=== PATIENT | male | born 1945 | race Caucasian/White ===

== ENCOUNTER → 2016-09-07 | Outpatient (CLI) | payer OTHER ==
[~2016-09-07] MED LIST: ASPCH81X PO; ATOR10TA82 PO; CLIN1GEL29 TOP; COLE625T PO; DOXY100C76 PO; FINA5TAB4 PO; GLIM1TAB2 PO; IBUP-103 PO; LSN40 PO; LZL25 PO; METF500T5 PO; METO25TA3 PO; MULT-506 PO; NRV/5 PO; POTA20TA16 PO; SITA100T3 PO; TAMS0.4C38 PO
--- NOTE | 2016-09-14 10:11 | CODING QUERY MEDICAL NECESSITY ---
CQSUPPORTING DIAGNOSIS NEEDED A supporting diagnosis is required for the test/procedure performed on this patient in order for us to be reimbursed by the patient's insurance. Please provide a supporting diagnosis for the following test/procedure listed below next to the test name along with your signature. *If there is no additional diagnosis for this patient that would support the following test/procedure please document that below next to the test/procedure. Test(s)/Procedure(s) that require a supporting diagnosis: DOS 09/07/16 VITAMIN B6 VITAMIN B12 Provider Signature: Date: Thank you Bailee Cano Health Information Management Once completed, please kindly fax back to [phone] For questions please call [phone]
== END | disposition home or self-care (01) ==
LOC: C.LAB 14:55
PROVIDERS: ATTEND Psychiatry & Neurology Neurology
DX: E53.8 Deficiency of other specified B group vitamins (principal); T45.2X5A Adverse effect of vitamins, initial encounter; X58.XXXA Exposure to other specified factors, initial encounter

== ENCOUNTER → 2017-01-22 | Outpatient (CLI) | payer OTHER ==
[~2017-01-22] MED LIST changes: -ATOR10TA82 PO; +ATOR10TA88 PO
== END | disposition home or self-care (01) ==
LOC: C.LAB 17:32
PROVIDERS: ATTEND Urology
DX: N40.0 Benign prostatic hyperplasia without lower urinary tract symptoms (principal)

== ENCOUNTER 2024-01-08 00:01 | Observation (INO) ==
[2024-01-08 00:46] LABS: Appearance Urine Clear (Clear); Bilirubin Urine Negative (Negative); Blood Urine Negative (Negative); Color Urine Yellow; Glucose Urine UA Negative (Negative); Ketones Urine Trace (Negative); Leukocyte Esterase Urine Negative (Negative); Nitrite Urine Negative (Negative); Protein Urine Negative (Negative); Specific Gravity Urine 1.014 (1.000-1.030); Urobilinogen Urine Negative (Negative)
[2024-01-08 01:20] LABS: Basophils # (auto) 0.02 K/uL (0.00-0.20); Basophils % (auto) 0.2 %; Eosinophils # (auto) 0.22 K/uL (0.00-0.50); Eosinophils % (auto) 2.2 %; Hematocrit (blood only) 36.3 % (42.0-52.0); Hemoglobin 12.3 g/dl (14.0-18.0); Immature Granulocytes # (auto) 0.03 K/uL (0.01-0.20); Immature Granulocytes % (auto) 0.3 %; Lymphocytes # (auto) 2.14 K/uL (1.20-3.40); Lymphocytes % (auto) 21.6 %; Mean Corpuscular Hemoglobin 29.1 pg (25.0-34.0); Mean Corpuscular Hgb Conc 33.9 g/dL (32.0-36.0); Mean Corpuscular Volume 85.8 fL (80.0-100.0); Mean Platelet Volume 12.1 fL (9.4-12.4); Monocytes # (auto) 1.01 K/uL (0.11-0.59); Monocytes % (auto) 10.2 %; Neutrophils % (auto) 65.5 %; Platelet Count 259 K/uL (130-400); RDW Coefficient of Variation 12.8 % (11.5-14.5); RDW Standard Deviation 39.6 fL (36.4-46.3); Red Blood Count 4.23 M/uL (4.70-6.10); White Blood Count 9.92 K/ul (4.8-10.8)
[2024-01-08 01:36] LABS: Alanine Aminotransferase 14 U/L (7-52); Albumin Globulin Ratio 1.3 (0.9-2); Alkaline Phosphatase 94 U/L (34-104); Anion Gap 12 (3-11); BUN Creatinine Ratio 18.2 (10-20); Bilirubin,Total 0.5 mg/dl (0.2-1.0); Blood Urea Nitrogen 24 mg/dl (6-23); Calcium 9.7 mg/dl (8.6-10.3); Carbon Dioxide 26 mmol/L (21-32); Chloride 101 mmol/L (98-107); Creatinine Clr Calc Pharmacy 50.6 ml/min; Est GFR (African American) 59.5 ml/min; Est GFR (Non-African American) 51.3 ml/min; Glucose 138 mg/dl (70-99(Fasting)); Sodium 139 mmol/L (136-145)
[2024-01-08 01:38] LABS: Thyroid Stimulating Hormone 6.171 uIu/ml (0.300-4.500)
[2024-01-08 02:26] LABS: T4 Free Thyroxine 1.22 ng/dl (0.61-1.60)
--- NOTE | 2024-01-08 02:39 | CT Scan Report ---
Exam(s): CT HEAD Without Contrast EXAM: CT Head Without Intravenous Contrast CLINICAL HISTORY: Reason for exam: altered . TECHNIQUE: Axial computed tomography images of the head/brain without intravenous contrast. Automated exposure control was utilized for the study. A dose lowering technique was utilized adhering to the principles of ALARA. COMPARISON: No relevant prior studies available. FINDINGS: No acute intracranial hemorrhage. No midline shift or mass effect. The territorial alvarenga-white matter differentiation is maintained throughout. Age-related cerebral volume loss. Periventricular and subcortical white matter hypoattenuation, consistent with chronic microangiopathy. The visualized orbits appear grossly unremarkable. The calvarium is intact. The visualized paranasal sinuses and mastoid air cells are grossly clear. IMPRESSION: No acute intracranial hemorrhage, midline shift, or mass effect. Electronically signed by: Jose Valdivia MD 01/08/24 02:38 AM
[2024-01-08 03:08] LABS: Potassium 3.3 mmol/L (3.5-5.1)
--- NOTE | 2024-01-08 03:55 | Emergency Department Note ---
Impression & Plan Elevated troponin, Weakness, Acute alteration in mental status admit to the [facility] ED Provider Note NAME: SPENCER GRIFFITH AGE: 78 SEX: Male INFORMANT: Patient ED PROVIDER(S): Danna Collins DO CHIEF COMPLAINT: Abdominal pain and altered mental status PLAN: Disposition: admit to the [facility] MEDICAL DECISION MAKING: this is a 78-year-old male patient who presents to the emergency department at the direction of his who states that he was not acting normal. Patient described having abdominal pressure throughout the day today. Patient himself complained of being dizzy and weak. patient then began to develop some hallucinations tonight which was concerning for the and she called EMS. Laboratory studies reveal no leukocytosis. Hemoglobin is down to 12.3. BUN is 24 and creatinine was 1.3. Glucose was 138. TSH was elevated but free T4 was normal. Patient's troponin was significantly elevated at 329. Patient went for a CT scan of the brain which was unremarkable. Patient had an EKG which showed some evidence of ST segment depression in the lateral leads and was noted to have an elevated troponin. He did deny any chest discomfort or shortness of breath. Care/management discussed with: manager building spoke with the patient's Triage Nursing notes: reviewed and agree with them. Vital Signs: reviewed and unremarkable Additional History obtained from: the patient's on the phone Chronic Medical/Social Conditions affecting care: Patient is wheelchair-bound at baseline Differential Diagnosis: intracranial process, UTI, dehydration, metabolic encephalopathy Diagnostics, independently interpreted by me: ECG: sinus tachycardia at a rate of 103 with PVCs. Patient has mild ST segment depression in the lateral leads compared to an EKG from 2013 Cardiac Monitoring: normal sinus rhythm at 92 Imaging studies: CT scan of the brain as per stat rad portable chest x-ray: As per my independent interpretation-sternotomy wires noted but no significant pulmonary infiltrates or consolidation appreciated. HPI: 78 year old Male arrives and complains of abdominal pressure and dizziness. The patient's explains he had increasing weakness throughout the day today along with some confusion. By nighttime, the patient was having hallucinations. PAST MEDICAL HISTORY: See Below, PAST SURGICAL HISTORY: See Below, SOCIAL HISTORY: See Below, HOME MEDICATIONS: see list ALLERGIES: none VITALS: See Below PHYSICAL EXAMINATION: HEENT: Head - normocephalic and atraumatic. Pupils are equal, round, and reactive to light. Extraocular eye muscles are intact and sclera are anicteric. Nose - moist nasal mucosa without discharge. Mouth - moist buccal mucosa. Oropharynx is nonerythematous and there is no tonsillar exudate or edema noted. Neck: Supple; no JVD, nuchal rigidity, cervical lymphadenopathy, or auscultated bruits. Heart: Regular rate and rhythm. There is a normal S1 and S2 with no murmurs, clicks, or gallops appreciated. Lungs: Clear to auscultation bilaterally with no wheezes, rales, or rhonchi. Abdomen: Soft, completely nontender, nondistended, with good bowel sounds. There are no palpable pulsatile masses or hepatosplenomegaly. There is no guarding, rigidity, or rebound noted. Extremities: No evidence of cyanosis, clubbing, or edema. There are easily palpable peripheral pulses. Neuro:The patient is awake and alert, oriented to day, time, and place. Neurological exam was essentially nonfocal. The patient has a history of significant generalized weakness and is wheelchair-bound. Emergency Department course: The patient was evaluated in room B-6. A complete history and physical was performed. IV lock was initiated and labs were drawn as above. An order was placed for continuous cardiac monitoring. Patient was in a normal sinus rhythm at a rate of 92. Of note, the patient seemed extremely weak and stiff on my exam. The patient went for CT scan of the brain Which was unremarkable. Theatric casey saw operator spoke with the patient's who voiced concerns about her ability to care for the patient at home and his significant increased weakness. 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 Lower back pain Encounter for pre-operative examination Hematuria (Chronic) Diabetes (Chronic) Acute urinary retention (Acute) Acute urinary retention (Acute) Bilateral lower extremity edema (Acute) Medical History Benign prostatic hyperplasia with urinary obstruction Acute urinary retention Osteoarthritis BPH (benign prostatic hyperplasia) Diabetes mellitus, type 2 Peripheral neuropathy Hyperlipidemia Hypertension Sleep apnea Surgical History H/O removal of cyst S/P foot surgery, right History of tonsillectomy History of appendectomy Previous back surgery S/P TURP History of heart valve replacement Family History Family/Other Family history of diabetes mellitus Social History Smoking Status: Never smoker Second Hand Exposure: No; Do You Dip or Chew Tobacco: No; Hx Alcohol Use: No Hx Substance Use: No Preferred Language: Sinhala Communication Ability: Effective Multi Operation Machine Operator Required: No Beliefs That Will Affect Care: None Current Living Situation: Spouse Feels Safe at Home: Yes Assistive Devices: Contacts, CPAP and Walker Allergies Allergies Allergy/AdvReac Type Severity Reaction Status Date / Time No Known Allergies Allergy Verified 11/29/22 12:53 Home Meds Home Medications Medication Instructions Recorded Confirmed amlodipine 5 mg tablet 5 mg PO QAM 02/13/18 01/08/24 atorvastatin 10 mg tablet 10 mg PO QAM 02/13/18 01/08/24 clindamycin phosphate 1 % topical 1 applic topical BID 02/13/18 01/08/24 solution doxycycline monohydrate 50 mg 50 mg PO QPM 02/13/18 01/08/24 tablet ibuprofen 200 mg tablet 400 mg PO BID 02/13/18 01/08/24 indapamide 2.5 mg tablet 2.5 mg PO QAM 02/13/18 01/08/24 lisinopril 40 mg tablet 40 mg PO QAM 02/13/18 01/08/24 metformin 1,000 mg tablet,extended 2,000 mg PO QAM 02/13/18 01/08/24 release 24hr (osmotic) metoprolol succinate 25 mg 25 mg PO QAM 02/13/18 01/08/24 tablet,extended release 24 hr potassium chloride 20 mEq 20 meq PO BID 02/13/18 01/08/24 tablet,extended release sitagliptin phosphate 100 mg 100 mg PO QAM 02/13/18 01/08/24 tablet (Januvia) threonine (bulk) (L-Threonine 1 tab miscellaneous HS 02/13/18 11/29/22 crystals) Cyanacobalamin 1,000 mcg PO DAILY 01/08/24 01/08/24 Flonase 01/08/24 bethanechol chloride 50 mg tablet 50 mg PO 1XD 01/08/24 01/08/24 srveanimrfip-[id number] tablet 1 tab PO DAILY 01/08/24 01/08/24 Previous Rx's Medication Instructions Recorded tamsulosin 0.4 mg capsule See Rx Instructions .Route 11/25/23 .COMPLEX #90 caps finasteride 5 mg tablet 5 mg PO DAILY #90 tabs 12/05/23 Results & Data (ED) Vital Signs Vital Signs - 24 hr 01/08/24 00:04 01/08/24 00:04 01/08/24 00:04 Temperature 37.4 C 37.4 C Temperature Source Oral Oral Pulse Rate 103 H Pulse Rate [Finger] 103 H Pulse Rate from SpO2 Sensor Pulse Rhythm Regular Pulse Rhythm [Finger] Regular Pulse Strength Normal Pulse Strength [Finger] Normal Respiratory Rate 18 18 Respiratory Effort / Characteristics Non-Labored Non-Labored Respiratory Depth Normal Normal Respiratory Pattern Regular Regular Blood Pressure Blood Pressure [Left Arm] 148/85 H Blood Pressure Mean Blood Pressure Mean [Left Arm] 106 Pulse Oximetry 98 98 98 Oxygen Delivery Method Room Air Room Air Room Air Sepsis Recent Fever Within 48 Hours No Sepsis New/Unexplained Change in Mental Status No Sepsis Action Taken by Nursing No Action Required 01/08/24 00:12 01/08/24 00:29 01/08/24 01:00 Temperature Temperature Source Pulse Rate 99 H 95 H Pulse Rate [Finger] Pulse Rate from SpO2 Sensor 99 H Pulse Rhythm Pulse Rhythm [Finger] Pulse Strength Pulse Strength [Finger] Respiratory Rate 16 Respiratory Effort / Characteristics Respiratory Depth Respiratory Pattern Blood Pressure Blood Pressure [Left Arm] Blood Pressure Mean Blood Pressure Mean [Left Arm] Pulse Oximetry 98 96 Oxygen Delivery Method Room Air Room Air Sepsis Recent Fever Within 48 Hours Sepsis New/Unexplained Change in Mental Status Sepsis Action Taken by Nursing 01/08/24 01:46 01/08/24 02:00 01/08/24 02:42 Temperature Temperature Source Pulse Rate 96 H 92 H Pulse Rate [Finger] Pulse Rate from SpO2 Sensor 92 H 98 H Pulse Rhythm Pulse Rhythm [Finger] Pulse Strength Pulse Strength [Finger] Respiratory Rate 16 17 Respiratory Effort / Characteristics Respiratory Depth Respiratory Pattern Blood Pressure 149/92 H 154/84 H Blood Pressure [Left Arm] Blood Pressure Mean 114 123 Blood Pressure Mean [Left Arm] Pulse Oximetry 97 97 Oxygen Delivery Method Room Air Room Air Sepsis Recent Fever Within 48 Hours Sepsis New/Unexplained Change in Mental Status Sepsis Action Taken by Nursing 01/08/24 03:30 01/08/24 04:24 01/08/24 04:30 Temperature Temperature Source Pulse Rate 100 H 92 H 94 H Pulse Rate [Finger] Pulse Rate from SpO2 Sensor 89 97 H Pulse Rhythm Pulse Rhythm [Finger] Pulse Strength Pulse Strength [Finger] Respiratory Rate 19 18 Respiratory Effort / Characteristics Respiratory Depth Respiratory Pattern Blood Pressure 153/86 H 155/82 H Blood Pressure [Left Arm] Blood Pressure Mean 108 106 Blood Pressure Mean [Left Arm] Pulse Oximetry 96 97 Oxygen Delivery Method Room Air Room Air Sepsis Recent Fever Within 48 Hours Sepsis New/Unexplained Change in Mental Status Sepsis Action Taken by Nursing 01/08/24 05:00 01/08/24 05:27 01/08/24 06:33 Temperature Temperature Source Pulse Rate 93 H 109 H 99 H Pulse Rate [Finger] Pulse Rate from SpO2 Sensor 100 H Pulse Rhythm Pulse Rhythm [Finger] Pulse Strength Pulse Strength [Finger] Respiratory Rate 20 20 17 Respiratory Effort / Characteristics Respiratory Depth Respiratory Pattern Blood Pressure 156/96 H 144/95 H 147/95 H Blood Pressure [Left Arm] Blood Pressure Mean 116 111 112 Blood Pressure Mean [Left Arm] Pulse Oximetry 98 95 96 Oxygen Delivery Method Room Air Room Air Room Air Sepsis Recent Fever Within 48 Hours Sepsis New/Unexplained Change in Mental Status Sepsis Action Taken by Nursing Laboratory Data 01/08/24 00:13 01/08/24 02:10 Lab Results 01/08/24 01/08/24 01/08/24 Range/Units 00:13 00:15 02:10 WBC 9.92 (4.8-10.8) K/ul RBC 4.23 L (4.70-6.10) M/uL Hgb 12.3 L (14.0-18.0) g/dl Hct 36.3 L (42.0-52.0) % MCV 85.8 (80.0-100.0) fL MCH 29.1 (25.0-34.0) pg MCHC 33.9 (32.0-36.0) g/dL RDW Std Deviation 39.6 (36.4-46.3) fL RDW Coeff of Lianna 12.8 (11.5-14.5) % Plt Count 259 (130-400) K/uL MPV 12.1 (9.4-12.4) fL Immature Gran % (Auto) 0.3 % Neut % (Auto) 65.5 % Lymph % (Auto) 21.6 % [place] % (Auto) 10.2 % Eos % (Auto) 2.2 % Baso % (Auto) 0.2 % Neut # (Auto) 6.50 (1.40-6.50) K/uL Lymph # (Auto) 2.14 (1.20-3.40) K/uL [place] # (Auto) 1.01 H (0.11-0.59) K/uL Eos # (Auto) 0.22 (0.00-0.50) K/uL Baso # (Auto) 0.02 (0.00-0.20) K/uL Immature Gran # (Auto) 0.03 (0.01-0.20) K/uL Sodium 139 (136-145) mmol/L Potassium TNP 3.3 L Chloride 101 (98-107) mmol/L Carbon Dioxide 26 (21-32) mmol/L Anion Gap 12 H (3-11) BUN 24 H (6-23) mg/dl Creatinine 1.32 (0.6-1.4) mg/dl Est Cr Clr Drug Dosing 50.6 ml/min Est GFR ( Amer) 59.5 ml/min Est GFR (Non-Af Amer) 51.3 ml/min BUN/Creatinine Ratio 18.2 (10-20) Glucose 138 H (70-99(Fasting)) mg/dl Calcium 9.7 (8.6-10.3) mg/dl Magnesium (1.7-2.4) mg/dl Total Bilirubin 0.5 (0.2-1.0) mg/dl AST TNP 18 ALT 14 (7-52) U/L Alkaline Phosphatase 94 (34-104) U/L Total Creatine Kinase (30-223) U/L Troponin I High Sens 387.8 H* 329.6 H* (0-20) pg/ml Total Protein 7.0 (6.0-8.3) gm/dl Albumin 4.0 (3.4-5.0) gm/dl Globulin 3.0 (2.5-4.0) gm/dl Albumin/Globulin Ratio 1.3 (0.9-2) TSH 6.171 H (0.300-4.500) uIu/ml Free T4 1.22 (0.61-1.60) ng/dl Urine Color Yellow Urine Appearance Clear (Clear) Urine pH 5.0 (4.5-7.5) Ur Specific [place] 1.014 (1.000-1.030) Urine Protein Negative (Negative) Urine Glucose (UA) Negative (Negative) Urine Ketones Trace H (Negative) Urine Blood Negative (Negative) Urine Nitrite Negative (Negative) Urine Bilirubin Negative (Negative) Urine Urobilinogen Negative (Negative) Ur Leukocyte Esterase Negative (Negative) Adenovirus (PCR) (NotDetected) B. pertussis DNA (PCR) (NotDetected) B.parapertussis DNA PCR (NotDetected) C. pneumoniae DNA (PCR) (NotDetected) Coronavirus OC43 (PCR) (NotDetected) Coronavirus HKU1 (PCR) (NotDetected) Coronavirus 229E (PCR) (NotDetected) SARS-CoV-2 (PCR) (NotDetected) Coronavirus NL63 (PCR) (NotDetected) Human Metapneumovir PCR (NotDetected) Influenza Type A (PCR) (NotDetected) Influenza Type B (PCR) (NotDetected) M. pneumoniae (PCR) (NotDetected) Parainfluenza 1 (PCR) (NotDetected) Parainfluenza 2 (PCR) (NotDetected) Parainfluenza 3 (PCR) (NotDetected) Parainfluenza 4 (PCR) (NotDetected) RSV (PCR) (NotDetected) Entero/Rhino (PCR) (NotDetected) 01/08/24 01/08/24 Range/Units 05:41 06:06 WBC (4.8-10.8) K/ul RBC (4.70-6.10) M/uL Hgb (14.0-18.0) g/dl Hct (42.0-52.0) % MCV (80.0-100.0) fL MCH (25.0-34.0) pg MCHC (32.0-36.0) g/dL RDW Std Deviation (36.4-46.3) fL RDW Coeff of Lianna (11.5-14.5) % Plt Count (130-400) K/uL MPV (9.4-12.4) fL Immature Gran % (Auto) % Neut % (Auto) % Lymph % (Auto) % [place] % (Auto) % Eos % (Auto) % Baso % (Auto) % Neut # (Auto) (1.40-6.50) K/uL Lymph # (Auto) (1.20-3.40) K/uL [place] # (Auto) (0.11-0.59) K/uL Eos # (Auto) (0.00-0.50) K/uL Baso # (Auto) (0.00-0.20) K/uL Immature Gran # (Auto) (0.01-0.20) K/uL Sodium (136-145) mmol/L Potassium Chloride (98-107) mmol/L Carbon Dioxide (21-32) mmol/L Anion Gap (3-11) BUN (6-23) mg/dl Creatinine (0.6-1.4) mg/dl Est Cr Clr Drug Dosing ml/min Est GFR ( Amer) ml/min Est GFR (Non-Af Amer) ml/min BUN/Creatinine Ratio (10-20) Glucose (70-99(Fasting)) mg/dl Calcium (8.6-10.3) mg/dl Magnesium 1.5 L (1.7-2.4) mg/dl Total Bilirubin (0.2-1.0) mg/dl AST ALT (7-52) U/L Alkaline Phosphatase (34-104) U/L Total Creatine Kinase 81 (30-223) U/L Troponin I High Sens (0-20) pg/ml Total Protein (6.0-8.3) gm/dl Albumin (3.4-5.0) gm/dl Globulin (2.5-4.0) gm/dl Albumin/Globulin Ratio (0.9-2) TSH (0.300-4.500) uIu/ml Free T4 (0.61-1.60) ng/dl Urine Color Urine Appearance (Clear) Urine pH (4.5-7.5) Ur Specific [place] (1.000-1.030) Urine Protein (Negative) Urine Glucose (UA) (Negative) Urine Ketones (Negative) Urine Blood (Negative) Urine Nitrite (Negative) Urine Bilirubin (Negative) Urine Urobilinogen (Negative) Ur Leukocyte Esterase (Negative) Adenovirus (PCR) Not Detected (NotDetected) B. pertussis DNA (PCR) Not Detected (NotDetected) B.parapertussis DNA PCR Not Detected (NotDetected) C. pneumoniae DNA (PCR) Not Detected (NotDetected) Coronavirus OC43 (PCR) Not Detected (NotDetected) Coronavirus HKU1 (PCR) Not Detected (NotDetected) Coronavirus 229E (PCR) Not Detected (NotDetected) SARS-CoV-2 (PCR) Not Detected (NotDetected) Coronavirus NL63 (PCR) Not Detected (NotDetected) Human Metapneumovir PCR Not Detected (NotDetected) Influenza Type A (PCR) Not Detected (NotDetected) Influenza Type B (PCR) Not Detected (NotDetected) M. pneumoniae (PCR) Not Detected (NotDetected) Parainfluenza 1 (PCR) Not Detected (NotDetected) Parainfluenza 2 (PCR) Not Detected (NotDetected) Parainfluenza 3 (PCR) Not Detected (NotDetected) Parainfluenza 4 (PCR) Not Detected (NotDetected) RSV (PCR) Not Detected (NotDetected) Entero/Rhino (PCR) Not Detected (NotDetected) Administered Medications Potassium Chloride/Sodium Chloride (Normal Saline W/20 Meq Kcl) 20 meq in 1,000 mls @ 75 mls/hr IV .[id number]; Protocol Stop: 01/08/24 17:58 Last Admin: 01/08/24 06:03 Dose: 75 mls/hr Documented By: S Imaging Data Radiologist's Impression: Head CT 01/08/24 01:15 Exam(s): CT HEAD Without Contrast EXAM: CT Head Without Intravenous Contrast CLINICAL HISTORY: Reason for exam: altered . TECHNIQUE: Axial computed tomography images of the head/brain without intravenous contrast. Automated exposure control was utilized for the study. A dose lowering technique was utilized adhering to the principles of ALARA. COMPARISON: No relevant prior studies available. FINDINGS: No acute intracranial hemorrhage. No midline shift or mass effect. The territorial alvarenga-white matter differentiation is maintained throughout. Age-related cerebral volume loss. Periventricular and subcortical white matter hypoattenuation, consistent with chronic microangiopathy. The visualized orbits appear grossly unremarkable. The calvarium is intact. The visualized paranasal sinuses and mastoid air cells are grossly clear. IMPRESSION: No acute intracranial hemorrhage, midline shift, or mass effect. Electronically signed by: Jose Valdivia MD 01/08/24 02:38 AM Discharge Plan Visit Data Chief Complaint: Altered Mental Status Stated Complaint: AMS ED Provider: Danna Collins Discharge Problem: Elevated troponin, Weakness, Acute alteration in mental status Forms Stand Alone Forms: My [facility] Prescriptions Prescriptions: No Action tamsulosin 0.4 mg capsule See Rx Instructions .ROUTE .COMPLEX Qty: 90 3RF Dose Instruction: TAKE 1 CAPSULE DAILY Rx Instructions: TAKE 1 CAPSULE DAILY finasteride 5 mg tablet 5 mg PO DAILY Qty: 90 3RF atorvastatin 10 mg Tablet 10 mg PO QAM doxycycline monohydrate 50 mg Tablet 50 mg PO QPM indapamide 2.5 mg Tablet 2.5 mg PO QAM lisinopril 40 mg Tablet 40 mg PO QAM metformin 1,000 mg Tablet Extended Release 24hr 2,000 mg PO QAM amlodipine 5 mg Tablet 5 mg PO QAM metoprolol succinate 25 mg Tablet Extended Release 24 Hr 25 mg PO QAM clindamycin phosphate 1 % Solution 1 applic TOPICAL BID ibuprofen 200 mg Tablet 400 mg PO BID Januvia 100 mg Tablet 100 mg PO QAM potassium chloride 20 mEq Tablet Extended Release 20 meq PO BID threonine (bulk) [L-Threonine] Crystals 1 tab miscellaneous HS Cyanacobalamin 1,000 mcg PO DAILY Flonase Centrum Silver Tablet 1 tab PO DAILY bethanechol chloride 50 mg Tablet 50 mg PO 1XD Rx Instructions: 4 tablets by mouth in the morning Referrals Referrals: Blaine Solis MD [Primary Care Provider] -
--- NOTE | 2024-01-08 05:23 | History & Physical Report ---
Date of Service January 08, 2024 Assessment & Plan (1) Ambulatory dysfunction: Plan: Ambulatory dysfunction with deconditioning Progressive over the last few weeks troponin elevation possibly from elevated blood pressure documented at patient's home aortic stenosis status post bioprosthetic AVR Mild mitral stenosis hyperlipidemia, on statin Rx DM2 on oral medications, well-controlled as of recent hemoglobin A1c of 6 last October 2023 chronic anemia, hemoglobin at baseline Medical telemetry given troponin elevation Follow troponin TTE for progression ISS BG goal 1 10-1 40, carb count coverage PT OT eval Social service re: possible placement (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 Lovenox subcu Full code Patient requesting updates providers. Katlyn Montalvo, contact #[phone]. Text document was generated using [employer] voice recognition software. It may contain grammatical or spelling errors. Kindly contact undersigned for clarification of any documentation item in question. History of Present Illness Chief Complaint: weakness Primary Care Provider: Blaine Solis MD History obtained from patient and records. Medical history significant for aortic stenosis status post bioprosthetic AVR, hypertension, hyperlipidemia, VIKRAM as per records DM2 on oral medications, chronic anemia (baseline hemoglobin of 12), BPH. Over the last few weeks, patient noted to have increasing bilateral leg weakness and balance difficulties leading to falls. Patient having trouble even sitting up on bed on his own. Episode of confusion. Patient denies headache, chest pain, SOB, syncope, abdominal pain. Patient seen at PCPs office yesterday. Hospitalization recommended but patient and declined. Worsening symptoms noted at home. SBP 180s upon EMS arrival at patient's home Patient brought to ER for evaluation. 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 Allergies Allergy/AdvReac Type Severity Reaction Status Date / Time No Known Allergies Allergy Verified 11/29/22 12:53 Home Medications Medication Instructions Recorded Confirmed Type amlodipine 5 mg tablet 5 mg PO QAM 02/13/18 01/08/24 History atorvastatin 10 mg tablet 10 mg PO QAM 02/13/18 01/08/24 History clindamycin phosphate 1 % topical 1 applic topical BID 02/13/18 01/08/24 History solution doxycycline monohydrate 50 mg 50 mg PO QPM 02/13/18 01/08/24 History tablet ibuprofen 200 mg tablet 400 mg PO BID 02/13/18 01/08/24 History indapamide 2.5 mg tablet 2.5 mg PO QAM 02/13/18 01/08/24 History lisinopril 40 mg tablet 40 mg PO QAM 02/13/18 01/08/24 History metformin 1,000 mg tablet,extended 2,000 mg PO QAM 02/13/18 01/08/24 History release 24hr (osmotic) metoprolol succinate 25 mg 25 mg PO QAM 02/13/18 01/08/24 History tablet,extended release 24 hr potassium chloride 20 mEq 20 meq PO BID 02/13/18 01/08/24 History tablet,extended release sitagliptin phosphate 100 mg 100 mg PO QAM 02/13/18 01/08/24 History tablet (Januvia) threonine (bulk) (L-Threonine 1 tab miscellaneous HS 02/13/18 01/08/24 History crystals) tamsulosin 0.4 mg capsule See Rx Instructions .Route 11/25/23 01/08/24 Rx .COMPLEX #90 caps finasteride 5 mg tablet 5 mg PO DAILY #90 tabs 12/05/23 01/08/24 Rx Cyanacobalamin 1,000 mcg PO DAILY 01/08/24 01/08/24 History Flonase 1 spray intranasal DIRECTED PRN 01/08/24 01/08/24 History Allergy Symptoms bethanechol chloride 50 mg tablet 50 mg PO 1XD 01/08/24 01/08/24 History reykxvzfscio-ggrtlrbn-ifkcqr tablet 1 tab PO DAILY 01/08/24 01/08/24 History Past Med/Surg History Problem List (Updated 01/08/24 @ 08:12 by Tre Cummins MD) Ambulatory dysfunction Acute alteration in mental status (Acute) Weakness (Acute) Elevated troponin (Acute) 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 Lower back pain Encounter for pre-operative examination Hematuria (Chronic) Diabetes (Chronic) Acute urinary retention (Acute) Acute urinary retention (Acute) Bilateral lower extremity edema (Acute) Medical History Benign prostatic hyperplasia with urinary obstruction Acute urinary retention Osteoarthritis BPH (benign prostatic hyperplasia) Diabetes mellitus, type 2 Peripheral neuropathy Hyperlipidemia Hypertension Sleep apnea Surgical History H/O removal of cyst S/P foot surgery, right History of tonsillectomy History of appendectomy Previous back surgery S/P TURP History of heart valve replacement Family History Family/Other Family history of diabetes mellitus Social History Smoking Status: Never smoker Second Hand Exposure: No; Do You Dip or Chew Tobacco: No; Hx Alcohol Use: No Hx Substance Use: No Preferred Language: Estonian Communication Ability: Effective Retort Unloader Required: No Beliefs That Will Affect Care: None Current Living Situation: Spouse Feels Safe at Home: Yes Assistive Devices: Contacts, CPAP and Walker Review of Systems Review of Systems: As per HPI, all other systems reviewed and negative Physical Exam Physical Exam: GENERAL: Comfortable, pleasant, no respiratory distress SKIN: Pallor, warm HEENT: Alopecia, pale palpebral conjunctivae, no ptosis, dry buccal mucosa NECK : Supple, no tenderness CHEST : CTA, no tenderness HEART : RRR, systolic murmur ABDOMEN: Some distention, nontender EXTREMITIES : No LE swelling/tenderness, no other conspicuous deformities noted NEUROLOGIC : Coherent, no facial asymmetry; MMTS BUE 4/5, BLE 3/5, gait and stance not assessed Results & Data Results & Data Vital Signs (Past 12 Hours) Vital Signs Temp Pulse Pulse Resp BP BP Pulse Ox 01/08/24 04:24 92 H 01/08/24 02:42 92 H 17 97 01/08/24 02:00 96 H 16 154/84 H 97 01/08/24 01:46 149/92 H 01/08/24 01:00 95 H 16 96 01/08/24 00:29 99 H 01/08/24 00:12 98 01/08/24 00:04 37.4 C 103 H 18 98 01/08/24 00:04 37.4 C 103 H 18 148/85 H 98 01/08/24 00:04 98 O2 Del Method 01/08/24 04:24 01/08/24 02:42 Room Air 01/08/24 02:00 Room Air 01/08/24 01:46 01/08/24 01:00 Room Air 01/08/24 00:29 01/08/24 00:12 Room Air 01/08/24 00:04 Room Air 01/08/24 00:04 Room Air 01/08/24 00:04 Room Air Laboratory Results Laboratory Results WBC 9.92 K/ul (4.8-10.8) 01/08/24 00:13 RBC 4.23 M/uL (4.70-6.10) L 01/08/24 00:13 Hgb 12.3 g/dl (14.0-18.0) L 01/08/24 00:13 Hct 36.3 % (42.0-52.0) L 01/08/24 00:13 MCV 85.8 fL (80.0-100.0) 01/08/24 00:13 MCH 29.1 pg (25.0-34.0) 01/08/24 00:13 MCHC 33.9 g/dL (32.0-36.0) 01/08/24 00:13 RDW Std Deviation 39.6 fL (36.4-46.3) 01/08/24 00:13 RDW Coeff of Lianna 12.8 % (11.5-14.5) 01/08/24 00:13 Plt Count 259 K/uL (130-400) 01/08/24 00:13 MPV 12.1 fL (9.4-12.4) 01/08/24 00:13 Immature Gran % (Auto) 0.3 % 01/08/24 00:13 Neut % (Auto) 65.5 % 01/08/24 00:13 Lymph % (Auto) 21.6 % 01/08/24 00:13 [place] % (Auto) 10.2 % 01/08/24 00:13 Eos % (Auto) 2.2 % 01/08/24 00:13 Baso % (Auto) 0.2 % 01/08/24 00:13 Neut # (Auto) 6.50 K/uL (1.40-6.50) 01/08/24 00:13 Lymph # (Auto) 2.14 K/uL (1.20-3.40) 01/08/24 00:13 [place] # (Auto) 1.01 K/uL (0.11-0.59) H 01/08/24 00:13 Eos # (Auto) 0.22 K/uL (0.00-0.50) 01/08/24 00:13 Baso # (Auto) 0.02 K/uL (0.00-0.20) 01/08/24 00:13 Immature Gran # (Auto) 0.03 K/uL (0.01-0.20) 01/08/24 00:13 Sodium 139 mmol/L (136-145) 01/08/24 00:13 Potassium 3.3 mmol/L (3.5-5.1) L 01/08/24 02:10 Chloride 101 mmol/L (98-107) 01/08/24 00:13 Carbon Dioxide 26 mmol/L (21-32) 01/08/24 00:13 Anion Gap 12 (3-11) H 01/08/24 00:13 BUN 24 mg/dl (6-23) H 01/08/24 00:13 Creatinine 1.32 mg/dl (0.6-1.4) 01/08/24 00:13 Est Cr Clr Drug Dosing 50.6 ml/min 01/08/24 00:13 Est GFR ( Amer) 59.5 ml/min 01/08/24 00:13 Est GFR (Non-Af Amer) 51.3 ml/min 01/08/24 00:13 BUN/Creatinine Ratio 18.2 (10-20) 01/08/24 00:13 Glucose 138 mg/dl (70-99(Fasting)) H 01/08/24 00:13 Calcium 9.7 mg/dl (8.6-10.3) 01/08/24 00:13 Total Bilirubin 0.5 mg/dl (0.2-1.0) 01/08/24 00:13 AST 18 U/L (13-39) 01/08/24 02:10 ALT 14 U/L (7-52) 01/08/24 00:13 Alkaline Phosphatase 94 U/L (34-104) 01/08/24 00:13 Total Protein 7.0 gm/dl (6.0-8.3) 01/08/24 00:13 Albumin 4.0 gm/dl (3.4-5.0) 01/08/24 00:13 Globulin 3.0 gm/dl (2.5-4.0) 01/08/24 00:13 Albumin/Globulin Ratio 1.3 (0.9-2) 01/08/24 00:13 TSH 6.171 uIu/ml (0.300-4.500) H 01/08/24 00:13 Free T4 1.22 ng/dl (0.61-1.60) 01/08/24 00:13 Urine Color Yellow 01/08/24 00:15 Urine Appearance Clear (Clear) 01/08/24 00:15 Urine pH 5.0 (4.5-7.5) 01/08/24 00:15 Ur Specific [place] 1.014 (1.000-1.030) 01/08/24 00:15 Urine Protein Negative (Negative) 01/08/24 00:15 Urine Glucose (UA) Negative (Negative) 01/08/24 00:15 Urine Ketones Trace (Negative) H 01/08/24 00:15 Urine Blood Negative (Negative) 01/08/24 00:15 Urine Nitrite Negative (Negative) 01/08/24 00:15 Urine Bilirubin Negative (Negative) 01/08/24 00:15 Urine Urobilinogen Negative (Negative) 01/08/24 00:15 Ur Leukocyte Esterase Negative (Negative) 01/08/24 00:[address] 01/08/24 01:15 Exam(s): CT HEAD Without Contrast EXAM: CT Head Without Intravenous Contrast CLINICAL HISTORY: Reason for exam: altered . TECHNIQUE: Axial computed tomography images of the head/brain without intravenous contrast. Automated exposure control was utilized for the study. A dose lowering technique was utilized adhering to the principles of ALARA. COMPARISON: No relevant prior studies available. FINDINGS: No acute intracranial hemorrhage. No midline shift or mass effect. The territorial alvarenga-white matter differentiation is maintained throughout. Age-related cerebral volume loss. Periventricular and subcortical white matter hypoattenuation, consistent with chronic microangiopathy. The visualized orbits appear grossly unremarkable. The calvarium is intact. The visualized paranasal sinuses and mastoid air cells are grossly clear. IMPRESSION: No acute intracranial hemorrhage, midline shift, or mass effect. Electronically signed by: Jose Valdivia MD 01/08/24 02:38 AM Diagnostic Findings Chest x-ray as per my interpretation cardiomegaly EKG as per my interpretation : Rate 105, sinus tachycardia, normal axis, T wave abnormalities inferior leads, PVCs
[2024-01-08 05:34] LABS: Troponin I High Sensitivity 387.8 pg/ml (0-20)
[2024-01-08] MEDS ORDERED: PROMETHAZINE 6.25 MG/50.25 ML BAG IV PRN (05:37)
[2024-01-08] MEDS: NSS + 20MEQ KCL 20 MEQ/1,000 ML BAG IV ONE (06:03)
[2024-01-08 06:43] LABS: Troponin I High Sensitivity 329.6 pg/ml (0-20)
[2024-01-08 06:54] LABS: Adenovirus PCR Not Detected (NotDetected); Bordetella parapertussis PCR Not Detected (NotDetected); Bordetella pertussis PCR Not Detected (NotDetected); Chlamydia pneumoniae PCR Not Detected (NotDetected); Coronavirus 229E PCR Not Detected (NotDetected); Coronavirus CoV-2 (COVID19)PCR Not Detected (NotDetected); Coronavirus HKU1 PCR Not Detected (NotDetected); Coronavirus NL63 PCR Not Detected (NotDetected); Coronavirus OC43PCR Not Detected (NotDetected); Human Metapneumovirus PCR Not Detected (NotDetected); Influenza A PCR Not Detected (NotDetected); Influenza B PCR Not Detected (NotDetected); Mycoplasma pneumoniae PCR Not Detected (NotDetected); Parainfluenza Virus 1 PCR Not Detected (NotDetected); Parainfluenza Virus 2 PCR Not Detected (NotDetected); Parainfluenza Virus 3 PCR Not Detected (NotDetected); Parainfluenza Virus 4 PCR Not Detected (NotDetected); Respiratory Syncytial VirusPCR Not Detected (NotDetected); Rhinovirus/Enterovirus PCR Not Detected (NotDetected)
[2024-01-08 06:57] LABS: Magnesium 1.5 mg/dl (1.7-2.4)
--- NOTE | 2024-01-08 08:08 | XRay Report ---
SINGLE VIEW CHEST CLINICAL HISTORY: Generalized weakness. FINDINGS: An AP, portable, upright chest radiograph is compared to study dated 02/27/2013. The patien t is status post midline sternotomy. The heart is mildly enlarged noting atherosclerotic calcificatio n of the thoracic aorta. The pulmonary vasculature is noncongested. Chronic interstitial thickening s imilar to previous. The lungs and pleural spaces are clear. No pneumothorax is seen. The bony thorax is grossly intact. Arthritic change is seen in the shoulders. IMPRESSION: Mild cardiomegaly with no active disease in the chest. ACT 112: Negative or not required by law. Electronically signed by: Everardo Campuzano M.D. 01/08/2024 8:07 AM
[2024-01-08] MEDS: BETHANECHOL CHL 25 MG TAB PO SCH (08:52)
[2024-01-08] MEDS ORDERED: GLUCOSE 10 TAB/TUBE PO PRN (08:53)
[2024-01-08] MEDS ORDERED: GLUCAGON FOR INJ 1 MG VIAL SQ PRN (08:53)
[2024-01-08] MEDS ORDERED: CARBOHYDRATES FOR HYPOGLYCEMIA PO PRN (08:53)
[2024-01-08] MEDS ORDERED: DEXTROSE 50% 50 ML SYRINGE IV PRN (08:53)
[2024-01-08] MEDS ORDERED: GLUCOSE 40% GEL 15 GM TUBE PO PRN (08:53)
[2024-01-08] MEDS: amLODIPine BESYLATE 5 MG TAB PO SCH (08:53)
[2024-01-08] MEDS: METOPROLOL SUCC 25MG EXT REL TAB PO SCH (08:53)
[2024-01-08] MEDS: lisinopril 40 MG TAB PO SCH (08:53)
[2024-01-08] MEDS: ATORVASTATIN 10 MG TAB PO SCH (08:53)
[2024-01-08] MEDS: CEROVITE ADV FORMULA TAB PO SCH (08:53)
[2024-01-08] MEDS: FINASTERIDE 5 MG TAB PO SCH (08:53)
[2024-01-08] MEDS: CYANOCOBALAMIN (B-12) 500 MCG TABLET PO SCH (08:54)
[2024-01-08] MEDS: TAMSULOSIN HCL 0.4 MG CAP PO SCH (08:55)
[2024-01-08] MEDS: ENOXAPARIN INJ 40 MG/0.4 ML SYR SQ SCH (10:13)
[2024-01-08] MEDS: MAGNESIUM SULFATE / D5W 1 GM/100 ML BAG IV SCH (10:22)
--- OUTSIDE RECORDS SUMMARY | 2024-01-08 11:48 | External Medical Summary | Summary of Care ---
Author Name Unknown Organization [facility] Address [address] [place] [address] Phone [phone] Care Team Providers Care Door To Door Selling Distributor Name Role Phone Will GREWAL MD, Yanira Molina Primary Care Provider [phone] Reason for Visit * Reason Comments eRx-Medication Refill Encounter Details Date Type Department Care Team ([facility] st Contact Info) Description 12/09/2023 Refill Family Practice [facility] [address] [place] [address] Yanira Silver III, MD [address] [place] [address] Allergies Active Allergy Reactions Criticality Noted Date Comments Dog Dander 03/28/2017 documented as of this encounter (statuses as of 12/09/2023) Medications Medication Sig Dispensed Refills Start Date End Date Status FINASTERIDE 5 MG PO TABSIndications:D M type 2, goal A1c below 7 1 TABLET DAILY 01/16/2013 Active VITAMIN D 1000 UNITS PO CAPSIndications:D M type 2, goal A1c below 7 1 capsule daily 30 Cap 11 01/16/2013 Active TAMSULOSIN HCL 0.4 MG PO CAPS 2 tabs daily Active Ibuprofen 200 MG Oral TabletIndications :Shoulder tendinitis, right Take 2 Tablets by mouth 2 times a day as needed for Pain. 30 Tab 09/05/2016 Active Bethanechol Chloride 50 MG TABS Take 4 Tablets by mouth in the morning. Active Multiple Vitamins-Minerals (CENTRUM SILVER) Tablet take 1 tablet by oral route every day Active Doxycycline Hyclate 50 MG Oral Capsule (Vibramycin)Indic ations:Rosacea Take by mouth 1 Capsule in the morning. 90 Capsule 3 08/28/2021 Active Amoxicillin 500 MG Oral Capsule (Amoxil)Indicatio ns:S/P aortic valve replacement,SBE (subacute bacterial endocarditis) prophylaxis candidate Take four capsules one hour prior to dental appts 30 Capsule 3 09/17/2022 Active Clindamycin Phos-Benzoyl [place] 1-5 % External GelIndications:Ro sacea Apply topically to affected area daily. To face. 100 g 3 12/04/2022 Active Lisinopril 40 MG Oral TabletIndications :Type 2 diabetes mellitus with hemoglobin A1c goal of less than 7.0% (HCC),HTN, goal below 140/80 TAKE 1 TABLET DAILY 90 Tablet 3 12/27/2022 Active Indapamide 2.5 MG Oral Tablet (Lozol)Indication s:Type 2 diabetes mellitus with hemoglobin A1c goal of less than 7.0% (HCC) TAKE 1 TABLET DAILY 90 Tablet 3 12/27/2022 Active metFORMIN HCl ER 500 MG Oral Tablet Extended Release 24 Hour (Glucophage XR)Indications:Ty pe 2 diabetes mellitus with hemoglobin A1c goal of less than 8.0% (HCC) TAKE 4 TABLETS ONCE DAILY 360 Tablet 3 12/27/2022 Active Klor-Con M20 20 MEQ Oral Tablet Extended Release (Potassium Chloride ER) TAKE 1 TABLET TWICE A DAY 180 Tablet 3 02/08/2023 Active amLODIPine Besylate 5 MG Oral Tablet (Norvasc)Indicati ons:Type 2 diabetes mellitus with hemoglobin A1c goal of less than 7.0% (HCC),HTN, goal below 140/80 Take 1 Tablet by mouth in the morning. 90 Tablet 3 03/14/2023 Active Fluticasone Propionate 50 MCG/ACT Nasal Suspension (Flonase) USE 1 SPRAY IN EACH NOSTRIL DAILY NEEDED 48 g 2 07/08/2023 Active Metoprolol Succinate ER 25 MG Oral Tablet Extended Release 24 Hour (toPROL XL)Indications:Ty pe 2 diabetes mellitus with hemoglobin A1c goal of less than 8.0% (HCC),Aortic valve replaced TAKE 1 TABLET DAILY 90 Tablet 3 11/04/2023 Active Vitamin B-12 1000 MCG Oral Tablet (Cyanocobalamin) TAKE 1 TABLET DAILY 300 Tablet 11/05/2023 Active Atorvastatin Calcium 10 MG Oral Tablet (Lipitor)Indicati ons:Type 2 diabetes mellitus with hemoglobin A1c goal of less than 8.0% (HCC) TAKE 1 TABLET DAILY 90 Tablet 11/26/2023 Active Januvia 100 MG Oral Tablet (SITagliptin) TAKE 1 TABLET DAILY 90 Tablet 3 12/09/2023 Active Januvia 100 MG Oral Tablet (SITagliptin) TAKE 1 TABLET DAILY 90 Tablet 3 12/17/2022 4 Discontinued documented as of this encounter (statuses as of 12/09/2023) Active Problems Problem Noted Date Diagnosed Date HTN, goal below 140/90 07/08/2019 Vitamin B 12 deficiency 12/16/2018 Chronic constipation 02/06/2018 Diabetic peripheral angiopathy 10/18/2017 Dyslipidemia 10/18/2017 Overweight (BMI 25.0-29.9) 09/23/2017 DM type 2 with diabetic peripheral neuropathy Rosacea 03/28/2015 Type 2 diabetes mellitus wit h hemoglobin A1c goal of less than 8.0% 07/19/2014 Overview: ICD-10 update of inactive term Sleep apnea 01/16/2013 Overview: Uses [facility] in [place] [phone] [place] 01/16/2013 Senile cataract 01/16/2013 Aortic valve replaced 01/16/2013 documented as of this encounter (statuses as of 12/09/2023) Resolved Problems Problem Noted Date Diagnosed Date Resolved Date Festinating gait 11/07/2016 03/12/2017 Angioedema 06/24/2013 06/24/2013 ACEI/ARB contraindicated 06/24/201304/2014 Type 2 diabetes mellitus wit h hemoglobin A1c goal of less than 7.0% 01/16/2013 07/19/2014 Overview: ICD-10 update of inactive term HTN, goal below 140/80 01/16/201307/19 documented as of this encounter (statuses as of 12/09/2023) Immunizations Name Administration Dates Next Due Hepatitis B, 20+ yrs 03/12/2017,10/05/2016,03/24 /2017 Pneumococcal Conjugate Vacc, 13 Valent (Prevnar) 04/26/2015 Pneumococcal Polysaccharide PPV23 (Pneumovax) 08/03/2016,05/03/2008,05/25/1997 Season Influenza, Quad, PF, Adjuvanted, 65+ Yrs, IM (FLUAD) 03/22/2020 Seasonal Influenza, PF, 6 M & above, IM , (FluLaval or Fluzone) 01/30/2018,03/12/2017 Seasonal Influenza, Quadriva lent Hd (Fluzone Hd) 04/08/2023 Seasonal Influenza, Quadriva lent, No Preserve, IM 02/09/2016 Seasonal Influenza, Split, I IV3, With Preserve, Inj 01/31/2015,01/18/2014,02/16/2013,02/14,02/27/2010,04/04/2009,02/11/2008 Seasonal Influenza, Trivalen t, Adjuvanted, 65+ yrs 03/23/2019 TD - Tetanus/Diptheria (ADULT) 12/23/2001 TD, Preservative Free 10/18/2017 TDAP, Age 7 and older, IM (Adacel) 09/22/2007 Varicella Zoster Vaccine (Adult) 10/03/2006 documented as of this encounter Social History Tobacco Use Types Packs/Day Years Used Date Smoking Tobacco: Never Smokeless Tobacco: Never Alcohol Use Standard Drinks/Week Comments Yes 0 (1 standard drink = 0.6 oz pur e alcohol) One drink a year PHQ-2 Answer Date Recorded PHQ-2 Score -1 02/01/2020 Utilities Answer Date Recorded Do you have trouble paying y our heating, water, or electric bill? (Adult - for ages 18 years and over) Not on file 10/29/2023 Is your family able to pay t he heat, water, or electric bill? (Household - for ages 0-17 years) Not on file 10/29/2023 Does your family have access to good internet? (Household - for ages 0-17 years) Not on file 10/29/2023 Social Connections Answer Date Recorded How often do you feel lonely or isolated from those around you? (Adult - for ages 18 years and over) Not on file 10/29/2023 Sex and Gender Information Value Date Recorded Sex Assigned at Male 03/23/2019 4:02 PM EST Gender Identity Male 03/23/2019 4:02 PM EST Sexual Orientation Not on file Job Start Date Occupation Industry Not on file Not on file Not on file documented as of this encounter Miscellaneous Notes * Telephone Encounter - Samia Perez [facility] - 12/09/2023 3:52 PM EDTSigned Prescriptions: Disp Refills Januvia 100 MG Oral Tablet (SITagliptin) 90 Tab*3 Sig: TAKE 1 TABLET DAILYAuthorizing Provider: YANIRA SILVER III User: SAMIA PEREZ documented in this encounter Plan of Treatment Scheduled Procedures Name Priority Associated Diagnoses Date/Ti me COLONOSCOPY FLEXIBLE PROXIMAL DIAGNOSTIC Recall History of colon polyps Health Maintenance Due Date Last Done Comments Zoster Vaccines (2 of 3) 11/28/2006 10/03/2006 Albumin/Creatinine Ratio 03/12/2018 017, 02/09/2016, 01/31/2015, Additional history exists Diabetic Eye Exam 05/12/2020 05/12/2019, , 04/03/2019, Additional history exists Depression Screening 07/08/2020 07/08/2019 COVID-19 Vaccine ( season) 2023 Diabetic Foot Exam 11/13/2023 11/12/2022, 0 11/08/2021, 09/21/2020, Additional history exists Influenza Vaccine (FLU shot) (#1) 2024 04/08/2023, 03/22/2020, 03/23/2019, Additional history exists HbA1c 06/04/2024 12/03/2023, 07/0 07/2022, 11/08/2021, Additional history exists GFR 12/02/2024 12/03/2023, 07/0 07/2022, 11/12/2022, Additional history exists DTaP,Tdap,and Td Vaccines (3 - Td or Tdap) 10/19/2027 10/18/2017, 09/22/2007, 12/23/2001 Pneumococcal Vaccine: 65+ Years Completed 08/03/2016, 04/26/2015, 05/03/2008, Additional history exists Hepatitis B Vaccine Completed 03/12/2017, 10/05/2016, 08/03/2016 *BASELINE EKG FOR HTN Completed 03/25/2020, 019 HPV (Gardasil) Vaccine Aged Out No lo nger eligible based on patient's age to complete this topic MENINGOCOCCAL (MENACTRA/MENVEO) Aged Out No longer eligible based on patient's age to complete this topic documented as of this encounter Medical Devices Not on filedocumented as of this encounter Advance Directives Documents on File Type Date Recorded 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
--- OUTSIDE RECORDS SUMMARY | 2024-01-08 11:48 | External Medical Summary | Summary of Care ---
Author Name Unknown Organization [facility] Address [address] [place] [address] Phone [phone] Care Team Providers Care Barrel Handler Name Role Phone Will GREWAL MD, Yanira Molina Primary Care Provider [phone] Reason for Visit * Reason Comments eRx-Medication Refill Encounter Details Date Type Department Care Team ([facility] st Contact Info) Description 12/23/2023 Refill Family Practice [facility] [address] [place] [address] Yanira Silver III, MD [address] [place] [address] Type 2 diabetes mellitus with hemoglobin A1c goal of less than 7.0% (HCC); HTN, goal below 140/80; Type 2 diabetes mellitus with hemoglobin A1c goal of less than 8.0% (HCC) Allergies Active Allergy Reactions Criticality Noted Date Comments Dog Dander 03/28/2017 documented as of this encounter (statuses as of 12/24/2023) Medications Medication Sig Dispensed Refills Start Date [...] To face. 100 g 3 12/04/2022 Active Klor-Con M20 20 MEQ Oral Tablet Extended Release (Potassium Chloride ER) TAKE 1 TABLET TWICE A DAY 180 Tablet 3 02/08/2023 Active amLODIPine Besylate 5 MG Oral Tablet (Norvasc)Indicati ons:Type 2 diabetes mellitus with hemoglobin A1c goal of less than 7.0% ([facility]),HTN, goal below 140/80 Take 1 Tablet by [...] TABLET DAILY 90 Tablet 3 12/09/2023 Active Lisinopril 40 MG Oral TabletIndications :Type 2 diabetes mellitus with hemoglobin A1c goal of less than 7.0% ([facility]),HTN, goal below 140/80 TAKE 1 TABLET DAILY 90 Tablet 3 12/24/2023 Active metFORMIN HCl ER 500 MG Oral Tablet Extended Release 24 Hour (Glucophage XR)Indications:Ty pe 2 diabetes mellitus with hemoglobin A1c goal of less than 8.0% (HCC) TAKE 4 TABLETS ONCE DAILY 360 Tablet 3 12/24/2023 Active Indapamide 2.5 MG Oral Tablet (Lozol)Indication s:Type 2 diabetes mellitus with hemoglobin A1c goal of less than 7.0% (HCC) TAKE 1 TABLET DAILY 90 Tablet 3 12/24/2023 Active Lisinopril 40 MG Oral TabletIndications :Type 2 diabetes mellitus with hemoglobin A1c goal of less than 7.0% (HCC),HTN, goal below 140/80 TAKE 1 TABLET DAILY 90 Tablet 3 12/27/2022 4 Discontinued Indapamide 2.5 MG Oral Tablet (Lozol)Indication s:Type 2 diabetes mellitus with hemoglobin A1c goal of less than 7.0% (HCC) TAKE 1 TABLET DAILY 90 Tablet 3 12/27/2022 4 Discontinued metFORMIN HCl ER 500 MG Oral Tablet Extended Release 24 Hour (Glucophage XR)Indications:Ty pe 2 diabetes mellitus with hemoglobin A1c goal of less than 8.0% (HCC) TAKE 4 TABLETS ONCE DAILY 360 Tablet 3 12/27/2022 4 Discontinued documented as of this encounter (statuses as of 12/24/2023) Active Problems Problem Noted Date Diagnosed Date HTN, goal below 140/90 07/08/2019 Vitamin B 12 deficiency 12/16/2018 Chronic constipation 02/06/2018 Dyslipidemia 10/18/2017 Overweight (BMI 25.0-29.9) 09/23/2017 DM type 2 with diabetic peripheral neuropathy Rosacea 03/28/2015 Type 2 diabetes mellitus wit h hemoglobin A1c goal of less than 8.0% 07/19/2014 Overview: ICD-10 update of inactive term Sleep apnea 01/16/2013 Overview: Uses [facility] [place] [phone] [place] 01/16/2013 Senile cataract 01/16/2013 Aortic valve replaced 01/16/2013 documented as of this encounter (statuses as of 12/24/2023) Resolved Problems Problem Noted Date Diagnosed Date Resolved Date Diabetic peripheral angiopathy 10/18/2017 12/19/2023 Festinating gait 11/07/2016 03/12/2017 Angioedema 06/24/2013 06/24/2013 ACEI/ARB contraindicated 06/24/201304/2014 Type 2 diabetes mellitus wit h hemoglobin A1c goal of less than 7.0% 01/16/2013 07/19/2014 Overview: ICD-10 update of inactive term HTN, goal below 140/80 01/16/201307/19 documented as of this encounter (statuses as of 12/24/2023) Immunizations Name Administration Dates Next Due Hepatitis B, 20+ yrs 03/12/2017,10/05/2016,08/03 Pneumococcal Conjugate Vacc, 13 Valent (Prevnar) 04/26/2015 [...] encounter Miscellaneous Notes * Telephone Encounter - Neeraj Thomas RP - 12/24/2023 2:41 PM EDT Signed Prescriptions: Disp Refills Lisinopril 40 MG Oral Tablet 90 Tab*3 Sig: TAKE 1 TABLET DAILYAuthorizing Provider: YANIRA SILVER III User: NEERAJ THOMAS metFORMIN HCl ER 500 MG Oral Tablet Extend*360 Ta*3 Sig: TAKE 4 TABLETS ONCE DAILYAuthorizing Provider: YANIRA SILVER III User: NEERAJ THOMAS Indapamide 2.5 MG Oral Tablet (Lozol) 90 Tab*3 Sig: TAKE 1 TABLET DAILYAuthorizing Provider: YANIRA SILVER III User: NEERAJ THOMAS documented in this encounter Plan of Treatment Scheduled Procedures Name Priority Associated Diagnoses Date/Ti me COLONOSCOPY FLEXIBLE PROXIMAL DIAGNOSTIC Recall History of colon polyps Health Maintenance Due Date Last Done Comments Zoster Vaccines (2 of 3) 11/28/2006 10/03/2006 Albumin/Creatinine Ratio 03/12/2018 017, 02/09/2016, 01/31/2015, Additional history exists Adult Wellness Visit 03/23/2020 03/23/2019 Diabetic Eye Exam 05/12/2020 05/12/2019, , 04/03/2019, [...] Hepatitis B Vaccine Completed 03/12/2017, 10/05/2016, 08/03/2016 HPV (Gardasil) Vaccine Aged Out No lo nger eligible based on patient's age to complete this topic MENINGOCOCCAL (MENACTRA/MENVEO) Aged Out No longer eligible based on patient's age to complete this topic documented as of this encounter Medical Devices Not on filedocumented as of this encounter Visit Diagnoses Diagnosis Type 2 diabetes mellitus with hemoglobin A1c goal of less than 7.0% (HCC) HTN, goal below 140/80 Unspecified essential hypertension Type 2 diabetes mellitus with hemoglobin A1c goal of less than 8.0% (HCC) documented in this encounter Advance Directives Documents on File Type Date Recorded Patient Telecommunicator Supervisor Expl anation Advance Directives and Living Will 01/28/1995 ADVANCE DIRECTIVE Power of Advanced Practice Provider 01/28/1995 POWER OF A TTORNEY DURABLE MEDICAL POA Care Teams Barrel Handler Relationship Specialty Start Date End Date Yanira Silver III, MD [address] [facility] [place] [address] PCP - General Family Medicine 01/16/13 documented as of this encounter
--- OUTSIDE RECORDS SUMMARY | 2024-01-08 11:48 | External Medical Summary | Summary of Care ---
Author Name Unknown Organization [facility] Address [address] [place] [address] Phone [phone] Care Team Providers Care Canal Boat Captain Name Role Phone Will GREWAL MD, Blaine Molina Primary Care Provider [phone] Reason for Visit * Reason Comments Physical-Exam Encounter Details Date Type Department Care Team (Late st Contact Info) Description 12/03/2023 2:20 PM EDT Office Visit Family Practice [facility] [address] [place] [address] Karuna Parkinson MD [address] [place] [address] Type 2 diabetes mellitus with hemoglobin A1c goal of less than 8.0% ([facility])*; HTN, goal below 140/90; Dyslipidemia; Vitamin B12 deficiency; BPH with obstruction/lower urinary tract symptoms; Abnormality of gait and mobility; Weakness of both lower extremities; Tear of left rotator cuff, unspecified tear extent, unspecified whether traumatic Allergies Active Allergy Reactions Criticality Noted Date Comments Dog Dander 03/28/2017 documented as of this encounter (statuses as of 12/19/2023) Medications Medication Sig Dispensed Refills Start Date End Date Status FINASTERIDE 5 MG PO TABSIndications: DM type 2, goal A1c below 7 1 TABLET DAILY 01/16/2013 Active VITAMIN D 1000 UNITS PO CAPSIndications: DM type 2, goal A1c below 7 1 capsule daily 30 Cap 11 01/16/2013 Active TAMSULOSIN HCL 0.4 MG PO CAPS 2 tabs daily Active Ibuprofen 200 MG Oral TabletIndication s:Shoulder tendinitis, right Take 2 Tablets by mouth 2 times a day as needed for Pain. 30 Tab 09/05/2016 Active Bethanechol Chloride 50 MG TABS Take 4 Tablets by mouth in the morning. Active Multiple Vitamins-Mineral s (CENTRUM SILVER) Tablet take 1 tablet by oral route every day Active Doxycycline Hyclate 50 MG Oral Capsule (Vibramycin)Hannah cations:Rosacea Take by mouth 1 Capsule in the morning. 90 Capsule 3 08/28/2021 Active Amoxicillin 500 MG Oral Capsule (Amoxil)Indicati ons:S/P aortic valve replacement,SBE (subacute bacterial endocarditis) prophylaxis candidate Take four capsules one hour prior to dental appts 30 Capsule 3 09/17/2022 Active Clindamycin Phos-Benzoyl Perox 1-5 % External GelIndications:R osacea Apply topically to affected area daily. To face. 100 g 3 12/04/2022 Active Lisinopril 40 MG Oral TabletIndication s:Type 2 diabetes mellitus with hemoglobin A1c goal of less than 7.0% (HCC),HTN, goal below 140/80 TAKE 1 TABLET DAILY 90 Tablet 3 12/27/2022 Active Indapamide 2.5 MG Oral Tablet (Lozol)Indicatio ns:Type 2 diabetes mellitus with hemoglobin A1c goal of less than 7.0% (HCC) TAKE 1 TABLET DAILY 90 Tablet 3 12/27/2022 Active metFORMIN HCl ER 500 MG Oral Tablet Extended Release 24 Hour (Glucophage XR)Indications:T ype 2 diabetes mellitus with hemoglobin A1c goal of less than 8.0% (HCC) TAKE 4 TABLETS ONCE DAILY 360 Tablet 3 12/27/2022 Active Klor-Con M20 20 MEQ Oral Tablet Extended Release (Potassium Chloride ER) TAKE 1 TABLET TWICE A DAY 180 Tablet 3 02/08/2023 Active amLODIPine Besylate 5 MG Oral Tablet (Norvasc)Indicat ions:Type 2 diabetes mellitus with hemoglobin A1c goal of less than 7.0% (HCC),HTN, goal below 140/80 Take 1 Tablet by mouth in the morning. 90 Tablet 3 03/14/2023 Active Fluticasone Propionate 50 MCG/ACT Nasal Suspension (Flonase) USE 1 SPRAY IN EACH NOSTRIL DAILY NEEDED 48 g 2 07/08/2023 Active Metoprolol Succinate ER 25 MG Oral Tablet Extended Release 24 Hour (toPROL XL)Indications:T ype 2 diabetes mellitus with hemoglobin A1c goal of less than 8.0% ([facility]),Aortic valve replaced TAKE 1 TABLET DAILY 90 Tablet 3 11/04/2023 Active Vitamin B-12 1000 MCG Oral Tablet (Cyanocobalamin) TAKE 1 TABLET DAILY 300 Tablet 11/05/2023 Active Atorvastatin Calcium 10 MG Oral Tablet (Lipitor)Indicat ions:Type 2 diabetes mellitus with hemoglobin A1c goal of less than 8.0% ([facility]) TAKE 1 TABLET DAILY 90 Tablet 11/26/2023 Active BENZOYL PEROXIDE 10 % EX GELIndications:D M type 2, goal A1c below 7 twice daily 60 g 11 01/16/2013 12/03/19 24 Discontinued(Med ication List Clean Up) Melatonin 10 MG Capsule Take 1 Capsule by mouth at bedtime. 12/03/19 24 Discontinued(Med ication List Clean Up) zoster vac recomb adjuvanted (SHINGRIX) 50 MCG/0.5ML injection Inject 0.5 mL into a large muscle now and repeat dose in 60 to 180 days 1 Each 1 04/28/2018 12/03/19 24 Discontinued(Med ication List Clean Up) Accu-Chek Linda Plus In Vitro Strip (Glucose Blood) Two times a day as directed 100 Strip 3 06/02/2020 12/03/19 24 Discontinued(Med ication List Clean Up) OneTouch UltraSoft Lancets two times a day as directed 100 Each 3 06/02/2020 12/03/19 24 Discontinued(Med ication List Clean Up) Doxepin HCl 3 MG Oral Tablet (Silenor) Take 1 Tablet by mouth at bedtime. 30 Tablet 11/12/2022 12/03/19 24 Discontinued(Med ication List Clean Up) Januvia 100 MG Oral Tablet (SITagliptin) TAKE 1 TABLET DAILY 90 Tablet 3 12/17/2022 12/09/19 24 Discontinued documented as of this encounter (statuses as of 12/19/2023) Active Problems Problem Noted Date Diagnosed Date HTN, goal below 140/90 07/08/2019 Vitamin B 12 deficiency 12/16/2018 Chronic constipation 02/06/2018 Dyslipidemia 10/18/2017 Overweight (BMI 25.0-29.9) 09/23/2017 DM type 2 with diabetic peripheral neuropathy Rosacea 03/28/2015 Type 2 diabetes mellitus wit h hemoglobin A1c goal of less than 8.0% 07/19/2014 Overview: ICD-10 update of inactive term Sleep apnea 01/16/2013 Overview: Uses [facility] in [place] [phone] [place] 01/16/2013 Senile cataract 01/16/2013 Aortic valve replaced 01/16/2013 documented as of this encounter (statuses as of 12/19/2023) Resolved Problems Problem Noted Date Diagnosed Date Resolved Date Diabetic peripheral angiopathy 10/18/2017 12/19/2023 Festinating gait 11/07/2016 03/12/2017 Angioedema 06/24/2013 06/24/2013 ACEI/ARB contraindicated 06/24/201304/2014 Type 2 diabetes mellitus wit h hemoglobin A1c goal of less than 7.0% 01/16/2013 07/19/2014 Overview: ICD-10 update of inactive term HTN, goal below 140/80 01/16/201307/19 documented as of this encounter (statuses as of 12/19/2023) Immunizations Name Administration Dates Next Due Hepatitis [...] on file documented as of this encounter Last Filed Vital Signs Vital Sign Reading Time Taken Comments Blood Pressure 118/72 12/03/2023 2:05 PM EDT Pulse 58 12/03/2023 2:05 PM EDT Temperature 36.6 C (97.8 F) 12/03/2023 2:05 PM ED T Respiratory Rate 18 12/03/2023 2:05 PM EDT Oxygen Saturation 97% 12/03/2023 2:05 PM EDT Inhaled Oxygen Concentration - - Weight - - Height - - Body Mass Index - - documented in this encounter Progress Notes * Karuna Parkinson MD - 12/03/2023 2:34 PM EDT Subjective Chief Complaint Patient presents with Physical-Exam HPI: Joseph Montalvo is a 78 year old male. Patient is accompanied by his . The following issues were addressed today: Here for follow-up. No new concerns today other than request for DME order for new power wheelchair. requesting it be sent to Jeff at [email or web address] ([phone]). Continues to be "wobbly" with transfers and needs 's assistance. Due for updated labs. Requesting PSA level. Doing well on Metformin for DM, lisinopril 40mg, metoprolol 25mg, indapamide 2.5mg, amlodipine 5mg for HTN. Review of Systems: See HPI Objective BP 118/72 | Pulse 58 | Temp 36.6 C (97.8 F) (Tympanic) | Resp 18 | SpO2 97% Wt Readings from Last 3 Encounters: 12/20/22 95.3 kg (210 lb) 11/08/21 96.2 kg (212 lb) 09/21/20 96.2 kg (212 lb) BP Readings from Last 3 Encounters: 12/03/23 118/72 01/25/23 130/74 12/20/22 141/78 General: Well-appearing, no acute distress Cardiovascular: Regular rate and rhythm Respiratory: Good respiratory effort, breath sounds equal and clear to auscultation bilaterally Extremities: No edema Neurological: Alert and oriented, no focal deficits noted Psychiatric: Appropriate mood and affect Assessment & Plan 1. Type 2 diabetes mellitus with hemoglobin A1c goal of less than 8.0% (HCC) Well-controlled. Continue Metformin. Update labs. - ALBUMIN / CREATININE RATIO, URINE; Future - HEMOGLOBIN A1C; Future - COMPREHENSIVE METABOLIC PANEL; Future - LIPID PANEL WITH DIRECT LDL IF TG IS HIGH; Future 2. HTN, goal below 140/90 Well-controlled. Continue current medication(s). 3. Dyslipidemia Update labs. Continue Lipitor 10mg. 4. Vitamin B12 deficiency Update B12 level. - VITAMIN B12; Future 5. BPH with obstruction/lower urinary tract symptoms - PSA; Future 6. Abnormality of gait and mobility - DURABLE MEDICAL EQUIPMENT 7. Weakness of both lower extremities - DURABLE MEDICAL EQUIPMENT 8. Tear of left rotator cuff, unspecified tear extent, unspecified whether traumatic - DURABLE MEDICAL EQUIPMENT Return in about 6 months (around 06/04/2024). This note was electronically signed by Karuna Parkinson MD documented in this encounter Nursing Notes * Loraine Haley LPN - 12/03/2023 2:05 PM EDT Joseph Montalvo presents for annual physical exam. Medications & HM reviewed. documented in this encounter Plan of Treatment Scheduled Orders Name Type Priority Associated Diagnoses Orde r Schedule ALBUMIN / CREATININE RATIO, URINE Lab Routine Type 2 diabetes mellitus with hemoglobin A1c goal of less than 8.0% (HCC) Expected: 12/03/2023, Expires: 12/02/2024 Scheduled Procedures Name Priority Associated Diagnoses Date/Ti [...] Not on filedocumented as of this encounter Results * VITAMIN B12 (12/03/2023 2:51 PM EDT) Pathologist [facility] Vitamin B12 848 232 - 1,245 pg/mL 12/04/2023 12:53 AM EDT LAB[facility]ATORY [facility] Blood Venous blood specimen / Unknown Venipuncture / Unknown 12/03/2023 2:51 PM EDT 12/03/2023 2:51 PM EDT Karuna Parkinson MD LAB BLOOD ORDERABLES LAB[facility]ATORY [facility] [address] [place] [address] * PSA (12/03/2023 2:51 PM EDT) [facility] PSA 1.08 <4.10 ng/mL 12/04/2023 12:21 AM EDT LAB[facility]ATORY [facility] Blood Venous blood specimen / Unknown Venipuncture / Unknown 12/03/2023 2:51 PM EDT 12/03/2023 2:51 PM EDT Karuna Parkinson MD LAB BLOOD ORDERABLES LAB[facility]ATORY [facility] [address] [place] [address] * LIPID PANEL WITH DIRECT LDL IF TG IS HIGH (12/03/2023 2:51 PM EDT) [facility] Triglycerides 117 <=174 mg/dL 12/04/2023 12:10 AM EDT [facility]ATORY [facility] Comment: Triglyceride Reference Ranges (mg/dL): <150 Acceptable 150-174 Borderline high 175-499 High >=500 Very high Cholesterol 163 <200 mg/dL 12/04/2023 12:10 AM EDT [facility] Comment: Total Cholesterol Reference Ranges (mg/dL): <200 Desirable 200-239 Borderline high >=240 High HDL Cholesterol 53 >39 mg/dL 12:10 AM EDT [facility]ORY [facility] Comment: HDL Cholesterol Reference Ranges (mg/dL): >=60 High (Desirable) <50 Low (Undesirable) For Females <40 Low (Undesirable) For Males Non-HDL Cholesterol 110 <=159 mg/dL 12/04/2023 12:10 AM EDT [facility] Comment: Non-HDL Cholesterol Reference Range (mg/dL): <100 Target level for high risk ASCVD patient <130 Optimal for general population 130-159 Near optimal for general population 160-189 Borderline High 190-219 High >=220 Very High LDL Cholesterol 87 <=129 mg/dL 12/04/2023 12:10 AM EDT [facility]ORY [facility] Comment: LDL Cholesterol Reference Ranges (mg/dL): <70 Target level for high risk ASCVD patient <100 Optimal for general population 100-129 Near optimal for general population 130-159 Borderline high 160-189 High >=190 Very high Blood Venous blood specimen / Unknown Venipuncture / Unknown 12/03/2023 2:51 PM EDT 12/03/2023 2:51 PM EDT Karuna Parkinson MD LAB BLOOD ORDERABLES Performing Organization Address City/State/[facility] Co de Phone Number LABORATORY [facility] [address] [place] [address] * (ABNORMAL) COMPREHENSIVE METABOLIC PANEL (12/03/2023 2:51 PM EDT) BUN 25(H) 6 - 20 mg/dL 12/04/2023 12:07 AM EDT [facility] Creatinine 1.3(H) 0.6 - 1.2 mg/dL 12/04/2023 12:07 AM EDT [facility] Estimated Glomerular Filtration Rate 55(L) >=60 mL/min 12/04/2023 12:07 AM EDT [facility] Comment:eGFR is calculated b ased on the CKD-EPI 2020 equation. Sodium 141 135 - 146 mmol/L 12/04/2023 12:07 AM EDT [facility] Potassium 4.1 3.5 - 5.1 mmol/L 12/04/2023 12:07 AM EDT [facility] Chloride 100 98 - 107 mmol/L 12/04/2023 12:07 AM EDT [facility] CO2 27 22 - 32 mmol/L 12/04/2023 12:07 AM EDT [facility] Anion Gap 14 7 - 15 mmol/L 12/04/2023 12:07 AM EDT [facility] Glucose 102 70 - 120 mg/dL 12/04/2023 12:07 AM EDT [facility] Albumin 4.4 3.8 - 5.0 g/dL 12/04/2023 12:07 AM EDT [facility] AST 18 10 - 50 U/L 12/04/2023 12:07 AM EDT [facility] Alkaline Phosphatase 97 35 - 130 U/L 12/04/2023 12:07 AM EDT [facility] Bilirubin, Total 0.4 <=1.2 mg/dL 12/04/2023 12:07 AM EDT [facility] Calcium 9.7 8.4 - 10.2 mg/dL 12/04/2023 12:07 AM EDT [facility] Protein 6.7 6.0 - 8.3 g/dL 12/04/2023 12:07 AM EDT [facility] ALT 17 10 - 50 U/L 12/04/2023 12:07 AM EDT LABORATORY [facility] Blood Venous blood specimen / Unknown Venipuncture / Unknown 12/03/2023 2:51 PM EDT 12/03/2023 2:51 PM EDT Karuna Parkinson MD LAB BLOOD ORDERABLES [facility] [address] [place] [address] * (ABNORMAL) HEMOGLOBIN A1C (12/03/2023 2:51 PM EDT) Hemoglobin A1C 6.0(H) 4.0 - 5.6 % 12/04/2023 12:19 AM EDT [facility] Comment:The use of HbA1c to monitor glycemic status is based on normal hemoglobin and HbA composition. This test should not be used in patients with abnormal hemoglobin that affects the half life of the red blood cell or the in vivo glycation rates. Estimated Average Glucose 126(H) <126 mg/dL 12/04/2023 12:19 AM EDT [facility] Blood Venous blood specimen / Unknown Venipuncture / Unknown 12/03/2023 2:51 PM EDT 12/03/2023 2:51 PM EDT Karuna Parkinson MD LAB BLOOD ORDERABLES LAB[facility]ATORY [facility] [address] [place] [address] documented in this encounter Visit Diagnoses Diagnosis Type 2 diabetes mellitus with hemoglobin A1c goal of less than 8.0% (HCC)- Primary HTN, goal below 140/90 Unspecified essential hypertension Dyslipidemia Other and unspecified hyperlipidemia Vitamin B12 deficiency Other B-complex deficiencies BPH with obstruction/lower urinary tract symptoms Hypertrophy of prostate with urinary obstruction and other lower urinary tract symptoms (LUTS) Abnormality of gait and mobility Abnormality of gait Weakness of both lower extremities Tear of left rotator cuff, unspecified tear extent, unspecified whether traumatic documented in this encounter Advance Directives Documents on File Type Date Recorded 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
[2024-01-08] MEDS: INSULIN ASPART PER UNIT CHARGE SC SCH (13:33)
--- NOTE | 2024-01-08 14:48 | Communication Note ---
Date of Service: January 08, 2024 78-year-old male with significant past medical history including aortic stenosis status post bioprosthetic AVR, hyperlipidemia, diabetes on oral medications and chronic anemia admitted early this morning with some rectal dysfunction. Remains hemodynamically stable and awaiting further evaluation by PT and OT and social service for proper disposition Complete progress note will be done tomorrow. Dr Sammy Crystal
--- OUTSIDE RECORDS SUMMARY | 2024-01-08 16:32 | External Medical Summary | Summary of Care ---
Author Name Unknown Organization [facility] Address [address] [place] [address] Phone [phone] Care Team Providers Care Music Director Name Role Phone Will GREWAL MD, Blaine Molina Primary Care Provider [phone] Reason for Visit * Reason Comments Follow Up Encounter Details Date Type Department Care Team (Late st Contact Info) Description 01/07/2024 4:20 PM EDT Telemedicine Family Practice [facility] [address] [place] [address] Karuna Parkinson MD [address] [place] [address] Failure to thrive in adult*; At risk for aspiration; Abnormality of gait and mobility; Generalized weakness Allergies Active Allergy Reactions Criticality Noted Date Comments Dog Dander 03/28/2017 documented as of this encounter (statuses as of 01/07/2024) Medications Medication Sig Dispensed Refills Start Date End Date Status FINASTERIDE 5 MG PO TABSIndications:DM type 2, goal A1c below 7 1 TABLET DAILY 01/16/2013 Active VITAMIN D 1000 UNITS PO CAPSIndications:DM type 2, goal A1c below 7 1 capsule daily 30 Cap 11 01/16/2013 Active TAMSULOSIN HCL 0.4 MG PO CAPS 2 tabs daily Active Ibuprofen 200 MG Oral TabletIndications:Sh oulder tendinitis, right Take 2 Tablets by mouth 2 times a day as needed for Pain. 30 Tab 09/05/2016 Active Bethanechol Chloride 50 MG TABS Take 4 Tablets by mouth in the morning. Active Multiple Vitamins-Minerals (CENTRUM SILVER) Tablet take 1 tablet by oral route every day Active Doxycycline Hyclate 50 MG Oral Capsule (Vibramycin)Indicati ons:Rosacea Take by mouth 1 Capsule in the morning. 90 Capsule 3 08/28/2021 Active Amoxicillin 500 MG Oral Capsule (Amoxil)Indications: S/P aortic valve replacement,SBE (subacute bacterial endocarditis) prophylaxis candidate Take four capsules one hour prior to dental appts 30 Capsule 3 09/17/2022 Active Clindamycin Phos-Benzoyl Perox 1-5 % External GelIndications:Rosac ea Apply topically to affected area daily. To face. 100 g 3 12/04/2022 Active Klor-Con M20 20 MEQ Oral Tablet Extended Release (Potassium Chloride ER) TAKE 1 TABLET TWICE A DAY 180 Tablet 3 02/08/2023 Active amLODIPine Besylate 5 MG Oral Tablet (Norvasc)Indications :Type 2 diabetes mellitus with hemoglobin A1c goal of less than 7.0% (HCC),HTN, goal below 140/80 Take 1 Tablet by mouth in the morning. 90 Tablet 3 03/14/2023 Active Fluticasone Propionate 50 MCG/ACT Nasal Suspension (Flonase) USE 1 SPRAY IN EACH NOSTRIL DAILY NEEDED 48 g 2 07/08/2023 Active Metoprolol Succinate ER 25 MG Oral Tablet Extended Release 24 Hour (toPROL XL)Indications:Type 2 diabetes mellitus with hemoglobin A1c goal of less than 8.0% (HCC),Aortic valve replaced TAKE 1 TABLET DAILY 90 Tablet 3 11/04/2023 Active Vitamin B-12 1000 MCG Oral Tablet (Cyanocobalamin) TAKE 1 TABLET DAILY 300 Tablet 11/05/2023 Active Atorvastatin Calcium 10 MG Oral Tablet (Lipitor)Indications :Type 2 diabetes mellitus with hemoglobin A1c goal of less than 8.0% (HCC) TAKE 1 TABLET DAILY 90 Tablet 11/26/2023 Active Januvia 100 MG Oral Tablet (SITagliptin) TAKE 1 TABLET DAILY 90 Tablet 3 12/09/2023 Active Lisinopril 40 MG Oral TabletIndications:Ty pe 2 diabetes mellitus with hemoglobin A1c goal of less than 7.0% (HCC),HTN, goal below 140/80 TAKE 1 TABLET DAILY 90 Tablet 3 12/24/2023 Active metFORMIN HCl ER 500 MG Oral Tablet Extended Release 24 Hour (Glucophage XR)Indications:Type 2 diabetes mellitus with hemoglobin A1c goal of less than 8.0% (HCC) TAKE 4 TABLETS ONCE DAILY 360 Tablet 3 12/24/2023 Active Indapamide 2.5 MG Oral Tablet (Lozol)Indications:T ype 2 diabetes mellitus with hemoglobin A1c goal of less than 7.0% (HCC) TAKE 1 TABLET DAILY 90 Tablet 3 12/24/2023 Active documented as of this encounter (statuses as of 01/07/2024) Active Problems Problem Noted Date Diagnosed Date HTN, goal below 140/90 07/08/2019 Vitamin B 12 deficiency 12/16/2018 Chronic constipation 02/06/2018 Dyslipidemia 10/18/2017 Overweight (BMI 25.0-29.9) 09/23/2017 DM type 2 with diabetic peripheral neuropathy Rosacea 03/28/2015 Type 2 diabetes mellitus wit h hemoglobin A1c goal of less than 8.0% 07/19/2014 Overview: ICD-10 update of inactive term Sleep apnea 01/16/2013 Overview: Uses [facility] in [place] [phone] [place] 01/16/2013 Senile cataract 01/16/2013 Aortic valve replaced 01/16/2013 documented as of this encounter (statuses as of 01/07/2024) Resolved Problems Problem Noted Date Diagnosed Date Resolved Date Diabetic peripheral angiopathy 10/18/2017 12/19/2023 Festinating gait 11/07/2016 03/12/2017 Angioedema 06/24/2013 06/24/2013 ACEI/ARB contraindicated 06/24/201304/2014 Type 2 diabetes mellitus wit h hemoglobin A1c goal of less than 7.0% 01/16/2013 07/19/2014 Overview: ICD-10 update of inactive term HTN, goal below 140/80 01/16/201307/19 documented as of this encounter (statuses as of 01/07/2024) Immunizations Name Administration Dates Next Due Hepatitis [...] Answer Date Recorded PHQ-2 Score -1 02/01/2020 Hunger Vital Sign Answer Date Recorded Within the past 12 months, y ou worried that your food would run out before you got the money to buy more. Never true 01/06/20 24 Within the past 12 months, t he food you bought just didn't last and you didn't have money to get more. Never true 01/06/2024 Childcare Answer Date Recorded Do you feel overwhelmed with taking care of a child, family member or friend? No 01/06/2024 Does your family need help f inding childcare? (Household - for ages 0-17 years) Not on file 01/06/2024 Clothing Answer Date Recorded Have you been unable to get clothing when it was really needed? No 01/06/2024 Is your family able to get c lothes or diapers when needed? (Household - for ages 0-17 years) Not on file 01/06/2024 Personal Safety Answer Date Recorded Do you feel unsafe or have concerns for your saf ety? No 01/06/2024 Do you have concerns for you r family's safety? (Household - for ages 0-17 years) Not on file 01/06/2024 Utilities Answer Date Recorded Do you have trouble paying y our heating, water, or electric bill? No 01/06/2024 Is your family able to pay t he heat, water, or electric bill? (Household - for ages 0-17 years) Not on file 01/06/2024 Does your family have access to good internet? (Household - for ages 0-17 years) Not on file 01/06/2024 Employment Status Answer Date Recorded Are you unemployed or without regular income? No 01/06/2024 Does the household have a re lar source of income? (Household - for ages 0-17 years) Not on file 01/06/2024 Social Connections Answer Date Recorded How often do you feel lonely or isolated from th ose around you? Rarely 01/06/2024 Financial Resource Strain Answer Date R ecorded Do you have any trouble payi ng for your medications, or do you think you might in the future? No 01/06/2024 Does your family have troubl e paying for medicine? (Household - for ages 0-17 years) Not on file 01/06/2024 Transportation Needs Answer Date Record ed Do you have trouble getting a ride to medical visits or work? (Adult - for ages 18 years and over) Not on file 01/06/2024 Does your family have a hard time getting a ride to doctors visits? (Household - for ages 0-17 years) Not on file 01/06/2024 Has lack of transportation k ept you from medical appointments, meetings, work, or from getting things needed for daily living? Check all that apply. No 01/06/2024 Do you (or your family) have trouble finding or paying for a ride (transportation)? (Household - for ages 0-17 years) Not on file 01/06/2024 Housing Stability Answer Date Recorded Do you currently live in a s helter or have no steady place to sleep at night? No 01/06/2024 Do you think you are at risk of becoming homeless? (Adult - for ages 18 years and over) Not on file 01/06/2024 Does your family worry about paying for your home or becoming homeless? (Household - for ages 0-17 years) Not on file 0 01/06/2024 Are you homeless or worried that you might be in the future? No 01/06/2024 Are you (or your family) cale eless or worried that you might be in the future? (Household - for ages 0-17 years) Not on file Food Insecurity Answer Date Recorded Do you need food for this week? No 01/06/2024 Are you able to get enough f ood for your family? (Household - for ages 0-17 years) Not on file 01/06/2024 Does your family need food t his week? (Household - for ages 0-17 years) Not on file 01/06/2024 Do you always have enough fo od for your family? (Household - for ages 0-17 years) Not on file 01/06/2024 Sex and Gender Information Value Date Recorded Sex Assigned at Male 03/23/2019 4:02 PM EST Gender Identity Male 03/23/2019 4:02 PM EST Sexual Orientation Straight 01/06/2024 8: 04 PM EDT Job Start Date Occupation Industry Not on file Not on file Not on file documented as of this encounter Progress Notes * Karuna Parkinson MD - 01/07/2024 4:23 PM EDT Patient location: HOME. I was in a hospital or clinic location. After connecting through televideo,patient was verified with two unique identifiers. 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 Methods to assure confidentiality were taken. Patient acknowledged consent and understanding of pr ivacy and security of the Telemedicine visit. The patient agreed to participate. Subjective Chief Complaint Patient presents with Follow Up HPI: Joseph Montalvo is a 78 year old male. The following issues were addressed today: Patient with DM on Metformin, HTN, HLD, vitamin B12 deficiency, BPH with LUTS presents today via telemedicine with his to discuss decline in functional status and request for hospital bed. Prior to the past few weeks he used a power wheelchair for ambulation given chronic deconditioning,lower extremity weakness, and balance difficulties. states he has been bedridden for the past 2 weeks. States overnight there has been an even bigger decline. Currently unable to sit up in bed on his own. Was not able to take his medications today. has been giving him ice cream and Gatorade through a straw. States that he seems confused at times. Has physical therapy coming tomorrow. Had first session last week. Son is coming to visit [facility]. Patient denies fever, chills, shortness of breath, chest pain, abdominal pain, extremity weakness, speech difficulties. Review of Systems: See HPI Objective There were no vitals taken for this visit. Wt Readings from Last 3 Encounters: 12/20/22 95.3 kg (210 lb) 11/08/21 96.2 kg (212 lb) 09/21/20 96.2 kg (212 lb) BP Readings from Last 3 Encounters: 12/03/23 118/72 01/25/23 130/74 12/20/22 141/78 Patient is in no obvious acute distress. He is able to answer questions appropriately. Some confusion about details of current events. Assessment & Plan 1. Failure to thrive in adult 2. At risk for aspiration 3. Abnormality of gait and mobility 4. Generalized weakness describing rapid decline in patient's functional status. Recommended hospitalization for work-up of sudden failure to thrive and skilled nursing placement. and patient decline to go to the hospital at this time. Would like to see how he is doing tomorrow and have him assessed by physical therapy. If patient is to remain at home he will require hospital bed. Currently at risk of aspiration and not able to safely eat, drink, or take medications. Will create DME order and fax to [facility] per patient's 's request. Declined to schedule follow-up appointment, will contact office after tomorrow to give update on status. Return if symptoms worsen or fail to improve. This note was electronically signed by Karuna Parkinson MD I spent a total of 30-39 minutes (exact time 33 mins) on the date of service in preparation, delivery, and documentation of the care provided to Joseph Montalvo excluding any time spent in the performance of separately billed services or time spent by another provider/QHP. 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
[2024-01-08] MEDS: DOXYCYCLINE HYCLATE 50 MG CAP PO SCH (21:45)
[2024-01-09 07:02] LABS: Basophils # (auto) 0.02 K/uL (0.00-0.20); Basophils % (auto) 0.2 %; Eosinophils # (auto) 0.11 K/uL (0.00-0.50); Eosinophils % (auto) 1.2 %; Hematocrit (blood only) 33.6 % (42.0-52.0); Hemoglobin 11.5 g/dl (14.0-18.0); Immature Granulocytes # (auto) 0.04 K/uL (0.01-0.20); Immature Granulocytes % (auto) 0.4 %; Lymphocytes # (auto) 1.44 K/uL (1.20-3.40); Lymphocytes % (auto) 15.3 %; Mean Corpuscular Hemoglobin 29.1 pg (25.0-34.0); Mean Corpuscular Hgb Conc 34.2 g/dL (32.0-36.0); Mean Corpuscular Volume 85.1 fL (80.0-100.0); Mean Platelet Volume 11.1 fL (9.4-12.4); Monocytes # (auto) 1.06 K/uL (0.11-0.59); Monocytes % (auto) 11.3 %; Neutrophils # (auto) 6.72 K/uL (1.40-6.50); Neutrophils % (auto) 71.6 %; Platelet Count 244 K/uL (130-400); RDW Coefficient of Variation 12.9 % (11.5-14.5); RDW Standard Deviation 39.9 fL (36.4-46.3); Red Blood Count 3.95 M/uL (4.70-6.10); White Blood Count 9.39 K/ul (4.8-10.8)
[2024-01-09 07:35] LABS: BUN Creatinine Ratio 19.7 (10-20); Calcium 8.8 mg/dl (8.6-10.3); Creatinine Clr Calc Pharmacy 57.1 ml/min; Est GFR (African American) 68.8 ml/min; Est GFR (Non-African American) 59.4 ml/min; Potassium 3.3 mmol/L (3.5-5.1)
[2024-01-09] MEDS: POTASSIUM CHLORIDE CRTAB 20 MEQ TABCR PO STA (09:55)
--- NOTE | 2024-01-09 15:09 | Hospitalist Progress Note ---
Date of Service January 09, 2024 Assessment & Plan (1) Ambulatory dysfunction: Plan: Ambulatory dysfunction with deconditioning Progressive over the last few weeks Remains generally weak and lethargic and has been participating in physical therapy Otherwise medically stable without any significant symptoms at rest Will get PT OT evaluation and will need probable placement Urinary obstruction Has not had any voiding since admission Straight cath revealed about 700 mL of fluid If there is further obstruction we will put a Carter Demand ischemia Troponin elevation possibly from elevated blood pressure documented at patient's home Aortic stenosis status post bioprosthetic AVR Mild mitral stenosis Hyperlipidemia, on statin Rx DM2 on oral medications, well-controlled as of recent hemoglobin A1c of 6 last October 2023 ISS BG goal 1 10-1 40, carb count coverage Chronic anemia, hemoglobin at baseline TTE for progression DVT prophylaxis. Lovenox subcu Full code Patient requesting updates providers. Ms. Katlyn Montalvo, contact #[phone]. Admission and Anticipated Discharge Date Admission Date: January 08, 2024 Subjective 01/09/2024 The patient was seen and examined in medical telemetry unit He has been stable and denies any significant symptoms Has not been able to come out of bed and participate in physical therapy yet due to weakness Review of Systems Review of Systems: All systems reviewed and are unremarkable except as noted below Physical Exam Physical Exam: Lying in bed without any acute distress Constitutional: well developed, well nourished and + ill appearing Eyes: PERRL, conjunctivae normal, anicteric sclerae ENMT: external ear and nose normal, oropharynx normal Neck: trachea midline, no thyromegaly Respiratory: no respiratory distress Auscultation: lungs clear to auscultation bilaterally Cardiovascular: Rate/Rhythm: regular rate and regular rhythm; not tachycardic Heart Sounds: normal S1 and normal S2; no murmur Extremities: no edema Gastrointestinal (Abdomen): Inspection/Auscultation: normal bowel sounds; abdomen not distended Percussion/Palpation: abdomen soft; abdomen nontender Musculoskeletal: No acute arthritis involving any of the joints. Neurologic: normal touch/pain/proprioception and moves all extremities; no focal motor deficits Psychiatric: A+Ox3, euthymic affect Lymphatic: no cervical or axillary lymphadenopathy Results & Data Results & Data Vital Signs (Past 12 Hours) Vital Signs Temp Pulse Pulse Resp BP Pulse Ox O2 Del Method 01/09/24 11:33 37.3 C 99 H 20 124/73 99 Room Air 01/09/24 08:00 77 01/09/24 08:00 Room Air 01/09/24 07:36 37.3 C 86 18 134/74 96 Room Air Laboratory Results Short CBC 01/09/24 Range/Units 06:22 WBC 9.39 (4.8-10.8) K/ul Hgb 11.5 L (14.0-18.0) g/dl Hct 33.6 L (42.0-52.0) % Plt Count 244 (130-400) K/uL BMP 01/09/24 06:22 Sodium 138 Potassium 3.3 L Chloride 100 Carbon Dioxide 30 BUN 23 Creatinine 1.17 Glucose 132 H Calcium 8.8 Medications Administered Current Inpatient Medications Acetaminophen (Acetaminophen 325 Mg Tab) 650 mg PO QID PRN PRN Reason: pain/fever Stop: 02/07/24 05:36 Amlodipine Besylate (Amlodipine Besylate 5 Mg Tab) 5 mg PO QAM [facility] Stop: 02/07/24 08:59 Last Admin: 01/09/24 09:56 Dose: 5 mg Atorvastatin Calcium (Atorvastatin 10 Mg Tab) 10 mg PO QAM [facility] Stop: 02/07/24 08:59 Last Admin: 01/09/24 07:38 Dose: 10 mg Bethanechol Chloride (Bethanechol Chl 25 Mg Tab) 50 mg PO DAILY [facility] Stop: 02/07/24 08:59 Last Admin: 01/09/24 07:38 Dose: 50 mg Cyanocobalamin (Cyanocobalamin (B-12) 500 Mcg Tablet) 1,000 mcg PO DAILY [facility] Stop: 02/07/24 08:59 Last Admin: 01/09/24 07:37 Dose: 1,000 mcg Dextrose (Dextrose 50% 50 Ml Syringe) 25 - 50 ml IV UD PRN; Protocol PRN Reason: Hypoglycemia Protocol Stop: 02/07/24 08:52 Doxycycline Hyclate (Doxycycline Hyclate 50 Mg Cap) 50 mg PO QPM [facility] Stop: 02/07/24 20:59 Last Admin: 01/08/24 21:45 Dose: 50 mg Enoxaparin Sodium (Enoxaparin Inj 40 Mg/0.4 Ml Syr) 40 mg SQ QAM [facility] Stop: 02/07/24 08:59 Last Admin: 01/09/24 07:38 Dose: 40 mg Finasteride (Finasteride 5 Mg Tab) 5 mg PO DAILY [facility] Stop: 02/07/24 08:59 Last Admin: 01/09/24 07:37 Dose: 5 mg Glucagon (Glucagon For Inj 1 Mg Vial) 1 mg SQ UD PRN; Protocol PRN Reason: Hypoglycemia Protocol Stop: 02/07/24 08:52 Glucose (Glucose 40% Gel 15 Gm Tube) 15 - 30 gm PO UD PRN; Protocol PRN Reason: Hypoglycemia Protocol Stop: 02/07/24 08:52 Glucose (Glucose 10 Tab/Tube) 4 - 8 tab PO UD PRN; Protocol PRN Reason: Hypoglycemia Treatment Stop: 02/07/24 08:52 Promethazine HCl (Phenergan) 6.25 mg in 50.25 mls @ 201 mls/hr IV Q6H PRN PRN Reason: Nausea And Vomiting Stop: 02/07/24 05:36 Insulin Aspart (Insulin Aspart Per Unit Charge) 0 units SC ACHS [facility] Stop: 02/07/24 08:59 Last Admin: 01/09/24 13:28 Dose: 5 units Lisinopril (Lisinopril 40 Mg Tab) 40 mg PO QAM [facility] Stop: 02/07/24 08:59 Last Admin: 01/09/24 07:38 Dose: 40 mg Metoprolol Succinate (Metoprolol Succ 25mg Ext Rel Tab) 25 mg PO QAM [facility] Stop: 02/07/24 08:59 Last Admin: 01/09/24 07:38 Dose: 25 mg Miscellaneous (Carbohydrates For Hypoglycemia ) 15 - 30 gm PO UD PRN PRN Reason: Hypoglycemia Protocol Stop: 02/07/24 08:52 Multivitamins/Minerals (Cerovite Adv Formula Tab) 1 tab PO DAILY [facility] Stop: 02/07/24 08:59 Last Admin: 01/09/24 09:56 Dose: 1 tab Tamsulosin HCl (Tamsulosin Hcl 0.4 Mg Cap) 0.4 mg PO DAILY [facility] Stop: 02/07/24 08:59 Last Admin: 01/09/24 09:55 Dose: 0.4 mg
[2024-01-09] MEDS: ACETAMINOPHEN 325 MG TAB PO PRN (18:23)
--- NOTE | 2024-01-10 09:31 | Hospitalist Progress Note ---
Date of Service January 10, 2024 Assessment & Plan (1) Ambulatory dysfunction: Plan: Ambulatory dysfunction with deconditioning Progressive over the last few weeks Remains generally weak and lethargic and has been participating in physical therapy Otherwise medically stable without any significant symptoms at rest Will get PT OT evaluation and will need probable placement Strongly advised to participate in physical therapy social work manager has been working for possible placement Urinary obstruction Has not had any voiding since admission Straight cath revealed about 700 mL of fluid If there is further obstruction we will put a Carter Required Carter insertion last night and will continue Demand ischemia Demand ischemia due to tachycardia and hypertension. Troponin elevation possibly from elevated blood pressure documented at patient's home Aortic stenosis status post bioprosthetic AVR Mild mitral stenosis Denies any cardiac symptoms Hyperlipidemia, on statin Rx DM2 on oral medications, well-controlled as of recent hemoglobin A1c of 6 last October 2023 ISS BG goal 1 10-1 40, carb count coverage Chronic anemia, hemoglobin at baseline TTE for progression DVT prophylaxis. Lovenox subcu Full code Patient requesting updates providers. Ms. Katlyn Montalvo, contact #[phone]. Admission and Anticipated Discharge Date Admission Date: January 08, 2024 Subjective 01/09/2024 The patient was seen and examined in medical telemetry unit He has been stable and denies any significant symptoms Has not been able to come out of bed and participate in physical therapy yet due to weakness 01/10/2024 The patient was seen and examined in medical telemetry unit He has been complaining of some pain in the left shoulder due to known frozen shoulder Remains generally weak and has not been participating in physical therapy Denies any significant symptoms Has been requiring Carter catheter for drainage Review of Systems Review of Systems: All systems reviewed and are unremarkable except as noted below Physical Exam Physical Exam: Lying in bed without any acute distress Constitutional: well developed, well nourished and + ill appearing Eyes: PERRL, conjunctivae normal, anicteric sclerae ENMT: external ear and nose normal, oropharynx normal Neck: trachea midline, no thyromegaly Respiratory: no respiratory distress Auscultation: lungs clear to auscultation bilaterally Cardiovascular: Rate/Rhythm: regular rate and regular rhythm; not tachycardic Heart Sounds: normal S1 and normal S2; no murmur Extremities: no edema Gastrointestinal (Abdomen): Inspection/Auscultation: normal bowel sounds; abdomen not distended Percussion/Palpation: abdomen soft; abdomen nontender Neurologic: normal touch/pain/proprioception and moves all extremities; no focal motor deficits Psychiatric: A+Ox3, euthymic affect Lymphatic: no cervical or axillary lymphadenopathy Results & Data Results & Data Vital Signs (Past 12 Hours) Vital Signs Temp Pulse Pulse Resp BP Pulse Ox O2 Del Method 01/10/24 08:08 36.5 C 73 18 124/75 95 Room Air 01/10/24 02:06 37.3 C 72 16 139/78 94 Room Air 01/09/24 22:45 37.2 C 86 16 132/66 92 Room Air 01/09/24 22:27 92 H Medications Administered Current Inpatient Medications Acetaminophen (Acetaminophen 325 Mg Tab) 650 mg PO QID PRN PRN Reason: pain/fever Stop: 02/07/24 05:36 Last Admin: 01/10/24 04:22 Dose: 650 mg Amlodipine Besylate (Amlodipine Besylate 5 Mg Tab) 5 mg PO QAM [facility] Stop: 02/07/24 08:59 Last Admin: 01/10/24 09:42 Dose: 5 mg Atorvastatin Calcium (Atorvastatin 10 Mg Tab) 10 mg PO QAM [facility] Stop: 02/07/24 08:59 Last Admin: 01/10/24 09:44 Dose: 10 mg Bethanechol Chloride (Bethanechol Chl 25 Mg Tab) 50 mg PO DAILY [facility] Stop: 02/07/24 08:59 Last Admin: 01/10/24 09:41 Dose: 50 mg Cyanocobalamin (Cyanocobalamin (B-12) 500 Mcg Tablet) 1,000 mcg PO DAILY [facility] Stop: 02/07/24 08:59 Last Admin: 01/10/24 09:42 Dose: 1,000 mcg Dextrose (Dextrose 50% 50 Ml Syringe) 25 - 50 ml IV UD PRN; Protocol PRN Reason: Hypoglycemia Protocol Stop: 02/07/24 08:52 Doxycycline Hyclate (Doxycycline Hyclate 50 Mg Cap) 50 mg PO QPM [facility] Stop: 02/07/24 20:59 Last Admin: 01/09/24 21:07 Dose: 50 mg Enoxaparin Sodium (Enoxaparin Inj 40 Mg/0.4 Ml Syr) 40 mg SQ QAM [facility] Stop: 02/07/24 08:59 Last Admin: 08/30/24 09:42 Dose: 40 mg Finasteride (Finasteride 5 Mg Tab) 5 mg PO DAILY [facility] Stop: 02/07/24 08:59 Last Admin: 01/10/24 09:41 Dose: 5 mg Glucagon (Glucagon For Inj 1 Mg Vial) 1 mg SQ UD PRN; Protocol PRN Reason: Hypoglycemia Protocol Stop: 02/07/24 08:52 Glucose (Glucose 40% Gel 15 Gm Tube) 15 - 30 gm PO UD PRN; Protocol PRN Reason: Hypoglycemia Protocol Stop: 02/07/24 08:52 Glucose (Glucose 10 Tab/Tube) 4 - 8 tab PO UD PRN; Protocol PRN Reason: Hypoglycemia Treatment Stop: 02/07/24 08:52 Promethazine HCl (Phenergan) 6.25 mg in 50.25 mls @ 201 mls/hr IV Q6H PRN PRN Reason: Nausea And Vomiting Stop: 02/07/24 05:36 Insulin Aspart (Insulin Aspart Per Unit Charge) 0 units SC ACHS [facility] Stop: 02/07/24 08:59 Last Admin: 01/10/24 09:37 Dose: 5 units Lisinopril (Lisinopril 40 Mg Tab) 40 mg PO QAM [facility] Stop: 02/07/24 08:59 Last Admin: 01/10/24 09:41 Dose: 40 mg Metoprolol Succinate (Metoprolol Succ 25mg Ext Rel Tab) 25 mg PO QAM [facility] Stop: 02/07/24 08:59 Last Admin: 01/10/24 09:41 Dose: 25 mg Miscellaneous (Carbohydrates For Hypoglycemia ) 15 - 30 gm PO UD PRN PRN Reason: Hypoglycemia Protocol Stop: 02/07/24 08:52 Multivitamins/Minerals (Cerovite Adv Formula Tab) 1 tab PO DAILY [facility] Stop: 02/07/24 08:59 Last Admin: 01/10/24 09:41 Dose: 1 tab Tamsulosin HCl (Tamsulosin Hcl 0.4 Mg Cap) 0.4 mg PO DAILY [facility] Stop: 02/07/24 08:59 Last Admin: 01/10/24 09:41 Dose: 0.4 mg
[2024-01-10] MEDS: METOPROLOL SUCC 25MG EXT REL TAB PO SCH (20:29)
--- NOTE | 2024-01-10 21:39 | Electrocardiogram Report ---
Test Reason : Blood Pressure : */* mmHG Vent. Rate : 103 BPM Atrial Rate : 103 BPM P-R Int : 174 ms QRS Dur : 92 ms QT Int : 366 ms P-R-T Axes : 80 64 111 degrees QTcB Int : 479 ms Sinus tachycardia with Premature supraventricular complexes and with occasional Premature ventricular complexes Nonspecific ST abnormality Prolonged QT Abnormal ECG When compared with ECG of 25-Feb-2013 11:36, Premature supraventricular complexes are now Present Premature ventricular complexes are now Present Confirmed by Carlos Eduardo Ramirez [id number] on 01/10/2024 9:39:24 PM Referred By: REFERRED SELF Confirmed By: Carlos Eduardo Ramirez
[2024-01-11 08:32] LABS: Basophils # (auto) 0.01 K/uL (0.00-0.20); Basophils % (auto) 0.1 %; Eosinophils % (auto) 0.9 %; Hematocrit (blood only) 35.8 % (42.0-52.0); Hemoglobin 12.4 g/dl (14.0-18.0); Immature Granulocytes # (auto) 0.05 K/uL (0.01-0.20); Immature Granulocytes % (auto) 0.5 %; Lymphocytes # (auto) 0.82 K/uL (1.20-3.40); Lymphocytes % (auto) 7.8 %; Mean Corpuscular Hemoglobin 29.6 pg (25.0-34.0); Mean Corpuscular Hgb Conc 34.6 g/dL (32.0-36.0); Mean Corpuscular Volume 85.4 fL (80.0-100.0); Mean Platelet Volume 11.1 fL (9.4-12.4); Monocytes # (auto) 0.87 K/uL (0.11-0.59); Monocytes % (auto) 8.2 %; Neutrophils # (auto) 8.73 K/uL (1.40-6.50); Neutrophils % (auto) 82.5 %; Platelet Count 249 K/uL (130-400); RDW Coefficient of Variation 12.8 % (11.5-14.5); RDW Standard Deviation 39.6 fL (36.4-46.3); Red Blood Count 4.19 M/uL (4.70-6.10); White Blood Count 10.58 K/ul (4.8-10.8)
[2024-01-11 08:51] LABS: Calcium 8.5 mg/dl (8.6-10.3); Creatinine Clr Calc Pharmacy 59.1 ml/min; Est GFR (African American) 71.8 ml/min; Est GFR (Non-African American) 61.9 ml/min; Potassium 3.3 mmol/L (3.5-5.1)
[2024-01-11] MEDS: POTASSIUM CHLORIDE CRTAB 20 MEQ TABCR PO STA (12:08)
--- NOTE | 2024-01-11 15:24 | Hospitalist Progress Note ---
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 Troponin elevation possibly from elevated blood pressure documented at patient's home Aortic stenosis status post bioprosthetic AVR Mild mitral stenosis Denies any cardiac symptoms Hyperlipidemia, on statin Rx DM2 on oral medications, well-controlled as of recent hemoglobin A1c of 6 last October 2023 ISS BG goal 1 10-1 40, carb count coverage Chronic anemia, hemoglobin at baseline TTE for progression DVT prophylaxis. Lovenox subcu Full code Patient requesting updates providers. Inderjit Katlyn Montalvo, contact #[phone]. Admission and Anticipated Discharge Date Admission Date: January 08, 2024 Subjective 01/09/2024 The patient was seen and examined in medical telemetry unit He has been stable and denies any significant symptoms Has not been able to come out of bed and participate in physical therapy yet due to weakness 01/10/2024 The patient was seen and examined in medical telemetry unit He has been complaining of some pain in the left shoulder due to known frozen shoulder Remains generally weak and has not been participating in physical therapy Denies any significant symptoms Has been requiring Carter catheter for drainage 01/11/2024 The patient was seen and examined in medical telemetry He has been much better today Denies any significant symptoms Advised to participate in physical therapy Review of Systems Review of Systems: All systems reviewed and are unremarkable except as noted below Physical Exam Physical Exam: Lying in bed without any acute distress Constitutional: well developed, well nourished and + ill appearing Eyes: PERRL, conjunctivae normal, anicteric sclerae ENMT: external ear and nose normal, oropharynx normal Neck: trachea midline, no thyromegaly Respiratory: no respiratory distress Auscultation: lungs clear to auscultation bilaterally Cardiovascular: Rate/Rhythm: regular rate and regular rhythm; not tachycardic Heart Sounds: normal S1 and normal S2; no murmur Extremities: no edema Gastrointestinal (Abdomen): Inspection/Auscultation: normal bowel sounds; abdomen not distended Percussion/Palpation: abdomen soft; abdomen nontender Neurologic: normal touch/pain/proprioception and moves all extremities; no focal motor deficits Psychiatric: A+Ox3, euthymic affect Lymphatic: no cervical or axillary lymphadenopathy Results & Data Results & Data Vital Signs (Past 12 Hours) Vital Signs Temp Pulse Pulse Resp BP Pulse Ox O2 Del Method 01/11/24 14:43 87 01/11/24 11:32 Room Air 01/11/24 11:28 36.8 C 55 L 16 110/67 97 Room Air 01/11/24 10:04 85 01/11/24 07:44 37.0 C 69 16 138/77 95 Room Air 01/11/24 04:01 37.2 C 83 16 134/75 96 Room Air Laboratory Results Short CBC 01/11/24 Range/Units 08:17 WBC 10.58 (4.8-10.8) K/ul Hgb 12.4 L (14.0-18.0) g/dl Hct 35.8 L (42.0-52.0) % Plt Count 249 (130-400) K/uL BMP 01/11/24 08:17 Sodium 136 Potassium 3.3 L Chloride 98 Carbon Dioxide 27 BUN 26 H Creatinine 1.13 Glucose 195 H Calcium 8.5 L Medications Administered Current Inpatient Medications Acetaminophen (Acetaminophen 325 Mg Tab) 650 mg PO QID PRN PRN Reason: pain/fever Stop: 02/07/24 05:36 Last Admin: 01/11/24 08:13 Dose: 650 mg Atorvastatin Calcium (Atorvastatin 10 Mg Tab) 10 mg PO QAM [facility] Stop: 02/07/24 08:59 Last Admin: 01/11/24 07:58 Dose: 10 mg Bethanechol Chloride (Bethanechol Chl 25 Mg Tab) 50 mg PO DAILY [facility] Stop: 02/07/24 08:59 Last Admin: 01/11/24 07:58 Dose: 50 mg Cyanocobalamin (Cyanocobalamin (B-12) 500 Mcg Tablet) 1,000 mcg PO DAILY [facility] Stop: 02/07/24 08:59 Last Admin: 01/11/24 07:59 Dose: 1,000 mcg Dextrose (Dextrose 50% 50 Ml Syringe) 25 - 50 ml IV UD PRN; Protocol PRN Reason: Hypoglycemia Protocol Stop: 02/07/24 08:52 Doxycycline Hyclate (Doxycycline Hyclate 50 Mg Cap) 50 mg PO QPM [facility] Stop: 02/07/24 20:59 Last Admin: 01/10/24 20:29 Dose: 50 mg Enoxaparin Sodium (Enoxaparin Inj 40 Mg/0.4 Ml Syr) 40 mg SQ QAM [facility] Stop: 02/07/24 08:59 Last Admin: 01/11/24 07:59 Dose: 40 mg Finasteride (Finasteride 5 Mg Tab) 5 mg PO DAILY [facility] Stop: 02/07/24 08:59 Last Admin: 01/11/24 07:59 Dose: 5 mg Glucagon (Glucagon For Inj 1 Mg Vial) 1 mg SQ UD PRN; Protocol PRN Reason: Hypoglycemia Protocol Stop: 02/07/24 08:52 Glucose (Glucose 40% Gel 15 Gm Tube) 15 - 30 gm PO UD PRN; Protocol PRN Reason: Hypoglycemia Protocol Stop: 02/07/24 08:52 Glucose (Glucose 10 Tab/Tube) 4 - 8 tab PO UD PRN; Protocol PRN Reason: Hypoglycemia Treatment Stop: 02/07/24 08:52 Promethazine HCl (Phenergan) 6.25 mg in 50.25 mls @ 201 mls/hr IV Q6H PRN PRN Reason: Nausea And Vomiting Stop: 02/07/24 05:36 Insulin Aspart (Insulin Aspart Per Unit Charge) 0 units SC ACHS [facility] Stop: 02/07/24 08:59 Last Admin: 01/11/24 13:17 Dose: 7 units Lisinopril (Lisinopril 40 Mg Tab) 40 mg PO QAM [facility] Stop: 02/07/24 08:59 Last Admin: 01/11/24 07:59 Dose: 40 mg Metoprolol Succinate (Metoprolol Succ 25mg Ext Rel Tab) 25 mg PO BID [facility] Stop: 02/09/24 20:59 Last Admin: 01/11/24 08:00 Dose: 25 mg Miscellaneous (Carbohydrates For Hypoglycemia ) 15 - 30 gm PO UD PRN PRN Reason: Hypoglycemia Protocol Stop: 02/07/24 08:52 Multivitamins/Minerals (Cerovite Adv Formula Tab) 1 tab PO DAILY [facility] Stop: 02/07/24 08:59 Last Admin: 01/11/24 08:00 Dose: 1 tab Tamsulosin HCl (Tamsulosin Hcl 0.4 Mg Cap) 0.4 mg PO DAILY [facility] Stop: 02/07/24 08:59 Last Admin: 01/11/24 08:00 Dose: 0.4 mg
[2024-01-12 07:32] LABS: Magnesium 1.8 mg/dl (1.7-2.4); Phosphorus 2.3 mg/dl (2.5-4.9)
--- NOTE | 2024-01-12 14:37 | Hospitalist Progress Note ---
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 Troponin elevation possibly from elevated blood pressure documented at patient's home Aortic stenosis status post bioprosthetic AVR Mild mitral stenosis Denies any cardiac symptoms Hyperlipidemia, on statin Rx DM2 on oral medications, well-controlled as of recent hemoglobin A1c of 6 last October 2023 [facility] BG goal 1 10-1 40, carb count coverage Chronic anemia, hemoglobin at baseline TTE for progression DVT prophylaxis. Lovenox subcu Full code Patient requesting updates providers. Ms. Katlyn Montalvo, contact #[phone]. Admission and Anticipated Discharge Date Admission Date: January 08, 2024 Subjective 01/09/2024 The patient was seen and examined in medical telemetry unit He has been stable and denies any significant symptoms Has not been able to come out of bed and participate in physical therapy yet due to weakness 01/10/2024 The patient was seen and examined in medical telemetry unit He has been complaining of some pain in the left shoulder due to known frozen shoulder Remains generally weak and has not been participating in physical therapy Denies any significant symptoms Has been requiring Carter catheter for drainage 01/11/2024 The patient was seen and examined in medical telemetry He has been much better today Denies any significant symptoms Advised to participate in physical therapy 01/12/2084 The patient was seen and examined in medical telemetry unit He has been feeling much better and denies any significant symptoms He has been participating in physical therapy and will need to be placed Review of Systems Review of Systems: All systems reviewed and are unremarkable except as noted below Physical Exam Physical Exam: Lying in bed without any acute distress Constitutional: well developed, well nourished and + ill appearing Eyes: PERRL, conjunctivae normal, anicteric sclerae ENMT: external ear and nose normal, oropharynx normal Neck: trachea midline, no thyromegaly Respiratory: no respiratory distress Auscultation: lungs clear to auscultation bilaterally Cardiovascular: Rate/Rhythm: regular rate and regular rhythm; not tachycardic Heart Sounds: normal S1 and normal S2; no murmur Extremities: no edema Gastrointestinal (Abdomen): Inspection/Auscultation: normal bowel sounds; abdomen not distended Percussion/Palpation: abdomen soft; abdomen nontender Neurologic: normal touch/pain/proprioception and moves all extremities; no focal motor deficits Psychiatric: A+Ox3, euthymic affect Lymphatic: no cervical or axillary lymphadenopathy Results & Data Results & Data Vital Signs (Past 12 Hours) Vital Signs Temp Pulse Pulse Resp BP Pulse Ox O2 Del Method 01/12/24 13:07 Room Air 01/12/24 11:29 36.7 C 64 18 127/78 96 Room Air 01/12/24 10:26 66 01/12/24 07:47 37.3 C 82 18 154/73 H 95 Room Air 01/12/24 02:39 36.8 C 87 18 162/77 H 97 Room Air Medications Administered Current Inpatient Medications Acetaminophen (Acetaminophen 325 Mg Tab) 650 mg PO QID PRN PRN Reason: pain/fever Stop: 02/07/24 05:36 Last Admin: 01/12/24 02:35 Dose: 650 mg Atorvastatin Calcium (Atorvastatin 10 Mg Tab) 10 mg PO QAM [facility] Stop: 02/07/24 08:59 Last Admin: 01/12/24 09:05 Dose: 10 mg Bethanechol Chloride (Bethanechol Chl 25 Mg Tab) 50 mg PO DAILY [facility] Stop: 02/07/24 08:59 Last Admin: 01/12/24 09:06 Dose: 50 mg Cyanocobalamin (Cyanocobalamin (B-12) 500 Mcg Tablet) 1,000 mcg PO DAILY [facility] Stop: 02/07/24 08:59 Last Admin: 01/12/24 09:06 Dose: 1,000 mcg Dextrose (Dextrose 50% 50 Ml Syringe) 25 - 50 ml IV UD PRN; Protocol PRN Reason: Hypoglycemia Protocol Stop: 02/07/24 08:52 Doxycycline Hyclate (Doxycycline Hyclate 50 Mg Cap) 50 mg PO QPM [facility] Stop: 02/07/24 20:59 Last Admin: 01/11/24 20:48 Dose: 50 mg Enoxaparin Sodium (Enoxaparin Inj 40 Mg/0.4 Ml Syr) 40 mg SQ QAM [facility] Stop: 02/07/24 08:59 Last Admin: 01/12/24 09:06 Dose: 40 mg Finasteride (Finasteride 5 Mg Tab) 5 mg PO DAILY [facility] Stop: 02/07/24 08:59 Last Admin: 01/12/24 09:07 Dose: 5 mg Glucagon (Glucagon For Inj 1 Mg Vial) 1 mg SQ UD PRN; Protocol PRN Reason: Hypoglycemia Protocol Stop: 02/07/24 08:52 Glucose (Glucose 40% Gel 15 Gm Tube) 15 - 30 gm PO UD PRN; Protocol PRN Reason: Hypoglycemia Protocol Stop: 02/07/24 08:52 Glucose (Glucose 10 Tab/Tube) 4 - 8 tab PO UD PRN; Protocol PRN Reason: Hypoglycemia Treatment Stop: 02/07/24 08:52 Promethazine HCl (Phenergan) 6.25 mg in 50.25 mls @ 201 mls/hr IV Q6H PRN PRN Reason: Nausea And Vomiting Stop: 02/07/24 05:36 Insulin Aspart (Insulin Aspart Per Unit Charge) 0 units SC ACHS [facility] Stop: 02/07/24 08:59 Last Admin: 01/12/24 13:00 Dose: 6 units Lisinopril (Lisinopril 40 Mg Tab) 40 mg PO QAM [facility] Stop: 02/07/24 08:59 Last Admin: 01/12/24 09:07 Dose: 40 mg Metoprolol Succinate (Metoprolol Succ 25mg Ext Rel Tab) 25 mg PO BID [facility] Stop: 02/09/24 20:59 Last Admin: 01/12/24 09:07 Dose: 25 mg Miscellaneous (Carbohydrates For Hypoglycemia ) 15 - 30 gm PO UD PRN PRN Reason: Hypoglycemia Protocol Stop: 02/07/24 08:52 Multivitamins/Minerals (Cerovite Adv Formula Tab) 1 tab PO DAILY [facility] Stop: 02/07/24 08:59 Last Admin: 01/12/24 09:08 Dose: 1 tab Tamsulosin HCl (Tamsulosin Hcl 0.4 Mg Cap) 0.4 mg PO DAILY [facility] Stop: 02/07/24 08:59 Last Admin: 01/12/24 09:08 Dose: 0.4 mg
--- NOTE | 2024-01-13 12:07 | Hospitalist Progress Note ---
Date of Service January 13, 2024 Assessment & Plan (1) Ambulatory dysfunction: Plan: Ambulatory dysfunction with deconditioning Progressive over the last few weeks Remains generally weak and lethargic and has been participating in physical therapy Otherwise medically stable without any significant symptoms at rest Will get PT OT evaluation and will need probable placement Strongly advised to participate in physical therapy manager r d has been working for possible placement Clinically much better today and denies any significant symptoms Has been getting physical therapy and advised to continue rehab in the hospital Remains medically stable to be transferred when accepted Remains medically stable and will need to have more physical therapy Awaiting placement Urinary obstruction Has not had any voiding since admission Straight cath revealed about 700 mL of fluid If there is further obstruction we will put a Carter Required Carter insertion last night and will continue Will continue Carter catheter for about 10 days in total and then try to take it out Will DC Carter catheter Demand ischemia Demand ischemia due to tachycardia and hypertension. Troponin elevation possibly from elevated blood pressure documented at patient's home Aortic stenosis status post bioprosthetic AVR Mild mitral stenosis Denies any cardiac symptoms Remains stable without any cardiac symptoms Hyperlipidemia, on statin Rx DM2 on oral medications, well-controlled as of recent hemoglobin A1c of 6 last October 2023 ISS BG goal 1 10-1 40, carb count coverage Chronic anemia, hemoglobin at baseline TTE for progression DVT prophylaxis. Lovenox subcu Full code Patient requesting updates providers. Ms. Katlyn Montalvo, contact #[phone]. Admission and Anticipated Discharge Date Admission Date: January 08, 2024 Subjective 01/09/2024 The patient was seen and examined in medical telemetry unit He has been stable and denies any significant symptoms Has not been able to come out of bed and participate in physical therapy yet due to weakness 01/10/2024 The patient was seen and examined in medical telemetry unit He has been complaining of some pain in the left shoulder due to known frozen shoulder Remains generally weak and has not been participating in physical therapy Denies any significant symptoms Has been requiring Caretr catheter for drainage 01/11/2024 The patient was seen and examined in medical telemetry He has been much better today Denies any significant symptoms Advised to participate in physical therapy 01/12/2024 The patient was seen and examined in medical telemetry unit He has been feeling much better and denies any significant symptoms He has been participating in physical therapy and will need to be placed 01/13/2024 Patient was seen and examined in medical telemetry unit He has had episodes of confusion last night but remains asymptomatic since this morning Denies any significant symptoms during my examination and has had physical therapy on 01/10/2024 Review of Systems Review of Systems: All systems reviewed and are unremarkable except as noted below Physical Exam Physical Exam: Lying in bed without any acute distress Constitutional: well developed, well nourished and + ill appearing Eyes: PERRL, conjunctivae normal, anicteric sclerae ENMT: external ear and nose normal, oropharynx normal Neck: trachea midline, no thyromegaly Respiratory: no respiratory distress Auscultation: lungs clear to auscultation bilaterally Cardiovascular: Rate/Rhythm: regular rate and regular rhythm; not tachycardic Heart Sounds: normal S1 and normal S2; no murmur Extremities: no edema Gastrointestinal (Abdomen): Inspection/Auscultation: normal bowel sounds; abdomen not distended Percussion/Palpation: abdomen soft; abdomen nontender Neurologic: normal touch/pain/proprioception and moves all extremities; no focal motor deficits Psychiatric: A+Ox3, euthymic affect Lymphatic: no cervical or axillary lymphadenopathy Results & Data Results & Data Vital Signs (Past 12 Hours) Vital Signs Temp Pulse Pulse Resp BP BP Pulse Ox 01/13/24 11:17 36.9 C 85 16 114/60 96 01/13/24 09:07 01/13/24 07:14 37.4 C 82 18 153/85 H 95 01/13/24 07:06 79 01/13/24 04:00 01/13/24 02:41 37.3 C 95 H 18 138/78 94 Pulse Ox O2 Del Method O2 Del Method 01/13/24 11:17 Room Air 01/13/24 09:07 Room Air 01/13/24 07:14 Room Air 01/13/24 07:06 01/13/24 04:00 94 Room Air 01/13/24 02:41 Room Air Medications Administered Current Inpatient Medications Acetaminophen (Acetaminophen 325 Mg Tab) 650 mg PO QID PRN PRN Reason: pain/fever Stop: 02/07/24 05:36 Last Admin: 01/12/24 02:35 Dose: 650 mg Atorvastatin Calcium ([facility] 10 Mg Tab) [facility] [place] Stop: 02/07/24 08:59 Last Admin: 01/13/24 08:52 Dose: 10 mg Bethanechol Chloride (Bethanechol Chl 25 Mg Tab) 50 mg PO DAILY [facility] Stop: 02/07/24 08:59 Last Admin: 01/13/24 08:52 Dose: 50 mg Cyanocobalamin (Cyanocobalamin (B-12) 500 Mcg Tablet) 1,000 mcg PO DAILY [facility] Stop: 02/07/24 08:59 Last Admin: 01/13/24 08:52 Dose: 1,000 mcg Dextrose (Dextrose 50% 50 Ml Syringe) 25 - 50 ml IV UD PRN; Protocol PRN Reason: Hypoglycemia Protocol Stop: 02/07/24 08:52 Doxycycline Hyclate (Doxycycline Hyclate 50 Mg Cap) 50 mg PO QPM [facility] Stop: 02/07/24 20:59 Last Admin: 01/12/24 20:27 Dose: 50 mg Enoxaparin Sodium (Enoxaparin Inj 40 Mg/0.4 Ml Syr) 40 mg SQ QAM [facility] Stop: 02/07/24 08:59 Last Admin: 01/13/24 08:53 Dose: 40 mg Finasteride (Finasteride 5 Mg Tab) 5 mg PO DAILY [facility] Stop: 02/07/24 08:59 Last Admin: 01/13/24 08:53 Dose: 5 mg Glucagon (Glucagon For Inj 1 Mg Vial) 1 mg SQ UD PRN; Protocol PRN Reason: Hypoglycemia Protocol Stop: 02/07/24 08:52 Glucose (Glucose 40% Gel 15 Gm Tube) 15 - 30 gm PO UD PRN; Protocol PRN Reason: Hypoglycemia Protocol Stop: 02/07/24 08:52 Glucose (Glucose 10 Tab/Tube) 4 - 8 tab PO UD PRN; Protocol PRN Reason: Hypoglycemia Treatment Stop: 02/07/24 08:52 Promethazine HCl (Phenergan) 6.25 mg in 50.25 mls @ 201 mls/hr IV Q6H PRN PRN Reason: Nausea And Vomiting Stop: 02/07/24 05:36 Insulin Aspart (Insulin Aspart Per Unit Charge) 0 units SC ACHS [facility] Stop: 02/07/24 08:59 Last Admin: 01/13/24 09:00 Dose: 4 units Lisinopril (Lisinopril 40 Mg Tab) 40 mg PO QAM [facility] Stop: 02/07/24 08:59 Last Admin: 01/13/24 08:53 Dose: 40 mg Metoprolol Succinate (Metoprolol Succ 25mg Ext Rel Tab) 25 mg PO BID [facility] Stop: 02/09/24 20:59 Last Admin: 01/13/24 08:54 Dose: 25 mg Miscellaneous (Carbohydrates For Hypoglycemia ) 15 - 30 gm PO UD PRN PRN Reason: Hypoglycemia Protocol Stop: 02/07/24 08:52 Multivitamins/Minerals (Cerovite Adv Formula Tab) 1 tab PO DAILY [facility] Stop: 02/07/24 08:59 Last Admin: 01/13/24 08:54 Dose: 1 tab Tamsulosin HCl (Tamsulosin Hcl 0.4 Mg Cap) 0.4 mg PO DAILY [facility]US Stop: 02/07/24 08:59 Last Admin: 01/13/24 08:55 Dose: 0.4 mg
[2024-01-14 08:24] LABS: Basophils # (auto) 0.02 K/uL (0.00-0.20); Basophils % (auto) 0.2 %; Eosinophils % (auto) 3.5 %; Hematocrit (blood only) 32.8 % (42.0-52.0); Hemoglobin 10.9 g/dl (14.0-18.0); Immature Granulocytes # (auto) 0.03 K/uL (0.01-0.20); Immature Granulocytes % (auto) 0.4 %; Lymphocytes # (auto) 1.28 K/uL (1.20-3.40); Lymphocytes % (auto) 15.1 %; Mean Corpuscular Hemoglobin 28.8 pg (25.0-34.0); Mean Corpuscular Hgb Conc 33.2 g/dL (32.0-36.0); Mean Corpuscular Volume 86.8 fL (80.0-100.0); Mean Platelet Volume 10.7 fL (9.4-12.4); Monocytes # (auto) 0.98 K/uL (0.11-0.59); Monocytes % (auto) 11.6 %; Neutrophils # (auto) 5.85 K/uL (1.40-6.50); Neutrophils % (auto) 69.2 %; Platelet Count 291 K/uL (130-400); RDW Coefficient of Variation 13.1 % (11.5-14.5); RDW Standard Deviation 41.4 fL (36.4-46.3); Red Blood Count 3.78 M/uL (4.70-6.10); White Blood Count 8.46 K/ul (4.8-10.8)
[2024-01-14 08:46] LABS: BUN Creatinine Ratio 31.5 (10-20); Calcium 8.7 mg/dl (8.6-10.3); Creatinine Clr Calc Pharmacy 53.9 ml/min; Est GFR (African American) 64.1 ml/min; Est GFR (Non-African American) 55.3 ml/min; Magnesium 1.9 mg/dl (1.7-2.4); Potassium 3.6 mmol/L (3.5-5.1)
--- NOTE | 2024-01-14 15:57 | Hospitalist Progress Note ---
Date of Service January 14, 2024 Assessment & Plan (1) Ambulatory dysfunction: Plan: Ambulatory dysfunction with deconditioning Progressive over the last few weeks Remains generally weak and lethargic and has been participating in physical therapy Otherwise medically stable without any significant symptoms at rest Will get PT OT evaluation and will need probable placement Strongly advised to participate in physical therapy insurance manager has been working for possible placement Clinically much better today and denies any significant symptoms Has been getting physical therapy and advised to continue rehab in the hospital Remains medically stable to be transferred when accepted Remains medically stable and will need to have more physical therapy PT recommended rehab placement insurance manager has been trying to find a place for him Has developed sacral decubitus ulcer stage I Has been so reluctant to move around and also change posture while in bed Appreciate wound care input and recommendation for dressing Please see the picture for an assessment of the wound Urinary obstruction Has not had any voiding since admission Straight cath revealed about 700 mL of fluid If there is further obstruction we will put a Carter Required Carter insertion last night and will continue Will continue Carter catheter for about 10 days in total and then try to take it out Will DC Carter catheter-was not been able to pass any urine Will put the Carter in and will have a trial to take out Carter in about 10 days Demand ischemia Demand ischemia due to tachycardia and hypertension. Troponin elevation possibly from elevated blood pressure documented at patient's home Aortic stenosis status post bioprosthetic AVR Mild mitral stenosis Denies any cardiac symptoms Remains stable without any cardiac symptoms Hyperlipidemia, on statin Rx DM2 on oral medications, well-controlled as of recent hemoglobin A1c of 6 last October 2023 ISS BG goal 1 10-1 40, carb count coverage Chronic anemia, hemoglobin at baseline TTE for progression DVT prophylaxis. Lovenox subcu Full code Patient requesting updates providers. Ms. Katlyn Montalvo, contact #[phone]. Will discuss with the And updated about everything Admission and Anticipated Discharge Date Admission Date: January 08, 2024 Subjective 01/09/2024 The patient was seen and examined in medical telemetry unit He has been stable and denies any significant symptoms Has not been able to come out of bed and participate in physical therapy yet due to weakness 01/10/2024 The patient was seen and examined in medical telemetry unit He has been complaining of some pain in the left shoulder due to known frozen shoulder Remains generally weak and has not been participating in physical therapy Denies any significant symptoms Has been requiring Carter catheter for drainage 01/11/2024 The patient was seen and examined in medical telemetry He has been much better today Denies any significant symptoms Advised to participate in physical therapy 01/12/2024 The patient was seen and examined in medical telemetry unit He has been feeling much better and denies any significant symptoms He has been participating in physical therapy and will need to be placed 01/13/2024 Patient was seen and examined in medical telemetry unit He has had episodes of confusion last night but remains asymptomatic since this morning Denies any significant symptoms during my examination and has had physical therapy on 01/10/2024 01/14/2024 The patient was seen and examined in medical telemetry unit He has been stable in bed and was not participating in physical therapy He has very reluctant to change in his posture as well in bed He has developed stage I sacral decubiti collections Otherwise medically stable Review of Systems Review of Systems: All systems reviewed and are unremarkable except as noted below Physical Exam Physical Exam: Lying in bed without any acute distress Constitutional: well developed, well nourished and + ill appearing Eyes: PERRL, conjunctivae normal, anicteric sclerae ENMT: external ear and nose normal, oropharynx normal Neck: trachea midline, no thyromegaly Respiratory: no respiratory distress Auscultation: lungs clear to auscultation bilaterally Cardiovascular: Rate/Rhythm: regular rate and regular rhythm; not tachycardic Heart Sounds: normal S1 and normal S2; no murmur Extremities: no edema Gastrointestinal (Abdomen): Inspection/Auscultation: normal bowel sounds; abdomen not distended Percussion/Palpation: abdomen soft; abdomen nontender Neurologic: normal touch/pain/proprioception and moves all extremities; no focal motor deficits Psychiatric: A+Ox3, euthymic affect Lymphatic: no cervical or axillary lymphadenopathy Results & Data Results & Data Vital Signs (Past 12 Hours) Vital Signs Temp Pulse Pulse Resp BP Pulse Ox O2 Del Method 01/14/24 15:43 36.9 C 65 18 153/79 H 96 Room Air 01/14/24 11:01 36.8 C 61 18 120/72 94 Room Air 01/14/24 07:59 69 01/14/24 07:37 36.8 C 58 L 18 130/73 96 Room Air Laboratory Results Short CBC 01/14/24 Range/Units 07:33 WBC 8.46 (4.8-10.8) K/ul Hgb 10.9 L (14.0-18.0) g/dl Hct 32.8 L (42.0-52.0) % Plt Count 291 (130-400) K/uL BMP 01/14/24 07:33 Sodium 139 Potassium 3.6 Chloride 102 Carbon Dioxide 28 BUN 39 H Creatinine 1.24 Glucose 128 H Calcium 8.7 Medications Administered Current Inpatient Medications Acetaminophen (Acetaminophen 325 Mg Tab) 650 mg PO QID PRN PRN Reason: pain/fever Stop: 02/07/24 05:36 Last Admin: 01/13/24 18:04 Dose: 650 mg Atorvastatin Calcium (Atorvastatin 10 Mg Tab) 10 mg PO QAM [facility] Stop: 02/07/24 08:59 Last Admin: 01/14/24 09:00 Dose: 10 mg Bethanechol Chloride (Bethanechol Chl 25 Mg Tab) 50 mg PO DAILY [facility] Stop: 02/07/24 08:59 Last Admin: 01/14/24 09:00 Dose: 50 mg Cyanocobalamin (Cyanocobalamin (B-12) 500 Mcg Tablet) 1,000 mcg PO DAILY [facility] Stop: 02/07/24 08:59 Last Admin: 01/14/24 09:01 Dose: 1,000 mcg Dextrose (Dextrose 50% 50 Ml Syringe) 25 - 50 ml IV UD PRN; Protocol PRN Reason: Hypoglycemia Protocol Stop: 02/07/24 08:52 Doxycycline Hyclate (Doxycycline Hyclate 50 Mg Cap) 50 mg PO QPM [facility] Stop: 02/07/24 20:59 Last Admin: 01/13/24 20:22 Dose: 50 mg Enoxaparin Sodium (Enoxaparin Inj 40 Mg/0.4 Ml Syr) 40 mg SQ QAM [facility] Stop: 02/07/24 08:59 Last Admin: 01/14/24 09:01 Dose: 40 mg Finasteride (Finasteride 5 Mg Tab) 5 mg PO DAILY [facility]AR[facility] Stop: 02/07/24 08:59 Last Admin: 01/14/24 09:01 Dose: 5 mg Glucagon (Glucagon For Inj 1 Mg Vial) 1 mg SQ UD PRN; Protocol PRN Reason: Hypoglycemia Protocol Stop: 02/07/24 08:52 Glucose (Glucose 40% Gel 15 Gm Tube) 15 - 30 gm PO UD PRN; Protocol PRN Reason: Hypoglycemia Protocol Stop: 02/07/24 08:52 Glucose (Glucose 10 Tab/Tube) 4 - 8 tab PO UD PRN; Protocol PRN Reason: Hypoglycemia Treatment Stop: 02/07/24 08:52 Promethazine HCl (Phenergan) 6.25 mg in 50.25 mls @ 201 mls/hr IV Q6H PRN PRN Reason: Nausea And Vomiting Stop: 02/07/24 05:36 Insulin Aspart (Insulin Aspart Per Unit Charge) 0 units SC ACHS [facility] Stop: 02/07/24 08:59 Last Admin: 01/14/24 12:56 Dose: 8 units Lisinopril (Lisinopril 40 Mg Tab) 40 mg PO QAM [facility] Stop: 02/07/24 08:59 Last Admin: 01/14/24 09:01 Dose: 40 mg Metoprolol Succinate (Metoprolol Succ 25mg Ext Rel Tab) 25 mg PO BID [facility] Stop: 02/09/24 20:59 Last Admin: 01/14/24 09:00 Dose: 25 mg Miscellaneous (Carbohydrates For Hypoglycemia ) 15 - 30 gm PO UD PRN PRN Reason: Hypoglycemia Protocol Stop: 02/07/24 08:52 Multivitamins/Minerals (Cerovite Adv Formula Tab) 1 tab PO DAILY [facility]US Stop: 02/07/24 08:59 Last Admin: 01/14/24 09:02 Dose: 1 tab Tamsulosin HCl (Tamsulosin Hcl 0.4 Mg Cap) 0.4 mg PO DAILY [facility]US Stop: 02/07/24 08:59 Last Admin: 01/14/24 09:02 Dose: 0.4 mg
--- NOTE | 2024-01-15 14:30 | Hospitalist Progress Note ---
Date of Service January 15, 2024 Assessment & Plan (1) Ambulatory dysfunction: (2) Physical deconditioning: (3) Benign prostatic hyperplasia with urinary obstruction: (4) Subclinical hypothyroidism: (5) Demand ischemia of myocardium: (6) Diabetes mellitus, type 2: (7) Rotator cuff arthropathy of left shoulder: Plan Continue with therapies Reviewed case management notes, patient accepted at [facility] pending authorization from insurance Start low-dose Synthroid for elevated TSH as normal free T4 consistent with subclinical hypothyroidism Increase Flomax for BPH, blood pressure will tolerate Continue other medications Anticipate discharge to [facility] tomorrow, anticipate will maintain Carter catheter, voiding trial when patient more active and has been on higher dose of Flomax for 1 to 2 weeks Attempted to call , no answer Admission and Anticipated Discharge Date Admission Date: January 08, 2024 Subjective No acute issues overnight Physical Exam Physical Exam: Constitutional: Alert HEENT: Mucous membranes moist. Lungs: Clear to auscultation, decreased, no wheezes rales or rhonchi CV: S1-S2, regular Abdomen: Soft, nontender, nondistended Extremities: No significant edema Neuro: No focal deficits Psych: Cooperative, normal mood Results & Data Results & Data Vital Signs (Past 12 Hours) Vital Signs Temp Pulse Pulse Resp BP BP Pulse Ox 01/15/24 11:02 36.7 C 67 18 132/68 98 01/15/24 07:18 36.8 C 64 18 149/78 H 96 01/15/24 07:07 83 01/15/24 04:00 01/15/24 03:40 134/95 148/61 H 01/15/24 03:10 132/65 01/15/24 02:48 36.9 C 82 18 192/83 H 96 Pulse Ox O2 Del Method O2 Del Method 01/15/24 11:02 Room Air 01/15/24 07:18 Room Air 01/15/24 07:07 01/15/24 04:00 96 Room Air 01/15/24 03:40 01/15/24 03:10 01/15/24 02:48 Room Air Diagnostic Findings Glucoses reviewed
[2024-01-16] MEDS: LEVOTHYROXINE SODIUM 25 MCG TABLET PO SCH (05:26)
[2024-01-16 07:09] VITALS: RESP 16
[2024-01-16] MEDS: TAMSULOSIN HCL 0.4 MG CAP PO SCH (08:39)
--- NOTE | 2024-01-16 14:10 | Discharge Summary ---
Discharge Summary Date of Service January 16, 2024 Principal Dx & Hospital Course #1 = Principal Diagnosis (1) Ambulatory dysfunction: (2) Physical deconditioning: (3) Benign prostatic hyperplasia with urinary obstruction: (4) Subclinical hypothyroidism: (5) Demand ischemia of myocardium: (6) Diabetes mellitus, type 2: (7) Rotator cuff arthropathy of left shoulder: (8) Vascular dementia: Plan Patient 78-year-old gentleman presented to the emergency room with confusion and weakness and increasing difficulty caring for at home. Patient was admitted to the hospital. Imaging of his brain revealed some microvascular disease but no acute processes. Laboratory studies were unremarkable. Patient was seen by therapies and case management was involved in his care. His chronic medical issues were managed while here in the hospital. In the hospital he did have some evidence of urinary retention due to BPH. Carter catheter was placed. Flomax dosing was increased. Through his hospitalization continue to participate with therapies. His acute delirium cleared. There was no evidence of infection. His TSH was moderately elevated with a normal T4. Some of the patient's weakness and intermittent confusion may be due to subclinical hypothyroidism. Low-dose Synthroid was started. He did have some episodes of transient confusion but returned to his baseline. He is requiring significant amount of physical assistance. He could not return to independent living with his . Case management was able to coordinate ongoing rehabilitation for him at [facility]. He will be discharged there when arrangements have been made. Patient's was updated to the plan of care and findings during the hospitalization. Notes For Next Care Provider Continue therapies Check TSH in 4 to 6 weeks Consider voiding trial in approximately 2 weeks when patient's activity is increased and medications have time to become effective Medication Changes From Visit Metoprolol dose increased to twice daily Flomax increased to 0.8 mg Synthroid is started Admission HPI Per Admitting Provider History obtained from patient and records. Medical history significant for aortic stenosis status post bioprosthetic AVR, hypertension, hyperlipidemia, VIKRAM as per records DM2 on oral medications, chronic anemia (baseline hemoglobin of 12), BPH. Over the last few weeks, patient noted to have increasing bilateral leg weakness and balance difficulties leading to falls. Patient having trouble even sitting up on bed on his own. Episode of confusion. Patient denies headache, chest pain, SOB, syncope, abdominal pain. Patient seen at PCPs office yesterday. Hospitalization recommended but patient and declined. Worsening symptoms noted at home. SBP 180s upon EMS arrival at patient's home Patient brought to ER for evaluation. 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 Lungs: Clear to auscultation, decreased, no wheezes rales or rhonchi CV: S1-S2, regular Abdomen: Soft, nontender, nondistended Extremities: No significant edema Neuro: No focal deficits Psych: Cooperative, normal mood Updated Medication List Medication Instructions Recorded Confirmed Type amlodipine 5 mg tablet 5 mg PO QAM 02/13/18 01/08/24 History atorvastatin 10 mg tablet 10 mg PO QAM 02/13/18 01/08/24 History clindamycin phosphate 1 % topical 1 applic topical BID 02/13/18 01/08/24 History solution doxycycline monohydrate 50 mg 50 mg PO QPM 02/13/18 01/08/24 History tablet ibuprofen 200 mg tablet 400 mg PO BID 02/13/18 01/08/24 History indapamide 2.5 mg tablet 2.5 mg PO QAM 02/13/18 01/08/24 History lisinopril 40 mg tablet 40 mg PO QAM 02/13/18 01/08/24 History metformin 1,000 mg tablet,extended 2,000 mg PO QAM 02/13/18 01/08/24 History release 24hr (osmotic) metoprolol succinate 25 mg 25 mg PO QAM 02/13/18 01/08/24 History tablet,extended release 24 hr potassium chloride 20 mEq 20 meq PO BID 02/13/18 01/08/24 History tablet,extended release sitagliptin phosphate 100 mg 100 mg PO QAM 02/13/18 01/08/24 History tablet (Januvia) threonine (bulk) (L-Threonine 1 tab miscellaneous HS 02/13/18 01/08/24 History crystals) tamsulosin 0.4 mg capsule See Rx Instructions .Route 11/25/23 01/08/24 Rx .COMPLEX #90 caps finasteride 5 mg tablet 5 mg PO DAILY #90 tabs 12/05/23 01/08/24 Rx Cyanacobalamin 1,000 mcg PO DAILY 01/08/24 01/08/24 History Flonase 1 spray intranasal DIRECTED PRN 01/08/24 01/08/24 History Allergy Symptoms bethanechol chloride 50 mg tablet 50 mg PO 1XD 01/08/24 01/08/24 History askdnxjoljzi-rnawlmpm-hixsnt tablet 1 tab PO DAILY 01/08/24 01/08/24 History acetaminophen 325 mg tablet 650 mg (2 x 325 mg) PO QID PRN 01/16/24 Rx fever or pain #90 tabs levothyroxine 25 mcg tablet 25 mcg PO DAILYBB #30 tabs 01/16/24 Rx (Synthroid) Hospital Stay Data Diagnostic Imagining Performed 01/08/24 01:15 CT Brain [CT head/brain wo con] Stat Reviewed imaging, laboratory and diagnostic studies. Pertinent findings as below. TSH 6.17 Basic metabolic profile stable CBC stable Head CT on admission no acute hemorrhage, did show some periventricular white matter disease Pending Results Patient Have Any Pending Studies at Discharge: No Discharge Instructions Given to Patient (Per Discharging Provider) Continue with therapies Total Time Total Time Spent Total Time Spent (In Minutes): 43
[2024-01-16 15:04] VITALS: BP 144/76; PULSE 72; TEMP 98.4; O2SAT 95
--- NOTE | 2024-01-16 15:33 | Hospitalist Progress Note ---
Date of Service January 16, 2024 Assessment & Plan (1) Ambulatory dysfunction: (2) Physical deconditioning: (3) Benign prostatic hyperplasia with urinary obstruction: (4) Subclinical hypothyroidism: (5) Demand ischemia of myocardium: (6) Diabetes mellitus, type 2: (7) Rotator cuff arthropathy of left shoulder: (8) Vascular dementia: Plan Continue current plan of care Await insurance authorization for anticipated discharge to rehab facility was concerned that the patient seems somewhat confused after he called her on the phone. Reevaluated the patient, no acute focal findings, able to answer questions appropriately. Remembered visiting me this morning remembered our conversation from this morning. Reviewed head CT, evidence of microvascular disease, suspect patient has some mild early vascular dementia. With patient's hospitalization, sleep disturbance, changing of rooms suspect he may get intermittently confused. Phone conversation with updated her to patient's condition and plan. She is aware we are awaiting insurance authorization. Admission and Anticipated Discharge Date Admission Date: January 08, 2024 Subjective No acute issues overnight. Did get moved to a new room Physical Exam Physical Exam: Constitutional: Alert HEENT: Mucous membranes moist. Lungs: Clear to auscultation, decreased, no wheezes rales or rhonchi CV: S1-S2, regular Abdomen: Soft, nontender, nondistended Extremities: No significant edema Neuro: No focal deficits, Psych: Cooperative, normal mood, occasionally may have some mild confusion Results & Data Results & Data Vital Signs (Past 12 Hours) Vital Signs Temp Pulse Resp BP BP Pulse Ox O2 Del Method 01/16/24 15:03 36.9 C 72 16 144/76 H 95 Room Air 01/16/24 08:40 79 123/72 01/16/24 08:00 01/16/24 07:50 Room Air 01/16/24 07:08 37.0 C 72 16 138/75 97 Room Air O2 Del Method O2 Flow Rate 01/16/24 15:03 01/16/24 08:40 01/16/24 08:00 Room Air 95 01/16/24 07:50 01/16/24 07:08
== END 2024-01-16 17:40 | DRG 644 ==
LOC: ED 00:01 → INTOOBSV 05:35 → SUATTDRO 05:35 → EDINP 08:38 → 2N 08:54 → 3N 01-15 23:58

== ENCOUNTER 2024-02-19 10:52 | Inpatient (IN) ==
--- NOTE | 2024-02-19 11:36 | Emergency Department Note ---
Impression & Plan Hematuria, Complication of Henderson catheter, Adult failure to thrive ED Provider Note ED Provider Note NAME: SPENCER GRIFFITH AGE:78 SEX: Male : 1945 ARRIVES VIA: EMS INFORMANT: Patient ED PROVIDER(s): Gwen Guardado DO CHIEF COMPLAINT: Dark-colored urine, concern for infection HPI: This is a 78-year-old male presents via EMS due to concern by he and his for change in the color of his urine. Patient with a chronic indwelling Henderson catheter. Patient states catheter was originally placed due to difficulty urinating and has been present for quite some time. He states his helps him manage it and change it. Patient does have difficulty providing additional history and does have a documented history of vascular dementia. Patient denies any abdominal pain, back pain, nausea or vomiting, fevers or chills. He denies any change in medication. He denies any pain along the urethra. PAST MEDICAL HISTORY:See Below PAST SURGICAL HISTORY:See Below FAMILY HISTORY:See Below SOCIAL HISTORY:See Below HOME MEDICATIONS:See Below ALLERGIES:See Below VITALS:See Below PHYSICAL EXAMINATION: GENERAL: alert, well appearing, well nourished, no distress, non-toxic EYE EXAM: normal conjunctiva, PERRL and EOM's grossly intact OROPHARYNX: no exudate, no erythema, lips, buccal mucosa, and tongue normal and mucous membranes are moist NECK: supple, no nuchal rigidity, no adenopathy, non-tender LUNGS: Clear to auscultation. Normal chest wall mechanics, no w/r/r HEART: no murmurs, S1 normal and S2 normal ABDOMEN: abdomen soft, non-tender, normo-active bowel sounds, no masses, no rebound or guarding. BACK: Back is symmetrical on inspection and there is no deformity, no midline tenderness, no CVA tenderness. SKIN: no rashes, petechiae, orbruising UPPER EXTREMITIES: upper extremities are grossly normal. FROM, nml pulses b/l. LOWER EXTREMITIES: 1-2+ b/l pitting edema. FROM, nml pulses b/l. NEURO EXAM: confused, cranial nerves II-XII grossly intact, normal speech, no facial droop,generalized weakness, cannot perform additional neuro testing. Vital Signs: reviewed and remarkable Differential Diagnosis: Clogged Henderson catheter, UTI, chronic hematuria, trauma, pyelonephritis, electrolyte abnormality, dehydration, CORDELIA, as well as others were considered MEDICAL DECISION MAKING: This is a 78-year-old male brought in by EMS due to concern for Henderson catheter malfunction and hematuria. Patient does have a history of dementia and has difficulty providing history of although can answer some simple questions. Catheter was unable to be flushed and irrigated so a new catheter was placed with return of clear yellow urine. Culture sent as a precaution. Labs drawn and sent, IV established and patient monitored on telemetry. Patient's labs reassuring to, no significant leukocytosis and no CORDELIA. I contacted the to discuss his evaluation here as well as his return home. We had a lengthy conversation where she described that she can no longer care for him at home as she feels he is getting worse since his last hospitalization despite a stay in outpatient rehab before coming home as well as other caregivers and amenities at home that had been put in place for him. She feels he needs admitted and placed in a correction facility. Case discussed with the hospitalist team for additional evaluation and management. Consultation: 1630: Discussed with [facility] hospitalist team, patient will be admitted under Dr. Gould. ER Treatment Provided: See below 1529: Discussed with Kiki, . Conversation greater than 20 minutes. Has been home 3 weeks. Visiting nurses come to check henderson. He c/o pain this am that his Henderson site. Has been on an antibiotic since Saturday after the urine appeared darker and they were concern for infection. She does not recall which antibiotic. They changed catheter yesterday. He vomited his food up last night. She states she cannot care for him at home even with PT/OT coming and a hospital bed at home, and a nurse coming to check the catheter. She describes that the patient has been weaker, unable to walk, and more more deconditioned since his last hospitalization and that she can no longer care for him at home. Diagnostics Interpreted By Me: -Cardiac Monitoring: An order was placed for continuous cardiac monitoring. The monitor shows a rate of 86 with normal sinus rhythm. -Laboratory studies: As stated above and show below. Triage Nursing Note Reviewed Prior/Outside Records Reviewed -prior urology office visit reviewed Past Med/Surg History Problem List (Updated 02/21/24 @ 01:22 by Gwen S. Pheasant, DO) Adult failure to thrive (Acute) Complication of Henderson catheter (Acute) Vascular dementia Subclinical hypothyroidism Demand ischemia of myocardium Physical deconditioning Ambulatory dysfunction Acute alteration in mental status (Acute) Weakness (Acute) Elevated troponin (Acute) 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 Lower back pain Encounter for pre-operative examination Hematuria (Chronic) Diabetes (Chronic) Acute urinary retention (Acute) Acute urinary retention (Acute) Bilateral lower extremity edema (Acute) Medical History Acute urinary retention POST OP ANESTHESIA-NEEDED TO BE CATHETERIZED Osteoarthritis BPH (benign prostatic hyperplasia) Diabetes mellitus, type 2 Peripheral neuropathy FEET Hyperlipidemia Hypertension Sleep apnea CPAP Surgical History H/O removal of cyst NECK-BENIGN S/P foot surgery, right HAMMERTOE X 3 PROCEDURES History of tonsillectomy History of appendectomy Previous back surgery DISC SURG S/P TURP GREENLIGHT LASER History of heart valve replacement AVR-12/2009 Family History Family/Other Family history of diabetes mellitus Social History Smoking Status: Never smoker Second Hand Exposure: No; Do You Dip or Chew Tobacco: No; Hx Alcohol Use: No Hx Substance Use: No Preferred Language: French Communication Ability: Effective Intelligence Research Specialist Required: No Beliefs That Will Affect Care: None Current Living Situation: Spouse Feels Safe at Home: Yes Safety Concerns: Feels Safe At This Time Assistive Devices: Hospital Bed Allergies Allergies Allergy/AdvReac Type Severity Reaction Status Date / Time No Known Allergies Allergy Verified 02/19/24 16:12 Home Meds Home Medications Medication Instructions Recorded Confirmed cyanocobalamin (vitamin B-12) 1,000 mcg PO DAILY 02/19/24 02/19/24 1,000 mcg tablet fluticasone propionate 50 1 spray intranasal DAILY 02/19/24 02/19/24 mcg/actuation nasal spray,suspension indapamide 2.5 mg tablet 2.5 mg PO QAM 02/19/24 02/19/24 metformin 500 mg tablet,extended 500 mg PO DAILY 02/19/24 02/19/24 release 24 hr potassium chloride 20 mEq 20 meq PO BID 02/19/24 02/19/24 tablet,extended release(part/cryst) Previous Rx's Medication Instructions Recorded acetaminophen 325 mg tablet 650 mg (2 x 325 mg) PO QID PRN 01/16/24 fever or pain #90 tabs amlodipine 5 mg tablet 5 mg PO QAM #30 tabs 01/16/24 atorvastatin 10 mg tablet 10 mg PO QAM #30 tabs 01/16/24 finasteride 5 mg tablet 5 mg PO DAILY #90 tabs 01/16/24 lisinopril 40 mg tablet 40 mg PO QAM #30 tabs 01/16/24 metoprolol succinate 25 mg 25 mg PO BID #60 tabs 01/16/24 tablet,extended release 24 hr fgldgacxgxyf-tpgnzxpm-cgsecl tablet 1 tab PO DAILY #30 tabs 01/16/24 sitagliptin phosphate 100 mg 100 mg PO QAM #30 tabs 01/16/24 tablet (Januvia) tamsulosin 0.4 mg capsule 0.8 mg (2 x 0.4 mg) PO DAILY #60 01/16/24 caps Results & Data (ED) Vital Signs Vital Signs - 24 hr 02/19/24 11:05 02/19/24 12:26 02/19/24 14:48 Temperature 36.6 C Temperature Source Oral Pulse Rate 88 85 Pulse Rate [Apical] 85 Pulse Rhythm [Apical] Regular Pulse Strength [Apical] Normal Respiratory Rate 22 18 Respiratory Effort / Characteristics Non-Labored Spontaneous Non-Labored Spontaneous Respiratory Depth Normal Normal Respiratory Pattern Regular Blood Pressure 142/79 H Blood Pressure [Right Arm] 153/86 H Blood Pressure Mean 100 Blood Pressure Mean [Right Arm] 108 Blood Pressure Position [Right Arm] Semi-fowlers Pulse Oximetry 95 Oxygen Delivery Method Room Air Sepsis Recent Fever Within 48 Hours No Sepsis New/Unexplained Change in Mental Status No Sepsis Action Taken by Nursing No Action Required 02/19/24 15:26 02/19/24 15:30 02/19/24 15:39 Temperature Temperature Source Pulse Rate 92 H Pulse Rate [Apical] 89 Pulse Rhythm [Apical] Pulse Strength [Apical] Respiratory Rate 17 15 Respiratory Effort / Characteristics Non-Labored Spontaneous Respiratory Depth Normal Respiratory Pattern Regular Blood Pressure 142/76 H Blood Pressure [Right Arm] 136/79 Blood Pressure Mean 87 Blood Pressure Mean [Right Arm] 98 Blood Pressure Position [Right Arm] Pulse Oximetry 97 96 Oxygen Delivery Method Room Air Room Air Sepsis Recent Fever Within 48 Hours Sepsis New/Unexplained Change in Mental Status Sepsis Action Taken by Nursing 02/19/24 15:48 02/19/24 15:51 Temperature Temperature Source Pulse Rate 78 86 Pulse Rate [Apical] Pulse Rhythm [Apical] Pulse Strength [Apical] Respiratory Rate 15 15 Respiratory Effort / Characteristics Respiratory Depth Respiratory Pattern Blood Pressure Blood Pressure [Right Arm] Blood Pressure Mean Blood Pressure Mean [Right Arm] Blood Pressure Position [Right Arm] Pulse Oximetry 94 94 Oxygen Delivery Method Room Air Room Air Sepsis Recent Fever Within 48 Hours Sepsis New/Unexplained Change in Mental Status Sepsis Action Taken by Nursing Laboratory Data 02/20/24 07:32 02/20/24 07:32 Lab Results 02/19/24 02/19/24 Range/Units 12:03 13:49 WBC 10.37 (4.8-10.8) K/ul RBC 4.16 L (4.70-6.10) M/uL Hgb 11.6 L (14.0-18.0) g/dl Hct 36.0 L (42.0-52.0) % MCV 86.5 (80.0-100.0) fL MCH 27.9 (25.0-34.0) pg MCHC 32.2 (32.0-36.0) g/dL RDW Std Deviation 42.8 (36.4-46.3) fL RDW Coeff of Lianna 13.6 (11.5-14.5) % Plt Count 292 (130-400) K/uL MPV 11.0 (9.4-12.4) fL Immature Gran % (Auto) 0.5 % Neut % (Auto) 79.8 % Lymph % (Auto) 6.9 % Emmons % (Auto) 8.4 % Eos % (Auto) 4.1 % Baso % (Auto) 0.3 % Neut # (Auto) 8.28 H (1.40-6.50) K/uL Lymph # (Auto) 0.72 L (1.20-3.40) K/uL Emmons # (Auto) 0.87 H (0.11-0.59) K/uL Eos # (Auto) 0.42 (0.00-0.50) K/uL Baso # (Auto) 0.03 (0.00-0.20) K/uL Immature Gran # (Auto) 0.05 (0.01-0.20) K/uL Sodium 140 (136-145) mmol/L Potassium 3.4 L (3.5-5.1) mmol/L Chloride 100 (98-107) mmol/L Carbon Dioxide 32 (21-32) mmol/L Anion Gap 8 (3-11) BUN 26 H (6-23) mg/dl Creatinine 1.00 (0.6-1.4) mg/dl Est Cr Clr Drug Dosing 66.8 ml/min eGFR 77.04 BUN/Creatinine Ratio 26.0 H (10-20) Glucose 119 H (70-99(Fasting)) mg/dl Calcium 9.4 (8.6-10.3) mg/dl Total Bilirubin 0.4 (0.2-1.0) mg/dl AST 21 (13-39) U/L ALT 20 (7-52) U/L Alkaline Phosphatase 96 (34-104) U/L Total Protein 6.6 (6.0-8.3) gm/dl Albumin 3.5 (3.4-5.0) gm/dl Globulin 3.1 (2.5-4.0) gm/dl Albumin/Globulin Ratio 1.1 (0.9-2) Procalcitonin 0.19 (0-0.5) ng/ml Urine Color Yellow Urine Appearance Clear (Clear) Urine pH 5.5 (4.5-7.5) Ur Specific [place] 1.022 (1.000-1.030) Urine Protein 1+ H (Negative) Urine Glucose (UA) Negative (Negative) Urine Ketones 1+ H (Negative) Urine Blood 2+ H (Negative) Urine Nitrite Negative (Negative) Urine Bilirubin Negative (Negative) Urine Urobilinogen Negative (Negative) Ur Leukocyte Esterase Trace H (Negative) Urine WBC (Auto) 0-5 (0-5) /hpf Urine RBC (Auto) >20 H (0-2) /hpf U Hyaline Cast (Auto) 3-5 H (0-2) /lpf U Epithel Cells (Auto) 0-2 (0-2) /hpf Urine Bacteria (Auto) None Seen (None Seen) Administered Medications Amlodipine Besylate (Amlodipine Besylate 5 Mg Tab) 5 mg PO QAM [facility] Stop: 03/21/24 08:59 Last Admin: 02/20/24 08:10 Dose: 5 mg Documented By: CAROL Atorvastatin Calcium (Atorvastatin 10 Mg Tab) 10 mg PO QAM [facility] Stop: 03/21/24 08:59 Last Admin: 02/20/24 08:10 Dose: 10 mg Documented By: CAROL Cyanocobalamin (Cyanocobalamin (B-12) 500 Mcg Tablet) 1,000 mcg PO DAILY [facility] Stop: 03/21/24 08:59 Last Admin: 02/20/24 08:10 Dose: 1,000 mcg Documented By: CAROL Finasteride (Finasteride 5 Mg Tab) 5 mg PO DAILY [facility] Stop: 03/21/24 08:59 Last Admin: 02/20/24 08:10 Dose: 5 mg Documented By: CAROL Indapamide (Indapamide 1.25 Mg Tab) [facility] [place] Stop: 03/21/24 08:59 Last Admin: 02/20/24 08:10 Dose: 2.5 mg Documented By: CAROL Insulin Aspart (Insulin Aspart Per Unit Charge) 0 units SC ACHS [facility] Stop: 03/20/24 20:59 Last Admin: 02/20/24 21:00 Dose: 1 units Documented By: ROSITA Co-signed By: CASIMIRO Admin: 02/20/24 17:34 Dose: 2 units Documented By: CAROL Co-signed By: IMELDA Admin: 02/20/24 12:44 Dose: 3 units Documented By: CAROL Co-signed By: RAYMOND Admin: 02/20/24 08:38 Dose: 2 units Documented By: CAROL Co-signed By: RAYMOND Admin: 02/19/24 21:12 Dose: Not Given Documented By: ROSITA Co-signed By: SAB Lisinopril (Lisinopril 40 Mg Tab) 40 mg PO QAM [facility] Stop: 03/21/24 08:59 Last Admin: 02/20/24 08:10 Dose: 40 mg Documented By: CAROL Metoprolol Succinate (Metoprolol Succ 25mg Ext Rel Tab) 25 mg PO BID [facility] Stop: 03/20/24 20:59 Last Admin: 02/20/24 20:56 Dose: 25 mg Documented By: Admin: 02/20/24 08:09 Dose: 25 mg Documented By: [facility] Admin: 02/19/24 20:26 Dose: 25 mg Documented By: [facility] Nitrofurantoin Macrocrystals (Nitrofurantoin Monohydrate 100 Mg Cap) 100 mg PO BID [facility] Stop: 02/22/24 20:59 Last Admin: 02/20/24 20:56 Dose: 100 mg Documented By: [facility] Admin: 02/20/24 08:09 Dose: 100 mg Documented By: [facility] Admin: 02/19/24 20:25 Dose: 100 mg Documented By: [facility] Potassium Chloride (Potassium Chloride Crtab 20 Meq Tabcr) 20 meq PO BID [facility] Stop: 03/20/24 16:59 Last Admin: 02/20/24 20:55 Dose: 20 meq Documented By: [facility] Admin: 02/20/24 08:46 Dose: 20 meq Documented By: [facility] Admin: 02/19/24 20:24 Dose: 20 meq Documented By: [facility] Admin: 02/19/24 18:23 Dose: 20 meq Documented By: DERICK Tamsulosin HCl (Tamsulosin Hcl 0.4 Mg Cap) 0.8 mg PO DAILY [facility] Stop: 03/21/24 08:59 Last Admin: 02/20/24 08:10 Dose: 0.8 mg Documented By: [facility] Discontinued Medications Magnesium Sulfate/Dextrose (Magnesium Sulfate / D5w) 1 gm in 100 mls @ 50 mls/hr IV Q2H [facility] Stop: 02/20/24 21:29 Last Infusion: 02/20/24 21:52 Dose: Infused Documented By: [facility] Admin: 02/20/24 19:28 Dose: 50 mls/hr Documented By: [facility] Infusion: 02/20/24 19:28 Dose: Infused Documented By: [facility] Admin: 02/20/24 17:42 Dose: 50 mls/hr Documented By: [facility] Influenza Virus Vacc Triv Types A&B (Influenza Vacc [id number](65y+)/Pf (Iiv3) 0.5ml Syr) 0.5 ml IM .ONCE ONE Stop: 02/20/24 12:12 Last Admin: 02/20/24 16:49 Dose: 0.5 ml Documented By: [facility] Potassium Chloride (Potassium Chloride Crtab 20 Meq Tabcr) 20 meq PO NOW STA Stop: 02/19/24 17:43 Last Admin: 02/19/24 18:23 Dose: 20 meq Documented By: RB Discharge Plan Visit Data Chief Complaint: Urinary Symptoms Stated Complaint: URINARY SX, PAIN ED Provider: Gwen Guardado Discharge Problem: Hematuria, Complication of Henderson catheter, Adult failure to thrive Patient Disposition: Admitted As Inpatient Condition: Good Discharge Instructions Interventions: ED Discharge Assessment Last Done: 02/19/24 17:19
[2024-02-19 12:38] LABS: Basophils # (auto) 0.03 K/uL (0.00-0.20); Basophils % (auto) 0.3 %; Eosinophils # (auto) 0.42 K/uL (0.00-0.50); Eosinophils % (auto) 4.1 %; Hemoglobin 11.6 g/dl (14.0-18.0); Immature Granulocytes # (auto) 0.05 K/uL (0.01-0.20); Immature Granulocytes % (auto) 0.5 %; Lymphocytes # (auto) 0.72 K/uL (1.20-3.40); Lymphocytes % (auto) 6.9 %; Mean Corpuscular Hemoglobin 27.9 pg (25.0-34.0); Mean Corpuscular Hgb Conc 32.2 g/dL (32.0-36.0); Mean Corpuscular Volume 86.5 fL (80.0-100.0); Monocytes # (auto) 0.87 K/uL (0.11-0.59); Monocytes % (auto) 8.4 %; Neutrophils # (auto) 8.28 K/uL (1.40-6.50); Neutrophils % (auto) 79.8 %; Platelet Count 292 K/uL (130-400); RDW Coefficient of Variation 13.6 % (11.5-14.5); RDW Standard Deviation 42.8 fL (36.4-46.3); Red Blood Count 4.16 M/uL (4.70-6.10); White Blood Count 10.37 K/ul (4.8-10.8)
[2024-02-19 12:51] LABS: Albumin Globulin Ratio 1.1 (0.9-2); Albumin Level 3.5 gm/dl (3.4-5.0); Bilirubin,Total 0.4 mg/dl (0.2-1.0); Calcium 9.4 mg/dl (8.6-10.3); Creatinine Clr Calc Pharmacy 66.8 ml/min; Globulin 3.1 gm/dl (2.5-4.0); Potassium 3.4 mmol/L (3.5-5.1); Total Protein 6.6 gm/dl (6.0-8.3)
--- NOTE | 2024-02-19 17:32 | History & Physical Report ---
Date of Service February 19, 2024 Assessment & Plan (1) Complication of Carter catheter: (2) Vascular dementia: (3) Ambulatory dysfunction: (4) Benign prostatic hyperplasia with urinary obstruction: (5) UTI (urinary tract infection): Plan Assessment and plan: BPH with urinary retention: Chronic indwelling Carter catheter: Acute UTI: Carter catheter placed around 6 weeks ago, there was concern for hematuria/tea colored urine Carter catheter was swapped out in ED on 02/18, now draining clear yellow Patient started on nitrofurantoin on 02/14, will continue this for 3 more days for 7 days of treatment Follow-up with urology outpatient, urine culture pending Continue tamsulosin/finasteride Generalized weakness: Ambulatory dysfunction: PT/OT, concerned that she is unable to care for patient at home, patient will likely need SNF on DC Hx HTN/HLD: Continue amlodipine/metoprolol/indapamide/lisinopril Hx DM2: Hold metformin, continue Januvia, SSI/4 times daily BGM, sugar acceptable A total of 45 minutes was spent on chart review/reviewing diagnostic data/discussion with consultants/facilitation of plan of care Patient is a full code DVT prophylaxis heparin subcu History of Present Illness Chief Complaint: Ambulatory dysfunction, UTI Primary Care Provider: Karuna Parkinson MD The patient is a 78-year-old male with a past medical history of aortic stenosis s/p AVR, mitral stenosis, HLD, DM2, chronic anemia, chronic indwelling Foleyplaced about 6 weeks ago, urinary retention, dementia who presents to the ED on 02/19/2024 after his called EMS for concerns of Carter catheter not draining and dark-colored urine with possible hematuria. Patient's also reports that the patient was recently discharged from the hospital last month he was sent to a rehab facility and has since returned home and has continued to become weaker and go downhill. She is unable to care for him and believes he needs a alf facility on discharge. His indwelling Carter catheter was swapped out in the ER and is now draining clear yellow urine. The home care nurse noticed about 4 days ago that the patient's urine was darker and the patient was started on nitrofurantoin by an outpatient provider. No urine culture was sent at that time. Urine culture ordered and pending at this time. Will continue nitrofurantoin for another 3 days to complete a week of treatment. On exam, the patient denies any complaints and reports that his lower abdominal pain feels better since the catheter was switched out. He denies any recent fever/chills/chest pain/shortness of breath/abdominal pain. On arrival to the ED, his labs are fairly unremarkable with no leukocytosis, hemoglobin 11.6, potassium 3.4, glucose 119 Procalcitonin was negative The patient will be admitted for further management of ambulatory dysfunction and for possible case management placement Allergies Allergy/AdvReac Type Severity Reaction Status Date / Time No Known Allergies Allergy Verified 02/19/24 16:12 Home Medications Medication Instructions Recorded Confirmed Type acetaminophen 325 mg tablet 650 mg (2 x 325 mg) PO QID PRN 01/16/24 02/19/24 Rx fever or pain #90 tabs amlodipine 5 mg tablet 5 mg PO QAM #30 tabs 01/16/24 02/19/24 Rx atorvastatin 10 mg tablet 10 mg PO QAM #30 tabs 01/16/24 02/19/24 Rx finasteride 5 mg tablet 5 mg PO DAILY #90 tabs 01/16/24 02/19/24 Rx lisinopril 40 mg tablet 40 mg PO QAM #30 tabs 01/16/24 02/19/24 Rx metoprolol succinate 25 mg 25 mg PO BID #60 tabs 01/16/24 02/19/24 Rx tablet,extended release 24 hr exflrpkxivjd-rpouhlju-yvotbr tablet 1 tab PO DAILY #30 tabs 01/16/24 02/19/24 Rx sitagliptin phosphate 100 mg 100 mg PO QAM #30 tabs 01/16/24 02/19/24 Rx tablet (Januvia) tamsulosin 0.4 mg capsule 0.8 mg (2 x 0.4 mg) PO DAILY #60 01/16/24 02/19/24 Rx caps cyanocobalamin (vitamin B-12) 1,000 mcg PO DAILY 02/19/24 02/19/24 History 1,000 mcg tablet fluticasone propionate 50 1 spray intranasal DAILY 02/19/24 02/19/24 History mcg/actuation nasal spray,suspension indapamide 2.5 mg tablet 2.5 mg PO QAM 02/19/24 02/19/24 History metformin 500 mg tablet,extended 500 mg PO DAILY 02/19/24 02/19/24 History release 24 hr potassium chloride 20 mEq 20 meq PO BID 02/19/24 02/19/24 History tablet,extended release(part/cryst) Past Med/Surg History Problem List Complication of Carter catheter (Acute) Vascular dementia Subclinical hypothyroidism Demand ischemia of myocardium Physical deconditioning Ambulatory dysfunction Acute alteration in mental status (Acute) Weakness (Acute) Elevated troponin (Acute) 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 Lower back pain Encounter for pre-operative examination Hematuria (Chronic) Diabetes (Chronic) Acute urinary retention (Acute) Acute urinary retention (Acute) Bilateral lower extremity edema (Acute) Medical History Acute urinary retention POST OP ANESTHESIA-NEEDED TO BE CATHETERIZED Osteoarthritis BPH (benign prostatic hyperplasia) Diabetes mellitus, type 2 Peripheral neuropathy FEET Hyperlipidemia Hypertension Sleep apnea CPAP Surgical History H/O removal of cyst NECK-BENIGN S/P foot surgery, right HAMMERTOE X 3 PROCEDURES History of tonsillectomy History of appendectomy Previous back surgery DISC SURG S/P TURP GREENLIGHT LASER History of heart valve replacement AVR-12/2009 Family History Family/Other Family history of diabetes mellitus Social History Smoking Status: Never smoker Second Hand Exposure: No; Do You Dip or Chew Tobacco: No; Hx Alcohol Use: No Hx Substance Use: No Preferred Language: Bengali Communication Ability: Effective Senior Medical Billing Specialist Required: No Beliefs That Will Affect Care: None Current Living Situation: Spouse Feels Safe at Home: Yes Safety Concerns: Feels Safe At This Time Assistive Devices: Wheelchair Review of Systems Review of Systems: All systems reviewed & are unremarkable except as noted in HPI & below Physical Exam Constitutional: WD/WN, vitals as above Eyes: PERRL, conjunctivae normal, anicteric sclerae ENMT: external ear and nose normal, oropharynx normal Neck: trachea midline, no thyromegaly Respiratory: normal respiratory effort, lungs clear to auscultation Cardiovascular: RRR, no murmur, no edema Gastrointestinal (Abdomen): normal bowel sounds, soft, nontender, no hepatosplenomegaly Musculoskeletal: no cyanosis or clubbing, extremities motor strength 5/5 Skin: no rashes, warm and dry Neurologic: PERRL, EOMI, accommodation nl, no face palsy, no dysarthria (Awake alert and oriented x 3, forgetful) Psychiatric: A+Ox3, euthymic affect Results & Data Results & Data Vital Signs (Past 12 Hours) Vital Signs Temp Pulse Pulse Resp BP BP Pulse Ox 02/19/24 16:51 92 H 17 95 02/19/24 16:30 121/76 02/19/24 16:30 92 H 17 93 02/19/24 16:24 88 19 94 02/19/24 16:18 93 H 19 95 02/19/24 16:03 89 18 96 02/19/24 16:00 128/68 02/19/24 15:57 95 H 18 97 02/19/24 15:51 86 15 94 02/19/24 15:48 78 15 94 02/19/24 15:39 92 H 15 96 02/19/24 15:30 142/76 H 02/19/24 15:26 89 17 136/79 97 02/19/24 14:48 85 18 153/86 H 95 02/19/24 12:26 85 02/19/24 11:05 36.6 C 88 22 142/79 H O2 Del Method 02/19/24 16:51 Room Air 02/19/24 16:30 02/19/24 16:30 Room Air 02/19/24 16:24 Room Air 02/19/24 16:18 Room Air 02/19/24 16:03 Room Air 02/19/24 16:00 02/19/24 15:57 Room Air 02/19/24 15:51 Room Air 02/19/24 15:48 Room Air 02/19/24 15:39 Room Air 02/19/24 15:30 02/19/24 15:26 Room Air 02/19/24 14:48 Room Air 02/19/24 12:26 02/19/24 11:05 Diagnostic Findings Laboratory Results WBC 10.37 K/ul (4.8-10.8) 02/19/24 12:03 RBC 4.16 M/uL (4.70-6.10) L 02/19/24 12:03 Hgb 11.6 g/dl (14.0-18.0) L 02/19/24 12:03 Hct 36.0 % (42.0-52.0) L 02/19/24 12:03 MCV 86.5 fL (80.0-100.0) 02/19/24 12:03 MCH 27.9 pg (25.0-34.0) 02/19/24 12:03 MCHC 32.2 g/dL (32.0-36.0) 02/19/24 12:03 RDW Std Deviation 42.8 fL (36.4-46.3) 02/19/24 12:03 RDW Coeff of Lianna 13.6 % (11.5-14.5) 02/19/24 12:03 Plt Count 292 K/uL (130-400) 02/19/24 12:03 MPV 11.0 fL (9.4-12.4) 02/19/24 12:03 Immature Gran % (Auto) 0.5 % 02/19/24 12:03 Neut % (Auto) 79.8 % 02/19/24 12:03 Lymph % (Auto) 6.9 % 02/19/24 12:03 Blaine % (Auto) 8.4 % 02/19/24 12:03 Eos % (Auto) 4.1 % 02/19/24 12:03 Baso % (Auto) 0.3 % 02/19/24 12:03 Neut # (Auto) 8.28 K/uL (1.40-6.50) H 02/19/24 12:03 Lymph # (Auto) 0.72 K/uL (1.20-3.40) L 02/19/24 12:03 Blaine # (Auto) 0.87 K/uL (0.11-0.59) H 02/19/24 12:03 Eos # (Auto) 0.42 K/uL (0.00-0.50) 02/19/24 12:03 Baso # (Auto) 0.03 K/uL (0.00-0.20) 02/19/24 12:03 Immature Gran # (Auto) 0.05 K/uL (0.01-0.20) 02/19/24 12:03 Sodium 140 mmol/L (136-145) 02/19/24 12:03 Potassium 3.4 mmol/L (3.5-5.1) L 02/19/24 12:03 Chloride 100 mmol/L (98-107) 02/19/24 12:03 Carbon Dioxide 32 mmol/L (21-32) 02/19/24 12:03 Anion Gap 8 (3-11) 02/19/24 12:03 BUN 26 mg/dl (6-23) H 02/19/24 12:03 Creatinine 1.00 mg/dl (0.6-1.4) 02/19/24 12:03 Est Cr Clr Drug Dosing 66.8 ml/min 02/19/24 12:03 eGFR 77.04 02/19/24 12:03 BUN/Creatinine Ratio 26.0 (10-20) H 02/19/24 12:03 Glucose 119 mg/dl (70-99(Fasting)) H 02/19/24 12:03 Calcium 9.4 mg/dl (8.6-10.3) 02/19/24 12:03 Total Bilirubin 0.4 mg/dl (0.2-1.0) 02/19/24 12:03 AST 21 U/L (13-39) 02/19/24 12:03 ALT 20 U/L (7-52) 02/19/24 12:03 Alkaline Phosphatase 96 U/L (34-104) 02/19/24 12:03 Total Protein 6.6 gm/dl (6.0-8.3) 02/19/24 12:03 Albumin 3.5 gm/dl (3.4-5.0) 02/19/24 12:03 Globulin 3.1 gm/dl (2.5-4.0) 02/19/24 12:03 Albumin/Globulin Ratio 1.1 (0.9-2) 02/19/24 12:03 Procalcitonin 0.19 ng/ml (0-0.5) 02/19/24 12:03 Code Status & VTE Plan VTE Prophylaxis Plan VTE Prophylaxis will be ordered: Yes Supervising Physician Co-Signing Physician Notes Patient is a 78-year-old male with history of diabetes mellitus, valvular heart disease, BPH, chronic indwelling Carter, ambulatory dysfunction, dementia and other medical problems presents for evaluation of malfunctioning of Carter catheter associated with dark-colored urine and concern for possible hematuria. Patient was started on Macrobid by his PCP for possible urinary tract infection. Patient's expresses concern that she is no longer able to care for the patient at home. His Carter catheter was changed in ED today. Patient currently offers no complaints. Please review HPI for complete details of presentation. Blood work suggestive of chronic normocytic anemia, hypokalemia, elevated glucose 179, urinalysis suggestive of microscopic hematuria. Urine culture obtained in ED. Patient is admitted for physical deconditioning due to comorbidities, malfunctioning of indwelling Carter. Currently Carter catheter working appropriately after exchange in ED. Patient denies any dysuria, fever, chills, hematuria. Will continue home Macrobid unless urine culture suggestive of UTI. PT OT, fall precautions, will likely need placement. Agree with managing diabetes with insulin while hospitalized. I personally interviewed and examined at bedside. Patient's care is coordinated with Padilla MAYO. I have reviewed the advanced practitioner's documentation, and I agree with plan of care. Please refer to the documentation above for details of patient's presentation and for discussion of other issues. I spent a total [id number] coordinating, documenting, and providing care for this patient excluding time spent in the performance of separately billed services.
[2024-02-19] MEDS ORDERED: GLUCOSE 10 TAB/TUBE PO PRN (17:42)
[2024-02-19] MEDS ORDERED: DEXTROSE 50% 50 ML SYRINGE IV PRN (17:42)
[2024-02-19] MEDS ORDERED: GLUCAGON FOR INJ 1 MG VIAL SQ PRN (17:42)
[2024-02-19] MEDS ORDERED: GLUCOSE 40% GEL 15 GM TUBE PO PRN (17:42)
[2024-02-19] MEDS ORDERED: CARBOHYDRATES FOR HYPOGLYCEMIA PO PRN (17:42)
[2024-02-19 18:16] LABS: Appearance Urine Clear (Clear); Bacteria Urine Automated None Seen (None Seen); Bilirubin Urine Negative (Negative); Blood Urine 2+ (Negative); Color Urine Yellow; Epithelial Cell Urine Auto 0-2 /hpf (0-2); Glucose Urine UA Negative (Negative); Ketones Urine 1+ (Negative); Leukocyte Esterase Urine Trace (Negative); Nitrite Urine Negative (Negative); Protein Urine 1+ (Negative); RBC Urine Automated >20 /hpf (0-2); Specific Gravity Urine 1.022 (1.000-1.030); Urobilinogen Urine Negative (Negative); WBC Urine Automated 0-5 /hpf (0-5); pH Urine 5.5 (4.5-7.5)
[2024-02-19] MEDS: POTASSIUM CHLORIDE CRTAB 20 MEQ TABCR PO STA (18:23)
[2024-02-19] MEDS: POTASSIUM CHLORIDE CRTAB 20 MEQ TABCR PO SCH (18:23)
[2024-02-19] MEDS: NITROFURANTOIN MONOHYDRATE 100 MG CAP PO SCH (20:25)
[2024-02-19] MEDS: METOPROLOL SUCC 25MG EXT REL TAB PO SCH (20:26)
[2024-02-19] MEDS ORDERED: POTASSIUM CHLORIDE CRTAB 20 MEQ TABCR PO SCH (21:00)
[2024-02-19] MEDS: INSULIN ASPART PER UNIT CHARGE SC SCH (21:12)
--- OUTSIDE RECORDS SUMMARY | 2024-02-20 00:25 | External Medical Summary | Summary of Care ---
Author Name Unknown Organization [facility] Address [address] [place] [address] Phone [phone] Care Team Providers Care Visual Basic Developer Name Role Phone Will GREWAL MD, Blaine Molina Primary Care Provider [phone] Encounter Details Date Type Department Care Team (Late st Contact Info) Description 02/04/2024 Orders Only Family Practice [facility] [address] [place] [address] Blaine Solis III, MD [address] [place] [address] Allergies Active Allergy Reactions Criticality Noted Date Comments Dog Dander 03/28/2017 documented as of this encounter (statuses as of 02/04/2024) Medications Medication Sig Dispensed Refills Start Date [...] as of this encounter (statuses as of 02/04/2024) Active Problems Problem Noted Date Diagnosed Date HTN, goal below 140/90 07/08/2019 Vitamin B 12 deficiency 12/16/2018 Chronic constipation 02/06/2018 Dyslipidemia 10/18/2017 Overweight (BMI 25.0-29.9) 09/23/2017 DM type 2 with diabetic peripheral neuropathy Rosacea 03/28/2015 Type 2 diabetes mellitus wit h hemoglobin A1c goal of less than 8.0% 07/19/2014 Overview: ICD-10 update of inactive term Sleep apnea 01/16/2013 Overview: Uses [facility] in [place] [phone] [place] 01/16/2013 Senile cataract 01/16/2013 Aortic valve replaced 01/16/2013 documented as of this encounter (statuses as of 02/04/2024) Resolved Problems Problem Noted Date Diagnosed Date Resolved Date Diabetic peripheral angiopathy 10/18/2017 12/19/2023 Festinating gait 11/07/2016 03/12/2017 Angioedema 06/24/2013 06/24/2013 ACEI/ARB contraindicated 06/24/201304/2014 Type 2 diabetes mellitus wit h hemoglobin A1c goal of less than 7.0% 01/16/2013 07/19/2014 Overview: ICD-10 update of inactive term HTN, goal below 140/80 01/16/201307/19 documented as of this encounter (statuses as of 02/04/2024) Immunizations Name Administration Dates Next Due Hepatitis [...] lent, No Preserve, IM 02/09/2016 Seasonal Influenza, Trivalen t, (IIV3), with Preserv, (Fluzone) 01/31/2015,01/18/2014,02/16/2013,02/14,02/27/2010,04/04/2009,02/11/2008 Seasonal Influenza, Trivalen t, Adjuvanted, 65+ YRS, PF, (Fluad) 03/23/2019 TD - Tetanus/Diptheria (ADULT) 12/23/2001 TD, [...] 01/06/2024 Does the household have a re gular source of income? (Household - for ages [...] on file documented as of this encounter Plan of Treatment Scheduled Procedures [...] Additional history exists Depression Screening 07/08/2020 07/08/2019 Diabetic Foot Exam 11/13/2023 11/12/2022, 0 11/08/2021, 09/21/2020, Additional history exists COVID-19 Vaccine ( - season) 2024 Influenza Vaccine (FLU shot) (#1) 2024 04/08/2023, 03/22/2020, 03/23/2019, Additional history exists HbA1c 06/04/2024 12/03/2023, 07/2022, 11/08/2021, Additional history exists GFR 12/02/2024 01/20/2024, 11/11, 11/12/2022, Additional history exists DTap/Tdap Vaccines (3 [...] Not on filedocumented as of this encounter Procedures Procedure Name Priority Date/Time Associated Diagnosis Comments CHEMISTRY-OUTSIDE Routine 01/20/2024 documented in this encounter Results * (ABNORMAL) CHEMISTRY-OUTSIDE (01/20/2024) Not all results display below - see scan for full detail OUTSIDE LAB (SEE SCANNED REPORT) Comment:[facility] -CK,CMP,CBCD CREATININE 1.06 0.70 - 1.30 MG/DL OUTSIDE LAB (SEE SCANNED REPORT) EGFR 72 60 ML/MIN OUTSIDE LA B (SEE SCANNED REPORT) POTASSIUM 4.2 3.5 - 5.1 MMOL OUTSIDE LAB (SEE SCANNED REPORT) GLUCOSE 122(A) 63 - 110 MG/DL OUTSIDE LAB (SEE SCANNED REPORT) HOURS FASTING OUTSID E LAB (SEE SCANNED REPORT) TRIGLYCERIDES-OUT SIDE LAB OUTSIDE LAB (SEE SCANNED REPORT) CHOLESTEROL-OUTSI DE LAB OUTSIDE LAB (SEE SCANNED REPORT) HDL-OUTSIDE LAB OUTS [facility] (SEE SCANNED REPORT) CHOL/HDL RATIO-OUTSIDE LAB OUTSIDE LA B (SEE SCANNED REPORT) LDL (CALCULATED)-OUTS [facility] OUTSIDE LAB (SEE SCANNED REPORT) LDL (DIRECT MEASURE)-OUTSIDE LAB OUTSIDE LAB (SEE SCANNED REPORT) HEMOGLOBIN, X9E-TSDDKUL LAB OUTSIDE LAB (SEE SCANNED REPORT) PHOSPHORUS-OUTSID E LAB OUTSIDE LAB (SEE SCANNED REPORT) PTH-OUTSIDE LAB OUTS [facility] (SEE SCANNED REPORT) MICROALBUMIN RATIO-OUTSIDE LAB OUTSIDE LA B (SEE SCANNED REPORT) PROTEIN, UA-OUTSIDE LAB OUTSIDE LAB (SEE SCANNED REPORT) HGB 10.2(A) 14 - 18 G/DL OUTSIDE LAB (SEE SCANNED REPORT) 01/20/2024 History Per Patient LABORATORY OUTSIDE LAB (SEE SCANNED REPORT) documented in this encounter Advance Directives Documents on File Type Date Recorded Patient Broach Operator Expl anation Advance Directives and Living Will 01/28/1995 ADVANCE DIRECTIVE Power of Charter Coach Driver 01/28/1995 POWER OF A TTORNEY DURABLE MEDICAL POA Care Teams Visual Basic Developer Relationship Specialty Start Date End Date Blaine Solis III, MD [address] [facility] [place] [address] PCP - General Family Medicine 01/16/13 documented as of this encounter
--- OUTSIDE RECORDS SUMMARY | 2024-02-20 00:25 | External Medical Summary ---
Author Name UNSPECIFIED Address Unknown Organization [facility] History of Encounters Reason for Assessment: Resumption of car e (after inpatient stay) Inpatient discharge facility: Past 14 Da ys: Discharged from [facility] Facility Most Recent Inpatient Discharge Date: Functional Assessment Patient Living Situation: Patient lives with other person(s) in the home: Around the clock Urinary Incontinence or Urin noel Catheter Present: Patient requires a urinary catheter (i.e ., external, indwelling, intermittent, suprapubic) Bowel Incontinence Frequency: One to thr ee times weekly Cognitive and Behavioral and Psychiatric Symptoms: None Current Ability: Bathing: Unable to part icipate effectively in bathing and is bathed totally by another person. Current Ability: Ambulation: Chairfast, unable to ambulate and is unable to wheel self. Current: Management Of Oral Medications: Unable to take medication unless administered by another person Problems Primary Home Care Diagnosis ICD Code: Z4 6.6, Encounter for fitting and adjustment of urinary device Home Care Diagnosis 1: ICD Code: N40.1, Enlarged prostate with lower urinary tract symptoms Home Care Diagnosis 1: Severity Ratin Home Care Diagnosis 2: ICD Code: R33.8, Other retention of urine Home Care Diagnosis 2: Severity Ratin Home Care Diagnosis 3: ICD Code: R26.89, Other abnormalities of gait and mobility Home Care Diagnosis 3: Severity Ratin Home Care Diagnosis 4: ICD Code: E11.42, Type 2 diabetes mellitus with diabetic polyneuropathy Home Care Diagnosis 4: Severity Ratin Home Care Diagnosis 5: ICD Code: E44.1, Mild protein-calorie malnutrition Home Care Diagnosis 5: Severity Ratin
--- OUTSIDE RECORDS SUMMARY | 2024-02-20 00:25 | External Medical Summary | Summary of Care ---
Author Name Unknown Organization [facility] Address [address] [place] [address] Phone [phone] Care Team Providers Care Line Manager Name Role Phone Will GREWAL MD, Blaine Molina Primary Care Provider [phone] Reason for Visit * Reason Onset Date Comments Fax 01/17/2024 Encounter Details Date Type Department Care Team (Late st Contact Info) Description 01/17/2024 Telephone Family Practice [facility] [address] [place] [address] Blaine Solis III, MD [address] [place] [address] Fax Allergies Active Allergy Reactions Criticality Noted Date Comments Dog Dander 03/28/2017 documented as of this encounter (statuses as of 01/20/2024) Medications Medication Sig Dispensed Refills Start Date [...] as of this encounter (statuses as of 01/20/2024) Active Problems Problem Noted Date Diagnosed Date HTN, goal below 140/90 07/08/2019 Vitamin B 12 deficiency 12/16/2018 Chronic constipation 02/06/2018 Dyslipidemia 10/18/2017 Overweight (BMI 25.0-29.9) 09/23/2017 DM type 2 with diabetic peripheral neuropathy Rosacea 03/28/2015 Type 2 diabetes mellitus wit h hemoglobin A1c goal of less than 8.0% 07/19/2014 Overview: ICD-10 update of inactive term Sleep apnea 01/16/2013 Overview: Uses [facility] in [place] [phone] [place] 01/16/2013 Senile cataract 01/16/2013 Aortic valve replaced 01/16/2013 documented as of this encounter (statuses as of 01/20/2024) Resolved Problems Problem Noted Date Diagnosed Date Resolved Date Diabetic peripheral angiopathy 10/18/2017 12/19/2023 Festinating gait 11/07/2016 03/12/2017 Angioedema 06/24/2013 06/24/2013 ACEI/ARB contraindicated 06/24/201304/2014 Type 2 diabetes mellitus wit h hemoglobin A1c goal of less than 7.0% 01/16/2013 07/19/2014 Overview: ICD-10 update of inactive term HTN, goal below 140/80 01/16/201307/19 documented as of this encounter (statuses as of 01/20/2024) Immunizations Name Administration Dates Next Due Hepatitis [...] encounter Miscellaneous Notes * Telephone Encounter - Loraine Haley LPN - 01/20/2024 12:54 PM EDT Info faxed; confirmation received. * Telephone Encounter - Danica Mccollum OSA - 01/17/2024 3:00 PM EDT Caller requesting the following information to be faxed: Name/Company of caller: [employer] Information requested to be faxed: current H&P, current med list, vaccination / immunization record Fax number: [phone] Attention to Name/Company: [employer] Any additional information?: n/a documented in this encounter Plan of Treatment [...] 09/21/2020, Additional history exists COVID-19 Vaccine ( season) 2024 Influenza Vaccine (FLU shot) (#1) [...] Documents on File Type Date Recorded Patient Audio Visual Director Expl anation Advance Directives and Living Will 01/28/1995 ADVANCE DIRECTIVE Power of Control Analyst 01/28/1995 POWER OF A TTORNEY [facility] MED[facility] POA Care Teams Line Manager Relationship Specialty Start Date End Date Blaine Solis III, MD [address] [facility] [address] PCP - General Family Medicine 01/16/13 documented as of this encounter
--- OUTSIDE RECORDS SUMMARY | 2024-02-20 00:26 | External Medical Summary ---
Author Name UNSPECIFIED Address Unknown Organization [facility] History of Encounters Reason for Assessment: Start of care - f urther visits planned Inpatient discharge facility: Past 14 Da ys: Not Discharged from Inpatient Facility Functional Assessment Patient Living Situation: Patient lives with other person(s) in the home: Around the clock Bowel Incontinence Frequency: Very rarel y or never has bowel incontinence Cognitive and Behavioral and Psychiatric Symptoms: None Current Ability: Bathing: Unable to part icipate effectively in bathing and is bathed totally by another person. Current Ability: Ambulation: Chairfast, unable to ambulate but is able to wheel self independently. Current: Management Of Oral Medications: Able to take medication(s) at the correct times if given reminders by another person at the appropriate times Problems Primary Home Care Diagnosis ICD Code: M6 2.561, Muscle wasting and atrophy, NEC, right lower leg Home Care Diagnosis 1: ICD Code: M62.562 , Muscle wasting and atrophy, NEC, left lower leg Home Care Diagnosis 1: Severity Ratin Home Care Diagnosis 2: ICD Code: R26.9, Unspecified abnormalities of gait and mobility Home Care Diagnosis 2: Severity Ratin Home Care Diagnosis 3: ICD Code: R29.898 , Oth symptoms and signs involving the musculoskeletal system Home Care Diagnosis 3: Severity Ratin Home Care Diagnosis 4: ICD Code: E11.40, Type 2 diabetes mellitus with diabetic neuropathy, unsp Home Care Diagnosis 4: Severity Ratin Home Care Diagnosis 5: ICD Code: M75.102 , Unsp rotatr-cuff tear/ruptr of left shoulder, not trauma Home Care Diagnosis 5: Severity Ratin
--- OUTSIDE RECORDS SUMMARY | 2024-02-20 00:26 | External Medical Summary | Summary of Care ---
Author Name Unknown Organization [facility] Address [address] [place] [address] Phone [phone] Care Team Providers Care Casting Machine Adjuster Name Role Phone Will GREWAL MD, Blaine Molina Primary Care Provider [phone] Reason for Visit * Reason Onset Date Comments Hospital Follow-Up 01/17/2024 JESSE Encounter Details Date Type Department Care Team ([facility] Contact Info) Description 01/17/2024 Telephone Family Practice [facility] [address] [place] [address] Blaine Solis III, MD [address] [place] [address] Hospital Follow-Up (JESSE) Allergies Active Allergy Reactions Criticality Noted Date Comments Dog Dander 03/28/2017 documented as of this encounter (statuses as of 01/17/2024) Medications Medication Sig Dispensed Refills Start Date [...] as of this encounter (statuses as of 01/17/2024) Active Problems Problem Noted Date Diagnosed Date HTN, goal below 140/90 07/08/2019 Vitamin B 12 deficiency 12/16/2018 Chronic constipation 02/06/2018 Dyslipidemia 10/18/2017 Overweight (BMI 25.0-29.9) 09/23/2017 DM type 2 with diabetic peripheral neuropathy Rosacea 03/28/2015 Type 2 diabetes mellitus wit h hemoglobin A1c goal of less than 8.0% 07/19/2014 Overview: ICD-10 update of inactive term Sleep apnea 01/16/2013 Overview: Uses [facility] in [place] [phone] [place] 01/16/2013 Senile cataract 01/16/2013 Aortic valve replaced 01/16/2013 documented as of this encounter (statuses as of 01/17/2024) Resolved Problems Problem Noted Date Diagnosed Date Resolved Date Diabetic peripheral angiopathy 10/18/2017 12/19/2023 Festinating gait 11/07/2016 03/12/2017 Angioedema 06/24/2013 06/24/2013 ACEI/ARB contraindicated 06/24/201304/2014 Type 2 diabetes mellitus wit h hemoglobin A1c goal of less than 7.0% 01/16/2013 07/19/2014 Overview: ICD-10 update of inactive term HTN, goal below 140/80 01/16/201307/19 documented as of this encounter (statuses as of 01/17/2024) Immunizations Name Administration Dates Next Due Hepatitis [...] No 01/06/2024 Are you (or your family) clae eless or worried that you might be [...] encounter Miscellaneous Notes * Telephone Encounter - Cookie Tucker RN - 01/17/2024 7:34 AM EDT Transitions of Care Note Reason for Referral: Recent Admission Phone visit for follow up: Inpatient Hospitalization Admitted to: [facility], Date: 01/08/2024 Discharged to: SNF, Date: 01/16/2024 JESSE call not indicated due to patient admitted to [facility] [place]. documented in this encounter Plan of Treatment [...] Documents on File Type Date Recorded Patient Elementary Education Tutor Expl anation Advance Directives and Living Will 01/28/1995 ADVANCE DIRECTIVE Power of English And Reading Instructor 01/28/1995 POWER OF A TTORNEY DURABLE MEDICAL POA Care Teams Casting Machine Adjuster Relationship Specialty Start Date End Date Blaine Solis III, MD [address] [facility] [place], [place] [address] PCP - General Family Medicine 01/16/13 documented as of this encounter
--- OUTSIDE RECORDS SUMMARY | 2024-02-20 00:26 | External Medical Summary ---
Author Name UNSPECIFIED Address Unknown Organization [facility] History of Encounters Reason for Assessment: Transferred to an inpatient facility - patient not discharged from agency Inpatient Facility where the patient been admitted: Hospital
[2024-02-20 07:58] LABS: Basophils # (auto) 0.02 K/uL (0.00-0.20); Basophils % (auto) 0.2 %; Eosinophils # (auto) 0.49 K/uL (0.00-0.50); Eosinophils % (auto) 5.2 %; Hematocrit (blood only) 30.3 % (42.0-52.0); Hemoglobin 10.3 g/dl (14.0-18.0); Immature Granulocytes # (auto) 0.03 K/uL (0.01-0.20); Immature Granulocytes % (auto) 0.3 %; Lymphocytes % (auto) 10.7 %; Mean Corpuscular Hemoglobin 28.6 pg (25.0-34.0); Mean Corpuscular Volume 84.2 fL (80.0-100.0); Mean Platelet Volume 10.6 fL (9.4-12.4); Monocytes # (auto) 0.99 K/uL (0.11-0.59); Monocytes % (auto) 10.6 %; Neutrophils # (auto) 6.85 K/uL (1.40-6.50); Platelet Count 263 K/uL (130-400); RDW Coefficient of Variation 13.6 % (11.5-14.5); RDW Standard Deviation 42.3 fL (36.4-46.3); White Blood Count 9.38 K/ul (4.8-10.8)
[2024-02-20 08:09] LABS: Albumin Globulin Ratio 1.1 (0.9-2); Albumin Level 3.2 gm/dl (3.4-5.0); BUN Creatinine Ratio 29.3 (10-20); Bilirubin,Total 0.4 mg/dl (0.2-1.0); Calcium 8.8 mg/dl (8.6-10.3); Creatinine Clr Calc Pharmacy 67.5 ml/min; Globulin 2.8 gm/dl (2.5-4.0); Magnesium 1.5 mg/dl (1.7-2.4); Potassium 3.7 mmol/L (3.5-5.1)
[2024-02-20] MEDS: INDAPAMIDE 1.25 MG TAB PO SCH (08:10)
[2024-02-20] MEDS: lisinopril 40 MG TAB PO SCH (08:10)
[2024-02-20] MEDS: amLODIPine BESYLATE 5 MG TAB PO SCH (08:10)
[2024-02-20] MEDS: FINASTERIDE 5 MG TAB PO SCH (08:10)
[2024-02-20] MEDS: CYANOCOBALAMIN (B-12) 500 MCG TABLET PO SCH (08:10)
[2024-02-20] MEDS: ATORVASTATIN 10 MG TAB PO SCH (08:10)
[2024-02-20] MEDS: TAMSULOSIN HCL 0.4 MG CAP PO SCH (08:10)
[2024-02-20] MEDS ORDERED: SITagliptin PHOSPHATE 100 MG TAB PO SCH (09:00)
[2024-02-20 10:17] LABS: Estimated Average Glucose 123 mg/dl; Hemoglobin A1C 5.9 % (4.5-5.6)
--- NOTE | 2024-02-20 11:27 | Hospitalist Progress Note ---
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 BPH with urinary retention Chronic indwelling Henderson catheter Acute UTI Presenting with dark colored urine and possible hematuria Henderson catheter placed around 6 weeks ago and last changed on 02/17, per discussion with home health today When henderson catheter was changed in ED on 02/18, now draining a clear yellow color ? Injury with placement Started on nitrofurantoin on 02/14, will continue this to complete course (EOT 02/21) Follow-up with urology outpatient, urine culture pending Continue tamsulosin/finasteride Generalized weakness Ambulatory dysfunction PT/OT, concerned that she is unable to care for patient at home, patient will likely need SNF vs rehab on DC. Appreciate Case management efforts Hx HTN/HLD Continue amlodipine, Toprol, indapamide, lisinopril Hx DM2 Hold home meds SSI while in-patient BSG AC HS A total of 50 minutes was spent on chart review/reviewing diagnostic data/discussion with consultants/facilitation of plan of care Case coordinated with Dr. Lovelace. Admission and Anticipated Discharge Date Admission Date: February 19, 2024 Supervising Physician Co-Signing Physician Notes I have seen and discussed the case with the collaborating advanced practitioner. I agree with the above H&P. I have reviewed and confirmed the patients medical history, the findings on physical examination, and the patients diagnosis and treatment plan with Jatin BARBA and agree with the information documented. Agree with continued management of UTI CM to aid with SNF contingent on PT/OT I spent a total of 10 minutes coordinating, documenting, and providing care for this patient excluding time spent in the performance of separately billed services. All of the aforementioned completed outside of collaborating with the assigned advanced practitioner for a full treatment plan. I have reviewed the advanced practitioner's documentation, and I agree with, and take responsibility for the plan of care Subjective Seen and examined in 385-1 this morning. Feeling well, no acute issues overnight. Ate breakfast without issue. No F/C, CP, SOB, N/V, abd pain, dysuria. No bowel movement since arrival yesterday. Review of Systems Review of Systems: At least ten systems reviewed and negative except as noted in the HPI. Physical Exam Physical Exam: Gen: WD/WN, NAD, resting in bed, A&Ox3 HEENT: Normocephalic, atraumatic, conjunctivae moist, sclerae anicteric, mucous membranes moist Lung: Clear to Auscultation bilaterally, no wheezes/rales/rhonchi Heart: Regular rate, regular rhythm, no murmurs, rubs, or gallops Abdomen: Soft, NT, ND +BS x 4 : Henderson catheter with yellow urine in collection bag Extremities: no edema Skin: Warm, no rash Results & Data Results & Data Vital Signs (Past 12 Hours) Vital Signs Temp Pulse Resp BP Pulse Ox O2 Del Method 02/20/24 07:28 36.9 C 75 16 122/68 96 Room Air Laboratory Results Short CBC 02/20/24 Range/Units 07:32 WBC 9.38 (4.8-10.8) K/ul Hgb 10.3 L (14.0-18.0) g/dl Hct 30.3 L (42.0-52.0) % Plt Count 263 (130-400) K/uL BMP 02/20/24 07:32 Sodium 139 Potassium 3.7 Chloride 100 Carbon Dioxide 32 BUN 29 H Creatinine 0.99 Glucose 115 H Calcium 8.8 Liver Function 02/20/24 Range/Units 07:32 Total Bilirubin 0.4 (0.2-1.0) mg/dl AST 16 (13-39) U/L ALT 16 (7-52) U/L Alkaline Phosphatase 83 (34-104) U/L Albumin 3.2 L (3.4-5.0) gm/dl Urine 02/19/24 Range/Units 13:49 Urine Color Yellow Urine Appearance Clear (Clear) Urine pH 5.5 (4.5-7.5) Ur Specific [place] 1.022 (1.000-1.030) Urine Protein 1+ H (Negative) Urine Glucose (UA) Negative (Negative)
[2024-02-20] MEDS: INFLUENZA VACC TS2024-25(65y+)/PF (IIV3) 0.5mL Syr IM ONE (16:49)
[2024-02-20] MEDS: MAGNESIUM SULFATE / D5W 1 GM/100 ML BAG IV SCH (17:42)
[2024-02-21] MEDS: MoRPHine SULFATE 2 MG/ML CARP IV STA (01:48)
[2024-02-21 07:53] LABS: Hematocrit (blood only) 29.9 % (42.0-52.0); Hemoglobin 9.7 g/dl (14.0-18.0); Mean Corpuscular Hgb Conc 32.4 g/dL (32.0-36.0); Mean Corpuscular Volume 86.4 fL (80.0-100.0); Mean Platelet Volume 10.3 fL (9.4-12.4); Platelet Count 253 K/uL (130-400); RDW Coefficient of Variation 13.7 % (11.5-14.5); RDW Standard Deviation 42.7 fL (36.4-46.3); Red Blood Count 3.46 M/uL (4.70-6.10); White Blood Count 9.16 K/ul (4.8-10.8)
[2024-02-21 08:09] LABS: BUN Creatinine Ratio 29.2 (10-20); Calcium 8.8 mg/dl (8.6-10.3); Creatinine Clr Calc Pharmacy 48.8 ml/min; Potassium 3.9 mmol/L (3.5-5.1)
--- NOTE | 2024-02-21 13:20 | Hospitalist Progress Note ---
Date of Service February 21, 2024 Assessment & Plan (1) Complication of Henderson catheter: (2) Vascular dementia: (3) Ambulatory dysfunction: (4) Benign prostatic hyperplasia with urinary obstruction: (5) UTI (urinary tract infection): Plan The patient is a 78-year-old male with a past medical history of aortic stenosis s/p AVR, mitral stenosis, HLD, DM2, chronic anemia, chronic indwelling Foleyplaced about 6 weeks ago, urinary retention, dementia who presents to the ED on 02/19/2024 after his called EMS for concerns of Henderson catheter not draining and dark-colored urine with possible hematuria. BPH with urinary retention Chronic indwelling Henderson catheter Acute UTI Presenting with dark colored urine and possible hematuria Henderson catheter placed around 6 weeks ago and last changed on 02/17, per discussion with home health today When henderson catheter was changed in ED on 02/18, now draining a clear yellow color ? Injury with placement Started on nitrofurantoin on 02/14, will continue this to complete course tomorrow, 02/21 Follow-up with urology outpatient Continue tamsulosin/finasteride Generalized weakness Ambulatory dysfunction PT/OT, concerned that she is unable to care for patient at home, patient will likely need SNF vs rehab on DC. Appreciate Case management efforts - referrals sent out for SNFs Hx HTN/HLD Continue amlodipine, Toprol, indapamide, lisinopril Hx DM2 Hold home meds SSI while in-patient BSG AC HS Called and provided an update this afternoon. A total of 40 minutes was spent on chart review/reviewing diagnostic data/discussion with consultants/facilitation of plan of care Admission and Anticipated Discharge Date Admission Date: February 19, 2024 Supervising Physician Co-Signing Physician Notes I have seen and discussed the case with the collaborating advanced practitioner. I agree with the above H&P. I have reviewed and confirmed the patients medical history, the findings on physical examination, and the patients diagnosis and treatment plan with Jatin BARBA and agree with the information documented. Agree with continued management of UTI CM to aid with SNF contingent on PT/OT I spent a total of 10 minutes coordinating, documenting, and providing care for this patient excluding time spent in the performance of separately billed services. All of the aforementioned completed outside of collaborating with the assigned advanced practitioner for a full treatment plan. I have reviewed the advanced practitioner's documentation, and I agree with, and take responsibility for the plan of care Subjective Seen and examined in 385-1 this morning. Feeling well, no acute issues overnight. Ate breakfast without issue. No F/C, CP, SOB, N/V, abd pain, dysuria. No bowel movement since arrival yesterday. Review of Systems Review of Systems: At least ten systems reviewed and negative except as noted in the HPI. Physical Exam Physical Exam: Gen: WD/WN, NAD, resting in bed, A&Ox3 HEENT: Normocephalic, atraumatic, conjunctivae moist, sclerae anicteric, mucous membranes moist Lung: Clear to Auscultation bilaterally, no wheezes/rales/rhonchi Heart: Regular rate, regular rhythm, no murmurs, rubs, or gallops Abdomen: Soft, NT, ND +BS x 4 : Henderson catheter with yellow urine in collection bag Extremities: no edema Skin: Warm, no rash Results & Data Results & Data Vital Signs (Past 12 Hours) Vital Signs Temp Pulse Resp BP Pulse Ox O2 Del Method 02/21/24 07:40 Room Air 02/21/24 07:29 36.7 C 71 16 124/69 97 Room Air Laboratory Results Short CBC 02/21/24 Range/Units 07:28 WBC 9.16 (4.8-10.8) K/ul Hgb 9.7 L (14.0-18.0) g/dl Hct 29.9 L (42.0-52.0) % Plt Count 253 (130-400) K/uL BMP 02/21/24 07:28 Sodium 137 Potassium 3.9 Chloride 100 Carbon Dioxide 32 BUN 40 H Creatinine 1.37 D Glucose 113 H Calcium 8.8
[2024-02-21] MEDS: PHENAZOPYRIDINE HCL 200 MG TAB PO PRN (21:28)
[2024-02-22] MEDS: MELATONIN 3 MG TAB PO PRN (04:31)
[2024-02-22] MEDS: HYDROmorphone INJ 0.5 MG/0.5 ML SYR IV STA (04:31)
--- NOTE | 2024-02-22 07:55 | Hospitalist Progress Note ---
Date of Service February 22, 2024 Assessment & Plan (1) Complication of Henderson catheter: (2) Vascular dementia: (3) Ambulatory dysfunction: (4) Benign prostatic hyperplasia with urinary obstruction: (5) UTI (urinary tract infection): Plan The patient is a 78-year-old male with a past medical history of aortic stenosis s/p AVR, mitral stenosis, HLD, DM2, chronic anemia, chronic indwelling Foleyplaced about 6 weeks ago, urinary retention, dementia who presents to the ED on 02/19/2024 after his called EMS for concerns of Henderson catheter not draining and dark-colored urine with possible hematuria. #BPH with urinary retention/obstruction #Chronic indwelling Henderson catheter #Acute complicated UTI POA Presenting with dark colored urine and possible hematuria Henderson catheter placed around 6 weeks ago and last changed on 02/17, per discussio n with home health today When henderson catheter was changed in ED on 02/18, now draining a clear yellow color Completed Macrobid course Urine previously with hematuria, notably patient on Pyridium Repeat UA to follow up hematuria noted previously v color change 2/2 pyridum (UA reviewed on admission with RBC/Blood +) Follow-up with urology outpatient Continue tamsulosin/finasteride labs in am #Generalized weakness #Ambulatory dysfunction PT/OT, concerned that she is unable to care for patient at home, patient will likely need SNF vs rehab on DC. Appreciate Case management efforts - referrals sent out for SNFs #HTN/HLD Continue amlodipine, Toprol, indapamide, lisinopril Hx DM2 Hold home meds SSI while in-patient BSG AC HS Admission and Anticipated Discharge Date Admission Date: February 19, 2024 Subjective Evaluated patient at bedside Patient reports feeling "fine" this morning and denies any other concerns Reports of penile discomfort at henderson site, no visible concerns alert to self and place, requesting update given to Physical Exam Constitutional: WD/WN, vitals as above Respiratory: normal respiratory effort, lungs clear to auscultation Cardiovascular: RRR, no murmur, no edema Gastrointestinal (Abdomen): Urine orange in color c/w pyridium Results & Data Results & Data Vital Signs (Past 12 Hours) Vital Signs Temp Pulse Resp BP BP Pulse Ox O2 Del Method 02/22/24 07:23 36.7 C 63 18 125/60 96 Room Air 02/21/24 21:30 Room Air 02/21/24 21:22 37.1 C 97 H 14 113/63 97 Room Air Medications Administered Home Medications Medication Instructions Recorded Confirmed Last Taken acetaminophen 325 mg tablet 650 mg (2 x 325 mg) PO QID PRN 01/16/24 02/19/24 Unknown fever or pain #90 tabs amlodipine 5 mg tablet 5 mg PO QAM #30 tabs 01/16/24 02/19/24 02/19/24 atorvastatin 10 mg tablet 10 mg PO QAM #30 tabs 01/16/24 02/19/24 02/19/24 finasteride 5 mg tablet 5 mg PO DAILY #90 tabs 01/16/24 02/19/24 02/19/24 lisinopril 40 mg tablet 40 mg PO QAM #30 tabs 01/16/24 02/19/24 02/19/24 metoprolol succinate 25 mg 25 mg PO BID #60 tabs 01/16/24 02/19/24 02/19/24 tablet,extended release 24 hr rfksqqbfcuvx-icqbcqyh-lzkblo tablet 1 tab PO DAILY #30 tabs 01/16/24 02/19/24 02/19/24 sitagliptin phosphate 100 mg 100 mg PO QAM #30 tabs 01/16/24 02/19/24 02/19/24 tablet (Januvia) tamsulosin 0.4 mg capsule 0.8 mg (2 x 0.4 mg) PO DAILY #60 01/16/24 02/19/24 Unknown caps cyanocobalamin (vitamin B-12) 1,000 mcg PO DAILY 02/19/24 02/19/24 02/19/24 1,000 mcg tablet fluticasone propionate 50 1 spray intranasal DAILY 02/19/24 02/19/24 02/19/24 mcg/actuation nasal spray,suspension indapamide 2.5 mg tablet 2.5 mg PO QAM 02/19/24 02/19/24 Unknown metformin 500 mg tablet,extended 500 mg PO DAILY 02/19/24 02/19/24 Unknown release 24 hr potassium chloride 20 mEq 20 meq PO BID 02/19/24 02/19/24 02/19/24 tablet,extended release(part/cryst) Active Medications Generic Name Dose Route Start Last Admin Trade Name Freq PRN Reason Stop Dose Admin Acetaminophen 650 mg 02/22/24 08:59 02/22/24 10:00 Acetaminophen 325 Mg Tab PO 03/23/24 08:58 650 mg Q4H PRN Administration Pain Amlodipine Besylate 5 mg 02/20/24 09:00 02/22/24 08:36 Amlodipine Besylate 5 Mg Tab PO 03/21/24 08:59 5 mg QAM LAZARUS Administration Atorvastatin Calcium 10 mg 02/20/24 09:00 02/22/24 08:36 Atorvastatin 10 Mg Tab PO 03/21/24 08:59 10 mg QAM LAZARUS Administration Cyanocobalamin 1,000 mcg 02/20/24 09:00 02/22/24 08:36 Cyanocobalamin (B-12) 500 Mcg Tablet PO 03/21/24 08:59 1,000 mcg DAILY LAZARUS Administration Finasteride 5 mg 02/20/24 09:00 02/22/24 08:36 Finasteride 5 Mg Tab PO 03/21/24 08:59 5 mg DAILY LAZARUS Administration Indapamide 2.5 mg 02/20/24 09:00 02/22/24 08:36 Indapamide 1.25 Mg Tab PO 03/21/24 08:59 2.5 mg QAM LAZARUS Administration Insulin Aspart 0 units 02/19/24 21:00 02/22/24 08:35 Insulin Aspart Per Unit Charge SC 03/20/24 20:59 2 units ACHS LAZARUS Administration Lidocaine HCl 1 ml 02/22/24 09:00 02/22/24 10:00 Lidocaine 2% Jelly 5 Ml Tube EXT 03/23/24 08:59 1 ml BID LAZARUS Administration Lisinopril 40 mg 02/20/24 09:00 02/22/24 08:36 Lisinopril 40 Mg Tab PO 03/21/24 08:59 40 mg QAM LAZARUS Administration Melatonin 3 mg 02/22/24 03:34 02/22/24 04:31 Melatonin 3 Mg Tab PO 03/23/24 03:33 3 mg HS PRN Administration Sleep Metoprolol Succinate 25 mg 02/19/24 21:00 02/22/24 08:36 Metoprolol Succ 25mg Ext Rel Tab PO 03/20/24 20:59 25 mg BID LAZARUS Administration Nitrofurantoin Macrocrystals 100 mg 02/19/24 21:00 02/22/24 08:37 Nitrofurantoin Monohydrate 100 Mg Cap PO 02/22/24 20:59 100 mg BID LAZARUS Administration Phenazopyridine HCl 200 mg 02/21/24 19:49 02/22/24 06:07 Phenazopyridine Hcl 200 Mg Tab PO 03/22/24 19:48 200 mg TID PRN Administration Dysuria Potassium Chloride 20 meq 02/19/24 17:00 02/22/24 08:37 Potassium Chloride Crtab 20 Meq Tabcr PO 03/20/24 16:59 20 meq BID LAZARUS Administration Tamsulosin HCl 0.8 mg 02/20/24 09:00 02/22/24 08:37 Tamsulosin Hcl 0.4 Mg Cap PO 03/21/24 08:59 0.8 mg DAILY LAZARUS Administration
[2024-02-22] MEDS: ACETAMINOPHEN 325 MG TAB PO PRN (10:00)
[2024-02-22] MEDS: LIDOCAINE 2% JELLY 5 ML TUBE EXT SCH (10:00)
[2024-02-22 12:36] LABS: Appearance Urine Clear (Clear); WBC Urine Automated 0-5 /hpf (0-5)
[2024-02-22 12:37] LABS: Bacteria Urine Automated None Seen (Negative); Cast Urine Automated 0-2 /lpf (0-5)
[2024-02-22 12:38] LABS: Specific Gravity Urine 1.016 (1.000-1.030)
[2024-02-23 06:40] LABS: Hematocrit (blood only) 29.4 % (42.0-52.0); Hemoglobin 9.5 g/dl (14.0-18.0); Mean Corpuscular Hemoglobin 27.6 pg (25.0-34.0); Mean Corpuscular Hgb Conc 32.3 g/dL (32.0-36.0); Mean Corpuscular Volume 85.5 fL (80.0-100.0); Mean Platelet Volume 10.7 fL (9.4-12.4); Platelet Count 283 K/uL (130-400); RDW Coefficient of Variation 13.4 % (11.5-14.5); Red Blood Count 3.44 M/uL (4.70-6.10); White Blood Count 6.92 K/ul (4.8-10.8)
[2024-02-23 06:50] LABS: BUN Creatinine Ratio 34.3 (10-20); Calcium 8.7 mg/dl (8.6-10.3); Creatinine Clr Calc Pharmacy 61.9 ml/min; Potassium 3.4 mmol/L (3.5-5.1)
--- NOTE | 2024-02-23 08:36 | Hospitalist Progress Note ---
Date of Service February 23, 2024 Assessment & Plan (1) Complication of Henderson catheter: (2) Vascular dementia: (3) Ambulatory dysfunction: (4) Benign prostatic hyperplasia with urinary obstruction: (5) UTI (urinary tract infection): Plan The patient is a 78-year-old male with a past medical history of aortic stenosis s/p AVR, mitral stenosis, HLD, DM2, chronic anemia, chronic indwelling Foleyplaced about 6 weeks ago, urinary retention, dementia who presents to the ED on 02/19/2024 after his called EMS for concerns of Henderson catheter not draining and dark-colored urine with possible hematuria. #BPH with urinary retention/obstruction #Chronic indwelling Henderson catheter #Acute complicated UTI POA Presenting with dark colored urine and possible hematuria Henderson catheter placed around 6 weeks ago and last changed on 02/17, per discussio n with home health today When henderson catheter was changed in ED on 02/18, now draining a clear yellow color Completed Macrobid course Urine previously with hematuria, notably patient on Pyridium Repeat UA to follow up hematuria noted previously v color change 2/2 pyridum (UA reviewed on admission with RBC/Blood +) Follow-up with urology outpatient Continue tamsulosin/finasteride Urology consulted for notable penile pain with henderson? any measures to aid in comfort/replace? #Generalized weakness #Ambulatory dysfunction PT/OT, concerned that she is unable to care for patient at home, patient will likely need SNF vs rehab on DC. Appreciate Case management efforts - referrals sent out for SNFs #HTN/HLD Continue amlodipine, Toprol, indapamide, lisinopril Hx DM2 Hold home meds SSI while in-patient BSG AC HS Admission and Anticipated Discharge Date Admission Date: February 19, 2024 Subjective NAEO Patient reports ongoing pain with henderson Even movement send pain through penis reportedly, some resolve with urojet but otherwise intolerable with movement Physical Exam Constitutional: resting bed, however, when examining genitals patient yelps in pain Respiratory: normal respiratory effort, lungs clear to auscultation Cardiovascular: RRR, no murmur, no edema Results & Data Results & Data Vital Signs (Past 12 Hours) Vital Signs Temp Pulse Resp BP Pulse Ox O2 Del Method 02/23/24 07:24 36.7 C 55 L 16 131/64 96 Room Air Laboratory Results Short CBC 02/23/24 Range/Units 05:55 WBC 6.92 (4.8-10.8) K/ul Hgb 9.5 L (14.0-18.0) g/dl Hct 29.4 L (42.0-52.0) % Plt Count 283 (130-400) K/uL BMP 02/23/24 05:55 Sodium 138 Potassium 3.4 L Chloride 101 Carbon Dioxide 30 BUN 37 H Creatinine 1.08 Glucose 111 H Calcium 8.7 Urine 02/22/24 Range/Units 11:55 Urine Color See Comment Urine Appearance Clear (Clear) Urine pH Not Reportable Ur Specific [place] 1.016 (1.000-1.030) Urine Protein Not Reportable Urine Glucose (UA) Not Reportable Medications Administered Home Medications Medication Instructions Recorded Confirmed Last Taken acetaminophen 325 mg tablet 650 mg (2 x 325 mg) PO QID PRN 01/16/24 02/19/24 Unknown fever or pain #90 tabs amlodipine 5 mg tablet 5 mg PO QAM #30 tabs 01/16/24 02/19/24 02/19/24 atorvastatin 10 mg tablet 10 mg PO QAM #30 tabs 01/16/24 02/19/24 02/19/24 finasteride 5 mg tablet 5 mg PO DAILY #90 tabs 01/16/24 02/19/24 02/19/24 lisinopril 40 mg tablet 40 mg PO QAM #30 tabs 01/16/24 02/19/24 02/19/24 metoprolol succinate 25 mg 25 mg PO BID #60 tabs 01/16/24 02/19/24 02/19/24 tablet,extended release 24 hr slmalmsmzqee-wjuivaik-alzmvv tablet 1 tab PO DAILY #30 tabs 01/16/24 02/19/24 02/19/24 sitagliptin phosphate 100 mg 100 mg PO QAM #30 tabs 01/16/24 02/19/24 02/19/24 tablet (Januvia) tamsulosin 0.4 mg capsule 0.8 mg (2 x 0.4 mg) PO DAILY #60 01/16/24 02/19/24 Unknown caps cyanocobalamin (vitamin B-12) 1,000 mcg PO DAILY 02/19/24 02/19/24 02/19/24 1,000 mcg tablet fluticasone propionate 50 1 spray intranasal DAILY 02/19/24 02/19/24 02/19/24 mcg/actuation nasal spray,suspension indapamide 2.5 mg tablet 2.5 mg PO QAM 02/19/24 02/19/24 Unknown metformin 500 mg tablet,extended 500 mg PO DAILY 02/19/24 02/19/24 Unknown release 24 hr potassium chloride 20 mEq 20 meq PO BID 02/19/24 02/19/24 02/19/24 tablet,extended release(part/cryst) Active Medications Generic Name Dose Route Start Last Admin Trade Name Freq PRN Reason Stop Dose Admin Acetaminophen 650 mg 02/22/24 08:59 02/23/24 06:06 Acetaminophen 325 Mg Tab PO 03/23/24 08:58 650 mg Q4H PRN Administration Pain Amlodipine Besylate 5 mg 02/20/24 09:00 02/22/24 08:36 Amlodipine Besylate 5 Mg Tab PO 03/21/24 08:59 5 mg QAM LAZARUS Administration Atorvastatin Calcium 10 mg 02/20/24 09:00 02/22/24 08:36 Atorvastatin 10 Mg Tab PO 03/21/24 08:59 10 mg QAM LAZARUS Administration Cyanocobalamin 1,000 mcg 02/20/24 09:00 02/22/24 08:36 Cyanocobalamin (B-12) 500 Mcg Tablet PO 03/21/24 08:59 1,000 mcg DAILY LAZARUS Administration Finasteride 5 mg 02/20/24 09:00 02/22/24 08:36 Finasteride 5 Mg Tab PO 03/21/24 08:59 5 mg DAILY LAZARUS Administration Indapamide 2.5 mg 02/20/24 09:00 02/22/24 08:36 Indapamide 1.25 Mg Tab PO 03/21/24 08:59 2.5 mg QAM LAZARUS Administration Insulin Aspart 0 units 02/19/24 21:00 02/22/24 20:17 Insulin Aspart Per Unit Charge SC 03/20/24 20:59 Not Given ACHS LAZARUS Lidocaine HCl 1 ml 02/22/24 09:00 02/22/24 20:23 Lidocaine 2% Jelly 5 Ml Tube EXT 03/23/24 08:59 1 ml BID LAZARUS Administration Lisinopril 40 mg 02/20/24 09:00 02/22/24 08:36 Lisinopril 40 Mg Tab PO 03/21/24 08:59 40 mg QAM LAZARUS Administration Melatonin 3 mg 02/22/24 03:34 02/22/24 20:21 Melatonin 3 Mg Tab PO 03/23/24 03:33 3 mg HS PRN Administration Sleep Metoprolol Succinate 25 mg 02/19/24 21:00 02/22/24 20:22 Metoprolol Succ 25mg Ext Rel Tab PO 03/20/24 20:59 25 mg BID LAZARUS Administration Phenazopyridine HCl 200 mg 02/21/24 19:49 02/22/24 20:22 Phenazopyridine Hcl 200 Mg Tab PO 03/22/24 19:48 200 mg TID PRN Administration Dysuria Tamsulosin HCl 0.8 mg 02/20/24 09:00 02/22/24 08:37 Tamsulosin Hcl 0.4 Mg Cap PO 03/21/24 08:59 0.8 mg DAILY LAZARUS Administration
[2024-02-23] MEDS: POTASSIUM CHLORIDE CRTAB 20 MEQ TABCR PO SCH (09:21)
--- NOTE | 2024-02-23 09:50 | Urology Consultation ---
Date of Consultation February 23, 2024 Assessment & Plan (1) Acute urinary retention: (2) Benign prostatic hyperplasia with urinary obstruction: Plan 78-year-old gentleman with numerous chronic issues Now with a Carter catheter that has been in place for 6 weeks since her prior h ospitalization He is consistently complaining about discomfort from the catheterthis is not unique or indicative of an underlying problem but simply intolerance of the catheter If his mobility is adequate, I would offer him a voiding trial before leaving the hospital, worst-case scenario can replace the Carter catheter and have him follow-up as an outpatient to consider alternatives I do not think there is any harm in removing the catheter and trying to see if he can void spontaneously History of Present Illness Attending Physician: Clara Lovelace MD History of Present Illness 78-year-old gentleman with an indwelling Carter catheter for the past 6 weeks He complains of significant catheter related discomfort He reports that this is unchanged from initial placement of the catheter and has been persistent throughout He was treated empirically with nitrofurantoin prior to this hospitalization and this had no effect on his discomfort He has been taking Pyridium without any effect on his discomfort He has no leukocytosis He has a normal creatinine His Carter appears to be in appropriate position, draining clear/orange-tinged urine Allergies Allergy/AdvReac Type Severity Reaction Status Date / Time No Known Allergies Allergy Verified 02/19/24 16:12 Home Medications Medication Instructions Recorded Confirmed Type acetaminophen 325 mg tablet 650 mg (2 x 325 mg) PO QID PRN 01/16/24 02/19/24 Rx fever or pain #90 tabs amlodipine 5 mg tablet 5 mg PO QAM #30 tabs 01/16/24 02/19/24 Rx atorvastatin 10 mg tablet 10 mg PO QAM #30 tabs 01/16/24 02/19/24 Rx finasteride 5 mg tablet 5 mg PO DAILY #90 tabs 01/16/24 02/19/24 Rx lisinopril 40 mg tablet 40 mg PO QAM #30 tabs 01/16/24 02/19/24 Rx metoprolol succinate 25 mg 25 mg PO BID #60 tabs 01/16/24 02/19/24 Rx tablet,extended release 24 hr rxxkswcpyetc-eiciajww-oqlxqr tablet 1 tab PO DAILY #30 tabs 01/16/24 02/19/24 Rx sitagliptin phosphate 100 mg 100 mg PO QAM #30 tabs 01/16/24 02/19/24 Rx tablet (Januvia) tamsulosin 0.4 mg capsule 0.8 mg (2 x 0.4 mg) PO DAILY #60 01/16/24 02/19/24 Rx caps cyanocobalamin (vitamin B-12) 1,000 mcg PO DAILY 02/19/24 02/19/24 History 1,000 mcg tablet fluticasone propionate 50 1 spray intranasal DAILY 02/19/24 02/19/24 History mcg/actuation nasal spray,suspension indapamide 2.5 mg tablet 2.5 mg PO QAM 02/19/24 02/19/24 History metformin 500 mg tablet,extended 500 mg PO DAILY 02/19/24 02/19/24 History release 24 hr potassium chloride 20 mEq 20 meq PO BID 02/19/24 02/19/24 History tablet,extended release(part/cryst) Patient History Medical History Acute urinary retention POST OP ANESTHESIA-NEEDED TO BE CATHETERIZED Osteoarthritis BPH (benign prostatic hyperplasia) Diabetes mellitus, type 2 Peripheral neuropathy FEET Hyperlipidemia Hypertension Sleep apnea CPAP Surgical History H/O removal of cyst NECK-BENIGN S/P foot surgery, right HAMMERTOE X 3 PROCEDURES History of tonsillectomy History of appendectomy Previous back surgery DISC SURG S/P TURP GREENLIGHT LASER History of heart valve replacement AVR-12/2009 Family History Family/Other Family history of diabetes mellitus Social History Smoking Status: Never smoker Second Hand Exposure: No; Do You Dip or Chew Tobacco: No; Hx Alcohol Use: No Hx Substance Use: No Preferred Language: Nepalese Communication Ability: Effective 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 Physical Exam Physical Exam: Resting comfortably in bed Abdomen soft Carter catheter in appropriate position draining clear urine (Pyridium tinged) Results & Data Vital Signs (Past 12 Hours) Vital Signs Temp Pulse Resp BP Pulse Ox O2 Del Method 02/23/24 07:24 36.7 C 55 L 16 131/64 96 Room Air PG Care Time/CCT Total # of Minutes Spent Total Time Spent with Patient: Total time spent is greater than 50% in coordination of care (as documented) at patient's floor/unit and/or counseling patient: Coding Level of Care Code 69183 IN/OBS CONSULT LVL 3,45M Diagnoses Acute urinary retention R33.8 Benign prostatic hyperplasia with urinary obstruction N40.1; N13.8
--- NOTE | 2024-02-24 10:22 | Hospitalist Progress Note ---
Date of Service February 24, 2024 Assessment & Plan (1) Complication of Henderson catheter: (2) Vascular dementia: (3) Ambulatory dysfunction: (4) Benign prostatic hyperplasia with urinary obstruction: (5) UTI (urinary tract infection): Plan The patient is a 78-year-old male with a past medical history of aortic stenosis s/p AVR, mitral stenosis, HLD, DM2, chronic anemia, chronic indwelling Foleyplaced about 6 weeks ago, urinary retention, dementia who presents to the ED on 02/19/2024 after his called EMS for concerns of Henderson catheter not draining and dark-colored urine with possible hematuria. Patient with repeat UA clear. Urology consulted and agree for void trial. Patient with henderson removed 02/22 and voiding since removal. Patient notes that he is without pain and happy without the henderson in place. #BPH with urinary retention/obstruction #Chronic indwelling Henderson catheter #Acute complicated UTI POA Presenting with dark colored urine and possible hematuria Henderson catheter placed around 6 weeks ago and last changed on 02/17, per discussion with home health today When henderson catheter was changed in ED on 02/18, now draining a clear yellow color Completed Macrobid course Urine previously with hematuria, notably patient on Pyridium Repeat UA to follow up hematuria noted previously v color change 2/2 Pyridium (UA reviewed on admission with RBC/Blood +) Follow-up with urology outpatient Continue tamsulosin/finasteride Urology consulted for notable penile pain with henderson? any measures to aid in comfort/replace? #Generalized weakness #Ambulatory dysfunction PT/OT, concerned that she is unable to care for patient at home, patient will likely need SNF vs rehab on DC. Appreciate Case management efforts - referrals sent out for SNFs #HTN/HLD Continue amlodipine, Toprol, indapamide, lisinopril Hx DM2 Hold home meds SSI while in-patient BSG AC HS DVT lovenox, scds Pending placement Admission and Anticipated Discharge Date Admission Date: February 19, 2024 Subjective NAEO Reports feeling happier without henderson and able to void bladder Physical Exam Constitutional: WD/WN, vitals as above Respiratory: normal respiratory effort, lungs clear to auscultation Cardiovascular: RRR, no murmur, no edema Results & Data Results & Data Vital Signs (Past 12 Hours) Vital Signs Temp Pulse Resp BP Pulse Ox O2 Del Method 02/24/24 09:43 Room Air 02/24/24 07:28 37.0 C 60 16 123/67 94 Room Air Medications Administered Home Medications Medication Instructions Recorded Confirmed Last Taken acetaminophen 325 mg tablet 650 mg (2 x 325 mg) PO QID PRN 01/16/24 02/19/24 Unknown fever or pain #90 tabs amlodipine 5 mg tablet 5 mg PO QAM #30 tabs 01/16/24 02/19/24 02/19/24 atorvastatin 10 mg tablet 10 mg PO QAM #30 tabs 01/16/24 02/19/24 02/19/24 finasteride 5 mg tablet 5 mg PO DAILY #90 tabs 01/16/24 02/19/24 02/19/24 lisinopril 40 mg tablet 40 mg PO QAM #30 tabs 01/16/24 02/19/24 02/19/24 metoprolol succinate 25 mg 25 mg PO BID #60 tabs 01/16/24 02/19/24 02/19/24 tablet,extended release 24 hr hhvbodqhqyhp-wqmljesd-gqvdvh tablet 1 tab PO DAILY #30 tabs 01/16/24 02/19/24 02/19/24 sitagliptin phosphate 100 mg 100 mg PO QAM #30 tabs 01/16/24 02/19/24 02/19/24 tablet (Januvia) tamsulosin 0.4 mg capsule 0.8 mg (2 x 0.4 mg) PO DAILY #60 01/16/24 02/19/24 Unknown caps cyanocobalamin (vitamin B-12) 1,000 mcg PO DAILY 02/19/24 02/19/24 02/19/24 1,000 mcg tablet fluticasone propionate 50 1 spray intranasal DAILY 02/19/24 02/19/24 02/19/24 mcg/actuation nasal spray,suspension indapamide 2.5 mg tablet 2.5 mg PO QAM 02/19/24 02/19/24 Unknown metformin 500 mg tablet,extended 500 mg PO DAILY 02/19/24 02/19/24 Unknown release 24 hr potassium chloride 20 mEq 20 meq PO BID 02/19/24 02/19/24 02/19/24 tablet,extended release(part/cryst) Active Medications Generic Name Dose Route Start Last Admin Trade Name Freq PRN Reason Stop Dose Admin Acetaminophen 650 mg 02/22/24 08:59 02/23/24 06:06 Acetaminophen 325 Mg Tab PO 03/23/24 08:58 650 mg Q4H PRN Administration Pain Amlodipine Besylate 5 mg 02/20/24 09:00 02/24/24 08:50 Amlodipine Besylate 5 Mg Tab PO 03/21/24 08:59 5 mg QAM LAZARUS Administration Atorvastatin Calcium 10 mg 02/20/24 09:00 02/24/24 08:49 Atorvastatin 10 Mg Tab PO 03/21/24 08:59 10 mg QAM LAZARUS Administration Cyanocobalamin 1,000 mcg 02/20/24 09:00 02/24/24 08:50 Cyanocobalamin (B-12) 500 Mcg Tablet PO 03/21/24 08:59 1,000 mcg DAILY LAZARUS Administration Finasteride 5 mg 02/20/24 09:00 02/24/24 08:50 Finasteride 5 Mg Tab PO 03/21/24 08:59 5 mg DAILY LAZARUS Administration Indapamide 2.5 mg 02/20/24 09:00 02/24/24 08:50 Indapamide 1.25 Mg Tab PO 03/21/24 08:59 2.5 mg QAM LAZARUS Administration Insulin Aspart 0 units 02/19/24 21:00 02/24/24 08:45 Insulin Aspart Per Unit Charge SC 03/20/24 20:59 Not Given ACHS LAZARUS Lidocaine HCl 1 ml 02/22/24 09:00 02/24/24 08:50 Lidocaine 2% Jelly 5 Ml Tube EXT 03/23/24 08:59 1 ml BID LAZARUS Administration Lisinopril 40 mg 02/20/24 09:00 02/24/24 08:50 Lisinopril 40 Mg Tab PO 03/21/24 08:59 40 mg QAM LAZARUS Administration Melatonin 3 mg 02/22/24 03:34 02/24/24 01:46 Melatonin 3 Mg Tab PO 03/23/24 03:33 3 mg HS PRN Administration Sleep Metoprolol Succinate 25 mg 02/19/24 21:00 02/24/24 08:49 Metoprolol Succ 25mg Ext Rel Tab PO 03/20/24 20:59 25 mg BID LAZARUS Administration Phenazopyridine HCl 200 mg 02/21/24 19:49 02/22/24 20:22 Phenazopyridine Hcl 200 Mg Tab PO 03/22/24 19:48 200 mg TID PRN Administration Dysuria Potassium Chloride 40 meq 02/23/24 09:00 02/24/24 08:49 Potassium Chloride Crtab 20 Meq Tabcr PO 03/24/24 08:59 40 meq BID LAZARUS Administration Tamsulosin HCl 0.8 mg 02/20/24 09:00 02/24/24 08:49 Tamsulosin Hcl 0.4 Mg Cap PO 03/21/24 08:59 0.8 mg DAILY LAZARUS Administration
[2024-02-24] MEDS: ENOXAPARIN INJ 40 MG/0.4 ML SYR SQ SCH (12:36)
[2024-02-25 08:18] LABS: Hematocrit (blood only) 28.3 % (42.0-52.0); Hemoglobin 9.6 g/dl (14.0-18.0); Mean Corpuscular Hemoglobin 28.5 pg (25.0-34.0); Mean Corpuscular Hgb Conc 33.9 g/dL (32.0-36.0); Mean Platelet Volume 10.3 fL (9.4-12.4); Platelet Count 318 K/uL (130-400); RDW Coefficient of Variation 13.6 % (11.5-14.5); RDW Standard Deviation 42.1 fL (36.4-46.3); Red Blood Count 3.37 M/uL (4.70-6.10); White Blood Count 7.22 K/ul (4.8-10.8)
[2024-02-25 08:57] LABS: BUN Creatinine Ratio 32.1 (10-20); Calcium 8.7 mg/dl (8.6-10.3); Potassium 3.7 mmol/L (3.5-5.1)
--- NOTE | 2024-02-25 11:54 | Hospitalist Progress Note ---
Date of Service February 25, 2024 Assessment & Plan (1) Complication of Henderson catheter: (2) Vascular dementia: (3) Ambulatory dysfunction: (4) Benign prostatic hyperplasia with urinary obstruction: (5) UTI (urinary tract infection): Plan The patient is a 78-year-old male with a past medical history of aortic stenosis s/p AVR, mitral stenosis, HLD, DM2, chronic anemia, chronic indwelling Foleyplaced about 6 weeks ago, urinary retention, dementia who presents to the ED on 02/19/2024 after his called EMS for concerns of Henderson catheter not draining and dark-colored urine with possible hematuria. Patient with repeat UA clear. Urology consulted and agree for void trial. Patient with henderson removed 02/22 and voiding since removal. Patient notes that he is without pain and happy without the henderson in place. Patient with abnormal EKG and reports concern of presyncope like episodes--potentially contributing to patient's status. #Abnormal EKG -ECHO and repeat EKG -Will review and consider need for further evaluation #BPH with urinary retention/obstruction #Chronic indwelling Henderson catheter #Acute complicated UTI POA Presenting with dark colored urine and possible hematuria Henderson catheter placed around 6 weeks ago and last changed on 02/17, per discussion with home health today When henderson catheter was changed in ED on 02/18, now draining a clear yellow color Completed Macrobid course Urine previously with hematuria, notably patient on Pyridium Repeat UA to follow up hematuria noted previously v color change 2/2 Pyridium (UA reviewed on admission with RBC/Blood +) Follow-up with urology outpatient Continue tamsulosin/finasteride Urology consulted for notable penile pain with henderson? any measures to aid in comfort/replace? #Generalized weakness #Ambulatory dysfunction PT/OT, concerned that she is unable to care for patient at home, patient will likely need SNF vs rehab on DC. Appreciate Case management efforts - referrals sent out for SNFs #HTN/HLD Continue amlodipine, Toprol, indapamide, lisinopril Hx DM2 Hold home meds SSI while in-patient BSG AC HS DVT lovenox, scds Pending placement Admission and Anticipated Discharge Date Admission Date: February 19, 2024 Subjective NAEO resting peacefully at bedside Physical Exam Constitutional: WD/WN, vitals as above Respiratory: normal respiratory effort, lungs clear to auscultation Cardiovascular: RRR, no murmur, no edema Results & Data Results & Data Vital Signs (Past 12 Hours) Vital Signs Temp Pulse Resp BP Pulse Ox O2 Del Method 02/25/24 09:31 Room Air 02/25/24 07:18 36.9 C 61 16 138/64 95 Room Air Laboratory Results Short CBC 02/25/24 Range/Units 07:34 WBC 7.22 (4.8-10.8) K/ul Hgb 9.6 L (14.0-18.0) g/dl Hct 28.3 L (42.0-52.0) % Plt Count 318 (130-400) K/uL BMP 02/25/24 07:34 Sodium 139 Potassium 3.7 Chloride 103 Carbon Dioxide 31 BUN 34 H Creatinine 1.06 Glucose 106 H Calcium 8.7 Medications Administered Home Medications Medication Instructions Recorded Confirmed Last Taken acetaminophen 325 mg tablet 650 mg (2 x 325 mg) PO QID PRN 01/16/24 02/19/24 Unknown fever or pain #90 tabs amlodipine 5 mg tablet 5 mg PO QAM #30 tabs 01/16/24 02/19/24 02/19/24 atorvastatin 10 mg tablet 10 mg PO QAM #30 tabs 01/16/24 02/19/24 02/19/24 finasteride 5 mg tablet 5 mg PO DAILY #90 tabs 01/16/24 02/19/24 02/19/24 lisinopril 40 mg tablet 40 mg PO QAM #30 tabs 01/16/24 02/19/24 02/19/24 metoprolol succinate 25 mg 25 mg PO BID #60 tabs 01/16/24 02/19/24 02/19/24 tablet,extended release 24 hr girioihvhgly-zteewxup-wsnyrp tablet 1 tab PO DAILY #30 tabs 01/16/24 02/19/24 02/19/24 sitagliptin phosphate 100 mg 100 mg PO QAM #30 tabs 01/16/24 02/19/24 02/19/24 tablet (Januvia) tamsulosin 0.4 mg capsule 0.8 mg (2 x 0.4 mg) PO DAILY #60 01/16/24 02/19/24 Unknown caps cyanocobalamin (vitamin B-12) 1,000 mcg PO DAILY 02/19/24 02/19/24 02/19/24 1,000 mcg tablet fluticasone propionate 50 1 spray intranasal DAILY 02/19/24 02/19/24 02/19/24 mcg/actuation nasal spray,suspension indapamide 2.5 mg tablet 2.5 mg PO QAM 02/19/24 02/19/24 Unknown metformin 500 mg tablet,extended 500 mg PO DAILY 02/19/24 02/19/24 Unknown release 24 hr potassium chloride 20 mEq 20 meq PO BID 02/19/24 02/19/24 02/19/24 tablet,extended release(part/cryst) Active Medications Generic Name Dose Route Start Last Admin Trade Name Freq PRN Reason Stop Dose Admin Acetaminophen 650 mg 02/22/24 08:59 02/25/24 13:06 Acetaminophen 325 Mg Tab PO 03/23/24 08:58 650 mg Q4H PRN Administration Pain Amlodipine Besylate 5 mg 02/20/24 09:00 02/25/24 07:59 Amlodipine Besylate 5 Mg Tab PO 03/21/24 08:59 5 mg QAM LAZARUS Administration Atorvastatin Calcium 10 mg 02/20/24 09:00 02/25/24 07:58 Atorvastatin 10 Mg Tab PO 03/21/24 08:59 10 mg QAM LAZARUS Administration Cyanocobalamin 1,000 mcg 02/20/24 09:00 02/25/24 07:57 Cyanocobalamin (B-12) 500 Mcg Tablet PO 03/21/24 08:59 1,000 mcg DAILY LAZARUS Administration Enoxaparin Sodium 40 mg 02/24/24 10:20 02/25/24 07:59 Enoxaparin Inj 40 Mg/0.4 Ml Syr SQ 03/25/24 10:19 40 mg QAM LAZARUS Administration Finasteride 5 mg 02/20/24 09:00 02/25/24 07:59 Finasteride 5 Mg Tab PO 03/21/24 08:59 5 mg DAILY LAZARUS Administration Indapamide 2.5 mg 02/20/24 09:00 02/25/24 07:57 Indapamide 1.25 Mg Tab PO 03/21/24 08:59 2.5 mg QAM LAZARUS Administration Insulin Aspart 0 units 02/19/24 21:00 02/25/24 12:44 Insulin Aspart Per Unit Charge SC 03/20/24 20:59 4 units ACHS LAZARUS Administration Lidocaine HCl 1 ml 02/22/24 09:00 02/25/24 07:58 Lidocaine 2% Jelly 5 Ml Tube EXT 03/23/24 08:59 1 ml BID LAZARUS Administration Lisinopril 40 mg 02/20/24 09:00 02/25/24 07:58 Lisinopril 40 Mg Tab PO 03/21/24 08:59 40 mg QAM LAZARUS Administration Melatonin 3 mg 02/22/24 03:34 02/24/24 01:46 Melatonin 3 Mg Tab PO 03/23/24 03:33 3 mg HS PRN Administration Sleep Metoprolol Succinate 25 mg 02/19/24 21:00 02/25/24 07:59 Metoprolol Succ 25mg Ext Rel Tab PO 03/20/24 20:59 25 mg BID LAZARUS Administration Phenazopyridine HCl 200 mg 02/21/24 19:49 02/22/24 20:22 Phenazopyridine Hcl 200 Mg Tab PO 03/22/24 19:48 200 mg TID PRN Administration Dysuria Potassium Chloride 40 meq 02/23/24 09:00 02/25/24 07:58 Potassium Chloride Crtab 20 Meq Tabcr PO 03/24/24 08:59 40 meq BID LAZARUS Administration Tamsulosin HCl 0.8 mg 02/20/24 09:00 02/25/24 07:58 Tamsulosin Hcl 0.4 Mg Cap PO 03/21/24 08:59 0.8 mg DAILY LAZARUS Administration
--- NOTE | 2024-02-25 16:33 | Electrocardiogram Report ---
Test Reason : Blood Pressure : */* mmHG Vent. Rate : 60 BPM Atrial Rate : 60 BPM P-R Int : 174 ms QRS Dur : 100 ms QT Int : 444 ms P-R-T Axes : 47 50 31 degrees QTcB Int : 444 ms Normal sinus rhythm Normal ECG When compared with ECG of 08-Jan-2024 00:12, Premature ventricular complexes are no longer Present Premature supraventricular complexes are no longer Present Vent. rate has decreased by [address] abnormality no longer present Confirmed by Yordy Perales ([id number]) on 02/25/2024 4:32:52 PM Referred By: REFERRED SELF Confirmed By: Yordy Perales
[2024-02-26 07:36] LABS: Hematocrit (blood only) 28.9 % (42.0-52.0); Hemoglobin 9.4 g/dl (14.0-18.0); Mean Corpuscular Hemoglobin 27.8 pg (25.0-34.0); Mean Corpuscular Hgb Conc 32.5 g/dL (32.0-36.0); Mean Corpuscular Volume 85.5 fL (80.0-100.0); Mean Platelet Volume 10.2 fL (9.4-12.4); Platelet Count 341 K/uL (130-400); RDW Standard Deviation 43.3 fL (36.4-46.3); Red Blood Count 3.38 M/uL (4.70-6.10); White Blood Count 7.87 K/ul (4.8-10.8)
[2024-02-26 07:53] LABS: Calcium 8.7 mg/dl (8.6-10.3); Creatinine Clr Calc Pharmacy 62.5 ml/min; Potassium 4.1 mmol/L (3.5-5.1)
--- NOTE | 2024-02-26 16:57 | Hospitalist Progress Note ---
Date of Service February 26, 2024 Assessment & Plan (1) Complication of Henderson catheter: (2) Vascular dementia: (3) Ambulatory dysfunction: (4) Benign prostatic hyperplasia with urinary obstruction: (5) UTI (urinary tract infection): Plan The patient is a 78-year-old male with a past medical history of aortic stenosis s/p AVR, mitral stenosis, HLD, DM2, chronic anemia, chronic indwelling Foleyplaced about 6 weeks ago, urinary retention, dementia who presents to the ED on 02/19/2024 after his called EMS for concerns of Henderson catheter not draining and dark-colored urine with possible hematuria. Patient with repeat UA clear. Urology consulted and agree for void trial. Patient with henderson removed 02/22--failed voiding trial. Patient with abnormal EKG and reports concern of presyncope like episodes--potentially contributing to patient's status. BPH with urinary retention/obstruction Chronic indwelling Henderson catheter Suspected Complicated UTI--ruled out Presenting with dark colored urine and possible hematuria Henderson catheter placed around 6 weeks ago and last changed on 02/17, per discussion with home health ay Henderson catheter was changed in ED on 02/18, now draining a clear yellow color Completed Macrobid course Urine previously with hematuria, notably patient on Pyridium Follow-up with urology outpatient Continue tamsulosin/finasteride Urine culture negative Generalized weakness Ambulatory dysfunction Plan to discharge to SNF when accepted Abnormal EKG: -ECHO: EF 65 to 70%. Mild consulting LVH. No regional wall motion abnormality. Left atrium is moderately dilated. Bioprosthetic arctic valve. Bioprosthetic aortic valve leaflets are not well-visualized. Bioprosthetic arctic valve systolic gradient within normal range for the type of prosthesis. No significant bioprosthetic arctic valve regurgitation. Calcified mitral apparatus causing mitral stenosis. Mild mitral stenosis. -- Continue current medications Follow-up as outpatient HTN/HLD Continue amlodipine, Toprol, indapamide, lisinopril DM II Hold home meds SSI while in-patient BSG AC HS DVT Px: Lovenox SQ CODE STATUS Full code Disposition Rehab once accepted Admission and Anticipated Discharge Date Admission Date: February 19, 2024 Subjective Patient is seen and examined at bedside Offers no new complaints Reports chronic left shoulder pain which she attributes to rotator cuff injury Waiting for placement Denies any chest pain, dyspnea, abdominal pain Review of Systems Review of Systems: All systems reviewed & are unremarkable except as noted in Subjective Physical Exam Physical Exam: Physical Exam: Vitals signs as noted above General Appearance:Obese, no apparent distress Head: normocephalic, Atraumatic Eyes: normal inspection, EOMI Neck: supple, Trachea midline Respiratory/Chest: Normal breath sounds, CTA, No accessory muscle use Cardiovascular: S1, S2, No murmur Abdomen/GI:Soft, Non tender, Bowel sounds present :+Henderson Extremities/Musculoskeletal:normal inspection, no edema Neurologic/Psych:AAOX3, grossly no focal neurological deficits Skin: normal color, warm Results & Data Results & Data Vital Signs (Past 12 Hours) Vital Signs Temp Pulse Resp BP Pulse Ox O2 Del Method 02/26/24 15:40 36.7 C 70 16 103/57 L 95 Room Air 02/26/24 09:15 Room Air 02/26/24 07:32 36.8 C 57 L 16 120/55 L 97 Room Air Laboratory Results Short CBC 02/26/24 Range/Units 06:38 WBC 7.87 (4.8-10.8) K/ul Hgb 9.4 L (14.0-18.0) g/dl Hct 28.9 L (42.0-52.0) % Plt Count 341 (130-400) K/uL BMP 02/26/24 06:38 Sodium 140 Potassium 4.1 Chloride 103 Carbon Dioxide 31 BUN 30 H Creatinine 1.07 Glucose 110 H Calcium 8.7
[2024-02-26] MEDS: LIDOCAINE 2% JELLY 5 ML TUBE EXT PRN (17:57)
[2024-02-27 06:50] LABS: BUN Creatinine Ratio 26.3 (10-20); Calcium 8.8 mg/dl (8.6-10.3); Creatinine Clr Calc Pharmacy 58.6 ml/min; Magnesium 1.6 mg/dl (1.7-2.4)
[2024-02-27] MEDS ORDERED: ETOMIDATE 2 MG/ML 20 ML VIAL IV ONE (12:00)
[2024-02-27] MEDS ORDERED: ROCURONIUM BROMIDE 10 MG/ML 5 ML VIAL IV ONE (12:00)
[2024-02-27] MEDS: MAGNESIUM CHLORIDE W/CALCIUM 64MG DELAYED REL TAB PO SCH (12:38)
--- NOTE | 2024-02-27 16:25 | Hospitalist Progress Note ---
Date of Service February 27, 2024 Assessment & Plan (1) Complication of Henderson catheter: (2) Vascular dementia: (3) Ambulatory dysfunction: (4) Benign prostatic hyperplasia with urinary obstruction: (5) UTI (urinary tract infection): Plan The patient is a 78-year-old male with a past medical history of aortic stenosis s/p AVR, mitral stenosis, HLD, DM2, chronic anemia, chronic indwelling Foleyplaced about 6 weeks ago, urinary retention, dementia who presents to the ED on 02/19/2024 after his called EMS for concerns of Henderson catheter not draining and dark-colored urine with possible hematuria. Patient with repeat UA clear. Urology consulted and agree for void trial. Patient with henderson removed 02/22--failed voiding trial. Patient with abnormal EKG and reports concern of presyncope like episodes--potentially contributing to patient's status. BPH with urinary retention/obstruction Chronic indwelling Henderson catheter Suspected Complicated UTI--ruled out Presenting with dark colored urine and possible hematuria Henderson catheter placed around 6 weeks ago and last changed on 02/17, per discussion with home health ay Henderson catheter was changed in ED on 02/18, now draining a clear yellow color Completed Macrobid course Urine previously with hematuria, notably patient on Pyridium Follow-up with urology outpatient Continue tamsulosin/finasteride Urine culture negative Continue current management Waiting for rehab placement Generalized weakness Ambulatory dysfunction Plan to discharge to SNF when accepted Abnormal EKG: -ECHO: EF 65 to 70%. Mild consulting LVH. No regional wall motion abnormality. Left atrium is moderately dilated. Bioprosthetic arctic valve. Bioprosthetic aortic valve leaflets are not well-visualized. Bioprosthetic arctic valve systolic gradient within normal range for the type of prosthesis. No significant bioprosthetic arctic valve regurgitation. Calcified mitral apparatus causing mitral stenosis. Mild mitral stenosis. -- Continue current medications Follow-up as outpatient HTN/HLD Continue amlodipine, Toprol, indapamide, lisinopril DM II Hold home meds SSI while in-patient BSG AC HS DVT Px: Lovenox SQ CODE STATUS Full code Disposition Rehab once accepted Admission and Anticipated Discharge Date Admission Date: February 19, 2024 Subjective Patient is seen and examined at bedside States having left leg pain today No other complaints Waiting for placement Denies any chest pain, dyspnea, abdominal pain Review of Systems Review of Systems: All systems reviewed & are unremarkable except as noted in Subjective Physical Exam Physical Exam: Physical Exam: Vitals signs as noted above General Appearance:Obese, no apparent distress Head: normocephalic, Atraumatic Eyes: normal inspection, EOMI Neck: supple, Trachea midline Respiratory/Chest: Normal breath sounds, CTA, No accessory muscle use Cardiovascular: S1, S2, No murmur Abdomen/GI:Soft, Non tender, Bowel sounds present :+Henderson Extremities/Musculoskeletal:normal inspection, no edema Neurologic/Psych:AAOX3, grossly no focal neurological deficits Skin: normal color, warm Results & Data Results & Data Vital Signs (Past 12 Hours) Vital Signs Temp Pulse Resp BP Pulse Ox O2 Del Method 02/27/24 15:23 37.2 C 65 16 115/55 L 97 Room Air 02/27/24 09:00 Room Air 02/27/24 07:36 37.0 C 61 16 104/56 L 96 Room Air Laboratory Results [facility] 02/27/24 05:40 Sodium 140 Potassium 4.0 Chloride 104 Carbon Dioxide 30 BUN 30 H Creatinine 1.14 Glucose 113 H Calcium 8.8
--- NOTE | 2024-02-27 19:15 | Communication Note ---
Date of Service: February 27, 2024 78-year-old male with a past medical history of aortic stenosis s/p AVR, mitral stenosis, HLD, DM2, chronic anemia, chronic indwelling Foleyplaced about 6 weeks ago, urinary retention, dementia was " code purple" after having acute vomiting after his dinner. At bedside exam, patient's vitals were 80/53 over 53 mmHg, 97% on room air, 120 bpm, 36.7 C. Patient was sitting up, on room air, appeared to be in mild distress, denied chest pain or shortness of breath or palpitation, stated that he had acute nausea and vomiting after he was done with his dinner. Per RN, no acute issues throughout the day. On exam, patient had abdominal tenderness which was not present per RN during the day. Will get CMP, CBC, magnesium, phosphorus, troponin, blood culture, lactate, CTAP, CXR, EKG. orthostatic vitals. Zofran, PPI IV twice daily. IVF bolus 1 L, then maintenance at 80 ml/hr. Hold BP meds. transfer to med/tele Updated patient's attending over the phone. he agrees with above. On exam: Patient on room air, in mild distress, lungs clear to auscultation, epigastric tenderness noted, no ble edema. at the time of leaving: His vitals were 92 over 61 mmHg, 110 bpm, 94% on room air, 36.7 C. Re-evaled again as Pt's BP started to drop again, pt remains lethargic, w/ multiple episodes vomiting. BP at bedside exam was SBPs in 70s to 40s. Started pt on zosyn, signed out to ICU consulting sme for need for pressor and respiratory status monitoring given vomiting/lethargy, transferred pt down to ICU. Keep NPO. Patrol Inspector signed out on patient and requested to f/u on labs and patient's condition. Singed out to pt's attending as well who had already updated pt's . total critical care time spent: 50 min.
[2024-02-27] MEDS: ONDANSETRON INJ 2 MG/ML 2 ML VIAL IV PRN (19:16)
--- NOTE | 2024-02-27 19:37 | Communication Note ---
Date of Service: February 27, 2024
[2024-02-27] MEDS: ALBUMIN 25% 25 GM/100 ML VIAL IV SCH (19:38)
[2024-02-27 19:46] LABS: Hematocrit (blood only) 34.7 % (42.0-52.0); Hemoglobin 11.6 g/dl (14.0-18.0); Mean Corpuscular Hemoglobin 28.1 pg (25.0-34.0); Mean Corpuscular Hgb Conc 33.4 g/dL (32.0-36.0); Mean Platelet Volume 10.4 fL (9.4-12.4); Platelet Count 421 K/uL (130-400); RDW Coefficient of Variation 14.2 % (11.5-14.5); RDW Standard Deviation 43.5 fL (36.4-46.3); Red Blood Count 4.13 M/uL (4.70-6.10); White Blood Count 8.22 K/ul (4.8-10.8)
[2024-02-27] MEDS: NOREPINEPHRINE/D5W 4 MG/250 ML PLCT IV SCH (20:01)
--- NOTE | 2024-02-27 20:03 | Communication Note ---
Date of Service: February 27, 2024 Updated Patient's over the phone that patient deteriorated after his dinner and needed to be transferred to ICU for stabilization and further work up. She understands and agrees with the plan.
[2024-02-27 20:04] LABS: Albumin Level 3.4 gm/dl (3.4-5.0); BUN Creatinine Ratio 22.2 (10-20); Bilirubin,Total 0.4 mg/dl (0.2-1.0); Calcium 9.2 mg/dl (8.6-10.3); Creatinine Clr Calc Pharmacy 43.7 ml/min; Globulin 3.3 gm/dl (2.5-4.0); Magnesium 1.7 mg/dl (1.7-2.4); Phosphorus 3.2 mg/dl (2.5-4.9); Potassium 3.8 mmol/L (3.5-5.1); Total Protein 6.7 gm/dl (6.0-8.3)
[2024-02-27] MEDS ORDERED: ASPIRIN 81 MG CHEW PO STA (20:06)
[2024-02-27 20:10] LABS: Troponin I High Sensitivity 12.1 pg/ml (0-20)
[2024-02-27 20:47] LABS: Troponin I High Sensitivity 18.3 pg/ml (0-20)
[2024-02-27] MEDS ORDERED: STAT IV Infusion **Titration per Protocol STA ×3 (20:47→21:06)
[2024-02-27] MEDS ORDERED: MIDAZOLAM BOLUS FROM BAG IV PRN (20:52)
--- NOTE | 2024-02-27 20:53 | Procedure Note ---
Procedure Note Date of Service February 27, 2024 INTERNAL JUGULAR CENTRAL LINE PROCEDURE NOTE: Procedure: Internal Jugular Central Line Placement Attending: Dr. Marek Roman Provider: GAEL Kaminski Indication: Central Drug Administration, Poor Venous Access Anesthesia: Lidocaine 1% Line placed emergently in the setting of shock requiring vasopressor support with limited peripheral access A time-out was completed verifying correct patient, procedure, site, positioning, and implants(s) or special equipment if applicable. Patient's right Neck was cleansed and draped in the typical sterile fashion using Chloraprep. The Internal Jugular Vein and Carotid Artery were identified using ultrasound. The superficial tissue was anesthetized using 3 mL of 1% lidocaine without epinephrine under direct visualization with the ultrasound. After adequate anesthetization was achieved, the Internal Jugular vein was cannulated under direct ultrasound guidance using an introducer needle on a syringe. Good venous blood return was maintained prior to removal of syringe from introducer needle. Using Seldinger Technique, a guide wire was advanced through the introducer needle without resistance. The introducer needle was removed and ultrasound images were obtained of the guide wire within the Internal Jugular Vein and saved to the patient's medical record. A small incision was made in penetrating fashion at the guide wire insertion site utilizing an 11 blade scalpel. The dilator was advanced to the vessel without resistance. The dilator was exchanged for the triple lumen catheter which was advanced into the vessel without resistance. The guide wire was removed intact from the catheter without issue. Claves were placed on each catheter tip with confirmation of good blood flow from each lumen. Each port was easily flushed with sterile saline. The catheter was placed at 16 cm and sutured in place. BioPatch was applied to the catheter and a sterile Tegaderm dressing was applied over the catheter with careful attention to sterility. Patient tolerated procedure well. No immediate complications were met. Post procedure x-ray was completed, placement was appropriate and no pneumothorax was noted. Images obtained are saved for permanent record Procedural Ultrasound Guidance: Procedure Date: 02/27/2024 Indication: Central venous catheter insertion Attending: Dr. Marek Roman Provider: GAEL Kaminski Artery AND Vein visualized: Yes Compressible Vein: Yes Guidewire or Short Catheter seen in vein prior to dilation: Yes Line confirmed in Vein with ultrasound: Yes Images obtained are saved for permanent record. [facility] [place] Codes (Charges) Tubes, Drains, and Vasc Access Procedure 1: Tubes, Drains, and Vasc Access: [id number] Insertion Of Non-tunneled Catheter Age 5 Yrs> Procedure 2: Tubes, Drains, and Vasc Access: [id number] Ultrasound Guidance For Vascular Coding CPT Codes Tubes, Drains, and Vasc Access - Tubes, Drains, and Vasc Access: [id number] Insertion Of Non-tunneled Catheter Age 5 Yrs> ([id number]) Tubes, Drains, and Vasc Access - Tubes, Drains, and Vasc Access: [id number] Ultrasound Guidance For Vascular ([id number]) Additional Codes Date of Service ([email or web address])
--- NOTE | 2024-02-27 20:53 | Critical Care Consultation ---
Date of Consultation February 27, 2024 Assessment & Plan (1) Septic shock: Reason Critically Ill: 78-year-old male with vascular dementia, chronic indwelling Carter, BPH, admitted undergoing treatment for UTI and awaiting placement to rehab, presented to the ICU following code purple was the patient was found to be hypotensive. Initial EKG with ST elevation and complaints of chest pain, underwent cardiac cath Without intervention. Now admitted to ICU and undergoing treatment for septic shock. Currently mechanically ventilated on vasopressor support. Neuro - Sedation: Fentanyl, propofol Cardiac - Shockpatient currently requiring vasopressor support with Levophed and vasopressin. Etiology likely infectious given evidence of aspiration and UTI/cystitis. - Initial EKG with ST elevation, however negative troponins. Patient was complaining of chest pain and was taken to the Complaint Clerk emergently but was found to have no significant coronary stenosis and did not require intervention - Will follow-up TTE - Random cortisol 27 - Continue with fluid resuscitation as tolerated - See ID for treatment infectious process - Hold antihypertensives - Wean pressors as tolerated, maintain MAP Greater than 65 - Continuous monitoring telemetry Respiratory - Mechanically ventilatedpatient mildly hypoxemic likely due to multilobar pneumonia/aspiration. No previous history of pulmonary disease. Was initially intubated due to compliance issues with cardiac cath and CT scan while in septic shock - Continue with mechanical ventilation support and wean as tolerated - CT chest with dependent airspace consolidations consistent with multilobar pneumonia, likely aspiration -See ID below - Follow-up morning chest x-ray and ABG GI - N.p.o. for now. OG tube to low intermittent suction Continue PPI RENAL/LYTES - AKIcreatinine 1.5 his previous baseline of 1.1. Likely prerenal in the setting of septic shock -Continue with IV fluid resuscitation as tolerated -Maintain MAP greater than 65 -Avoid nephrotoxins and renally adjust medications -Monitor routine BMPs. Trend creatinine. Monitor urine output. Replete electrolytes as indicated - Foleystrict I's and O's ENDO - Continue sliding scale. ICU hyperglycemic protocol HEME - H&H stable, monitor routine CBC ID - Sepsis Patient without leukocytosis and Pro-Selvin within normal limits. Currently afebrile. He does have elevated lactate. Evidence of multilobar pneumonia/aspiration noted on CT chest and urinalysis concerning for UTI as possible sources of sepsis - Blood cultures pending - Urine culture pending -Nasal MRSA pending - Continue with Zosyn for now LINES/IV ACCESS - Right IJ CVC DVT PROPHYLAXIS - SCDs, Lovenox I have personally spent 78 minutes of critical care time in the direct management of this patient. This is a life/limb threatening event. This includes time spent evaluating patient, direct bedside care, chart review, placing orders, interpretation of diagnostic studies, discussion with consultants, patient, and family members, as well as other required patient management activi ties. This time is exclusive of all separately billable procedures, and teaching time and separate from and in addition to any other critical care service time. Thank you for allowing us to participate in the care of this patient. Please refer to my attending physician's documentation for any further recommendations. (2) UTI (urinary tract infection): (3) Diabetes: (4) Complication of Carter catheter: (5) Adult failure to thrive: (6) Vascular dementia: (7) Subclinical hypothyroidism: Supervising Physician Co-Signing Physician Notes Patient seen and examined. EMR reviewed. Discussed with critical care RIKY and agree with assessment plan as noted. Please refer to my progress note from 02/28/2024 for additional details History of Present Illness Attending Physician: Celso Gould MD History of Present Illness Patient is 78-year-old male with past medical history of aortic stenosis s/p AVR, mild mitral stenosis, HLD, DM type II, chronic anemia, chronic Carter with urinary retention, vascular dementia who was admitted on 02/19/2020 for dark- colored urine and hematuria. Patient completed course of Macrobid and was awaiting placement in rehab. This evening code osman was called as patient was hypotensive with diaphoresis and vomiting. He was transferred to the ICU with current labs pending which he was found to be significantly hypotensive and was not responding to fluid bolus. Vasopressors were initiated and central line placed emergently. Patient complained of chest pain, and Initial EKG showed lateral ST elevation, and heart alert was initiated. twitchell operator assessed patient at bedside and decision was made to undergo emergent cardiac catheterization. He was intubated prior to procedure as patient was uncooperative and distressed and hemodynamically unstable. Cardiac cath did not show significant stenosis of the coronary arteries and no intervention performed. Patient was taken for CT chest, abdomen and pelvis in route back to the ICU. CT chest revealed multilobar consolidations consistent with aspiration pneumonia. CT abdomen and pelvis consistent with cystitis and evidence of diverticulosis without diverticulitis. Patient currently undergoing further management in ICU for septic shock and currently requiring mechanical ventilation with vasopressor support. Prior to intubation and cardiac catheter did discuss goals of care with the patient's which she would like him to remain full code with full supportive measures at this time. Allergies Allergy/AdvReac Type Severity Reaction Status Date / Time No Known Allergies Allergy Verified 02/19/24 16:12 Home Medications Medication Instructions Recorded Confirmed Type acetaminophen 325 mg tablet 650 mg (2 x 325 mg) PO QID PRN 01/16/24 02/19/24 Rx fever or pain #90 tabs amlodipine 5 mg tablet 5 mg PO QAM #30 tabs 01/16/24 02/19/24 Rx atorvastatin 10 mg tablet 10 mg PO QAM #30 tabs 01/16/24 02/19/24 Rx finasteride 5 mg tablet 5 mg PO DAILY #90 tabs 01/16/24 02/19/24 Rx lisinopril 40 mg tablet 40 mg PO QAM #30 tabs 01/16/24 02/19/24 Rx metoprolol succinate 25 mg 25 mg PO BID #60 tabs 01/16/24 02/19/24 Rx tablet,extended release 24 hr sbqzuujbskse-pzvonyvp-jfxvlq tablet 1 tab PO DAILY #30 tabs 01/16/24 02/19/24 Rx sitagliptin phosphate 100 mg 100 mg PO QAM #30 tabs 01/16/24 02/19/24 Rx tablet (Januvia) tamsulosin 0.4 mg capsule 0.8 mg (2 x 0.4 mg) PO DAILY #60 01/16/24 02/19/24 Rx caps cyanocobalamin (vitamin B-12) 1,000 mcg PO DAILY 02/19/24 02/19/24 History 1,000 mcg tablet fluticasone propionate 50 1 spray intranasal DAILY 02/19/24 02/19/24 History mcg/actuation nasal spray,suspension indapamide 2.5 mg tablet 2.5 mg PO QAM 02/19/24 02/19/24 History metformin 500 mg tablet,extended 500 mg PO DAILY 02/19/24 02/19/24 History release 24 hr potassium chloride 20 mEq 20 meq PO BID 10/09/24 10/09/24 History tablet,extended release(part/cryst) Patient History Medical History Acute urinary retention POST OP ANESTHESIA-NEEDED TO BE CATHETERIZED Osteoarthritis BPH (benign prostatic hyperplasia) Diabetes mellitus, type 2 Peripheral neuropathy FEET Hyperlipidemia Hypertension Sleep apnea CPAP Surgical History H/O removal of cyst NECK-BENIGN S/P foot surgery, right HAMMERTOE X 3 PROCEDURES History of tonsillectomy History of appendectomy Previous back surgery DISC SURG S/P TURP GREENLIGHT LASER History of heart valve replacement AVR-12/2009 Family History Family/Other Family history of diabetes mellitus Social History Smoking Status: Never smoker Second Hand Exposure: No; Do You Dip or Chew Tobacco: No; Hx Alcohol Use: No Hx Substance Use: No Preferred Language: Russian Communication Ability: Effective Nanotechnology Technician Required: No Beliefs That Will Affect Care: None Current Living Situation: Spouse Feels Safe at Home: Yes Safety Concerns: Feels Safe At This Time Assistive Devices: Hospital Bed Review of Systems Review of Systems: Exam limited due to patient's cognitive status. Prior to intubation patient did complain of chest pain, abdominal pain, and lower back pain. He denied headache, dizziness, or shortness of breath. Physical Exam Constitutional: + acute distress and + behavioral limita tions; + uncooperative Eyes: PERRL, conjunctivae normal, anicteric sclerae ENMT: external ear and nose normal, oropharynx normal Neck: trachea midline, no thyromegaly Respiratory: normal respiratory effort, lungs clear to auscultation Cardiovascular: RRR, no murmur, no edema Heart Sounds: + click Extremities: no edema Gastrointestinal (Abdomen): normal bowel sounds, soft, nontender, no hepatosplenomegaly Musculoskeletal: no cyanosis or clubbing, extremities motor strength 5/5 Skin: no rashes, warm and dry Neurologic: PERRL, EOMI, accommodation nl, no face palsy, no dysarthria Psychiatric: Orientation: oriented to person; + not oriented to place, + not oriented to time and + uncooperative Results & Data Results & Data Vital Signs (Past 12 Hours) Vital Signs Temp Pulse Resp BP Pulse Ox O2 Del Method 02/27/24 15:23 37.2 C 65 16 115/55 L 97 Room Air 02/27/24 09:00 Room Air Diagnostic Findings Exam(s): CT ABDOMEN + PELVIS Without Contrast EXAM: CT Abdomen and Pelvis Without Intravenous Contrast CLINICAL HISTORY: Reason for exam: shock. TECHNIQUE: Axial computed tomography images of the abdomen and pelvis without intravenous contrast. CTDI is 19.24 mGy and DLP is 1362.19 mGy-cm. Automated exposure control was utilized for the study. A dose lowering technique was utilized adhering to the principles of ALARA. COMPARISON: No relevant prior studies available. FINDINGS: Lung bases: Airspace consolidations at the lung bases, concerning for multilobar pneumonia. ABDOMEN: Liver: Unremarkable. Gallbladder and bile ducts: Unremarkable. No calcified stones. No ductal dilation. Pancreas: Unremarkable. No ductal dilation. Spleen: Unremarkable. No splenomegaly. Adrenals: Unremarkable. No mass. Kidneys and ureters: Unremarkable. No obstructing stones. No hydronephrosis. Stomach and bowel: Mild fecal retention, correlate for constipation. Diverticulosis, without acute diverticulitis. No small bowel obstruction. No free intraperitoneal air. PELVIS: Appendix: No findings to suggest acute appendicitis. Bladder: Wall thickening of the urinary bladder which contains a Carter catheter. Correlate for UTI. No stones. Reproductive: Unremarkable as visualized. ABDOMEN and PELVIS: Intraperitoneal space: Unremarkable. No free air. No significant fluid collection. Bones/joints: Degenerative changes of the spine. No acute fracture. No dislocation. Soft tissues: Unremarkable. Vasculature: Atherosclerotic changes of the aorta. No abdominal aortic aneurysm. Lymph nodes: Unremarkable. No enlarged lymph nodes. Tubes, lines and devices: Feeding tube terminates in the stomach. IMPRESSION: 1. Wall thickening of the urinary bladder which contains a Carter catheter. Correlate for UTI. 2. Airspace consolidations at the lung bases, concerning for multilobar pneumonia. 3. Mild fecal retention, correlate for constipation. 4. Feeding tube terminates in the stomach. 5. Diverticulosis, without acute diverticulitis. No small bowel obstruction. No free intraperitoneal air. Electronically signed by: Jose Valdivia MD 02/28/24 00:16 AM Exam(s): CT CHEST Without Contrast EXAM: CT Chest Without Intravenous Contrast CLINICAL HISTORY: Reason for exam: shock. TECHNIQUE: Axial computed tomography images of the chest without intravenous contrast. CTDI is 19.24 mGy and DLP is 1362.19 mGy-cm. Automated exposure control was utilized for the study. A dose lowering technique was utilized adhering to the principles of ALARA. COMPARISON: No relevant prior studies available. FINDINGS: Lungs: Dependent airspace consolidations, consistent with multilobar pneumonia, likely aspiration. No mass. Pleural space: Unremarkable. No pneumothorax. No significant effusion. Heart: Prosthetic mitral valve. Prosthetic aortic valve. No cardiomegaly. No significant pericardial effusion. No significant coronary artery calcifications. Bones/joints: Sternotomy wires. No acute fracture. No dislocation. Soft tissues: Unremarkable. Vasculature: Unremarkable. No thoracic aortic aneurysm. Lymph nodes: Unremarkable. No enlarged lymph nodes. Tubes, lines and devices: Endotracheal tube terminates in the trachea. Feeding tube terminates in the stomach. IMPRESSION: Dependent airspace consolidations, consistent with multilobar pneumonia, likely aspiration. Electronically signed by: Jose Valdivia MD 02/27/24 23:59 PM Coding Level of Care Code 15686 CRITICAL CARE EA ADD 30M Diagnoses Septic shock A41.9; R65.21 UTI (urinary tract infection) N39.0 Diabetes E11.9 Complication of Carter catheter T83.9XXA Adult failure to thrive R62.7 Vascular dementia F01.50 Subclinical hypothyroidism E03.8
[2024-02-27 21:00] LABS: Appearance Urine Cloudy (Clear); Bacteria Urine Automated 4+ (None Seen); Bilirubin Urine Negative (Negative); Blood Urine 1+ (Negative); Color Urine Yellow; Epithelial Cell Urine Auto 0-2 /hpf (0-2); Glucose Urine UA Negative (Negative); Ketones Urine Negative (Negative); Leukocyte Esterase Urine 2+ (Negative); Nitrite Urine Positive (Negative); Protein Urine 2+ (Negative); Specific Gravity Urine 1.018 (1.000-1.030); Urobilinogen Urine Negative (Negative); WBC Urine Automated >50 /hpf (0-5); pH Urine 5.5 (4.5-7.5)
[2024-02-27] MEDS: PIPERACILLIN/TAZOBACTAM 4.5 GM/100 ML BAG IV ONE (21:00)
[2024-02-27] MEDS: fentaNYL citrate 2,500 MCG/250 ML BAG IV SCH (21:00)
[2024-02-27] MEDS: VASOPRESSIN 20 UNITS in SODIUM CHLORIDE 0.9% 100 ML IV SCH (21:00)
[2024-02-27] MEDS: MIDAZOLAM HCL 125 MG/250 ML BAG IV SCH (21:05)
[2024-02-27] MEDS ORDERED: PROPOFOL BOLUS FROM BAG IV PRN (21:06)
[2024-02-27 21:34] LABS: iSTAT Allen Test Pass; iSTAT Art Bld Gas pCO2 Correct 41 mmHg (35-46); iSTAT Art Bld Gas pH Corrected 7.215 (7.35-7.45); iSTAT Arterial Blood Gas HCO3 17 meg/L (19-24); iSTAT Arterial Blood Gas pO2 C 152; iSTAT Carbon Dioxide 18 mmol/L (24-31); iSTAT FiO2 40 %; iSTAT Hematocrit 35 % (42-52); iSTAT Hemoglobin 11.9 g/dl (14.0-18.0); iSTAT Potassium 3.4 mmol/L (3.3-5.0); iSTAT Sample Type Arterial; iSTAT Site R Radial; iSTAT Sodium 137 mmol/L (135-144); iSTAT SpO2 98
[2024-02-27] MEDS: ASPIRIN 300 MG SUPP PR STA (21:42)
[2024-02-27] MEDS: ASPIRIN CHEW 324 MG ONE (21:42)
[2024-02-27] MEDS: MIDODRINE HCL 2.5 MG TAB PO ONE (21:43)
[2024-02-27] MEDS ORDERED: NITROGLYCERIN SL 0.4 MG/TAB TAB SL PRN (22:00)
--- NOTE | 2024-02-27 22:00 | Pre Anesthesia Assessment ---
Date of Service February 27, 2024 Pre Sedation Assessment Vital Signs Temp Pulse Resp BP Pulse Ox O2 Del Method 02/27/24 15:23 37.2 C 65 16 115/55 L 97 Room Air 02/27/24 09:00 Room Air 02/27/24 07:36 37.0 C 61 16 104/56 L 96 Room Air Cardiovascular Additional Comments: Tachycardia, systolic murmur, no edema, hypotensive Respiratory Additional Comments: Intubated and sedated Pre-Sedation Airway Assessment Smoking Status: Never smoker Intubated ASA 4 Notes The planned sedation has been discussed with the patient. Informed Consent was obtained. I have identified the patient, determined the appropriateness of sedation and have assessed the patient immediately prior to the procedure. All medicine(s) and interventions are by my order.
--- NOTE | 2024-02-27 22:06 | Post Anesthesia Assessment ---
Date of Service February 27, 2024 Post Sedation Assessment Vital Signs Temp Pulse Resp BP Pulse Ox O2 Del Method 02/27/24 15:23 37.2 C 65 16 115/55 L 97 Room Air 02/27/24 09:00 Room Air 02/27/24 07:36 37.0 C 61 16 104/56 L 96 Room Air Recovery Score Activity: Moves 0 extremities Respiration: Deep Breath/Cough (Intubated) Circulation: +/-20% PreAnes Value Consciousness: Nonresponsive Oxygen Saturation: O2 needed for >90% Discharge Sedation Level of Care: Higher Level of Care Post Sedation Plan On clinical assessment, the patient appears to have tolerated the sedation without complications. Patient is recovering as anticipated. Patient will continue to be monitored by nursing and may be discharged when sedation discharge criteria are met per below protocol. Upon Completions of procedure up to 15 minutes continue every 5 minute vital signs and the P.A.R. score; then discharge to a Phase I or Fast Track to Phase II per the following guidelines: * Discharge Patient to appropriate Phase II area if PAR is 8 or greater or return to pre- procedure baseline. The post - procedure orders will be as directed. * If PAR score is less than 8 or not return to pre-procedure baseline then melvina ent will follow Phase I monitoring till PAR is reached for Phase II. The Phase I may be done in procedure room or may call to secure a Phase I area. * If naloxone or flumazenil are used for reversal, hold in Phase I for continued monitoring from when last reversal dose was given for a minimum of 60 minutes or longer pending the nurse and/or physician discretion of patient condition before discharge to Phase II. Please call the Sedation Physician to re-evaluate and complete post-note for discharge to Phase II area. Do NOT discharge from procedure sedation or Phase 1 until post- sedation e valuation note is complete by procedure /sedation MD Sedation Discharge Instructions to be given to the patient at discharge to home. [facility] Procedure Codes (Charges) Indication for Procedure Indication for procedure: ACS
[2024-02-27] MEDS: fentaNYL citrate PF 100 MCG/2 ML VIAL ONE (22:16)
[2024-02-27] MEDS: MIDAZOLAM HCL 1 MG/ML 2ML VIAL ONE (22:17)
[2024-02-27] MEDS: niCARdipine HCL INJ 2.5 MG/ML 10 ML AMP ONE (22:18)
[2024-02-27] MEDS: NITROGLYCERIN/D5W 100MCG/ML 20ML SYR ONE (22:18)
[2024-02-27] MEDS: OPTIRAY 350 ONE (22:18)
--- NOTE | 2024-02-27 22:22 | Cardiac Catheterization ---
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 Cardiac Status Clinical evaluation leading to the procedure CAD Presenation: Sx unlikely to be ischemic Anginal Classification: CCS IV Heart Failure: No Cardiogenic Shock within 24 Hours: Yes (Question regarding cardiogenic versus septic shock) Cardiac Arrest within 24 Hours: No Imaging Studies Past 6 Months: Yes Stress Studies Past 6 Months: No Coronary Anatomy Dominant: Right Left Main (% Stenosis): Normal LAD (% Stenosis): Distal (30%) D1 (% Stenosis): Normal D2 (% Stenosis): Normal Circumflex (% Stenosis): Distal (30%) OM1 (% Stenosis): Normal OM2 (% Stenosis): Normal L PL1 (% Stenosis): Normal RCA (% Stenosis): Normal R PDA (% Stenosis): Normal R PL1 (% Stenosis): Normal Diagnostic Physicians Name: Julio C Huggins MD, PhD Closure Device Percutaneous Entry Location: Femoral Closure Device: Angio-Seal Recommendations: Medical Therapy and/or Counseling Intraprocedure Events Significant Disection: No Perforation: No Cardiac Cath Procedure Full Procedure Date February 27, 2024 Pre-Procedure Diagnosis Pre-Procedure Diagnosis: Acute Coronary Syndrome and Cardiothoracic Symptom (Shock) AUC Score AUC Score: 09 Post-Procedure Diagnosis Post-Procedure Diagnosis: Normal Coronary Arteries Procedure(s) Performed Procedure(s) Performed: Coronary Angiography and Ultrasound Guided Vascular Access Fretted Instruments Inspector Julio C Huggins MD, PhD Estimated Blood Loss Estimated Blood Loss: 5 cc Medication(s) Medication(s): Lidocaine 1% Summary of Findings Brief description: Patient was brought to the cardiac catheterization suite where he was shaved and prepped in a sterile fashion. He was already intubated and sedated on propofol from the ICU. Soft tissues right groin were anesthetized using 10 mL of 1% Xylocaine. Using ultrasound for guidance (image saved), the right femoral artery was accessed and a 6 [place] femoral artery sheath was placed. All catheters were advanced and exchanged over a 0.035 J-tip wire. Left coronary angiography in orthogonal views with a 5 [place] JL 4 diagnostic catheter. Right coronary angiography in orthogonal views a 5 Canadian JR4 diagnostic catheter. Diagnostic catheters were removed. Right femoral artery angiography was performed to evaluate for closure. Findings were favorable, therefore, the femoral artery sheath was exchanged for a 6 [place] Angio-Seal closure device. This was deployed in the recommended fashion. We obtained immediate hemostasis and the patient remained hemodynamically stable (on pressor support). He was then transported to radiology to continue workup for his sudden drop in blood pressure. This ended the case. Coronary angiography findings: VFM-ecofq-[id number] vessel bifurcating into LAD and left circumflex. Mild luminal irregularities. AZE-xybjq-nvowoxd and transapical. Provides a large first diagonal and a medium to large second diagonal. Proximal segment without significant disease. First diagonal has large caliber and is branching. Second diagonal is large without significant disease. Just after this the early distal LAD has a focal 30% stenosis. The remainder of the LAD and its branches have no more than mild luminal irregularities. LCx-this is a large-caliber and nondominant disease. Almost immediately gives a large OM1. It travels in AV groove where it then gives a large multi branching OM 2. Continues large in the AV groove distally and terminates as a small posterolateral branch. Focal stenosis of 30% in the early distal circumflex. The remainder of the circumflex and its branches have no angiographically significant disease. RCA-very large caliber and dominant vessel. Diffuse luminal irregularities and bifurcates distally into a large PDA and a large multi branching posterolateral. These vessels have no more than mild scattered plaques. Summary: 1. Essentially normal epicardial coronary arteries with no more than very mild lesions as described. No acute thrombotic lesion suggestive of ACS. 2. Continue workup for noncardiac causes of shock. Hemodynamics Rest Ao:: 150/99 mmHg Final Ao: 169/94 mmHg LV: Not performed Recommendations Recommendations: Medical Therapy and/or Counseling Radiation Exposure (mGy) 829 mGy, fluoroscopy time 2.5 minutes Contrast (mls) 80 cc Anesthesia Propofol initiated in the ICU. Patient intubated. Procedural Complication(s) None Disposition ICU I attest to the content of the Intraoperative Record and any orders documented therein. Any exceptions are noted below. [facility] Card Cath Procedure Codes Cardiac Catheterization Procedure 1: Cardiovascular Cath Procedures: 65255 Coronaries Therapeutic Services & Ancillary Procedure 1: Cardiovascular Tx and Anc Procedures: 14245 Ultrasonic Guidance Vascular Access PG Care Time/CCT Total # of Minutes Spent Total Time Spent with Patient: Total time spent is greater than 50% in coordination of care (as documented) at patient's floor/unit and/or counseling patient:
[2024-02-27] MEDS: MIDAZOLAM HCL 125MG/250ML D5W IV ONE (22:50)
[2024-02-27] MEDS: RAPID SEQUENCE INDUCTION BAG ONE (22:50)
[2024-02-27] MEDS: fentaNYL citrate 2,500 MCG/250 ML BAG IV ONE (22:50)
[2024-02-27] MEDS: HEPARIN (PORCINE) 1000 UNIT/ML 10 ML (CATH LAB USE ONLY) ONE (22:50)
[2024-02-27] MEDS: NOREPINEPHRINE/D5W 4 MG/250 ML IV ONE ×2 (22:51)
[2024-02-27] MEDS: SODIUM CHLORIDE 0.9% 1,000 ML IV SCH (22:51)
[2024-02-27] MEDS: PROPOFOL IV EMULSION 10 MG/ML 100 ML VIAL IV ONE (22:52)
[2024-02-27] MEDS: propofoL 1,000 MG/100 ML VIAL IV SCH (22:52)
[2024-02-27] MEDS: SODIUM CHLORIDE 0.9% 1,000 ML IV ONE (23:33)
[2024-02-27] MEDS: fentaNYL BOLUS from BAG IV PRN (23:43)
--- NOTE | 2024-02-28 | CT Scan Report ---
Exam(s): CT CHEST Without Contrast EXAM: CT Chest Without Intravenous Contrast CLINICAL HISTORY: Reason for exam: shock. TECHNIQUE: Axial computed tomography images of the chest without intravenous contrast. CTDI is 19.24 mGy and DLP is 1362.19 mGy-cm. Automated exposure control was utilized for the study. A dose lowering technique was utilized adhering to the principles of ALARA. COMPARISON: No relevant prior studies available. FINDINGS: Lungs: Dependent airspace consolidations, consistent with multilobar pneumonia, likely aspiration. No mass. Pleural space: Unremarkable. No pneumothorax. No significant effusion. Heart: Prosthetic mitral valve. Prosthetic aortic valve. No cardiomegaly. No significant pericardial effusion. No significant coronary artery calcifications. Bones/joints: Sternotomy wires. No acute fracture. No dislocation. Soft tissues: Unremarkable. Vasculature: Unremarkable. No thoracic aortic aneurysm. Lymph nodes: Unremarkable. No enlarged lymph nodes. Tubes, lines and devices: Endotracheal tube terminates in the trachea. Feeding tube terminates in the stomach. IMPRESSION: Dependent airspace consolidations, consistent with multilobar pneumonia, likely aspiration. Electronically signed by: Jose Valdivia MD 02/27/24 23:59 PM
--- NOTE | 2024-02-28 | Procedure Note ---
Procedure Note Date of Service February 27, 2024 Note I was called to the ICU to assist with an intubation. Patient with a history of dementia however had been contacted by the ICU DIRECTOR OF GUIDANCE, Marvin prior to this. Plan was for patient to go urgently for cardiac catheterization due to concern for chest pain and history of CAD. Patient noted to be tachycardic, he was already on Levophed and vasopressin was being started additionally to help maintain his blood pressure. No known history of asthma or COPD. Patient was receiving supplemental oxygen via oxi mask at that time to maintain sats at 97%. Preparations made with assistance of respiratory therapy and ICU nursing staff. Endotracheal Intubation Indication airway protection. The patient was on 100% oxygen via NRB prior to the procedure. Suction, airway equipment, RSI drugs, respiratory equipment, and appropriate personnel were prepared prior to the initiation of the procedure. A time out was taken. Induction was performed with etomidate 20 mg and rocuronium 80 mg. After observing the clinical benefit of the medications, the airway was easily visualized utilizing a video laryngoscopy. A 7.5 size ETT tube was placed atraumatically to 25 cm using at the lip standard technique. The cuff inflated without signs of malfunction. There were bilateral breath sounds, positive colormetric change, no gastric sounds, a good capnography waveform, and post procedure pulse oximetry was 96%. Post intubation sedation and paralysis was administered using propofol and Versed. There were no complications. Chest x- ray performed at bedside additionally confirming placement above the hayden. Patient transition to the ventilator and continued to be well-appearing. Coding
[2024-02-28] MEDS: INSULIN ASPART PER UNIT CHARGE SC SCH (00:07)
[2024-02-28] MEDS: PANTOprazole 40 MG/10 ML SYR IV SCH (00:08)
[2024-02-28] MEDS: PIPERACILLIN/TAZOBACTAM 4.5 GM/100 ML BAG IV SCH (00:08)
--- NOTE | 2024-02-28 00:17 | CT Scan Report ---
Exam(s): CT ABDOMEN + PELVIS Without Contrast EXAM: CT Abdomen and Pelvis Without Intravenous Contrast CLINICAL HISTORY: Reason for exam: shock. TECHNIQUE: Axial computed tomography images of the abdomen and pelvis without intravenous contrast. CTDI is 19.24 mGy and DLP is 1362.19 mGy-cm. Automated exposure control was utilized for the study. A dose lowering technique was utilized adhering to the principles of ALARA. COMPARISON: No relevant prior studies available. FINDINGS: Lung bases: Airspace consolidations at the lung bases, concerning for multilobar pneumonia. ABDOMEN: Liver: Unremarkable. Gallbladder and bile ducts: Unremarkable. No calcified stones. No ductal dilation. Pancreas: Unremarkable. No ductal dilation. Spleen: Unremarkable. No splenomegaly. Adrenals: Unremarkable. No mass. Kidneys and ureters: Unremarkable. No obstructing stones. No hydronephrosis. Stomach and bowel: Mild fecal retention, correlate for constipation. Diverticulosis, without acute diverticulitis. No small bowel obstruction. No free intraperitoneal air. PELVIS: Appendix: No findings to suggest acute appendicitis. Bladder: Wall thickening of the urinary bladder which contains a Carter catheter. Correlate for UTI. No stones. Reproductive: Unremarkable as visualized. ABDOMEN and PELVIS: Intraperitoneal space: Unremarkable. No free air. No significant fluid collection. Bones/joints: Degenerative changes of the spine. No acute fracture. No dislocation. Soft tissues: Unremarkable. Vasculature: Atherosclerotic changes of the aorta. No abdominal aortic aneurysm. Lymph nodes: Unremarkable. No enlarged lymph nodes. Tubes, lines and devices: Feeding tube terminates in the stomach. IMPRESSION: 1. Wall thickening of the urinary bladder which contains a Carter catheter. Correlate for UTI. 2. Airspace consolidations at the lung bases, concerning for multilobar pneumonia. 3. Mild fecal retention, correlate for constipation. 4. Feeding tube terminates in the stomach. 5. Diverticulosis, without acute diverticulitis. No small bowel obstruction. No free intraperitoneal air. Electronically signed by: Jose Valdivia MD 02/28/24 00:16 AM
[2024-02-28] MEDS: PLASMA-LYTE A 1,000 ML IV SCH (02:23)
[2024-02-28 04:35] LABS: iSTAT Allen Test Pass; iSTAT Art Bld Gas pCO2 Correct 24 mmHg (35-46); iSTAT Art Bld Gas pH Corrected 7.514 (7.35-7.45); iSTAT Arterial Blood Gas HCO3 19 meg/L (19-24); iSTAT Arterial Blood Gas pO2 C 145; iSTAT Carbon Dioxide 19 mmol/L (24-31); iSTAT FiO2 40 %; iSTAT Hematocrit 27 % (42-52); iSTAT Hemoglobin 9.2 g/dl (14.0-18.0); iSTAT Potassium 3.7 mmol/L (3.3-5.0); iSTAT Sample Type Arterial; iSTAT Site L Radial; iSTAT Sodium 135 mmol/L (135-144); iSTAT SpO2 100
[2024-02-28] MEDS: PLASMA-LYTE A 1,000 ML IV ONE (05:15)
[2024-02-28 06:22] LABS: Albumin Globulin Ratio 1.5 (0.9-2); Albumin Level 2.9 gm/dl (3.4-5.0); Bilirubin,Total 0.7 mg/dl (0.2-1.0); Creatinine Clr Calc Pharmacy 45.2 ml/min; Magnesium 1.6 mg/dl (1.7-2.4); Phosphorus 2.4 mg/dl (2.5-4.9); Total Protein 4.9 gm/dl (6.0-8.3)
[2024-02-28 06:26] LABS: Basophils # (auto) 0.06 K/uL (0.00-0.20); Basophils % (auto) 0.2 %; Eosinophils # (auto) 0.02 K/uL (0.00-0.50); Eosinophils % (auto) 0.1 %; Hematocrit (blood only) 26.8 % (42.0-52.0); Hemoglobin 9.1 g/dl (14.0-18.0); Immature Granulocytes # (auto) 0.24 K/uL (0.01-0.20); Immature Granulocytes % (auto) 0.8 %; Lymphocytes # (auto) 0.96 K/uL (1.20-3.40); Lymphocytes % (auto) 3.1 %; Mean Corpuscular Hemoglobin 28.7 pg (25.0-34.0); Mean Corpuscular Volume 84.5 fL (80.0-100.0); Mean Platelet Volume 9.9 fL (9.4-12.4); Monocytes # (auto) 2.25 K/uL (0.11-0.59); Monocytes % (auto) 7.3 %; Neutrophils # (auto) 27.45 K/uL (1.40-6.50); Neutrophils % (auto) 88.5 %; Platelet Count 260 K/uL (130-400); Polychromasia 1+; RDW Coefficient of Variation 14.3 % (11.5-14.5); RDW Standard Deviation 44.4 fL (36.4-46.3); Red Blood Count 3.17 M/uL (4.70-6.10)
[2024-02-28 06:32] LABS: White Blood Count 30.98 K/ul (4.8-10.8)
--- NOTE | 2024-02-28 07:17 | XRay Report ---
XR chest 1V portable HISTORY: 78 years-old Male central line status post placement of a right IJ central venous catheter COMPARISON: Chest CT of same day TECHNIQUE: AP view of the chest FINDINGS: Cardiomegaly. Median sternotomy with prosthetic aortic valve. Mitral annular calcifications. Status p ost placement of a right IJ central venous catheter distal tip in the expected location of the mid SV C. No postprocedural pneumothorax. No large pleural effusion or overt pulmonary edema. Mild subsegmen miguel left basilar densities favoring atelectasis. Bones appear grossly intact. IMPRESSION: Status post placement of a right IJ central venous catheter. No postprocedural pneumothor ax. ACT 112: Negative or not required by law. The above report was generated using voice recognition software. It may contain grammatical, syntax o r spelling errors. Electronically signed by: Mejia Galeana M.D. 02/28/2024 7:16 AM
--- NOTE | 2024-02-28 07:37 | XRay Report ---
XR chest 1V portable HISTORY: 78 years-old Male intubation acute respiratory failure COMPARISON: Chest CT of same day TECHNIQUE: AP view of the chest FINDINGS: Endotracheal tube overlies the midline, 3 cm superior to the hayden. Right IJ central venous catheter distal tip projects over the mid SVC. Enteric tube courses below the diaphragm outside the field-of- view. Median sternotomy with prosthetic aortic valve. Small left pleural effusion with mild left basilar pr edominant opacities. No pneumothorax. Bones appear grossly intact. IMPRESSION: 1. Lines and tubes as above. 2. No pneumothorax. 3. Small left pleural effusion with mild left basilar opacities which may represent atelectasis versu s pneumonia. ACT 112: Negative or not required by law. The above report was generated using voice recognition software. It may contain grammatical, syntax o r spelling errors. Electronically signed by: Mejia Galeana M.D. 02/28/2024 7:35 AM
--- NOTE | 2024-02-28 07:42 | XRay Report ---
XR chest 1V portable HISTORY: 78 years-old Male ro aspiration. Acute shortness of breath COMPARISON: Chest CT of same day TECHNIQUE: AP view the chest FINDINGS: Cardiomegaly. Median sternotomy with prosthetic aortic valve. No pneumothorax. Trace left pleural eff usion with mild left basilar predominant opacities. Bones appear grossly intact. IMPRESSION: 1. Cardiomegaly without pulmonary edema. 2. Trace left pleural effusion with mild left basilar opacities which may represent atelectasis versu s pneumonitis. ACT 112: Negative or not required by law. The above report was generated using voice recognition software. It may contain grammatical, syntax o r spelling errors. Electronically signed by: Mejia Galeana M.D. 02/28/2024 7:40 AM
[2024-02-28] MEDS: MAGNESIUM SULFATE / D5W 1 GM/100 ML BAG IV SCH (08:08)
[2024-02-28] MEDS: LACTATED RINGER'S 2,000 ML IV ONE (08:49)
[2024-02-28] MEDS: HYDROCORTISONE SOD 50 MG in SYRINGE 0 ML IV SCH (09:03)
--- NOTE | 2024-02-28 09:28 | Critical Care Progress Note ---
Date of Service February 28, 2024 Assessment & Plan (1) Septic shock: Plan: Reason Critically Ill: 78-year-old male with vascular dementia, chronic indwelling Carter, BPH, admitted undergoing treatment for UTI and awaiting placement to rehab, presented to the ICU following code purple was the patient was found to be hypotensive. Initial EKG with ST elevation and complaints of chest pain, underwent cardiac cath Without intervention. Now admitted to ICU and undergoing treatment for septic shock. Currently mechanically ventilated on vasopressor support. 24-hour events: Patient was transferred to the intensive care unit. He was intubated. He was initiated on vasopressor therapy and a central line was placed. He was taken to the Educational Director which demonstrated clean coronary arteries. Recommendations Neuro -currently sedated on fentanyl and propofol. Continue for now pending improvement in his hemodynamics. Baseline dementia. Family apparently inquiring about placement prior to admission to the hospital. Cardiac -multifactorial shock. Await echocardiogram. Likely under volume resuscitated. Will give an additional 2 L of crystalloid now. Initiate steroids for relative adrenal insufficiency. Repeat lactate which was trending down. Respiratory -intubated due to questionable aspiration event. CT scan demonstrated minimal multifocal airspace opacity. Will obtain respiratory cultures. Minimal vent settings currently. Continue mechanical ventilation pending improvement in the patient's hemodynamics. Repeat blood gas later this morning GI -continue to wean pressors. If can get off second pressor, will initiate trophic tube feedings. Continue PPI RENAL/LYTES -acute kidney injury, slightly improved/stable this morning. Electrolytes stable with acid-base showing a respiratory alkalosis. Vent adjusted and repeat blood gas pending in 2 hours. -history of BPH with need for indwelling Carter. Continue Carter for now. Will discontinue BPH medications given presence of Carter catheter. ENDO - glycemic control per protocol. Random cortisol low in the setting of severe sepsis with septic shock so initiate hydrocortisone 50 mg IV every 6 as well as Florinef. HEME -decrease in hemoglobin hematocrit this morning. Unclear if related to volume administration. No evidence of active ongoing bleeding. Continue to follow for now. Platelet count also dropped significantly with significant elevation in white blood cell count. Continue to monitor ID -severe sepsis with septic shock. Continue resuscitation. Suspect pyelonephritis given appearance of kidneys on CT scan. Await speciation and sensitivity from gram-negative hans in urine. Will check respiratory cultures as well although minimal parenchymal lung disease. LINES/IV ACCESS - Right IJ CVC DVT PROPHYLAXIS - SCDs, Lovenox I have personally spent 54 minutes of critical care time in the direct management of this patient. This is a life/limb threatening event. This includes time spent evaluating patient, direct bedside care, chart review, placing orders, interpretation of diagnostic studies, discussion with consultants, patient, and family members, as well as other required patient management activities. This time is exclusive of all separately billable procedures, and teaching time and separate from and in addition to any other critical care service time. Patient's prognosis is guarded. No family immediately available. (2) UTI (urinary tract infection): (3) Diabetes: (4) Complication of Carter catheter: (5) Adult failure to thrive: (6) Vascular dementia: (7) Subclinical hypothyroidism: Admission and Anticipated Discharge Date Admission Date: February 19, 2024 Subjective Patient seen and examined. EMR reviewed. Discussed on multidisciplinary rounds and with bedside critical care nurse. The patient remains intubated and sedated on the ventilator. Review of Systems Review of Systems: Unobtainable due to endotracheal tube Physical Exam Constitutional: + frail appearing and + mechanically frank tilated Neck: trachea midline, no thyromegaly Respiratory: no respiratory distress and no labored breathing Auscultation: + rhonchi; no crackles and no wheezes Cardiovascular: RRR, no murmur, no edema Gastrointestinal (Abdomen): normal bowel sounds, soft, nontender, no hepatosplenomegaly Musculoskeletal: Extremities: extremities normal to inspection Skin: no rashes, warm and dry Neurologic: Sedated Lymphatic: no cervical lymphadenopathy Results & Data Results & Data Vital Signs (Past 12 Hours) Vital Signs Temp Pulse Resp BP Pulse Ox O2 Del Method FiO2 02/28/24 07:56 Mechanical Vent 02/28/24 07:13 61 18 99 30 02/28/24 07:06 37.4 C 60 15 100 02/28/24 07:00 98/57 L 02/28/24 06:21 37.3 C 83 18 98 02/28/24 06:15 114/61 02/28/24 06:15 114/61 02/28/24 06:15 114/61 02/28/24 06:10 115/61 02/28/24 06:09 37.5 C 61 18 100 02/28/24 06:05 111/60 02/28/24 06:05 111/60 02/28/24 06:00 105/61 02/28/24 06:00 105/61 02/28/24 06:00 40 02/28/24 05:55 106/59 L 02/28/24 05:45 101/57 L 02/28/24 05:40 99/59 L 02/28/24 05:36 37.7 C H 61 18 100 02/28/24 05:35 96/57 L 02/28/24 05:35 96/57 L 02/28/24 05:35 96/57 L 02/28/24 05:33 37.7 C H 61 18 100 02/28/24 05:30 93/54 L 02/28/24 05:27 37.7 C H 61 18 100 02/28/24 05:25 95/55 L 02/28/24 05:25 95/55 L 02/28/24 05:24 37.7 C H 61 18 100 02/28/24 05:20 92/57 L 02/28/24 05:20 92/57 L 02/28/24 05:15 89/56 L 02/28/24 05:09 37.8 C H 63 18 100 02/28/24 05:05 92/53 L 02/28/24 05:00 93/57 L 02/28/24 05:00 37.8 C H 63 16 100 02/28/24 04:55 93/56 L 02/28/24 04:55 93/56 L 02/28/24 04:50 92/58 L 02/28/24 04:48 37.7 C H 64 22 100 02/28/24 04:45 37.7 C H 64 18 100 02/28/24 04:45 94/57 L 02/28/24 04:45 94/57 L 02/28/24 04:45 94/57 L 02/28/24 04:45 94/57 L 02/28/24 04:40 95/60 L 02/28/24 04:40 95/60 L 02/28/24 04:39 37.7 C H 65 19 100 02/28/24 04:35 95/58 L 02/28/24 04:35 95/58 L 10/18/24 04:30 100/60 02/28/24 04:29 65 18 100 30 02/28/24 04:25 95/58 L 02/28/24 04:25 95/58 L 02/28/24 04:20 91/58 L 02/28/24 04:20 91/58 L 02/28/24 04:15 37.7 C H 65 22 100 02/28/24 04:15 95/59 L 02/28/24 04:10 95/58 L 02/28/24 04:10 95/58 L 02/28/24 04:09 37.7 C H 65 22 100 02/28/24 04:09 94/59 L 02/28/24 04:03 37.7 C H 65 22 100 02/28/24 04:00 106/60 02/28/24 03:55 93/59 L 02/28/24 03:55 93/59 L 02/28/24 03:45 96/60 L 02/28/24 03:45 96/60 L 02/28/24 03:42 37.7 C H 68 22 100 02/28/24 03:40 97/57 L 02/28/24 03:40 97/57 L 02/28/24 03:40 97/57 L 02/28/24 03:39 37.7 C H 67 22 100 02/28/24 03:35 83/55 L 02/28/24 03:35 83/55 L 02/28/24 03:35 83/55 L 02/28/24 03:30 83/56 L 02/28/24 03:27 37.6 C H 68 22 100 02/28/24 03:25 86/56 L 02/28/24 03:25 86/56 L 02/28/24 03:21 37.6 C H 68 22 100 02/28/24 03:20 83/56 L 02/28/24 03:20 83/56 L 02/28/24 03:15 84/55 L 02/28/24 03:15 84/55 L 02/28/24 03:10 80/55 L 02/28/24 03:05 84/56 L 02/28/24 03:00 81/55 L 02/28/24 03:00 81/55 L 02/28/24 03:00 81/55 L 02/28/24 03:00 37.5 C 70 22 100 02/28/24 02:55 83/57 L 02/28/24 02:50 84/57 L 02/28/24 02:45 37.5 C 72 22 100 02/28/24 02:45 86/60 L 02/28/24 02:45 86/60 L 02/28/24 02:45 86/60 L 02/28/24 02:40 87/59 L 02/28/24 02:40 87/59 L 02/28/24 02:35 98/61 L 02/28/24 02:33 37.4 C 69 22 100 02/28/24 02:30 37.4 C 72 22 100 02/28/24 02:30 97/63 L 02/28/24 02:05 71 22 100 40 02/28/24 02:00 40 02/28/24 01:30 37.1 C 83 22 100 02/28/24 01:30 118/74 02/28/24 01:25 108/70 02/28/24 01:25 108/70 02/28/24 01:21 37.1 C 79 22 100 02/28/24 01:20 99/65 L 02/28/24 01:20 99/65 L 02/28/24 01:20 99/65 L 02/28/24 01:20 99/65 L 02/28/24 01:15 108/68 02/28/24 01:12 37.1 C 82 22 100 02/28/24 01:10 102/68 02/28/24 01:03 37.0 C 81 22 100 02/28/24 01:00 100/64 02/28/24 01:00 100/64 02/28/24 00:57 37.0 C 83 22 100 02/28/24 00:55 101/66 02/28/24 00:55 101/66 02/28/24 00:55 101/66 02/28/24 00:50 99/65 L 02/28/24 00:50 99/65 L 02/28/24 00:45 37.0 C 83 22 100 02/28/24 00:45 100/66 02/28/24 00:45 100/66 02/28/24 00:40 101/63 02/28/24 00:40 101/63 02/28/24 00:39 36.9 C 84 22 100 02/28/24 00:36 36.9 C 85 22 100 02/28/24 00:35 98/66 L 02/28/24 00:35 98/66 L 02/28/24 00:35 98/66 L 02/28/24 00:35 98/66 L 02/28/24 00:35 98/66 L 02/28/24 00:30 100/67 02/28/24 00:25 100/63 02/28/24 00:25 100/63 02/28/24 00:25 100/63 02/28/24 00:21 36.8 C 89 22 100 02/28/24 00:20 112/68 02/28/24 00:15 109/64 02/28/24 00:12 36.8 C 90 22 100 02/28/24 00:10 100/62 02/28/24 00:10 100/62 02/28/24 00:10 100/62 02/28/24 00:10 100/62 02/28/24 00:09 36.7 C 90 22 100 02/28/24 00:05 98/59 L 02/28/24 00:05 98/59 L 02/28/24 00:05 98/59 L 02/28/24 00:00 93 H 02/27/24 23:57 36.6 C 94 H 22 100 02/27/24 23:55 109/64 02/27/24 23:55 109/64 02/27/24 23:48 36.6 C 99 H 22 100 02/27/24 23:45 36.6 C 110 H 22 100 02/27/24 23:45 154/86 H 02/27/24 23:45 154/86 H 02/27/24 23:45 154/86 H 02/27/24 23:40 140/70 02/27/24 23:40 140/70 02/27/24 23:40 140/70 02/27/24 23:36 36.6 C 105 H 22 100 02/27/24 23:35 149/79 H 02/27/24 23:35 149/79 H 02/27/24 23:35 149/79 H 02/27/24 23:30 137/79 02/27/24 23:30 137/79 02/27/24 23:27 36.7 C 107 H 22 100 02/27/24 23:25 146/77 H 02/27/24 23:25 146/77 H 02/27/24 23:25 146/77 H 02/27/24 23:24 36.7 C 106 H 22 100 02/27/24 23:20 142/79 H 02/27/24 23:20 142/79 H 02/27/24 23:20 142/79 H 02/27/24 23:15 154/78 H 02/27/24 23:11 156/96 H 02/27/24 23:06 36.7 C 115 H 22 100 02/27/24 23:05 160/83 H 02/27/24 23:03 36.7 C 112 H 22 100 02/27/24 23:00 162/88 H 02/27/24 23:00 162/88 H 02/27/24 22:55 164/84 H 02/27/24 22:50 173/89 H 02/27/24 22:50 173/89 H 02/27/24 22:50 173/89 H 02/27/24 22:45 36.9 C 112 H 22 100 02/27/24 22:45 159/79 H 02/27/24 22:44 117 H 23 100 40 02/27/24 21:35 24 98 40 Critical Care Results & Data Vital Signs (Past 12 Hours) Vital Signs Temp Pulse Resp BP Pulse Ox O2 Del Method FiO2 02/28/24 07:56 Mechanical Vent 02/28/24 07:13 61 18 99 30 02/28/24 07:06 37.4 C 60 15 100 02/28/24 07:00 98/57 L 02/28/24 06:21 37.3 C 83 18 98 02/28/24 06:15 114/61 02/28/24 06:15 114/61 02/28/24 06:15 114/61 02/28/24 06:10 115/61 02/28/24 06:09 37.5 C 61 18 100 02/28/24 06:05 111/60 02/28/24 06:05 111/60 02/28/24 06:00 105/61 02/28/24 06:00 105/61 02/28/24 06:00 40 02/28/24 05:55 106/59 L 02/28/24 05:45 101/57 L 02/28/24 05:40 99/59 L 02/28/24 05:36 37.7 C H 61 18 100 02/28/24 05:35 96/57 L 02/28/24 05:35 96/57 L 02/28/24 05:35 96/57 L 02/28/24 05:33 37.7 C H 61 18 100 02/28/24 05:30 93/54 L 02/28/24 05:27 37.7 C H 61 18 100 02/28/24 05:25 95/55 L 02/28/24 05:25 95/55 L 02/28/24 05:24 37.7 C H 61 18 100 02/28/24 05:20 92/57 L 02/28/24 05:20 92/57 L 02/28/24 05:15 89/56 L 02/28/24 05:09 37.8 C H 63 18 100 02/28/24 05:05 92/53 L 02/28/24 05:00 93/57 L 02/28/24 05:00 37.8 C H 63 16 100 02/28/24 04:55 93/56 L 02/28/24 04:55 93/56 L 02/28/24 04:50 92/58 L 02/28/24 04:48 37.7 C H 64 22 100 02/28/24 04:45 37.7 C H 64 18 100 02/28/24 04:45 94/57 L 02/28/24 04:45 94/57 L 02/28/24 04:45 94/57 L 02/28/24 04:45 94/57 L 02/28/24 04:40 95/60 L 02/28/24 04:40 95/60 L 02/28/24 04:39 37.7 C H 65 19 100 02/28/24 04:35 95/58 L 02/28/24 04:35 95/58 L 02/28/24 04:30 100/60 02/28/24 04:29 65 18 100 30 02/28/24 04:25 95/58 L 02/28/24 04:25 95/58 L 02/28/24 04:20 91/58 L 02/28/24 04:20 91/58 L 02/28/24 04:15 37.7 C H 65 22 100 02/28/24 04:15 95/59 L 02/28/24 04:10 95/58 L 02/28/24 04:10 95/58 L 02/28/24 04:09 37.7 C H 65 22 100 02/28/24 04:09 94/59 L 02/28/24 04:03 37.7 C H 65 22 100 02/28/24 04:00 106/60 02/28/24 03:55 93/59 L 02/28/24 03:55 93/59 L 02/28/24 03:45 96/60 L 02/28/24 03:45 96/60 L 02/28/24 03:42 37.7 C H 68 22 100 02/28/24 03:40 97/57 L 02/28/24 03:40 97/57 L 02/28/24 03:40 97/57 L 02/28/24 03:39 37.7 C H 67 22 100 02/28/24 03:35 83/55 L 02/28/24 03:35 83/55 L 02/28/24 03:35 83/55 L 02/28/24 03:30 83/56 L 02/28/24 03:27 37.6 C H 68 22 100 02/28/24 03:25 86/56 L 02/28/24 03:25 86/56 L 02/28/24 03:21 37.6 C H 68 22 100 02/28/24 03:20 83/56 L 02/28/24 03:20 83/56 L 02/28/24 03:15 84/55 L 02/28/24 03:15 84/55 L 02/28/24 03:10 80/55 L 02/28/24 03:05 84/56 L 02/28/24 03:00 81/55 L 02/28/24 03:00 81/55 L 02/28/24 03:00 81/55 L 02/28/24 03:00 37.5 C 70 22 100 02/28/24 02:55 83/57 L 02/28/24 02:50 84/57 L 02/28/24 02:45 37.5 C 72 22 100 02/28/24 02:45 86/60 L 02/28/24 02:45 86/60 L 02/28/24 02:45 86/60 L 02/28/24 02:40 87/59 L 02/28/24 02:40 87/59 L 02/28/24 02:35 98/61 L 02/28/24 02:33 37.4 C 69 22 100 02/28/24 02:30 37.4 C 72 22 100 02/28/24 02:30 97/63 L 02/28/24 02:05 71 22 100 40 02/28/24 02:00 40 02/28/24 01:30 37.1 C 83 22 100 02/28/24 01:30 118/74 02/28/24 01:25 108/70 02/28/24 01:25 108/70 02/28/24 01:21 37.1 C 79 22 100 02/28/24 01:20 99/65 L 02/28/24 01:20 99/65 L 02/28/24 01:20 99/65 L 02/28/24 01:20 99/65 L 02/28/24 01:15 108/68 02/28/24 01:12 37.1 C 82 22 100 02/28/24 01:10 102/68 02/28/24 01:03 37.0 C 81 22 100 02/28/24 01:00 100/64 02/28/24 01:00 100/64 02/28/24 00:57 37.0 C 83 22 100 02/28/24 00:55 101/66 02/28/24 00:55 101/66 02/28/24 00:55 101/66 02/28/24 00:50 99/65 L 02/28/24 00:50 99/65 L 02/28/24 00:45 37.0 C 83 22 100 02/28/24 00:45 100/66 02/28/24 00:45 100/66 02/28/24 00:40 101/63 02/28/24 00:40 101/63 02/28/24 00:39 36.9 C 84 22 100 02/28/24 00:36 36.9 C 85 22 100 02/28/24 00:35 98/66 L 02/28/24 00:35 98/66 L 02/28/24 00:35 98/66 L 02/28/24 00:35 98/66 L 02/28/24 00:35 98/66 L 02/28/24 00:30 100/67 02/28/24 00:25 100/63 02/28/24 00:25 100/63 02/28/24 00:25 100/63 02/28/24 00:21 36.8 C 89 22 100 02/28/24 00:20 112/68 02/28/24 00:15 109/64 02/28/24 00:12 36.8 C 90 22 100 02/28/24 00:10 100/62 02/28/24 00:10 100/62 02/28/24 00:10 100/62 02/28/24 00:10 100/62 02/28/24 00:09 36.7 C 90 22 100 02/28/24 00:05 98/59 L 02/28/24 00:05 98/59 L 02/28/24 00:05 98/59 L 02/28/24 00:00 93 H 02/27/24 23:57 36.6 C 94 H 22 100 02/27/24 23:55 109/64 02/27/24 23:55 109/64 02/27/24 23:48 36.6 C 99 H 22 100 02/27/24 23:45 36.6 C 110 H 22 100 02/27/24 23:45 154/86 H 02/27/24 23:45 154/86 H 02/27/24 23:45 154/86 H 02/27/24 23:40 140/70 02/27/24 23:40 140/70 02/27/24 23:40 140/70 02/27/24 23:36 36.6 C 105 H 22 100 02/27/24 23:35 149/79 H 02/27/24 23:35 149/79 H 02/27/24 23:35 149/79 H 02/27/24 23:30 137/79 02/27/24 23:30 137/79 02/27/24 23:27 36.7 C 107 H 22 100 02/27/24 23:25 146/77 H 02/27/24 23:25 146/77 H 02/27/24 23:25 146/77 H 02/27/24 23:24 36.7 C 106 H 22 100 02/27/24 23:20 142/79 H 02/27/24 23:20 142/79 H 02/27/24 23:20 142/79 H 02/27/24 23:15 154/78 H 02/27/24 23:11 156/96 H 02/27/24 23:06 36.7 C 115 H 22 100 02/27/24 23:05 160/83 H 02/27/24 23:03 36.7 C 112 H 22 100 02/27/24 23:00 162/88 H 02/27/24 23:00 162/88 H 02/27/24 22:55 164/84 H 02/27/24 22:50 173/89 H 02/27/24 22:50 173/89 H 02/27/24 22:50 173/89 H 02/27/24 22:45 36.9 C 112 H 22 100 02/27/24 22:45 159/79 H 02/27/24 22:44 117 H 23 100 40 02/27/24 21:35 24 98 40 Lab & Micro Results (Past 24 Hours) RBC 3.17 M/uL (4.70-6.10) L 02/28/24 WBC 30.98 K/ul (4.8-10.8) H* 02/28/24 Hgb 9.1 g/dl (14.0-18.0) L 02/28/24 Hct 26.8 % (42.0-52.0) L 02/28/24 MCV 84.5 fL (80.0-100.0) 02/28/24 MCH 28.7 pg (25.0-34.0) 02/28/24 MCHC 34.0 g/dL (32.0-36.0) 02/28/24 RDW Standard Deviation 44.4 fL (36.4-46.3) 02/28/24 RDW Coefficient of Variation 14.3 % (11.5-14.5) 02/28/24 Plt Count 260 K/uL (130-400) 02/28/24 MPV 9.9 fL (9.4-12.4) 02/28/24 Neutrophils (%) (Auto) 88.5 % 02/28/24 Lymphocytes (%) (Auto) 3.1 % 02/28/24 Monocytes # (Auto) 2.25 K/uL (0.11-0.59) H 02/28/24 Eosinophils # (Auto) 0.02 K/uL (0.00-0.50) 02/28/24 Immature Granulocyte % (Auto) 0.8 % 02/28/24 Neutrophils # (Auto) 27.45 K/uL (1.40-6.50) H 02/28/24 Lymphocytes # (Auto) 0.96 K/uL (1.20-3.40) L 02/28/24 Monocytes # (Auto) 2.25 K/uL (0.11-0.59) H 02/28/24 Eosinophils # (Auto) 0.02 K/uL (0.00-0.50) 02/28/24 Basophils # (Auto) 0.06 K/uL (0.00-0.20) 02/28/24 Immature Granulocyte # (Auto) 0.24 K/uL (0.01-0.20) H 02/27 Polychromasia 1+ 02/28/24 Na 137 mmol/L (136-145) 02/28/24 K 4.0 mmol/L (3.5-5.1) 02/28/24 Cl 104 mmol/L (98-107) 02/28/24 CO2 21 mmol/L (21-32) 02/28/24 Anion Gap 12 (3-11) H 02/28/24 BUN 34 mg/dl (6-23) H 02/28/24 Creatinine 1.48 mg/dl (0.6-1.4) H 02/28/24 BUN/Creatinine Ratio 23.0 (10-20) H 02/28/24 Glu 246 mg/dl (70-99(Fasting)) H 02/28/24 Ca 8.0 mg/dl (8.6-10.3) L 02/28/24 Phosphorus Level 2.4 mg/dl (2.5-4.9) L 02/28/24 Total Bilirubin 0.7 mg/dl (0.2-1.0) 02/28/24 AST 35 U/L (13-39) 02/28/24 ALT 36 U/L (7-52) 02/28/24 Alkaline Phosphatase 112 U/L (34-104) H 02/28/24 TP 4.9 gm/dl (6.0-8.3) L 02/28/24 Albumin 2.9 gm/dl (3.4-5.0) L 02/28/24 Globulin 2.0 gm/dl (2.5-4.0) L 02/28/24 Albumin/Globulin Ratio 1.5 (0.9-2) 02/28/24 Mg 1.6 mg/dl (1.7-2.4) L 02/28/24 05:50 Calcium Level 8.0 mg/dl (8.6-10.3) L 02/28/24 05:50 Jamshid Test Pass 02/28/24 04:23 Microbiology 02/27/24 Unknown Urine Culture - Preliminary Urine,Clean Catch Gram negative bacilli Diagnostic Findings (Past 24 Hours) Chest X-Ray 02/27/24 19:19 XR chest 1V portable HISTORY: 78 years-old Male ro aspiration. Acute shortness of breath COMPARISON: Chest CT of same day TECHNIQUE: AP view the chest FINDINGS: Cardiomegaly. Median sternotomy with prosthetic aortic valve. No pneumothorax. Trace left pleural effusion with mild left basilar predominant opacities. Bones appear grossly intact. IMPRESSION: 1. Cardiomegaly without pulmonary edema. 2. Trace left pleural effusion with mild left basilar opacities which may represent atelectasis versus pneumonitis. ACT 112: Negative or not required by law. The above report was generated using voice recognition software. It may contain grammatical, syntax or spelling errors. Electronically signed by: Mejia Galeana M.D. 02/28/2024 7:40 AM Chest X-Ray 02/27/24 20:12 XR chest 1V portable HISTORY: 78 years-old Male central line status post placement of a right IJ central venous catheter COMPARISON: Chest CT of same day TECHNIQUE: AP view of the chest FINDINGS: Cardiomegaly. Median sternotomy with prosthetic aortic valve. Mitral annular calcifications. Status post placement of a right IJ central venous catheter distal tip in the expected location of the mid SVC. No postprocedural pneumothorax. No large pleural effusion or overt pulmonary edema. Mild subsegmental left basilar densities favoring atelectasis. Bones appear grossly intact. IMPRESSION: Status post placement of a right IJ central venous catheter. No postprocedural pneumothorax. ACT 112: Negative or not required by law. The above report was generated using voice recognition software. It may contain grammatical, syntax or spelling errors. Electronically signed by: Mejia Galeana M.D. 02/28/2024 7:16 AM Chest X-Ray 02/27/24 21:05 XR chest 1V portable HISTORY: 78 years-old Male intubation acute respiratory failure COMPARISON: Chest CT of same day TECHNIQUE: AP view of the chest FINDINGS: Endotracheal tube overlies the midline, 3 cm superior to the hayden. Right IJ central venous catheter distal tip projects over the mid SVC. Enteric tube courses below the diaphragm outside the [id number]. Median sternotomy with prosthetic aortic valve. Small left pleural effusion with mild left basilar predominant opacities. No pneumothorax. Bones appear grossly intact. IMPRESSION: 1. Lines and tubes as above. 2. No pneumothorax. 3. Small left pleural effusion with mild left basilar opacities which may represent atelectasis versus pneumonia. ACT 112: Negative or not required by law. The above report was generated using voice recognition software. It may contain grammatical, syntax or spelling errors. Electronically signed by: Mejia Galeana M.D. 02/28/2024 7:35 AM Abdomen/Pelvis CT 02/27/24 21:17 Exam(s): CT ABDOMEN + PELVIS Without Contrast EXAM: CT Abdomen and Pelvis Without Intravenous Contrast CLINICAL HISTORY: Reason for exam: shock. TECHNIQUE: Axial computed tomography images of the abdomen and pelvis without intravenous contrast. CTDI is 19.24 mGy and DLP is 1362.19 mGy-cm. Automated exposure control was utilized for the study. A dose lowering technique was utilized adhering to the principles of ALARA. COMPARISON: No relevant prior studies available. FINDINGS: Lung bases: Airspace consolidations at the lung bases, concerning for multilobar pneumonia. ABDOMEN: Liver: Unremarkable. Gallbladder and bile ducts: Unremarkable. No calcified stones. No ductal dilation. Pancreas: Unremarkable. No ductal dilation. Spleen: Unremarkable. No splenomegaly. Adrenals: Unremarkable. No mass. Kidneys and ureters: Unremarkable. No obstructing stones. No hydronephrosis. Stomach and bowel: Mild fecal retention, correlate for constipation. Diverticulosis, without acute diverticulitis. No small bowel obstruction. No free intraperitoneal air. PELVIS: Appendix: No findings to suggest acute appendicitis. Bladder: Wall thickening of the urinary bladder which contains a Carter catheter. Correlate for UTI. No stones. Reproductive: Unremarkable as visualized. ABDOMEN and PELVIS: Intraperitoneal space: Unremarkable. No free air. No significant fluid collection. Bones/joints: Degenerative changes of the spine. No acute fracture. No dislocation. Soft tissues: Unremarkable. Vasculature: Atherosclerotic changes of the aorta. No abdominal aortic aneurysm. Lymph nodes: Unremarkable. No enlarged lymph nodes. Tubes, lines and devices: Feeding tube terminates in the stomach. IMPRESSION: 1. Wall thickening of the urinary bladder which contains a Carter catheter. Correlate for UTI. 2. Airspace consolidations at the lung bases, concerning for multilobar pneumonia. 3. Mild fecal retention, correlate for constipation. 4. Feeding tube terminates in the stomach. 5. Diverticulosis, without acute diverticulitis. No small bowel obstruction. No free intraperitoneal air. Electronically signed by: Jose Valdivia MD 02/28/24 00:[address] 02/27/24 21:17 Exam(s): CT CHEST Without Contrast EXAM: CT Chest Without Intravenous Contrast CLINICAL HISTORY: Reason for exam: shock. TECHNIQUE: Axial computed tomography images of the chest without intravenous contrast. CTDI is 19.24 mGy and DLP is 1362.19 mGy-cm. Automated exposure control was utilized for the study. A dose lowering technique was utilized adhering to the principles of ALARA. COMPARISON: No relevant prior studies available. FINDINGS: Lungs: Dependent airspace consolidations, consistent with multilobar pneumonia, likely aspiration. No mass. Pleural space: Unremarkable. No pneumothorax. No significant effusion. Heart: Prosthetic mitral valve. Prosthetic aortic valve. No cardiomegaly. No significant pericardial effusion. No significant coronary artery calcifications. Bones/joints: Sternotomy wires. No acute fracture. No dislocation. Soft tissues: Unremarkable. Vasculature: Unremarkable. No thoracic aortic aneurysm. Lymph nodes: Unremarkable. No enlarged lymph nodes. Tubes, lines and devices: Endotracheal tube terminates in the trachea. Feeding tube terminates in the stomach. IMPRESSION: Dependent airspace consolidations, consistent with multilobar pneumonia, likely aspiration. Electronically signed by: Jose Valdivia MD 02/27/24 23:59 PM I & O Totals 24 Hours 02/27/24 02/28/24 02/29/24 06:59 06:59 06:59 Intake Total 780 / 780 3173.979 / 3173.979 270.056 / 270.056 Output Total 2151 / 2151 878 / 878 Balance -1371 / -1371 2295.979 / 2295.979 270.056 / 270.056 Cumulative 02/19/24 10:41 thru 02/28/24 08:48 Intake Total 6072.368 Output Total 38536 Balance -5582.632 RT Ventilator Mngmt (Last Documented) Ventilator Ordered Settings Ventilator Support Mode Assist Control 02/28/24 07:13 Respiratory Rate 18 02/28/24 07:13 Ventilator Tidal Volume 500 02/28/24 07:13 Setting Minute Ventilation 9 02/28/24 07:13 Positive End Expiratory 5 02/28/24 07:13 Pressure Fraction of Inspired Oxygen 30 02/28/24 07:13 Ventilator - PT Measurements Respiratory Rate 18 Exhaled Tidal Volume 500 Minute Ventilation 9 Peak Inspiratory Airway 16 Pressure Plateau Pressure 13 Respiratory Cycle Inspiratory: 1:2.7 Expiratory Ratio Inspiratory Phase Time 0.9 End-Tidal CO2 27 Static Lung Compliance 62.50 Dynamic Lung Compliance 45.45 Normal Static Lung Compliance 48.00 Patient Measurements Comment Marvin Corinne MAYO CCM aware of changes made due to ABG results Coding Level of Care Code 85709 CRITICAL CARE 1ST 30-74M Diagnoses Septic shock A41.9; R65.21 UTI (urinary tract infection) N39.0 Diabetes E11.9 Complication of Carter catheter T83.9XXA Adult failure to thrive R62.7 Vascular dementia F01.50 Subclinical hypothyroidism E03.8
[2024-02-28] MEDS: FLUDROCORTISONE ACETATE 0.1 MG TAB PO SCH (09:54)
[2024-02-28 10:23] LABS: iSTAT Allen Test Pass; iSTAT Art Bld Gas pCO2 Correct 41 mmHg (35-46); iSTAT Art Bld Gas pH Corrected 7.215 (7.35-7.45); iSTAT Arterial Blood Gas HCO3 17 meg/L (19-24); iSTAT Arterial Blood Gas pCO2 40 mmHg (35-46); iSTAT Arterial Blood Gas pH 7.22 (7.35-7.45); iSTAT Arterial Blood Gas pO2 148 mmHg (80-95); iSTAT Arterial Blood Gas pO2 C 152; iSTAT Carbon Dioxide 18 mmol/L (24-31); iSTAT FiO2 40 %; iSTAT Hematocrit 35 % (42-52); iSTAT Hemoglobin 11.9 g/dl (14.0-18.0); iSTAT Potassium 3.4 mmol/L (3.3-5.0); iSTAT Sample Type Arterial; iSTAT Site R Radial; iSTAT Sodium 137 mmol/L (135-144); iSTAT SpO2 98
--- NOTE | 2024-02-28 10:27 | Electrocardiogram Report ---
Test Reason : Blood Pressure : */* mmHG Vent. Rate : 123 BPM Atrial Rate : 123 BPM P-R Int : 150 ms QRS Dur : 92 ms QT Int : 316 ms P-R-T Axes : 68 45 73 degrees QTcB Int : 452 ms Sinus tachycardia with occasional Premature ventricular complexes and Fusion complexes Abnormal ECG When compared with ECG of 25-Feb-2024 14:07, Premature ventricular complexes are now Present Vent. rate has increased by 63 bpm Confirmed by Yordy Perales ([id number]) on 02/28/2024 10:27:42 AM Referred By: REFERRED SELF Confirmed By: Yordy Perales
[2024-02-28] MEDS: CALCIUM CHLORIDE 10% 1,000 MG in DEXTROSE 5% 50 ML IV STA (10:29)
--- NOTE | 2024-02-28 10:29 | Electrocardiogram Report ---
Test Reason : Blood Pressure : */* mmHG Vent. Rate : 121 BPM Atrial Rate : 129 BPM P-R Int : * ms QRS Dur : 84 ms QT Int : 314 ms P-R-T Axes : * 78 85 degrees QTcB Int : [address] elevation consider anterolateral injury or acute infarct ST elevation consider inferior injury or acute infarct Abnormal ECG When compared with ECG of 27-Feb-2024 19:20, ST more elevated in Inferior leads ST elevation in Anterior leads now present Confirmed by Yordy Perales ([id number]) on 02/28/2024 10:28:58 AM Referred By: REFERRED SELF Confirmed By: Yordy Perales
--- NOTE | 2024-02-28 10:30 | Electrocardiogram Report ---
Test Reason : Blood Pressure : */* mmHG Vent. Rate : 142 BPM Atrial Rate : 138 BPM P-R Int : * ms QRS Dur : 90 ms QT Int : 282 ms P-R-T Axes : * 75 95 degrees QTcB Int : 433 ms Poor data quality, interpretation may be adversely affected Supraventricular tachycardia ST elevation consider inferior injury or acute infarct Abnormal ECG When compared with ECG of 27-Feb-2024 19:54, HR has increased by [address] less elevated in Inferior leads ST no longer elevated in Anterolateral leads Confirmed by Yordy Perales ([id number]) on 02/28/2024 10:29:48 AM Referred By: REFERRED SELF Confirmed By: Yordy Perales
[2024-02-28 11:33] LABS: iSTAT Arterial Blood Gas pCO2 40 mmHg (35-46); iSTAT Arterial Blood Gas pH 7.22 (7.35-7.45); iSTAT Arterial Blood Gas pO2 148 mmHg (80-95)
[2024-02-28 11:35] LABS: iSTAT Arterial Blood Gas pCO2 23 mmHg (35-46); iSTAT Arterial Blood Gas pH 7.53 (7.35-7.45); iSTAT Arterial Blood Gas pO2 141 mmHg (80-95)
--- NOTE | 2024-02-28 11:43 | XCELERA ---
[id number]
[2024-02-28 12:01] LABS: iSTAT Allen Test Pass; iSTAT Art Bld Gas pCO2 Correct 41 mmHg (35-46); iSTAT Art Bld Gas pH Corrected 7.215 (7.35-7.45); iSTAT Arterial Blood Gas HCO3 17 meg/L (19-24); iSTAT Arterial Blood Gas pCO2 40 mmHg (35-46); iSTAT Arterial Blood Gas pH 7.22 (7.35-7.45); iSTAT Arterial Blood Gas pO2 148 mmHg (80-95); iSTAT Arterial Blood Gas pO2 C 152; iSTAT Carbon Dioxide 18 mmol/L (24-31); iSTAT FiO2 40 %; iSTAT Hematocrit 35 % (42-52); iSTAT Hemoglobin 11.9 g/dl (14.0-18.0); iSTAT Potassium 3.4 mmol/L (3.3-5.0); iSTAT Sample Type Arterial; iSTAT Site R Radial; iSTAT Sodium 137 mmol/L (135-144); iSTAT SpO2 98
--- NOTE | 2024-02-28 16:58 | Hospitalist Progress Note ---
Date of Service February 28, 2024 Assessment & Plan (1) Complication of Henderson catheter: (2) Vascular dementia: (3) Ambulatory dysfunction: (4) Benign prostatic hyperplasia with urinary obstruction: (5) UTI (urinary tract infection): Plan Patient is a 78-year-old male with a past medical history of aortic stenosis s/p AVR, mitral stenosis, HLD, DM2, chronic anemia, chronic indwelling Foleyplaced about 6 weeks ago, urinary retention, dementia who presents to the ED on 02/19/2024 after his called EMS for concerns of Henderson catheter not draining and dark-colored urine with possible hematuria. Patient with repeat UA clear. Urology consulted and agree for void trial. Patient with henderson removed 02/22--failed voiding trial. Septic shock Multifocal pneumonia likely secondary to aspiration Complicated urinary tract infection --CT Chest:Dependent airspace consolidations, consistent with multilobar pneumonia, likely aspiration. --CT ABD:Wall thickening of the urinary bladder which contains a Henderson catheter. Correlate for UTI. -- Blood cultures pending --Urine culture growing gram-negative bacilli --Sputum culture pending Continue IV fluids, pressors, Zosyn Also on IV Solu-Medrol Appreciate critical care input Vent management as per ICU team Acute kidney injury likely ATN Secondary to above Monitor renal function Avoid nephrotoxic agents as able Continue IV fluids Abnormal EKG Troponin negative --S/P Cardiac Cath:Essentially normal epicardial coronary arteries with no more than very mild lesions as described. No acute thrombotic lesion suggestive of ACS Monitor --ECHO: EF 55 to 60%. No regional wall motion abnormality. Right ventricle is borderline dilated. Bioprosthetic arctic valve. Gradient is normal further prosthetic valve. Moderate to severe mitral annular calcification, mild mitral stenosis BPH with urinary retention/obstruction Chronic indwelling Henderson catheter Resume tamsulosin/finasteride as able Generalized weakness Ambulatory dysfunction Plan to discharge to SNF as able HTN/HLD Was on amlodipine, Toprol, indapamide, lisinopril Resume antihypertensives as able DM II Hold home meds SSI while in-patient BSG AC HS DVT Px: Lovenox SQ CODE STATUS Full code Disposition Rehab as able Admission and Anticipated Discharge Date Admission Date: February 19, 2024 Subjective Patient is seen and examined at bedside Sedated and intubated currently On pressors Bradycardic on monitor Urine culture growing gram-negative bacilli Sputum culture pending Review of Systems Review of Systems: Unobtainable due to endotracheal tube Physical Exam Physical Exam: Physical Exam: Vitals signs as noted above General Appearance:Obese, no apparent distress, sedated and intubated Head: normocephalic, Atraumatic Eyes: normal inspection, EOMI Neck: supple, Trachea midline Respiratory/Chest: Coarse breath sounds, scattered rhonchi, No accessory muscle use Cardiovascular: S1, S2, No murmur, bradycardia Abdomen/GI:Soft, Non tender, Bowel sounds present :+Henderson Extremities/Musculoskeletal:normal inspection, no edema Neurologic/Psych: Sedated and intubated, unable to perform complete neurological exam Skin: normal color, warm Results & Data Results & Data Vital Signs (Past 12 Hours) Vital Signs Temp Pulse Resp BP Pulse Ox O2 Del Method FiO2 02/28/24 16:00 114/58 L 02/28/24 16:00 37.1 C 50 L 18 100 02/28/24 16:00 30 02/28/24 16:00 54 L 02/28/24 15:45 37.0 C 54 L 18 99 02/28/24 15:45 101/51 L 02/28/24 15:45 101/51 L 02/28/24 15:30 83/46 L 02/28/24 15:27 37.0 C 59 L 18 98 02/28/24 15:00 95/51 L 02/28/24 15:00 95/51 L 02/28/24 14:57 37.0 C 68 18 99 02/28/24 14:45 113/59 L 02/28/24 14:45 113/59 L 02/28/24 14:45 37.0 C 74 18 99 02/28/24 14:30 92/51 L 02/28/24 14:21 37.1 C 57 L 18 100 02/28/24 14:00 37.1 C 60 18 100 02/28/24 14:00 108/54 L 02/28/24 13:45 37.1 C 59 L 18 100 02/28/24 13:45 112/57 L 02/28/24 13:30 132/64 02/28/24 13:27 37.2 C 54 L 18 100 02/28/24 13:15 37.2 C 56 L 18 100 02/28/24 13:15 127/62 02/28/24 13:06 37.2 C 56 L 18 100 02/28/24 12:45 128/66 02/28/24 12:45 128/66 02/28/24 12:42 37.2 C 57 L 18 100 02/28/24 12:33 37.2 C 66 18 100 02/28/24 12:30 136/63 02/28/24 12:15 37.2 C 65 18 100 02/28/24 12:15 135/67 02/28/24 12:15 135/67 02/28/24 12:06 66 19 99 30 02/28/24 12:03 37.1 C 57 L 18 100 02/28/24 12:00 126/63 02/28/24 12:00 30 02/28/24 11:33 37.1 C 60 18 99 02/28/24 11:30 121/62 02/28/24 11:24 37.0 C 63 18 99 02/28/24 11:15 37.0 C 65 18 100 02/28/24 11:15 128/63 02/28/24 11:09 37.0 C 66 18 100 02/28/24 11:05 138/71 02/28/24 11:00 147/64 H 02/28/24 10:57 37.0 C 71 18 100 02/28/24 10:55 148/72 H 02/28/24 10:50 149/84 H 02/28/24 10:45 144/64 H 02/28/24 10:42 37.0 C 63 18 100 02/28/24 10:40 141/69 H 02/28/24 10:30 136/67 02/28/24 10:27 37.1 C 63 18 100 02/28/24 10:25 131/66 02/28/24 10:15 127/65 02/28/24 10:12 37.1 C 60 18 100 02/28/24 08:00 30 02/28/24 08:00 64 02/28/24 07:56 Mechanical Vent 02/28/24 07:45 Mechanical Vent 02/28/24 07:13 61 18 99 30 02/28/24 07:06 37.4 C 60 15 100 02/28/24 07:00 98/57 L 02/28/24 06:21 37.3 C 83 18 98 02/28/24 06:15 114/61 02/28/24 06:15 114/61 02/28/24 06:15 114/61 02/28/24 06:10 115/61 02/28/24 06:09 37.5 C 61 18 100 02/28/24 06:05 111/60 02/28/24 06:05 111/60 02/28/24 06:00 105/61 02/28/24 06:00 105/61 02/28/24 06:00 40 02/28/24 05:55 106/59 L 02/28/24 05:45 101/57 L 02/28/24 05:40 99/59 L 02/28/24 05:36 37.7 C H 61 18 100 02/28/24 05:35 96/57 L 02/28/24 05:35 96/57 L 02/28/24 05:35 96/57 L 02/28/24 05:33 37.7 C H 61 18 100 02/28/24 05:30 93/54 L 02/28/24 05:27 37.7 C H 61 18 100 02/28/24 05:25 95/55 L 02/28/24 05:25 95/55 L 02/28/24 05:24 37.7 C H 61 18 100 02/28/24 05:20 92/57 L 02/28/24 05:20 92/57 L 02/28/24 05:15 89/56 L 02/28/24 05:09 37.8 C H 63 18 100 02/28/24 05:05 92/53 L 02/28/24 05:00 93/57 L 02/28/24 05:00 37.8 C H 63 16 100 02/28/24 04:55 93/56 L 02/28/24 04:55 93/56 L 02/28/24 04:50 92/58 L
[2024-02-28 22:41] LABS: A calco-baum cmplx NotReported Not Detected (NotDetected); Bact fragilis Not Reported Not Detected (NotDetected); Blood Culture Id Panel See PCR Comment (NotDetected); C auris Not Reported Not Detected (NotDetected); Calbicans Not Reported Not Detected (NotDetected); Candida glabrata Not Reported Not Detected (NotDetected); Candida krusei Not Reported Not Detected (NotDetected); Cneoformans/gatti Not Reported Not Detected (NotDetected); Cparapsilosis Not Reported Not Detected (NotDetected); E cloacae compx Not Reported Not Detected (NotDetected); Efaecalis Not Reported Not Detected (NotDetected); Efaecium Not Reported Not Detected (NotDetected); Enterobacterales Not Reported Not Detected (NotDetected); Escherichia coli Not Reported Not Detected (NotDetected); H influenzae Not Reported Not Detected (NotDetected); K aerogenes Not Reported Not Detected (NotDetected); Koxytoca Not Reported Not Detected (NotDetected); Kpneumoniae grp Not Reported Not Detected (NotDetected); Lmonocyt Not Reported Not Detected (NotDetected); N meningitidis Not Reported Not Detected (NotDetected); P aeruginosa Not Reported Not Detected (NotDetected); Proteus spp Not Reported Not Detected (NotDetected); Salmonella spp Not Reported Not Detected (NotDetected); Staph lugdunensis Not Reported Not Detected (NotDetected); Staph spp. Not Reported DETECTED (NotDetected); Staphaureus Not Reported Not Detected (NotDetected); Staphepi Not Reported DETECTED (NotDetected); Staphylococcus spp. DETECTED (NotDetected); Stenmaltophilia Not Reported Not Detected (NotDetected); Strep agal(GrpB) Not Reported Not Detected (NotDetected); Strep pneum Not Reported Not Detected (NotDetected); Strep pyog (GrpA) Not Reported Not Detected (NotDetected); Strep spp Not Reported Not Detected (NotDetected); mecAC Resistant Gene Not Detected (NotDetected)
[2024-02-28 22:51] LABS: Staphylococcus epidermidis DETECTED (NotDetected)
[2024-02-29 04:41] LABS: iSTAT Art Bld Gas pCO2 Correct 24 mmHg (35-46); iSTAT Art Bld Gas pH Corrected 7.576 (7.35-7.45); iSTAT Arterial Blood Gas HCO3 22 meg/L (19-24); iSTAT Arterial Blood Gas pCO2 24 mmHg (35-46); iSTAT Arterial Blood Gas pH 7.58 (7.35-7.45); iSTAT Arterial Blood Gas pO2 121 mmHg (80-95); iSTAT Arterial Blood Gas pO2 C 121; iSTAT Carbon Dioxide 23 mmol/L (24-31); iSTAT FiO2 30 %; iSTAT Hematocrit 23 % (42-52); iSTAT Hemoglobin 7.8 g/dl (14.0-18.0); iSTAT Potassium 3.1 mmol/L (3.3-5.0); iSTAT Sample Type Arterial; iSTAT Site L Brachial; iSTAT Sodium 136 mmol/L (135-144); iSTAT SpO2 100
[2024-02-29 05:37] LABS: Hematocrit (blood only) 21.8 % (42.0-52.0); Hemoglobin 7.2 g/dl (14.0-18.0); Mean Corpuscular Hemoglobin 27.8 pg (25.0-34.0); Mean Corpuscular Volume 84.2 fL (80.0-100.0); Mean Platelet Volume 10.3 fL (9.4-12.4); Platelet Count 221 K/uL (130-400); RDW Coefficient of Variation 14.7 % (11.5-14.5); RDW Standard Deviation 45.2 fL (36.4-46.3); Red Blood Count 2.59 M/uL (4.70-6.10)
[2024-02-29 05:39] LABS: Albumin Globulin Ratio 1.4 (0.9-2); Albumin Level 2.7 gm/dl (3.4-5.0); Bilirubin,Total 0.6 mg/dl (0.2-1.0); Calcium 7.9 mg/dl (8.6-10.3); Globulin 1.9 gm/dl (2.5-4.0); Magnesium 2.1 mg/dl (1.7-2.4); Phosphorus 3.9 mg/dl (2.5-4.9); Potassium 3.2 mmol/L (3.5-5.1); Total Protein 4.6 gm/dl (6.0-8.3)
[2024-02-29 06:06] LABS: Basophils # (auto) 0.04 K/uL (0.00-0.20); Basophils % (auto) 0.2 %; Eosinophils # (auto) 0.01 K/uL (0.00-0.50); Immature Granulocytes # (auto) 0.23 K/uL (0.01-0.20); Lymphocytes % (auto) 3.9 %; Monocytes # (auto) 0.97 K/uL (0.11-0.59); Monocytes % (auto) 4.2 %; Neutrophils # (auto) 21.15 K/uL (1.40-6.50); Neutrophils % (auto) 90.7 %; RBC Morphology Unremarkable
[2024-02-29] MEDS: POTASSIUM CHLORIDE / WTR 20 MEQ/100 ML PLCT IV SCH (07:30)
[2024-02-29] MEDS: PANTOprazole 40 MG/10 ML SYR IV SCH (08:05)
[2024-02-29] MEDS ORDERED: Nursing to Pharmacy Communication SCH ×2 (09:00→16:30)
--- NOTE | 2024-02-29 09:44 | Critical Care Progress Note ---
Date of Service February 29, 2024 Assessment & Plan (1) Septic shock: Plan: Reason Critically Ill: 78-year-old male with vascular dementia, chronic indwelling Carter, BPH, admitted undergoing treatment for UTI and awaiting placement to rehab, presented to the ICU following code purple was the patient was found to be hypotensive. Initial EKG with ST elevation and complaints of chest pain, underwent cardiac cath Without intervention. Now admitted to ICU and undergoing treatment for septic shock. Currently mechanically ventilated on vasopressor support. 24-hour events: Patient received additional volume resuscitation. He was started on stress dose steroids for relative adrenal insufficiency. Vasopressin weaned off and norepinephrine weaned down. Minimal vent settings. SBT this morning reassuring and patient was subsequently extubated Recommendations Neuro -discontinue fentanyl and propofol. Baseline dementia. Will likely need placement and PT and OT evaluations Cardiac -resolving shock. Continue steroids for relative adrenal insufficiency. Lactate clearing. Once off pressors, will initiate diuresis Respiratory -intubated due to questionable aspiration event. SBT reassuring. Extubated. Initiate pulmonary toilet with incentive spirometry and flutter valve. GI -bedside swallow and advance diet as tolerated. Continue PPI RENAL/LYTES -acute kidney injury, slightly improved this morning. Electrolytes stable with acid-base showing a respiratory alkalosis. ICU electrolyte replacement protocol -history of BPH with need for indwelling Carter. Continue Carter for now. ENDO - glycemic control per protocol. Continue Florinef and hydrocortisone with plans to taper over the next 5 to 7 days HEME -hemoglobin continues to drop. No evidence of active bleeding. Will transfuse 1 unit of packed cells given his relative hypotension with Lasix and check iron stores and haptoglobin. ID -severe sepsis with septic shock. Continue resuscitation. Suspect pyelonep hritis given appearance of kidneys on CT scan. Klebsiella in urine sensitive to everything but Macrodantin. Changed to Rocephin. Gram-positive hans in blood staph epi, likely contaminant does not need to be covered. Await respiratory cultures as well. LINES/IV ACCESS - Right IJ CVC DVT PROPHYLAXIS - SCDDen zavala I have personally spent 42 minutes of critical care time in the direct manage ment of this patient. This is a life/limb threatening event. This includes time spent evaluating patient, direct bedside care, chart review, placing orders, interpretation of diagnostic studies, discussion with consultants, patient, and family members, as well as other required patient management activities. This time is exclusive of all separately billable procedures, and teaching time and separate from and in addition to any other critical care service time. (2) UTI (urinary tract infection): (3) Diabetes: (4) Complication of Carter catheter: (5) Adult failure to thrive: (6) Vascular dementia: (7) Subclinical hypothyroidism: Admission and Anticipated Discharge Date Admission Date: February 19, 2024 Subjective Patient remains intubated and sedated Review of Systems Review of Systems: Unobtainable due to reduced consciousness Physical Exam Constitutional: + frail appearing and + mechanically frank tilated Neck: trachea midline, no thyromegaly Respiratory: no respiratory distress and no labored breathing Auscultation: + rhonchi; no crackles and no wheezes Cardiovascular: RRR, no murmur, no edema Gastrointestinal (Abdomen): normal bowel sounds, soft, nontender, no hepatosplenomegaly Musculoskeletal: Extremities: extremities normal to inspection Skin: no rashes, warm and dry Lymphatic: no cervical lymphadenopathy Results & Data Results & Data Vital Signs (Past 12 Hours) Vital Signs Temp Pulse Resp BP Pulse Ox O2 Del Method FiO2 02/29/24 09:31 Room Air 02/29/24 09:30 36.9 C 92 H 16 105/54 L 94 Room Air 02/29/24 08:30 36.8 C 83 14 117/65 98 CPAP, Mechanical Vent 02/29/24 08:00 68 02/29/24 08:00 36.8 C 87 10 L 122/66 98 CPAP, Mechanical Vent 02/29/24 07:58 91 H 11 L 98 02/29/24 07:30 36.8 C 78 8 L 114/60 98 Mechanical Vent 30 02/29/24 07:00 36.8 C 54 L 14 101/51 L 98 Mechanical Vent 02/29/24 07:00 30 02/29/24 07:00 Mechanical Vent 02/29/24 05:30 89/48 L 02/29/24 05:30 89/48 L 02/29/24 05:30 89/48 L 02/29/24 05:30 89/48 L 02/29/24 05:20 37.0 C 56 L 14 100 02/29/24 05:05 37.0 C 57 L 14 100 02/29/24 05:00 92/50 L 02/29/24 05:00 92/50 L 02/29/24 04:59 37.0 C 53 L 14 100 02/29/24 04:30 102/56 L 02/29/24 04:30 55 L 14 99 30 02/29/24 04:29 37.0 C 55 L 14 99 02/29/24 04:15 37.0 C 63 19 99 02/29/24 04:00 92/50 L 02/29/24 04:00 30 02/29/24 03:48 37.1 C 54 L 18 99 02/29/24 03:30 37.1 C 56 L 18 98 02/29/24 03:30 89/50 L 02/29/24 03:30 89/50 L 02/29/24 03:00 37.1 C 56 L 18 99 02/29/24 03:00 115/57 L 02/29/24 02:50 56 L 19 99 30 02/29/24 02:30 37.1 C 54 L 18 99 02/29/24 02:30 111/62 02/29/24 02:03 37.3 C 52 L 18 99 02/29/24 02:00 105/56 L 02/29/24 01:48 37.3 C 55 L 18 99 02/29/24 01:30 98/52 L 02/29/24 01:30 98/52 L 02/29/24 01:18 37.4 C 57 L 18 99 02/29/24 01:03 37.4 C 62 18 99 02/29/24 01:00 95/52 L 02/29/24 00:48 37.4 C 66 18 98 02/29/24 00:30 96/55 L 02/29/24 00:09 37.4 C 70 18 93/54 L 98 02/29/24 00:00 37.4 C 02/29/24 00:00 90 02/29/24 00:00 30 02/28/24 23:30 109/56 L 02/28/24 23:21 37.4 C 57 L 18 98 02/28/24 22:42 59 L 18 99 30 Critical Care Results & Data Vital Signs (Past 12 Hours) Vital Signs Temp Pulse Resp BP Pulse Ox O2 Del Method FiO2 02/29/24 10:30 36.8 C 82 12 102/55 L 91 Room Air 02/29/24 10:03 36.8 C 89 12 100/51 L 95 Room Air 02/29/24 09:31 Room Air 02/29/24 09:30 36.9 C 92 H 16 105/54 L 94 Room Air 02/29/24 08:30 36.8 C 83 14 117/65 98 CPAP, Mechanical Vent 02/29/24 08:00 68 02/29/24 08:00 36.8 C 87 10 L 122/66 98 CPAP, Mechanical Vent 02/29/24 07:58 91 H 11 L 98 30 02/29/24 07:30 Mechanical Vent 02/29/24 07:30 30 02/29/24 07:30 36.8 C 78 8 L 114/60 98 Mechanical Vent 02/29/24 07:00 36.8 C 54 L 14 101/51 L 98 Mechanical Vent 02/29/24 07:00 30 02/29/24 07:00 Mechanical Vent 02/29/24 05:30 89/48 L 02/29/24 05:30 89/48 L 02/29/24 05:30 89/48 L 02/29/24 05:30 89/48 L 02/29/24 05:20 37.0 C 56 L 14 100 02/29/24 05:05 37.0 C 57 L 14 100 02/29/24 05:00 92/50 L 02/29/24 05:00 92/50 L 02/29/24 04:59 37.0 C 53 L 14 100 02/29/24 04:30 102/56 L 02/29/24 04:30 55 L 14 99 30 02/29/24 04:29 37.0 C 55 L 14 99 02/29/24 04:15 37.0 C 63 19 99 02/29/24 04:00 92/50 L 02/29/24 04:00 30 02/29/24 03:48 37.1 C 54 L 18 99 02/29/24 03:30 37.1 C 56 L 18 98 02/29/24 03:30 89/50 L 02/29/24 03:30 89/50 L 02/29/24 03:00 37.1 C 56 L 18 99 02/29/24 03:00 115/57 L 02/29/24 02:50 56 L 19 99 30 02/29/24 02:30 37.1 C 54 L 18 99 02/29/24 02:30 111/62 02/29/24 02:03 37.3 C 52 L 18 99 02/29/24 02:00 105/56 L 02/29/24 01:48 37.3 C 55 L 18 99 02/29/24 01:30 98/52 L 02/29/24 01:30 98/52 L 02/29/24 01:18 37.4 C 57 L 18 99 02/29/24 01:03 37.4 C 62 18 99 02/29/24 01:00 95/52 L 02/29/24 00:48 37.4 C 66 18 98 02/29/24 00:30 96/55 L 02/29/24 00:09 37.4 C 70 18 93/54 L 98 02/29/24 00:00 37.4 C 02/29/24 00:00 90 02/29/24 00:00 30 02/28/24 23:30 109/56 L 02/28/24 23:21 37.4 C 57 L 18 98 02/28/24 22:42 59 L 18 99 30 Lab & Micro Results (Past 24 Hours) RBC 2.59 M/uL (4.70-6.10) L 02/29/24 WBC 23.30 K/ul (4.8-10.8) H 02/29/24 Hgb 7.2 g/dl (14.0-18.0) L 02/29/24 Hct 21.8 % (42.0-52.0) L 02/29/24 MCV 84.2 fL (80.0-100.0) 02/29/24 MCH 27.8 pg (25.0-34.0) 02/29/24 MCHC 33.0 g/dL (32.0-36.0) 02/29/24 RDW Standard Deviation 45.2 fL (36.4-46.3) 02/29/24 RDW Coefficient of Variation 14.7 % (11.5-14.5) H 02/29/24 Plt Count 221 K/uL (130-400) 02/29/24 MPV 10.3 fL (9.4-12.4) 02/29/24 Neutrophils (%) (Auto) 90.7 % 02/29/24 Lymphocytes (%) (Auto) 3.9 % 02/29/24 Monocytes # (Auto) 0.97 K/uL (0.11-0.59) H 02/29/24 Eosinophils # (Auto) 0.01 K/uL (0.00-0.50) 02/29/24 Immature Granulocyte % (Auto) 1.0 % 02/29/24 Neutrophils # (Auto) 21.15 K/uL (1.40-6.50) H 02/29/24 Lymphocytes # (Auto) 0.90 K/uL (1.20-3.40) L 02/29/24 Monocytes # (Auto) 0.97 K/uL (0.11-0.59) H 02/29/24 Eosinophils # (Auto) 0.01 K/uL (0.00-0.50) 02/29/24 Basophils # (Auto) 0.04 K/uL (0.00-0.20) 02/29/24 Immature Granulocyte # (Auto) 0.23 K/uL (0.01-0.20) H 02/28 Red Blood Cell Morphology Unremarkable 02/29/24 Na 136 mmol/L (136-145) 02/29/24 K 3.2 mmol/L (3.5-5.1) L 02/29/24 Cl 103 mmol/L (98-107) 02/29/24 CO2 25 mmol/L (21-32) 02/29/24 Anion Gap 8 (3-11) 02/29/24 BUN 29 mg/dl (6-23) H 02/29/24 Creatinine 1.26 mg/dl (0.6-1.4) 02/29/24 BUN/Creatinine Ratio 23.0 (10-20) H 02/29/24 Glu 192 mg/dl (70-99(Fasting)) H 02/29/24 Ca 7.9 mg/dl (8.6-10.3) L 02/29/24 Phosphorus Level 3.9 mg/dl (2.5-4.9) 02/29/24 Total Bilirubin 0.6 mg/dl (0.2-1.0) 02/29/24 AST 23 U/L (13-39) 02/29/24 ALT 23 U/L (7-52) 02/29/24 Alkaline Phosphatase 82 U/L (34-104) 02/29/24 TP 4.6 gm/dl (6.0-8.3) L 02/29/24 Albumin 2.7 gm/dl (3.4-5.0) L 02/29/24 Globulin 1.9 gm/dl (2.5-4.0) L 02/29/24 Albumin/Globulin Ratio 1.4 (0.9-2) 02/29/24 Mg 2.1 mg/dl (1.7-2.4) 02/29/24 05:05 Calcium Level 7.9 mg/dl (8.6-10.3) L 02/29/24 05:05 Jamshid Test NA 02/29/24 04:29 Microbiology 02/28/24 Unknown Gram Stain - Final Sputum,Vent Suction 02/27/24 Unknown Urine Culture - Preliminary Urine,Clean Catch Klebsiella pneumoniae 02/27/24 19:24 Aerobic Blood Culture - Preliminary Blood No growth in Aerobic bottle after 24 hours. Anaerobic Blood Culture - Preliminary Gram positive cocci clusters I & O Totals 24 Hours 02/28/24 02/29/24 03/01/24 06:59 06:59 06:59 Intake Total 3173.979 / 3173.979 6905.591 / 6905.591 142.761 / 142.761 Output Total 878 / 878 1310 / 1310 465 / 465 Balance 2295.979 / 2295.979 5595.591 / 5595.591 -322.239 / -322.239 Cumulative 02/19/24 10:41 thru 02/29/24 10:34 Intake Total 08202.664 Output Total 61885 Balance -579.336 RT Ventilator Mngmt (Last Documented) Ventilator Ordered Settings Ventilator Support Mode CPAP 02/29/24 07:58 Respiratory Rate 12 02/29/24 10:30 Ventilator Tidal Volume 465 02/29/24 07:30 Setting Minute Ventilation 7.7 02/29/24 07:58 Ventilator Positive Pressure 7 02/29/24 07:58 Support Setting Positive End Expiratory 5 02/29/24 07:58 Pressure Fraction of Inspired Oxygen 30 02/29/24 08:30 Ventilator - PT Measurements Respiratory Rate 12 Exhaled Tidal Volume 683 Minute Ventilation 7.7 Peak Inspiratory Airway 12 Pressure Plateau Pressure 12.6 Respiratory Cycle Inspiratory: 1:3.8 Expiratory Ratio Inspiratory Phase Time 0.9 End-Tidal CO2 37 Static Lung Compliance 61.18 Dynamic Lung Compliance 97.57 Normal Static Lung Compliance 49.00 Patient Measurements Comment Marvin Cohron [employer] MODEL[employer] CCM aware of changes made due to ABG results Coding Level of Care Code 41468 CRITICAL CARE 1ST 30-74M Diagnoses Septic shock A41.9; R65.21 UTI (urinary tract infection) N39.0 Diabetes E11.9 Complication of Carter catheter T83.9XXA Adult failure to thrive R62.7 Vascular dementia F01.50 Subclinical hypothyroidism E03.8
[2024-02-29] MEDS: POTASSIUM CHLORIDE PWD 20 MEQ PACK NG SCH (10:37)
[2024-02-29] MEDS ORDERED: SODIUM CHLORIDE 0.9% 100 ML IV PRN (10:44)
[2024-02-29] MEDS: FUROSEMIDE 40 MG/4 ML VIAL IV ONE (11:03)
[2024-02-29 12:02] LABS: Ferritin 235.3 ng/ml (8-388)
[2024-02-29] MEDS: cefTRIAXone SODIUM 2,000 MG/50 ML BAG IV SCH (12:09)
--- NOTE | 2024-02-29 15:13 | Hospitalist Progress Note ---
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 Patient with repeat UA clear. Urology consulted and agree for void trial. Patient with henderson removed 02/22--failed voiding trial. Septic shock Multifocal pneumonia likely secondary to aspiration Complicated urinary tract infection --CT Chest:Dependent airspace consolidations, consistent with multilobar pneumonia, likely aspiration. --CT ABD:Wall thickening of the urinary bladder which contains a Henderson catheter. Correlate for UTI. --S/P extubation on 02/29/2024 -- Blood cultures /2: Coagulase-negative staph not Lugdunesis likely contaminated sample --Urine culture grew Klebsiella --Sputum culture pending -- Pressors discontinued Continue IV fluids, Zosyn>> changed to Rocephin Also on IV Solu-Medrol titrate steroids as able Appreciate critical care input Drop in hemoglobin likely dilutional/Iron deficiency IV diuresis per critical care team Monitor CBC closely Clinically improving Acute kidney injury likely ATN Secondary to above Monitor renal function Avoid nephrotoxic agents as able Creatinine levels improved Hypokalemia Replete electrolytes as needed Monitor Abnormal EKG Troponin negative --S/P Cardiac Cath:Essentially normal epicardial coronary arteries with no more than very mild lesions as described. No acute thrombotic lesion suggestive of ACS Monitor --ECHO: EF 55 to 60%. No regional wall motion abnormality. Right ventricle is borderline dilated. Bioprosthetic arctic valve. Gradient is normal further prosthetic valve. Moderate to severe mitral annular calcification, mild mitral stenosis BPH with urinary retention/obstruction Chronic indwelling Henderson catheter Resume tamsulosin/finasteride as able Generalized weakness Ambulatory dysfunction Plan to discharge to SNF as able HTN/HLD Was on amlodipine, Toprol, indapamide, lisinopril Resume antihypertensives as able Continue statin DM II Hold home meds SSI while in-patient BSG AC HS DVT Px: Lovenox SQ CODE STATUS Full code Disposition Rehab as able Admission and Anticipated Discharge Date Admission Date: February 19, 2024 Subjective Patient is seen and examined at bedside Patient is extubated this morning Currently off pressors Reports having minimal cough but otherwise no complaints Denies any chest pain, dyspnea, nausea, vomiting, abdominal pain Speech therapy evaluation today Review of Systems Review of Systems: All systems reviewed & are unremarkable except as noted in Subjective Physical Exam Physical Exam: Physical Exam: Vitals signs as noted above General Appearance:Obese, no apparent distress Head: normocephalic, Atraumatic Eyes: normal inspection, EOMI Neck: supple, Trachea midline Respiratory/Chest: Normal breath sounds, scattered rhonchi, No accessory muscle use Cardiovascular: S1, S2, No murmur, bradycardia Abdomen/GI:Soft, Non tender, Bowel sounds present :+Henderson Extremities/Musculoskeletal:normal inspection, no edema Neurologic/Psych: Alert, awake, oriented, grossly no focal deficits Skin: normal color, warm Results & Data Results & Data Vital Signs (Past 12 Hours) Vital Signs Temp Pulse Resp BP Pulse Ox O2 Del Method FiO2 02/29/24 14:15 36.8 C 88 12 116/61 96 02/29/24 14:15 36.7 C 92 H 18 116/61 96 02/29/24 13:15 36.8 C 86 13 102/56 L 93 02/29/24 12:45 36.8 C 87 13 105/58 L 92 02/29/24 12:30 36.8 C 86 12 104/58 L 91 02/29/24 12:14 36.8 C 93 H 14 108/60 94 02/29/24 11:30 36.8 C 88 13 100/55 L 95 Room Air 02/29/24 11:15 36.8 C 91 H 13 102/57 L 94 Room Air 02/29/24 10:30 36.8 C 82 12 102/55 L 91 Room Air 02/29/24 10:03 36.8 C 89 12 100/51 L 95 Room Air 02/29/24 09:31 Room Air 02/29/24 09:30 36.9 C 92 H 16 105/54 L 94 Room Air 02/29/24 08:30 36.8 C 83 14 117/65 98 CPAP, Mechanical Vent 30 02/29/24 08:00 68 02/29/24 08:00 36.8 C 87 10 L 122/66 98 CPAP, Mechanical Vent 02/29/24 07:58 91 H 11 L 98 30 02/29/24 07:30 Mechanical Vent 30 02/29/24 07:30 30 02/29/24 07:30 36.8 C 78 8 L 114/60 98 Mechanical Vent 30 02/29/24 07:00 36.8 C 54 L 14 101/51 L 98 Mechanical Vent 02/29/24 07:00 30 02/29/24 07:00 Mechanical Vent 02/29/24 05:30 89/48 L 02/29/24 05:30 89/48 L 02/29/24 05:30 89/48 L 02/29/24 05:30 89/48 L 02/29/24 05:20 37.0 C 56 L 14 100 02/29/24 05:05 37.0 C 57 L 14 100 02/29/24 05:00 92/50 L 02/29/24 05:00 92/50 L 02/29/24 04:59 37.0 C 53 L 14 100 02/29/24 04:30 102/56 L 02/29/24 04:30 55 L 14 99 30 02/29/24 04:29 37.0 C 55 L 14 99 02/29/24 04:15 37.0 C 63 19 99 02/29/24 04:00 92/50 L 02/29/24 04:00 30 02/29/24 03:48 37.1 C 54 L 18 99 02/29/24 03:30 37.1 C 56 L 18 98 02/29/24 03:30 89/50 L 02/29/24 03:30 89/50 L Laboratory Results Short CBC 02/29/24 Range/Units 05:05 WBC 23.30 H (4.8-10.8) K/ul Hgb 7.2 L (14.0-18.0) g/dl Hct 21.8 L (42.0-52.0) % Plt Count 221 (130-400) K/uL BMP 02/29/24 05:05 Sodium 136 Potassium 3.2 L Chloride 103 Carbon Dioxide 25 BUN 29 H Creatinine 1.26 Glucose 192 H Calcium 7.9 L Liver Function 02/29/24 Range/Units 05:05 Total Bilirubin 0.6 (0.2-1.0) mg/dl AST 23 (13-39) U/L ALT 23 (7-52) U/L Alkaline Phosphatase 82 (34-104) U/L Albumin 2.7 L (3.4-5.0) gm/dl
[2024-02-29] MEDS: INSULIN ASPART PER UNIT CHARGE SC SCH (17:10)
[2024-02-29 18:31] LABS: Magnesium 2.1 mg/dl (1.7-2.4); Phosphorus 3.7 mg/dl (2.5-4.9); Potassium 3.2 mmol/L (3.5-5.1)
[2024-02-29] MEDS: ICU ELECTROLYTE REPLACEMENT PROTOCOL SCH (18:51)
[2024-02-29] MEDS: POTASSIUM CHLORIDE PWD 20 MEQ PACK PO SCH (19:23)
[2024-02-29] MEDS: FUROSEMIDE INJ 20 MG/2 ML VIAL IV ONE (19:23)
[2024-03-01 04:49] LABS: Hematocrit (blood only) 23.7 % (42.0-52.0); Mean Corpuscular Hemoglobin 28.5 pg (25.0-34.0); Mean Corpuscular Hgb Conc 33.8 g/dL (32.0-36.0); Mean Corpuscular Volume 84.3 fL (80.0-100.0); Mean Platelet Volume 10.6 fL (9.4-12.4); Platelet Count 231 K/uL (130-400); RDW Coefficient of Variation 14.9 % (11.5-14.5); RDW Standard Deviation 45.6 fL (36.4-46.3); Red Blood Count 2.81 M/uL (4.70-6.10); White Blood Count 20.76 K/ul (4.8-10.8)
[2024-03-01 05:02] LABS: Albumin Globulin Ratio 1.3 (0.9-2); BUN Creatinine Ratio 19.7 (10-20); Bilirubin,Total 0.4 mg/dl (0.2-1.0); Calcium 8.3 mg/dl (8.6-10.3); Creatinine Clr Calc Pharmacy 47.1 ml/min; Globulin 2.3 gm/dl (2.5-4.0); Phosphorus 3.4 mg/dl (2.5-4.9); Potassium 3.9 mmol/L (3.5-5.1); Total Protein 5.3 gm/dl (6.0-8.3)
[2024-03-01 05:09] LABS: Basophils # (auto) 0.01 K/uL (0.00-0.20); Eosinophils # (auto) 0.05 K/uL (0.00-0.50); Eosinophils % (auto) 0.2 %; Lymphocytes # (auto) 0.78 K/uL (1.20-3.40); Lymphocytes % (auto) 3.8 %; Monocytes # (auto) 0.91 K/uL (0.11-0.59); Monocytes % (auto) 4.4 %; Neutrophils # (auto) 18.81 K/uL (1.40-6.50); Neutrophils % (auto) 90.6 %; Polychromasia 1+
--- NOTE | 2024-03-01 07:16 | Critical Care Progress Note ---
Date of Service March 01, 2024 Assessment & Plan (1) Septic shock: Plan: Reason Critically Ill: 78-year-old male with vascular dementia, chronic indwelling Carter, BPH, admitted undergoing treatment for UTI and awaiting placement to rehab, presented to the ICU following code purple was the patient was found to be hypotensive. Initial EKG with ST elevation and complaints of chest pain, underwent cardiac cath Without intervention. Now admitted to ICU and undergoing treatment for septic shock. Currently mechanically ventilated on vasopressor support. 24-hour events: Patient was extubated. Hemodynamics improved and he was weaned off pressors. Was diuresed and received 1 unit of packed red blood cells. Recommendations Neuro - Baseline dementia. Out of bed to chair as tolerated and will obtain PT and OT evaluations as apparently family was working on placement in the outpatient setting. Cardiac -resolved septic shock. Wean steroids for relative adrenal insufficiency. Lactate clearing. Hold additional diuresis today pending proven and serum creatinine Respiratory -intubated due to questionable aspiration event. Continue pulmonary toilet with incentive spirometry and flutter valve. Wean oxygen as tolerated GI -advancing diet as tolerated continue PPI RENAL/LYTES -patient presented with acute kidney injury. Creatinine improved yesterday but slightly up today, possibly secondary to diuresis. Continue to follow-up. Electrolytes stable. -history of BPH with need for indwelling Carter. Continue Carter for now. ENDO - glycemic control per protocol. Weaning Florinef and hydrocortisone with plans to taper over the next 5 to 7 days HEME -status post 1 unit packed cells yesterday with appropriate increase in hemoglobin. Continue to follow at this point in time. White count continues to decrease. ID -severe sepsis with septic shock. Suspect pyelonephritis given appearance of kidneys on CT scan. Klebsiella in urine sensitive to everything but Macrodantin . Continue Rocephin. Anticipate 7 days antimicrobial therapy gram-positive hans in blood coag negative staph, likely contaminant does not need to be covered. Await respiratory cultures as well. LINES/IV ACCESS - Right IJ CVC DVT PROPHYLAXIS - SCDs, Lovenox Patient's critical care issues have resolved. He can transfer to the floor. Critical care services will sign off and additional care will be dictated by the admitting hospitalist. Feel free to contact us with questions or concerns (2) UTI (urinary tract infection): (3) Diabetes: (4) Complication of Carter catheter: (5) Adult failure to thrive: (6) Vascular dementia: (7) Subclinical hypothyroidism: Admission and Anticipated Discharge Date Admission Date: February 19, 2024 Subjective Patient seen and examined. Reviewed. The patient is awake alert conversant. He is on 2 to 4 L of nasal cannula. He has no complaints this morning including chest pain, palpitations, shortness of breath. He is not coughing. He has a diet but does not have much of an appetite this morning. He did receive diur esis yesterday with good response. Review of Systems Review of Systems: All systems reviewed & are unremarkable except as noted in Subjective Physical Exam Constitutional: + frail appearing Neck: trachea midline, no thyromegaly Respiratory: no respiratory distress and no labored breathing Auscultation: + rhonchi; no crackles and no wheezes Cardiovascular: RRR, no murmur, no edema Gastrointestinal (Abdomen): normal bowel sounds, soft, nontender, no hepatosplenomegaly Musculoskeletal: Extremities: extremities normal to inspection Skin: no rashes, warm and dry Lymphatic: no cervical lymphadenopathy Results & Data Results & Data Vital Signs (Past 12 Hours) Vital Signs Temp Pulse Resp BP Pulse Ox O2 Del Method O2 Flow Rate 03/01/24 06:03 131/65 03/01/24 06:03 131/65 03/01/24 06:03 37.0 C 79 14 94 4 03/01/24 05:00 37.0 C 71 14 95 03/01/24 05:00 129/65 03/01/24 05:00 129/65 03/01/24 05:00 129/65 03/01/24 04:21 37.0 C 71 13 94 2 03/01/24 04:00 113/57 L 03/01/24 04:00 113/57 L 03/01/24 03:57 37.0 C 65 12 96 2 03/01/24 03:03 37.1 C 65 14 96 2 03/01/24 03:00 118/59 L 03/01/24 03:00 118/59 L 03/01/24 02:57 37.1 C 66 11 L 96 2 03/01/24 02:00 113/63 03/01/24 02:00 113/63 03/01/24 02:00 113/63 03/01/24 02:00 37.1 C 73 12 94 2 03/01/24 01:15 37.1 C 72 13 114/58 L 97 03/01/24 00:12 37.2 C 95 H 18 110/59 L 96 2 03/01/24 00:00 87 02/29/24 23:06 37.2 C 79 13 96 2 02/29/24 22:03 37.2 C 79 13 96 02/29/24 22:00 113/62 02/29/24 21:54 37.2 C 82 14 95 2 02/29/24 21:06 37.3 C 87 12 95 02/29/24 21:00 108/60 2 02/29/24 20:45 37.3 C 95 H 14 95 02/29/24 20:12 37.3 C 106 H 16 98 2 02/29/24 19:30 Nasal Cannula 2 Critical Care Results & Data Vital Signs (Past 12 Hours) Vital Signs Temp Pulse Resp BP Pulse Ox O2 Del Method O2 Flow Rate 03/01/24 06:03 131/65 03/01/24 06:03 131/65 03/01/24 06:03 37.0 C 79 14 94 4 03/01/24 05:00 37.0 C 71 14 95 03/01/24 05:00 129/65 03/01/24 05:00 129/65 03/01/24 05:00 129/65 03/01/24 04:21 37.0 C 71 13 94 2 03/01/24 04:00 113/57 L 03/01/24 04:00 113/57 L 03/01/24 03:57 37.0 C 65 12 96 2 03/01/24 03:03 37.1 C 65 14 96 2 03/01/24 03:00 118/59 L 03/01/24 03:00 118/59 L 03/01/24 02:57 37.1 C 66 11 L 96 2 03/01/24 02:00 113/63 03/01/24 02:00 113/63 03/01/24 02:00 113/63 03/01/24 02:00 37.1 C 73 12 94 2 03/01/24 01:15 37.1 C 72 13 114/58 L 97 03/01/24 00:12 37.2 C 95 H 18 110/59 L 96 2 03/01/24 00:00 87 02/29/24 23:06 37.2 C 79 13 96 2 02/29/24 22:03 37.2 C 79 13 96 02/29/24 22:00 113/62 02/29/24 21:54 37.2 C 82 14 95 2 02/29/24 21:06 37.3 C 87 12 95 02/29/24 21:00 108/60 2 02/29/24 20:45 37.3 C 95 H 14 95 02/29/24 20:12 37.3 C 106 H 16 98 2 02/29/24 19:30 Nasal Cannula 2 Lab & Micro Results (Past 24 Hours) RBC 2.81 M/uL (4.70-6.10) L 03/01/24 WBC 20.76 K/ul (4.8-10.8) H 03/01/24 Hgb 8.0 g/dl (14.0-18.0) L 03/01/24 Hct 23.7 % (42.0-52.0) L 03/01/24 MCV 84.3 fL (80.0-100.0) 03/01/24 MCH 28.5 pg (25.0-34.0) 03/01/24 MCHC 33.8 g/dL (32.0-36.0) 03/01/24 RDW Standard Deviation 45.6 fL (36.4-46.3) 03/01/24 RDW Coefficient of Variation 14.9 % (11.5-14.5) H 03/01/24 Plt Count 231 K/uL (130-400) 03/01/24 MPV 10.6 fL (9.4-12.4) 03/01/24 Neutrophils (%) (Auto) 90.6 % 03/01/24 Lymphocytes (%) (Auto) 3.8 % 03/01/24 Monocytes # (Auto) 0.91 K/uL (0.11-0.59) H 03/01/24 Eosinophils # (Auto) 0.05 K/uL (0.00-0.50) 03/01/24 Immature Granulocyte % (Auto) 1.0 % 03/01/24 Neutrophils # (Auto) 18.81 K/uL (1.40-6.50) H 03/01/24 Lymphocytes # (Auto) 0.78 K/uL (1.20-3.40) L 03/01/24 Monocytes # (Auto) 0.91 K/uL (0.11-0.59) H 03/01/24 Eosinophils # (Auto) 0.05 K/uL (0.00-0.50) 03/01/24 Basophils # (Auto) 0.01 K/uL (0.00-0.20) 03/01/24 Immature Granulocyte # (Auto) 0.20 K/uL (0.01-0.20) 4 Polychromasia 1+ 03/01/24 Na 140 mmol/L (136-145) 03/01/24 K 3.9 mmol/L (3.5-5.1) 03/01/24 Cl 104 mmol/L (98-107) 03/01/24 CO2 29 mmol/L (21-32) 03/01/24 Anion Gap 7 (3-11) 03/01/24 BUN 28 mg/dl (6-23) H 03/01/24 Creatinine 1.42 mg/dl (0.6-1.4) H 03/01/24 BUN/Creatinine Ratio 19.7 (10-20) 03/01/24 Glu 185 mg/dl (70-99(Fasting)) H 03/01/24 Ca 8.3 mg/dl (8.6-10.3) L 03/01/24 Phosphorus Level 3.4 mg/dl (2.5-4.9) 03/01/24 Total Bilirubin 0.4 mg/dl (0.2-1.0) 03/01/24 AST 22 U/L (13-39) 03/01/24 ALT 25 U/L (7-52) 03/01/24 Alkaline Phosphatase 98 U/L (34-104) 03/01/24 TP 5.3 gm/dl (6.0-8.3) L 03/01/24 Albumin 3.0 gm/dl (3.4-5.0) L 03/01/24 Globulin 2.3 gm/dl (2.5-4.0) L 03/01/24 Albumin/Globulin Ratio 1.3 (0.9-2) 03/01/24 Mg 2.0 mg/dl (1.7-2.4) 03/01/24 04:06 Calcium Level 8.3 mg/dl (8.6-10.3) L 03/01/24 04:06 Microbiology 02/27/24 19:24 Aerobic Blood Culture - Preliminary Blood No growth in Aerobic bottle after 48 hours. Anaerobic Blood Culture - Preliminary Coag neg staph not lugdunensis 02/28/24 Unknown Gram Stain - Final Sputum,Vent Suction Sputum Culture - Preliminary Light normal taylor present, final report to follow. 02/27/24 Unknown Urine Culture - Final Urine,Clean Catch Klebsiella pneumoniae I & O Totals 24 Hours 02/29/24 03/01/24 03/02/24 06:59 06:59 06:59 Intake Total 6905.591 / 6905.591 3745.261 / 3745.261 Output Total 1310 / 1310 4965 / 4965 Balance 5595.591 / 5595.591 -1219.739 / -1219.739 Cumulative 02/19/24 10:41 thru 03/01/24 06:09 Intake Total 37475.164 Output Total 39052 Balance -1476.836 RT Ventilator Mngmt (Last Documented) Ventilator Ordered Settings Ventilator Support Mode CPAP 02/29/24 07:58 Respiratory Rate 14 03/01/24 06:03 Ventilator Tidal Volume 465 02/29/24 07:30 Setting Minute Ventilation 7.7 02/29/24 07:58 Ventilator Positive Pressure 7 02/29/24 07:58 Support Setting Positive End Expiratory 5 02/29/24 07:58 Pressure Fraction of Inspired Oxygen 30 02/29/24 08:30 Ventilator - PT Measurements Respiratory Rate 14 Exhaled Tidal Volume 683 Minute Ventilation 7.7 Peak Inspiratory Airway 12 Pressure Plateau Pressure 12.6 Respiratory Cycle Inspiratory: 1:3.8 Expiratory Ratio Inspiratory Phase Time 0.9 End-Tidal CO2 37 Static Lung Compliance 61.18 Dynamic Lung Compliance 97.57 Normal Static Lung Compliance 49.00 Patient Measurements Comment Marvin MAYO CCM aware of changes made due to ABG results Coding Level of Care Code 17020 SUB INP/OBS CARE 3/50MIN Diagnoses Septic shock A41.9; R65.21 UTI (urinary tract infection) N39.0 Diabetes E11.9 Complication of Carter catheter T83.9XXA Adult failure to thrive R62.7 Vascular dementia F01.50 Subclinical hypothyroidism E03.8
[2024-03-01] MEDS: POTASSIUM CHLORIDE / WTR 20 MEQ/100 ML PLCT IV SCH (08:29)
[2024-03-01] MEDS: FLUDROCORTISONE ACETATE 0.1 MG TAB PO SCH (08:33)
[2024-03-01] MEDS: MAGNESIUM OXIDE 400 MG TAB PO SCH (08:38)
[2024-03-01] MEDS: HYDROCORTISONE SOD 50 MG in SYRINGE 0 ML IV SCH (11:52)
--- NOTE | 2024-03-01 13:41 | Hospitalist Progress Note ---
Date of Service March 01, 2024 Assessment & Plan (1) Complication of Henderson catheter: (2) Vascular dementia: (3) Ambulatory dysfunction: (4) Benign prostatic hyperplasia with urinary obstruction: (5) UTI (urinary tract infection): Plan Patient is a 78-year-old male with a past medical history of aortic stenosis s/p AVR, mitral stenosis, HLD, DM2, chronic anemia, chronic indwelling Foleyplaced about 6 weeks ago, urinary retention, dementia who presents to the ED on 02/19/2024 after his called EMS for concerns of Henderson catheter not draining and dark-colored urine with possible hematuria. Patient with repeat UA clear. Urology consulted and agree for void trial. Patient with henderson removed 02/22--failed voiding trial. Septic shock Multifocal pneumonia likely secondary to aspiration Complicated urinary tract infection Suspected relative adrenal insufficiency --CT Chest:Dependent airspace consolidations, consistent with multilobar pneumonia, likely aspiration. --CT ABD:Wall thickening of the urinary bladder which contains a Henderson catheter. Correlate for UTI. --S/P extubation on 02/29/2024 -- Blood cultures /2: Coagulase-negative staph not Lugdunesis likely contaminated sample --Urine culture grew Klebsiella --Sputum culture : Normal taylor -- Pressors discontinued Received IV fluids -- IV Zosyn>> changed to Rocephin--plan to complete 7-day course of antibiotics Also on IV Solu-Medrol titrate steroids as able Also started on fludrocortisone Appreciate critical care input Monitor CBC closely And wean off of supplemental oxygen as able Transfer to PCU today Acute kidney injury likely ATN Secondary to above Monitor renal function Avoid nephrotoxic agents as able Cr 1.4 today Hypokalemia Replete electrolytes as needed Monitor Abnormal EKG Troponin negative --S/P Cardiac Cath:Essentially normal epicardial coronary arteries with no more than very mild lesions as described. No acute thrombotic lesion suggestive of ACS Monitor --ECHO: EF 55 to 60%. No regional wall motion abnormality. Right ventricle is borderline dilated. Bioprosthetic arctic valve. Gradient is normal further prosthetic valve. Moderate to severe mitral annular calcification, mild mitral stenosis BPH with urinary retention/obstruction Chronic indwelling Henderson catheter Resume tamsulosin/finasteride as able Generalized weakness Ambulatory dysfunction Plan to discharge to SNF as able HTN/HLD Was on amlodipine, Toprol, indapamide, lisinopril Resume antihypertensives as able Continue statin DM II Hold home meds SSI while in-patient BSG AC HS DVT Px: Lovenox SQ CODE STATUS Full code Disposition Rehab as able Admission and Anticipated Discharge Date Admission Date: February 19, 2024 Subjective Patient is seen and examined at bedside States feeling well today Reports minimal cough but otherwise no complaints Saturating well on minimal supplemental oxygen Denies any chest pain, dyspnea, nausea, vomiting, abdominal pain Tolerating current diet Review of Systems Review of Systems: All systems reviewed & are unremarkable except as noted in Subjective Physical Exam Physical Exam: Physical Exam: Vitals signs as noted above General Appearance:Obese, no apparent distress Head: normocephalic, Atraumatic Eyes: normal inspection, EOMI Neck: supple, Trachea midline Respiratory/Chest: Decreased breath sounds, clear to auscultation, No accessory muscle use Cardiovascular: S1, S2, No murmur, bradycardia Abdomen/GI:Soft, Non tender, Bowel sounds present :+Henderson Extremities/Musculoskeletal:normal inspection, no edema Neurologic/Psych: Alert, awake, oriented, grossly no focal deficits Skin: normal color, warm Results & Data Results & Data Vital Signs (Past 12 Hours) Vital Signs Temp Pulse Resp BP Pulse Ox O2 Flow Rate 03/01/24 09:06 37.2 C 99 H 24 95 03/01/24 09:00 138/69 03/01/24 09:00 138/69 03/01/24 09:00 138/69 03/01/24 08:57 37.2 C 81 16 94 03/01/24 08:06 37.1 C 90 15 92 03/01/24 08:00 79 03/01/24 07:33 36.9 C 76 14 96 03/01/24 07:00 132/65 03/01/24 07:00 132/65 03/01/24 06:57 36.9 C 67 12 93 03/01/24 06:03 131/65 03/01/24 06:03 131/65 03/01/24 06:03 131/65 03/01/24 06:03 37.0 C 79 14 94 4 03/01/24 05:00 37.0 C 71 14 95 03/01/24 05:00 129/65 03/01/24 05:00 129/65 03/01/24 05:00 129/65 03/01/24 04:21 37.0 C 71 13 94 2 03/01/24 04:00 113/57 L 03/01/24 04:00 113/57 L 03/01/24 03:57 37.0 C 65 12 96 2 03/01/24 03:03 37.1 C 65 14 96 2 03/01/24 03:00 118/59 L 03/01/24 03:00 118/59 L 03/01/24 02:57 37.1 C 66 11 L 96 2 03/01/24 02:00 113/63 03/01/24 02:00 113/63 03/01/24 02:00 113/63 03/01/24 02:00 37.1 C 73 12 94 2 Laboratory Results Short CBC 03/01/24 Range/Units 04:08 WBC 20.76 H (4.8-10.8) K/ul Hgb 8.0 L (14.0-18.0) g/dl Hct 23.7 L (42.0-52.0) % Plt Count 231 (130-400) K/uL BMP 02/29/24 03/01/24 18:00 04:06 Sodium 140 Potassium 3.2 L 3.9 D Chloride 104 Carbon Dioxide 29 BUN 28 H Creatinine 1.42 H Glucose 185 H Calcium 8.3 L Liver Function 03/01/24 Range/Units 04:06 Total Bilirubin 0.4 (0.2-1.0) mg/dl AST 22 (13-39) U/L ALT 25 (7-52) U/L Alkaline Phosphatase 98 (34-104) U/L Albumin 3.0 L (3.4-5.0) gm/dl
[2024-03-02 04:36] LABS: Hematocrit (blood only) 24.3 % (42.0-52.0); Hemoglobin 8.2 g/dl (14.0-18.0); Mean Corpuscular Hemoglobin 28.6 pg (25.0-34.0); Mean Corpuscular Hgb Conc 33.7 g/dL (32.0-36.0); Mean Corpuscular Volume 84.7 fL (80.0-100.0); Mean Platelet Volume 10.6 fL (9.4-12.4); Platelet Count 231 K/uL (130-400); RDW Coefficient of Variation 14.7 % (11.5-14.5); RDW Standard Deviation 45.8 fL (36.4-46.3); Red Blood Count 2.87 M/uL (4.70-6.10); White Blood Count 17.36 K/ul (4.8-10.8)
[2024-03-02 04:50] LABS: BUN Creatinine Ratio 24.6 (10-20); Calcium 7.9 mg/dl (8.6-10.3); Creatinine Clr Calc Pharmacy 54.8 ml/min; Magnesium 1.9 mg/dl (1.7-2.4); Phosphorus 2.7 mg/dl (2.5-4.9); Potassium 3.3 mmol/L (3.5-5.1)
[2024-03-02] MEDS: POTASSIUM CHLORIDE PWD 20 MEQ PACK PO SCH (08:55)
--- NOTE | 2024-03-02 12:47 | Hospitalist Progress Note ---
Date of Service March 02, 2024 Assessment & Plan (1) Complication of Henderson catheter: (2) Vascular dementia: (3) Ambulatory dysfunction: (4) Benign prostatic hyperplasia with urinary obstruction: (5) UTI (urinary tract infection): Plan Patient is a 78-year-old male with a past medical history of aortic stenosis s/p AVR, mitral stenosis, HLD, DM2, chronic anemia, chronic indwelling Foleyplaced about 6 weeks ago, urinary retention, dementia who presents to the ED on 02/19/2024 after his called EMS for concerns of Henderson catheter not draining and dark-colored urine with possible hematuria. Patient with repeat UA clear. Urology consulted and agree for void trial. Patient with henderson removed 02/22--failed voiding trial. Septic shock Multifocal pneumonia likely secondary to aspiration Complicated urinary tract infection Suspected relative adrenal insufficiency --CT Chest:Dependent airspace consolidations, consistent with multilobar pneumonia, likely aspiration. --CT ABD:Wall thickening of the urinary bladder which contains a Henderson catheter. Correlate for UTI. --S/P extubation on 02/29/2024 -- Blood cultures /2: Coagulase-negative staph not Lugdunesis likely contaminated sample --Urine culture grew Klebsiella --Sputum culture : Normal taylor -- Pressors discontinued Received IV fluids -- IV Zosyn>> changed to Rocephin--plan to complete 7-day course of antibiotics -- Decrease IV Solu-Medrol to Solu-Medrol 50 mg twice daily today Hold fludrocortisone for now and monitor blood pressure closely Appreciate critical care input wean off of supplemental oxygen as able Will repeat chest x-ray tomorrow Continue aspiration precautions Acute kidney injury likely ATN Secondary to above Monitor renal function Avoid nephrotoxic agents as able Cr 1.2 today Hypokalemia Replete electrolytes as needed Monitor Abnormal EKG Troponin negative --S/P Cardiac Cath:Essentially normal epicardial coronary arteries with no more than very mild lesions as described. No acute thrombotic lesion suggestive of ACS Monitor --ECHO: EF 55 to 60%. No regional wall motion abnormality. Right ventricle is borderline dilated. Bioprosthetic arctic valve. Gradient is normal further prosthetic valve. Moderate to severe mitral annular calcification, mild mitral stenosis BPH with urinary retention/obstruction Chronic indwelling Henderson catheter Resume tamsulosin/finasteride as able Generalized weakness Ambulatory dysfunction Plan to discharge to SNF as able HTN/HLD Was on amlodipine, Toprol, indapamide, lisinopril Resume antihypertensives as able Continue statin DM II Hold home meds SSI while in-patient BSG AC HS DVT Px: Lovenox SQ CODE STATUS Full code Disposition Rehab as able Admission and Anticipated Discharge Date Admission Date: February 19, 2024 Subjective Patient is seen and examined at bedside Still has minimal cough but otherwise no complaints today Blood pressure much better Saturating well on supplemental oxygen Denies any chest pain, dyspnea, nausea, vomiting, abdominal pain Review of Systems Review of Systems: All systems reviewed & are unremarkable except as noted in Subjective Physical Exam Physical Exam: Physical Exam: Vitals signs as noted above General Appearance:Obese, no apparent distress Head: normocephalic, Atraumatic Eyes: normal inspection, EOMI Neck: supple, Trachea midline Respiratory/Chest: Decreased breath sounds, clear to auscultation, No accessory muscle use Cardiovascular: S1, S2, No murmur Abdomen/GI:Soft, Non tender, Bowel sounds present :+Henderson Extremities/Musculoskeletal:normal inspection, no edema Neurologic/Psych: Alert, awake, oriented, grossly no focal deficits Skin: normal color, warm Results & Data Results & Data Vital Signs (Past 12 Hours) Vital Signs Temp Pulse Resp BP BP Pulse Ox O2 Del Method 03/02/24 12:35 36.8 C 67 17 141/64 H 95 Nasal Cannula 03/02/24 07:15 36.8 C 71 20 146/75 H 93 Nasal Cannula 03/02/24 04:11 36.8 C 82 15 121/56 L 94 Nasal Cannula O2 Flow Rate 03/02/24 12:35 4 03/02/24 07:15 4 03/02/24 04:11 2 Laboratory Results Short CBC 03/02/24 Range/Units 04:06 WBC 17.36 H (4.8-10.8) K/ul Hgb 8.2 L (14.0-18.0) g/dl Hct 24.3 L (42.0-52.0) % Plt Count 231 (130-400) K/uL BMP 03/02/24 04:06 Sodium 139 Potassium 3.3 L Chloride 108 H Carbon Dioxide 28 BUN 30 H Creatinine 1.22 Glucose 153 H Calcium 7.9 L
[2024-03-02] MEDS: HYDROCORTISONE SOD 50 MG in SYRINGE 0 ML IV SCH (20:30)
[2024-03-03 05:08] LABS: Hematocrit (blood only) 26.3 % (42.0-52.0); Hemoglobin 8.7 g/dl (14.0-18.0); Mean Corpuscular Hemoglobin 27.8 pg (25.0-34.0); Mean Corpuscular Hgb Conc 33.1 g/dL (32.0-36.0); Mean Platelet Volume 10.6 fL (9.4-12.4); Platelet Count 267 K/uL (130-400); RDW Coefficient of Variation 14.5 % (11.5-14.5); RDW Standard Deviation 44.7 fL (36.4-46.3); Red Blood Count 3.13 M/uL (4.70-6.10); White Blood Count 9.17 K/ul (4.8-10.8)
[2024-03-03 05:17] LABS: BUN Creatinine Ratio 26.6 (10-20); Calcium 7.9 mg/dl (8.6-10.3); Creatinine Clr Calc Pharmacy 61.3 ml/min; Potassium 2.9 mmol/L (3.5-5.1)
[2024-03-03] MEDS: POTASSIUM CHLORIDE CRTAB 20 MEQ TABCR PO STA (06:06)
[2024-03-03 06:10] LABS: Magnesium 1.8 mg/dl (1.7-2.4)
--- NOTE | 2024-03-03 09:47 | XRay Report ---
SINGLE VIEW CHEST CLINICAL HISTORY: Pneumonia. FINDINGS: An AP, portable, summary chest radiograph is compared to chest x-ray and chest CT dated . The examination is degraded by portable technique and apical lordotic positioning. An endotr acheal tube, an enteric tube, and a right internal jugular central venous catheter have been removed. The patient is status post midline sternotomy. The heart is enlarged noting atherosclerotic calcific ation of the thoracic aorta. There is pulmonary vascular congestion. Airspace consolidation is seen a t both lung bases, right greater than left. Small pleural effusions are observed. No pneumothorax is seen. The skeletal structures are osteopenic. The bony thorax is grossly intact. IMPRESSION: 1. Lines and tubes have been removed as above. 2. Cardiomegaly without evidence of congestive failure. 3. There is bibasilar airspace consolidation, right greater than left. This has significantly increas ed from 02/27/2024. 4. Small pleural effusions there ACT 112: Negative or not required by law. Electronically signed by: Everardo Campuzano M.D. 03/03/2024 9:46 AM
[2024-03-03] MEDS: POTASSIUM CHLORIDE / WTR 10 MEQ/100 ML PLCT IV SCH (10:13)
--- NOTE | 2024-03-03 15:39 | Hospitalist Progress Note ---
Date of Service March 03, 2024 Assessment & Plan (1) Complication of Henderson catheter: (2) Vascular dementia: (3) Ambulatory dysfunction: (4) Benign prostatic hyperplasia with urinary obstruction: (5) UTI (urinary tract infection): Plan Patient is a 78-year-old male with a past medical history of aortic stenosis s/p AVR, mitral stenosis, HLD, DM2, chronic anemia, chronic indwelling Foleyplaced about 6 weeks ago, urinary retention, dementia who presents to the ED on 02/19/2024 after his called EMS for concerns of Henderson catheter not draining and dark-colored urine with possible hematuria. Patient with repeat UA clear. Urology consulted and agree for void trial. Patient with henderson removed 02/22--failed voiding trial. Septic shock Multifocal pneumonia likely secondary to aspiration Complicated urinary tract infection Suspected relative adrenal insufficiency --CT Chest:Dependent airspace consolidations, consistent with multilobar pneumonia, likely aspiration. --CT ABD:Wall thickening of the urinary bladder which contains a Henderson catheter. Correlate for UTI. --S/P extubation on 02/29/2024 -- Blood cultures /2: Coagulase-negative staph not Lugdunesis likely contaminated sample --Urine culture grew Klebsiella --Sputum culture : Normal taylor -- Pressors discontinued Received IV fluids -- IV Zosyn>> changed to Rocephin--plan to complete 7-day course of antibiotics -- Wean off of steroids as able Discontinued fludrocortisone Appreciate critical care input wean off of supplemental oxygen as able Continue aspiration precautions Leukocytosis resolved Plan for video swallow study tomorrow Plan to discharge to rehab facility as able Acute kidney injury likely ATN Secondary to above Monitor renal function Avoid nephrotoxic agents as able Cr 1.0 today Hypokalemia Replete electrolytes as needed Monitor Abnormal EKG Troponin negative --S/P Cardiac Cath:Essentially normal epicardial coronary arteries with no more than very mild lesions as described. No acute thrombotic lesion suggestive of ACS Monitor --ECHO: EF 55 to 60%. No regional wall motion abnormality. Right ventricle is borderline dilated. Bioprosthetic arctic valve. Gradient is normal further prosthetic valve. Moderate to severe mitral annular calcification, mild mitral stenosis BPH with urinary retention/obstruction Chronic indwelling Henderson catheter Resume tamsulosin/finasteride as able Generalized weakness Ambulatory dysfunction Plan to discharge to SNF as able HTN/HLD Was on amlodipine, indapamide, lisinopril Resume metoprolol at reduced dose Continue statin Monitor blood pressure closely Adjust medications as needed DM II Hold home meds SSI while in-patient BSG AC HS DVT Px: Lovenox SQ CODE STATUS Full code Disposition Rehab as able Admission and Anticipated Discharge Date Admission Date: February 19, 2024 Subjective Patient is seen and examined at bedside Reports chronic left shoulder pain Also reports discomfort at urine catheter site No other complaints today Saturating well on 3 L supplemental oxygen Denies any chest pain, dyspnea, nausea, vomiting, abdominal pain Review of Systems Review of Systems: All systems reviewed & are unremarkable except as noted in Subjective Physical Exam Physical Exam: Physical Exam: Vitals signs as noted above General Appearance:Obese, no apparent distress Head: normocephalic, Atraumatic Eyes: normal inspection, EOMI Neck: supple, Trachea midline Respiratory/Chest: Decreased breath sounds, clear to auscultation, No accessory muscle use Cardiovascular: S1, S2, No murmur Abdomen/GI:Soft, Non tender, Bowel sounds present :+Henderson Extremities/Musculoskeletal:normal inspection, no edema Neurologic/Psych: Alert, awake, oriented, grossly no focal deficits Skin: normal color, warm Results & Data Results & Data Vital Signs (Past 12 Hours) Vital Signs Temp Pulse Pulse Resp BP BP Pulse Ox 03/03/24 12:00 37.5 C 93 H 20 133/76 96 03/03/24 07:30 03/03/24 06:58 37.3 C 65 18 134/81 94 03/03/24 06:00 37.3 C 74 17 03/03/24 04:00 141/75 H 03/03/24 04:00 141/75 H 03/03/24 04:00 37.4 C 71 15 95 O2 Del Method O2 Flow Rate 03/03/24 12:00 Nasal Cannula 3 03/03/24 07:30 Nasal Cannula 4 03/03/24 06:58 Nasal Cannula 4 03/03/24 06:00 03/03/24 04:00 03/03/24 04:00 03/03/24 04:00 Laboratory Results Short CBC 03/03/24 Range/Units 04:23 WBC 9.17 (4.8-10.8) K/ul Hgb 8.7 L (14.0-18.0) g/dl Hct 26.3 L (42.0-52.0) % Plt Count 267 (130-400) K/uL BMP 03/03/24 04:23 Sodium 140 Potassium 2.9 L Chloride 107 Carbon Dioxide 27 BUN 29 H Creatinine 1.09 Glucose 151 H Calcium 7.9 L
[2024-03-03] MEDS: METOPROLOL SUCC 25MG EXT REL TAB PO SCH (21:12)
[2024-03-03] MEDS: POTASSIUM CHLORIDE PWD 20 MEQ PACK PO SCH (21:14)
[2024-03-04 05:12] LABS: Hematocrit (blood only) 27.9 % (42.0-52.0); Hemoglobin 9.2 g/dl (14.0-18.0); Mean Corpuscular Volume 85.1 fL (80.0-100.0); Mean Platelet Volume 10.2 fL (9.4-12.4); Platelet Count 297 K/uL (130-400); RDW Coefficient of Variation 14.3 % (11.5-14.5); RDW Standard Deviation 44.4 fL (36.4-46.3); Red Blood Count 3.28 M/uL (4.70-6.10); White Blood Count 9.71 K/ul (4.8-10.8)
[2024-03-04 05:23] LABS: BUN Creatinine Ratio 21.6 (10-20); Calcium 7.9 mg/dl (8.6-10.3); Creatinine Clr Calc Pharmacy 68.9 ml/min; Magnesium 1.7 mg/dl (1.7-2.4)
[2024-03-04] MEDS ORDERED: METOPROLOL TARTRATE 25 MG TAB PO SCH (09:00)
--- NOTE | 2024-03-04 10:47 | Fluoroscopy Report ---
FL video swallow CLINICAL HISTORY: 78 years-old Male with assess for aspiration. Dysphagia with clinical concern for aspiration TECHNIQUE: Video fluoroscopic evaluation of swallowing was performed in the AP and lateral projection s by the speech pathology staff. The patient is fed varying consistencies of barium. FLUOROSCOPY TIME: 2398 images. 1.34 minutes of fluoroscopy time. 14.6 mGy COMPARISON STUDY: Chest CT 02/27/2024 FINDINGS: There is decreased hyoid excursion and epiglottic deflection. Aspiration with thin liquid b arium. No additional significant laryngeal penetration or aspiration with remaining consistencies. IMPRESSION: 1. Aspiration with thin liquid barium. 2. Please see the speech pathologist report for detailed findings and recommendations. ACT 112: Negative or not required by law. Electronically signed by: Mejia Galeana M.D. 03/04/2024 10:44 AM
[2024-03-04] MEDS: HYDROCORTISONE SOD 50 MG in SYRINGE 0 ML IV SCH (11:55)
[2024-03-04] MEDS: POTASSIUM CHLORIDE CRTAB 20 MEQ TABCR PO SCH (12:24)
--- NOTE | 2024-03-04 13:42 | Hospitalist Progress Note ---
Date of Service March 04, 2024 Assessment & Plan (1) Complication of Henderson catheter: (2) Vascular dementia: (3) Ambulatory dysfunction: (4) Benign prostatic hyperplasia with urinary obstruction: (5) UTI (urinary tract infection): Plan Patient is a 78-year-old male with a past medical history of aortic stenosis s/p AVR, mitral stenosis, HLD, DM2, chronic anemia, chronic indwelling Foleyplaced about 6 weeks ago, urinary retention, dementia who presents to the ED on 02/19/2024 after his called EMS for concerns of Henderson catheter not draining and dark-colored urine with possible hematuria. Patient with repeat UA clear. Urology consulted and agree for void trial. Patient with henderson removed 02/22--failed voiding trial. Septic shock Multifocal pneumonia likely secondary to aspiration Complicated urinary tract infection Patient presented to the hospital due to hematuria. He was awaiting placement after resolution of hematuria. Patient had code purple on 02/26 due to hypotension; was transferred to ICU for septic shock likely secondary to multifocal pneumonia/complicated UTI. Patient was treated with IV antibiotics, mechanical ventilation, vasopressor and a stress dose steroid during the ICU. Patient also was found to have ST elevation in EKG with negative troponin; underwent cardiac cath; showed normal coronaries. Patient was transferred to floors on 03/01 -- Blood cultures /: Coagulase-negative staph not Lugdunesis likely contaminated sample --Urine culture grew Klebsiella --Sputum culture : Normal taylor On Rocephin--plan to complete 7-day course of antibiotics PT/OT eval Plan to discharge to rehab facility as able Acute kidney injury likely ATN- Resolved Monitor renal function Avoid nephrotoxic agents as able Hypokalemia Replete electrolytes as needed Monitor Abnormal EKG Troponin negative --S/P Cardiac Cath:Essentially normal epicardial coronary arteries with no more than very mild lesions as described. No acute thrombotic lesion suggestive of ACS Monitor --ECHO: EF 55 to 60%. No regional wall motion abnormality. Right ventricle is borderline dilated. Bioprosthetic arctic valve. Gradient is normal further prosthetic valve. Moderate to severe mitral annular calcification, mild mitral stenosis BPH with urinary retention/obstruction Chronic indwelling Henderson catheter Exchanged on 02/19/2024 Resume tamsulosin/finasteride as able Generalized weakness Ambulatory dysfunction Plan to discharge to SNF as able HTN/HLD Was on amlodipine, indapamide, lisinopril Resume metoprolol at reduced dose Continue statin Monitor blood pressure closely Adjust medications as needed DM II Hold home meds SSI while in-patient BSG AC HS DVT Px: Lovenox SQ CODE STATUS Full code Disposition Rehab as able Time spent evaluating patient, direct bedside care, chart review, placing orders, interpretation of diagnostic studies, discussion with patient, as well as other required patient management activities is 50 minutes Please note the above document was generated using voice recognition software. It may contain grammatical, syntax or spelling errors. Any formal questions or concerns about the content, text or information contained within the body of this dictation should be directly addressed to the provider for clarification Admission and Anticipated Discharge Date Admission Date: February 19, 2024 Subjective Patient seen and examined at bedside. Comfortable; not in distress. Denies fever, chills, chest pain, shortness of breath, abdominal pain or urinary symptoms. Review of Systems Review of Systems: All systems reviewed & are unremarkable except as noted in Subjective Physical Exam Physical Exam: Physical Exam: Vitals signs as noted above General Appearance:Obese, no apparent distress Head: normocephalic, Atraumatic Eyes: normal inspection, EOMI Neck: supple, Trachea midline Respiratory/Chest: Decreased breath sounds, clear to auscultation, No accessory muscle use Cardiovascular: S1, S2, No murmur Abdomen/GI:Soft, Non tender, Bowel sounds present :+Henderson Extremities/Musculoskeletal:normal inspection, no edema Neurologic/Psych: Alert, awake, oriented, grossly no focal deficits Skin: normal color, warm Results & Data Results & Data Vital Signs (Past 12 Hours) Vital Signs Temp Pulse Resp BP Pulse Ox 03/04/24 12:12 37.7 C H 107 H 23 03/04/24 12:01 137/91 03/04/24 12:01 137/91 03/04/24 11:57 37.6 C H 98 H 22 03/04/24 10:24 37.5 C 82 27 H 03/04/24 09:11 178/81 H 03/04/24 09:11 178/81 H 03/04/24 09:09 173/92 H 03/04/24 09:06 37.5 C 88 23 95 03/04/24 08:06 37.4 C 92 H 21 95 03/04/24 08:01 179/96 H 03/04/24 08:01 179/96 H 03/04/24 07:57 37.4 C 78 20 95 03/04/24 06:03 37.4 C 75 19 94 03/04/24 04:09 37.3 C 60 21 100 03/04/24 02:15 37.1 C 73 19 90
[2024-03-05 07:23] LABS: Basophils # (auto) 0.02 K/uL (0.00-0.20); Basophils % (auto) 0.2 %; Eosinophils # (auto) 0.48 K/uL (0.00-0.50); Hemoglobin 9.5 g/dl (14.0-18.0); Immature Granulocytes # (auto) 0.08 K/uL (0.01-0.20); Immature Granulocytes % (auto) 0.8 %; Lymphocytes # (auto) 1.12 K/uL (1.20-3.40); Lymphocytes % (auto) 11.8 %; Mean Corpuscular Hemoglobin 28.1 pg (25.0-34.0); Mean Corpuscular Hgb Conc 32.8 g/dL (32.0-36.0); Mean Corpuscular Volume 85.8 fL (80.0-100.0); Monocytes # (auto) 0.82 K/uL (0.11-0.59); Monocytes % (auto) 8.6 %; Neutrophils # (auto) 6.99 K/uL (1.40-6.50); Neutrophils % (auto) 73.6 %; Platelet Count 361 K/uL (130-400); RDW Coefficient of Variation 14.6 % (11.5-14.5); RDW Standard Deviation 44.9 fL (36.4-46.3); Red Blood Count 3.38 M/uL (4.70-6.10); White Blood Count 9.51 K/ul (4.8-10.8)
[2024-03-05 07:48] LABS: BUN Creatinine Ratio 15.9 (10-20); Calcium 8.1 mg/dl (8.6-10.3); Creatinine Clr Calc Pharmacy 75.9 ml/min; Potassium 3.6 mmol/L (3.5-5.1)
--- NOTE | 2024-03-05 14:38 | Hospitalist Progress Note ---
Date of Service March 05, 2024 Assessment & Plan (1) Complication of Henderson catheter: (2) Vascular dementia: (3) Ambulatory dysfunction: (4) Benign prostatic hyperplasia with urinary obstruction: (5) UTI (urinary tract infection): Plan Patient is a 78-year-old male with a past medical history of aortic stenosis s/p AVR, mitral stenosis, HLD, DM2, chronic anemia, chronic indwelling Foleyplaced about 6 weeks ago, urinary retention, dementia who presents to the ED on 02/19/2024 after his called EMS for concerns of Henderson catheter not draining and dark-colored urine with possible hematuria. Patient with repeat UA clear. Urology consulted and agree for void trial. Patient with henderson removed 02/22--failed voiding trial. Septic shock Multifocal pneumonia likely secondary to aspiration Complicated urinary tract infection Patient presented to the hospital due to hematuria. He was awaiting placement after resolution of hematuria. Patient had code purple on 02/26 due to hypotension; was transferred to ICU for septic shock likely secondary to multifocal pneumonia/complicated UTI. Patient was treated with IV antibiotics, mechanical ventilation, vasopressor and a stress dose steroid during the ICU. Patient also was found to have ST elevation in EKG with negative troponin; underwent cardiac cath; showed normal coronaries. Patient was transferred to floors on 03/01 -- Blood cultures /: Coagulase-negative staph not Lugdunesis likely contaminated sample --Urine culture grew Klebsiella --Sputum culture : Normal taylor On Rocephin--plan to complete 7-day course of antibiotics PT/OT eval Plan to discharge to rehab facility as able Acute kidney injury likely ATN- Resolved Monitor renal function Avoid nephrotoxic agents as able Hypokalemia Replete electrolytes as needed Monitor Abnormal EKG Troponin negative --S/P Cardiac Cath:Essentially normal epicardial coronary arteries with no more than very mild lesions as described. No acute thrombotic lesion suggestive of ACS Monitor --ECHO: EF 55 to 60%. No regional wall motion abnormality. Right ventricle is borderline dilated. Bioprosthetic arctic valve. Gradient is normal further prosthetic valve. Moderate to severe mitral annular calcification, mild mitral stenosis BPH with urinary retention/obstruction Chronic indwelling Henderson catheter Exchanged on 02/19/2024 Resume tamsulosin/finasteride as able Generalized weakness Ambulatory dysfunction Plan to discharge to SNF as able HTN/HLD Was on amlodipine, indapamide, lisinopril Resume metoprolol at reduced dose Continue statin Restarted on amlodipine and indapamide DM II Hold home meds SSI while in-patient BSG AC HS DVT Px: Lovenox SQ CODE STATUS Full code Disposition Rehab as able Please note the above document was generated using voice recognition software. It may contain grammatical, syntax or spelling errors. Any formal questions or concerns about the content, text or information contained within the body of this dictation should be directly addressed to the provider for clarification Admission and Anticipated Discharge Date Admission Date: February 19, 2024 Subjective Patient seen and examined at bedside. Comfortable; not in distress. Denies fever, chills, chest pain, shortness of breath, abdominal pain or urinary symptoms. No significant overnight events Review of Systems Review of Systems: All systems reviewed & are unremarkable except as noted in Subjective Physical Exam Physical Exam: Physical Exam: Vitals signs as noted above General Appearance:AO X 3, comfortable Respiratory/Chest: Decreased breath sounds, clear to auscultation, No accessory muscle use Cardiovascular: S1, S2, No murmur Abdomen/GI:Soft, Non tender, Bowel sounds present :+Ehnderson Extremities/Musculoskeletal:normal inspection, no edema Neurologic/Psych: Alert, awake, oriented, grossly no focal deficits Skin: normal color, warm Results & Data Results & Data Vital Signs (Past 12 Hours) Vital Signs Temp Pulse Pulse Resp BP BP Pulse Ox 03/05/24 11:47 37.0 C 82 20 172/78 H 96 03/05/24 08:06 36.9 C 68 18 178/91 H 95 03/05/24 07:27 75 03/05/24 03:21 36.9 C 74 18 179/92 H 94 O2 Del Method 03/05/24 11:47 Room Air 03/05/24 08:06 Room Air 03/05/24 07:27 03/05/24 03:21 Room Air
[2024-03-05] MEDS: lisinopril 20 MG TAB PO SCH (15:25)
[2024-03-05] MEDS: amLODIPine BESYLATE 5 MG TAB PO SCH (15:25)
[2024-03-06 07:34] VITALS: BP 166/87; RESP 18; TEMP 98.4; O2SAT 94
[2024-03-06 08:01] LABS: BUN Creatinine Ratio 14.1 (10-20); Calcium 8.3 mg/dl (8.6-10.3); Creatinine Clr Calc Pharmacy 72.6 ml/min; Magnesium 1.8 mg/dl (1.7-2.4); Potassium 4.2 mmol/L (3.5-5.1)
[2024-03-06 12:01] VITALS: PULSE 81
--- NOTE | 2024-03-06 15:35 | Discharge Summary ---
Date of Service March 06, 2024 Admission HPI Per Admitting Provider The patient is a 78-year-old male with a past medical history of aortic stenosis s/p AVR, mitral stenosis, HLD, DM2, chronic anemia, chronic indwelling Foleyplaced about 6 weeks ago, urinary retention, dementia who presents to the ED on 02/19/2024 after his called EMS for concerns of Henderson catheter not draining and dark-colored urine with possible hematuria. Patient's also reports that the patient was recently discharged from the hospital last month he was sent to a rehab facility and has since returned home and has continued to become weaker and go downhill. She is unable to care for him and believes he needs a half-way facility on discharge. His indwelling Henderson catheter was swapped out in the ER and is now draining clear yellow urine. The home care nurse noticed about 4 days ago that the patient's urine was darker and the patient was started on nitrofurantoin by an outpatient provider. No urine culture was sent at that time. Urine culture ordered and pending at this time. Will continue nitrofurantoin for another 3 days to complete a week of treatment. On exam, the patient denies any complaints and reports that his lower abdominal pain feels better since the catheter was switched out. He denies any recent fever/chills/chest pain/shortness of breath/abdominal pain. On arrival to the ED, his labs are fairly unremarkable with no leukocytosis, hemoglobin 11.6, potassium 3.4, glucose 119 Procalcitonin was negative The patient will be admitted for further management of ambulatory dysfunction and for possible case management placement Admission Exam Per Admitting Provider Constitutional: WD/WN, vitals as above Eyes: PERRL, conjunctivae normal, anicteric sclerae ENMT: external ear and nose normal, oropharynx normal Neck: trachea midline, no thyromegaly Respiratory: normal respiratory effort, lungs clear to auscultation Cardiovascular: RRR, no murmur, no edema Gastrointestinal (Abdomen): normal bowel sounds, soft, nontender, no hepatosplenomegaly Musculoskeletal: no cyanosis or clubbing, extremities motor strength 5/5 Skin: no rashes, warm and dry Neurologic: PERRL, EOMI, accommodation nl, no face palsy, no dysarthria (Awake alert and oriented x 3, forgetful) Psychiatric: A+Ox3, euthymic affect Principal Diagnosis Septic shock Multifocal pneumonia likely secondary to aspiration Complicated urinary tract infection Discharge Exam Physical Exam: Vitals signs as noted above General Appearance:AO X 3, comfortable Respiratory/Chest: Decreased breath sounds, clear to auscultation, No accessory muscle use Cardiovascular: S1, S2, No murmur Abdomen/GI:Soft, Non tender, Bowel sounds present :+Henderson Extremities/Musculoskeletal:normal inspection, no edema Neurologic/Psych: Alert, awake, oriented, grossly no focal deficits Skin: normal color, warm Discharge Data Allergies Allergy/AdvReac Type Severity Reaction Status Date / Time No Known Allergies Allergy Verified 02/19/24 16:12 Consultations 02/19/24 16:32 ED Decision to Admit Stat 02/23/24 08:35 Consult Urology Routine 02/27/24 19:54 Consult Oil Expeller Operator Routine Procedures Performed Operation Date: 02/27/24 20:20 Actual Procedures p Cath, Coronaries ONLY (no LV) - Julio C Huggins MD, PhD s Placement Art Occlusive Device - Julio C Huggins MD, PhD Ordered Studies 02/27/24 20:20 CL Cath Imgs for PACS use only Stat 02/27/24 21:17 CT Abdomen and Pelvis [CT abd pelvis wo con] Stat CT chest diagnostic wo con Stat 03/04/24 09:30 FL video swallow Routine Hospital Course (1) Complication of Henderson catheter: (2) Vascular dementia: (3) Ambulatory dysfunction: (4) Benign prostatic hyperplasia with urinary obstruction: (5) UTI (urinary tract infection): Plan Patient is a 78-year-old male with a past medical history of aortic stenosis s/p AVR, mitral stenosis, HLD, DM2, chronic anemia, chronic indwelling Foleyplaced about 6 weeks ago, urinary retention, dementia who presents to the ED on 02/19/2024 after his called EMS for concerns of Henderson catheter not draining and dark-colored urine with possible hematuria. Patient with repeat UA clear. Urology consulted and agree for void trial. Sejal ent with henderson removed 02/22--failed voiding trial. Septic shock Multifocal pneumonia likely secondary to aspiration Complicated urinary tract infection Patient presented to the hospital due to hematuria. He was awaiting placement after resolution of hematuria. Patient had code purple on 02/26 due to hypotension; was transferred to ICU for septic shock likely secondary to multifocal pneumonia/complicated UTI. Patient was treated with IV antibiotics, mechanical ventilation, vasopressor and a stress dose steroid during the ICU. Patient also was found to have ST elevation in EKG with negative troponin; underwent cardiac cath; showed normal coronaries. Patient was transferred to floors on 03/01 -- Blood cultures 05/14: Coagulase-negative staph not Lugdunesis likely contaminated sample --Urine culture grew Klebsiella --Sputum culture : Normal taylor Patient was treated with IV antibiotic during the hospitalization. He completed 7 days of Rocephin. At discharge, he was placed on oral antibiotic to complete the course Instructions were given to rehab regarding exchange of the Henderson catheter Please note the above document was generated using voice recognition software. It may contain grammatical, syntax or spelling errors. Any formal questions or concerns about the content, text or information contained within the body of this dictation should be directly addressed to the provider for clarification Total Time Total Time Spent Total Time Spent (In Minutes): 45 Total Time Includes: Examination of the Patient, Discharge Planning, Medication Reconciliation, Communication With Other Providers and Other Discharge Plan Discharge Items Patient Disposition: Home - Self-Care Reason For Visit: HEMATURIA-UTI Discharge Diagnosis: Septic shock Multifocal pneumonia likely secondary to aspiration Complicated urinary tract infection Condition on Discharge: Good Activity: Resume your previous activity Non-emergency contact: Primary Care Provider Call non-emergency contact if: you have any medication questions and your symptoms worsen Follow-up/Referrals: Karuna Parkinson MD [Primary Care Provider] - Diet: Regular Addtl Attending Provider Instructions: You were admitted to the hospital with UTI. YOu are prescribed antioitics for 3 more days. Your Henderson catheter was changed on 02/19/2024. Please exchanged it every 4 weeks. Next change is on March. Pending Studies at Discharge: No Stand-Alone Forms: [employer], Smoking Cessation Medications and DC Order Prescriptions: New lisinopril 20 mg Tablet 20 mg PO QAM Qty: 30 0RF magnesium chloride [Mag 64] 64 mg Tablet,Delayed Release (Dr/Ec) 64 mg PO BID Qty: 60 0RF amoxicillin-pot clavulanate 875-125 mg tablet 1 tab PO BID 3 Days Qty: 6 0RF Continued acetaminophen 325 mg Tablet 650 mg PO QID PRN (Reason: fever or pain) Qty: 90 0RF atorvastatin 10 mg Tablet 10 mg PO QAM Qty: 30 0RF finasteride 5 mg tablet 5 mg PO DAILY Qty: 90 3RF [id number] Tablet 1 tab PO DAILY Qty: 30 0RF Januvia 100 mg Tablet 100 mg PO QAM Qty: 30 0RF cyanocobalamin (vitamin B-12) 1,000 mcg Tablet 1,000 mcg PO DAILY metformin 500 mg Tablet Extended Release 24 Hr 500 mg PO DAILY indapamide 2.5 mg Tablet 2.5 mg PO QAM Qty: 30 0RF amlodipine 5 mg Tablet 5 mg PO QAM Qty: 30 0RF potassium chloride 20 mEq tablet,ER particles/crystals 20 meq PO BID Qty: 60 0RF metoprolol succinate 25 mg Tablet Extended Release 24 Hr 25 mg PO BID Qty: 60 0RF fluticasone propionate 50 mcg/actuation spray,suspension 1 spray INTRANASAL DAILY Qty: 16 0RF Changed tamsulosin 0.4 mg capsule 0.4 mg PO DAILY Qty: 60 1RF Rx Instructions: 0.8 mg orally; Discontinued lisinopril 40 mg Tablet 40 mg PO QAM Qty: 30 0RF Discharge Orders: Discharge Order (Routine); Ordered 03/06/24 Ordered By: Jeremy Del Castillo/Other Patient Handouts: Managing Type 2 Diabetes Admission Data Admit Date/Time: 02/19/24 16:35 Attending Provider: Jeremy Chiarez Admit Provider: Celso Gould Primary Care Provider: Karuna Parkinson Other Providers: [facility]; Celso Gould; Honorio Hickey; Dylon Dennison; Johnnie Sheridan; Fam Lemons; Marvin Sun; Marek Roman; Emmanuel Street; Aquiles Palomino; Evangelina Quiñonez; Mary Jimenez; Naveed Lr; Blaine Carbajal; Margarita Ansari; Tony Dejesus at [place] Other Interventions: Discharge Summary Assessment (RN) Last Done: 03/06/24 12:00
== END 2024-03-06 12:01 | DRG 698 ==
LOC: ED 10:52 → SUATTDRO 16:35 → 3N 16:35 → 1E 02-27 19:51 → 2S 03-04 18:17
PROC: CLB.CCO (2024-02-27 20:20)

== ENCOUNTER 2025-01-31 08:48 | Inpatient (IN) ==
--- NOTE | 2025-01-31 08:52 | Emergency Department Note ---
Impression & Plan Acute hyperkalemia, CORDELIA (acute kidney injury), Complicated urinary tract infection, Acute dehydration ED Provider Note NAME: SPENCER GRIFFITH AGE: 79 SEX: M : 1945 ARRIVES VIA: Ambulance INFORMANT: Patient, ED PROVIDER(S): Omar Garcia MD CHIEF COMPLAINT: Coughing fit MEDICAL DECISION MAKING: Patient presents due to concern for coughing fit that occurred last evening of the patient does not remember. He does answer most questions appropriately but does have a history of dementia. No reported falls or trauma. Patient does have an indwelling Carter catheter review of most recent urine culture shows Klebsiella pneumonia that was essentially pansensitive. Blood cultures ordered along with sepsis protocols IV fluids and patient did have a bladder scan performed and the patient's Carter catheter was replaced as he seemed to have some overflow incontinence even with the catheter in place. The patient's blood work shows a normal white count hemoglobin of 10.2. Platelet count is unremarkable. The patient's kidney function with CORDELIA baseline creatinine of 1 did receive IV fluids. Potassium was 6.2. Bladder scan was performed no evidence of obvious retention. Patient though does have fragment of urine noted in the catheter bag. He Carter catheter was replaced. Patient's EKG does not show any acute concerning findings with regard to hyperkalemia. Patient did receive 10 of albuterol, 10 of insulin but only after receiving 2 A of D50 as the patient's sugar was in the 70s. Calcium is slightly elevated 11. Lactate is normal. Urinalysis does show signs of infection with nitrites leuks whites and bacteria. I did speak the on-call hospitalist service and the patient was admitted by Dr. Reyes. I also did iterate that there may be care concerns given the patient's bedbound state and the fact that he has skin breakdown. Patient may benefit from eventual placement. Currently residing at home. Critical Care: I have personally spent 43 minutes of critical care time in direct management of this patient. This includes bedside care, interpretation of diagnostic studies, and testing, discussion with consultants, patient, and family members, and other require inpatient management activities. This 43 minutes is in excess of all separately billable procedures. Discussion w/ other healthcare providers: Dr. Phan inpatient medicine service Prior /Outside records reviewed: none Differential diagnosis: Infection, dehydration, metabolic abnormality, hypo/hyperglycemia, electrolyte imbalance, anemia, UTI, pneumonia, thyroid dysfunction among others were considered. Diagnostics, as interpreted by me: ECG: None Cardiac monitoring: An order was placed for continuous cardiac monitoring. The monitor shows a rate of 79 with sinus rhythm. Patient was placed on pulse oximetry Medical decision rules: none Imaging studies: I informally interpreted the patient's chest x-ray does not show obvious pneumonia or pneumothorax with formal report to follow. HPI: Patient presents due to concern for a coughing fit that occurred during the middle of the night. He is presenting from home. The coughing fit was witnessed by his . He does not remember the event. Patient does have a reported history of dementia. He is essentially bedbound at baseline. No reported falls or trauma. He does have an indwelling Carter catheter. He does admit to some lower suprapubic discomfort as well as pain whenever his catheter is moved. Nursing did note the patient is excoriated in his groin. He has also had some overflow incontinence as his briefs was soaked although still having drainage into his catheter bag. Patient denies any head or neck pain no chest pain or shortness of breath. PAST MEDICAL HISTORY: See Below PAST SURGICAL HISTORY: See Below SOCIAL HISTORY: See Below HOME MEDICATIONS: See Below ALLERGIES: See Below VITALS: See Below PHYSICAL EXAMINATION: GENERAL: NAD, non-toxic. EYE EXAM: Normal conjunctiva. PERRL, no anisocoria and EOM's grossly intact w/o pain. OROPHARYNX: Moist mucus membranes, grossly normal dentition. NECK: Trachea midline, no stridor. LUNGS: Clear to auscultation. Normal chest wall mechanics. HEART: NSR, no MRG. ABDOMEN: Abdomen soft, non-tender, no masses, no rebound or guarding. BACK: No CVA TTP. : Circumcised, bilateral testes descended, no obvious scrotal swelling. Excoriation noted to the groin with blanching redness. No obvious fluctuance. No blistering. SKIN: Excoriation to the groin as noted above. Skin breakdown noted to the back. UPPER EXTREMITIES: Upper extremities are grossly normal. LOWER EXTREMITIES: Grossly normal, no edema. NEURO EXAM: Awake and alert, oriented to person and place. Follows commands, no obvious facial asymmetry, normal speech, moves all 4 extremities. Past Med/Surg History Problem List (Updated 01/31/25 @ 10:27 by Omar Garcia MD) Acute dehydration (Acute) Complicated urinary tract infection (Acute) CORDELIA (acute kidney injury) (Acute) Acute hyperkalemia (Acute) Adult failure to thrive (Acute) Complication of Carter catheter (Acute) Vascular dementia Subclinical hypothyroidism Demand ischemia of myocardium Physical deconditioning Ambulatory dysfunction Acute alteration in mental status (Acute) Weakness (Acute) Elevated troponin (Acute) 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 (Acute) Lower back pain Encounter for pre-operative examination Hematuria (Chronic) Diabetes (Chronic) Acute urinary retention (Acute) Acute urinary retention (Acute) Bilateral lower extremity edema (Acute) Medical History Septic shock Acute urinary retention POST OP ANESTHESIA-NEEDED TO BE CATHETERIZED Osteoarthritis BPH (benign prostatic hyperplasia) Diabetes mellitus, type 2 Peripheral neuropathy FEET Hyperlipidemia Hypertension Sleep apnea CPAP Surgical History H/O removal of cyst NECK-BENIGN S/P foot surgery, right HAMMERTOE X 3 PROCEDURES History of tonsillectomy History of appendectomy Previous back surgery DISC SURG S/P TURP GREENLIGHT LASER History of heart valve replacement AVR-12/2009 Family History Family/Other Family history of diabetes mellitus Social History Smoking Status: Unknown if ever smoked Second Hand Exposure: No; Do You Dip or Chew Tobacco: No; Hx Alcohol Use: No Hx Substance Use: No Preferred Language: [place] Communication Ability: Effective 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 Required: No Beliefs That Will Affect Care: Lutheran Current Living Situation: Spouse Feels Safe at Home: Yes Assistive Devices: Hospital Bed Allergies Allergies Allergy/AdvReac Type Severity Reaction Status Date / Time dog dander Allergy Unknown ON Verified 09/16/24 01:18 [employer] MED LIST Home Meds Home Medications Medication Instructions Recorded Confirmed cyanocobalamin (vitamin B-12) 1,000 mcg PO DAILY 02/19/24 09/16/24 1,000 mcg tablet metformin 500 mg tablet,extended 2,000 mg PO DAILY 02/19/24 09/16/24 release 24 hr ferrous sulfate 325 mg (65 mg 325 mg PO BID 04/27/24 09/16/24 iron) tablet acetaminophen 325 mg tablet 650 mg PO TID 09/16/24 09/16/24 amoxicillin 500 mg capsule 2,000 mg PO DIRECTED PRN 1 HR 09/16/24 09/16/24 PRIOR TO DENTAL PROCEDURES cholecalciferol (vitamin D3) 25 25 mcg PO DAILY 09/16/24 09/16/24 mcg (1,000 unit) capsule (Vitamin D3) diclofenac sodium 1 % topical gel 2 g topical QID 09/16/24 09/16/24 duloxetine 30 mg capsule,delayed 30 mg PO QPM 09/16/24 09/16/24 release duloxetine 60 mg capsule,delayed 60 mg PO QAM 09/16/24 09/16/24 release fluticasone propionate 50 1 spray intranasal DAILY PRN 09/16/24 09/16/24 mcg/actuation nasal Congestion spray,suspension lidocaine HCl 2 % mucosal jelly 1 applic intra-urethral Q4H PRN 09/16/24 09/16/24 URETHRAL PAIN metoprolol succinate 25 mg 25 mg PO DAILY 09/16/24 09/16/24 tablet,extended release 24 hr vaxogkgwbxdp-tlheyutk-ugzpis tablet 1 tab PO DAILY 09/16/24 09/16/24 polyethylene glycol 3350 17 17 g PO DAILY 09/16/24 09/16/24 gram/dose oral powder (Miralax) tamsulosin 0.4 mg capsule 0.4 mg PO HS 09/16/24 09/16/24 Previous Rx's Medication Instructions Recorded atorvastatin 10 mg tablet 10 mg PO QAM #30 tabs 01/16/24 finasteride 5 mg tablet 5 mg PO DAILY #90 tabs 01/16/24 sitagliptin phosphate 100 mg 100 mg PO QAM #30 tabs 01/16/24 tablet (Januvia) amlodipine 5 mg tablet 5 mg PO QAM #30 tabs 03/06/24 indapamide 2.5 mg tablet 2.5 mg PO QAM #30 tabs 03/06/24 lisinopril 20 mg tablet 20 mg PO QAM #30 tabs 03/06/24 magnesium chloride 64 mg 64 mg PO BID #60 tabs 03/06/24 (magnesium chloride) tablet,delayed release (Mag 64) potassium chloride 20 mEq 20 meq PO BID #60 tabs 03/06/24 tablet,extended release(part/cryst) Results & Data (ED) Vital Signs Vital Signs - 24 hr 01/31/25 08:54 01/31/25 09:15 01/31/25 09:28 Temperature 36.7 C Temperature Source Oral Pulse Rate 69 65 64 Pulse Rhythm Regular Respiratory Rate 20 18 Respiratory Effort / Characteristics Non-Labored Spontaneous Respiratory Depth Normal Respiratory Pattern Regular Blood Pressure 114/71 114/61 Blood Pressure Mean 85 80 Blood Pressure Position Sitting Pulse Oximetry 98 Oxygen Delivery Method Room Air Sepsis Recent Fever Within 48 Hours No Sepsis New/Unexplained Change in Mental Status No Sepsis Action Taken by Nursing No Action Required 01/31/25 09:34 01/31/25 09:44 Temperature Temperature Source Pulse Rate 62 Pulse Rhythm Respiratory Rate 15 Respiratory Effort / Characteristics Respiratory Depth Respiratory Pattern Blood Pressure Blood Pressure Mean Blood Pressure Position Pulse Oximetry 98 96 Oxygen Delivery Method Room Air Sepsis Recent Fever Within 48 Hours Sepsis New/Unexplained Change in Mental Status Sepsis Action Taken by Prison Medications Current Medication List: was personally reviewed by me Laboratory Data Attestation: I reviewed the patient's lab results. 01/31/25 08:55 01/31/25 08:55 Lab Results 01/31/25 01/31/25 Range/Units 08:55 Unknown WBC 6.11 (4.8-10.8) K/ul RBC 3.42 L (4.70-6.10) M/uL Hgb 10.2 L (14.0-18.0) g/dl Hct 30.8 L (42.0-52.0) % MCV 90.1 (80.0-100.0) fL MCH 29.8 (25.0-34.0) pg MCHC 33.1 (32.0-36.0) g/dL RDW Std Deviation 47.8 H (36.4-46.3) fL RDW Coeff of Lianna 14.5 (11.5-14.5) % Plt Count 251 (130-400) K/uL MPV 10.1 (9.4-12.4) fL Immature Gran % (Auto) 0.3 % Neut % (Auto) 70.0 % Lymph % (Auto) 15.4 % [place] % (Auto) 8.5 % Eos % (Auto) 5.6 % Baso % (Auto) 0.2 % Neut # (Auto) 4.28 (1.40-6.50) K/uL Lymph # (Auto) 0.94 L (1.20-3.40) K/uL [place] # (Auto) 0.52 (0.11-0.59) K/uL Eos # (Auto) 0.34 (0.00-0.50) K/uL Baso # (Auto) 0.01 (0.00-0.20) K/uL Immature Gran # (Auto) 0.02 (0.01-0.20) K/uL Sodium 134 L (136-145) mmol/L Potassium 6.2 H* (3.5-5.1) mmol/L Chloride 105 (98-107) mmol/L Carbon Dioxide 23 (21-32) mmol/L Anion Gap 6 (3-11) BUN 52 H (6-23) mg/dl Creatinine 3.30 H (0.6-1.4) mg/dl Est Cr Clr Drug Dosing 16.8 ml/min eGFR 18.27 BUN/Creatinine Ratio 15.8 (10-20) Glucose 74 (70-99(Fasting)) mg/dl Lactate 1.1 (0.4-2.0) mmol/L Calcium 11.3 H (8.6-10.3) mg/dl Magnesium 2.1 (1.7-2.4) mg/dl Total Bilirubin 0.4 (0.2-1.0) mg/dl Direct Bilirubin 0.1 (0-0.2) mg/dl AST 17 (13-39) U/L ALT 9 (7-52) U/L Alkaline Phosphatase 89 (34-104) U/L Troponin I High Sens 12.1 (0-20) pg/ml Total Protein 6.7 (6.0-8.3) gm/dl Albumin 3.5 (3.4-5.0) gm/dl Procalcitonin 0.15 (0-0.5) ng/ml Urine Color Yellow Urine Appearance Turbid A (Clear) Urine pH 5.5 (4.5-7.5) Ur Specific [place] 1.012 (1.000-1.030) Urine Protein 2+ H (Negative) Urine Glucose (UA) Negative (Negative) Urine Ketones Negative (Negative) Urine Blood 2+ H (Negative) Urine Nitrite Positive A (Negative) Urine Bilirubin Negative (Negative) Urine Urobilinogen Negative (Negative) Ur Leukocyte Esterase 3+ H (Negative) Urine WBC (Auto) >50 H (0-5) /hpf Urine RBC (Auto) 11-20 H (0-2) /hpf U Hyaline Cast (Auto) 11-20 H (0-2) /lpf U Epithel Cells (Auto) 6-10 H (0-2) /hpf Urine Bacteria (Auto) 4+ H (None Seen) Urine Comment Administered Medications Sodium Chloride (Nss) 1,000 mls @ 999 mls/hr IV .Q1H1M LAZARUS Stop: 01/31/25 11:15 Last Admin: 01/31/25 10:17 Dose: 999 mls/hr Documented By: chito Infusion: 01/31/25 10:17 Dose: Infused Documented By: chito Admin: 01/31/25 09:43 Dose: 999 mls/hr Documented By: MNE Discontinued Medications Albuterol (Albuterol 0.5% Neb Soln 2.5 Mg/0.5 Ml Vial) 10 mg NEB NOW STA Stop: 01/31/25 09:54 Last Admin: 01/31/25 10:07 Dose: 10 mg Documented By: chito Dextrose (Dextrose 50% 50 Ml Syringe) 50 ml IV NOW STA Stop: 01/31/25 09:54 Last Admin: 01/31/25 10:12 Dose: 50 ml Documented By: chito Dextrose (Dextrose 50% 50 Ml Syringe) 50 ml IV NOW ONE Stop: 01/31/25 09:55 Last Admin: 01/31/25 10:25 Dose: 50 ml Documented By: chito Ceftriaxone Sodium (Rocephin) 2,000 mg in 50 mls @ 100 mls/hr IV NOW STA Stop: 01/31/25 09:42 Last Admin: 01/31/25 10:17 Dose: 100 mls/hr Documented By: chito Calcium Gluconate () 1,000 mg in 60 mls @ 240 mls/hr IV NOW STA Stop: 01/31/25 10:07 Last Infusion: 01/31/25 10:24 Dose: Infused Documented By: chito Admin: 01/31/25 10:04 Dose: 240 mls/hr Documented By: chito Insulin Human Regular 10 units (/ Syringe) 9.9 mls @ 3 mls/sec IV ONE STA Stop: 01/31/25 09:54 Last Admin: 01/31/25 10:20 Dose: Not Given Documented By: chito Insulin Human Regular (Novolin-R Insulin Per Unit Charge) Confirm Administered Dose 10 units .ROUTE .STK-MED ONE Stop: 01/31/25 10:01 Last Admin: 01/31/25 10:17 Dose: 10 units Documented By: chito Co-signed By: MARLON Imaging Data Radiologist's Impression: Chest X-Ray 01/31/25 09:13 HISTORY: Sepsis TECHNIQUE: Portable AP radiograph of the chest. COMPARISON: Chest radiograph dated 03/03/2024. FINDINGS: Evaluation is limited by rotation. No focal lung consolidation. No pneumothorax or pleural effusion. Normal heart size. Postsurgical changes of median sternotomy and cardiac valve replacement. Mediastinal contours are poorly evaluated due to rotation. Degenerative changes of the shoulders and spine. IMPRESSION: * No acute cardiopulmonary findings. * Postsurgical changes of median sternotomy and cardiac valve replacement. Electronically signed by Blaine Saavedra 01-31-2025 10:09 AM Discharge Plan Visit Data Chief Complaint: Illness ED Provider: Omar Garcia Discharge Problem: Acute hyperkalemia, CORDELIA (acute kidney injury), Complicated urinary tract infection, Acute dehydration Patient Disposition: Admitted As Inpatient Condition: Fair Forms Stand Alone Forms: [facility] Prescriptions Prescriptions: No Action ferrous sulfate 325 mg (65 mg iron) tablet 325 mg PO BID atorvastatin 10 mg Tablet 10 mg PO QAM Qty: 30 0RF finasteride 5 mg tablet 5 mg PO DAILY Qty: 90 3RF Januvia 100 mg Tablet 100 mg PO QAM Qty: 30 0RF amoxicillin 500 mg Capsule 2,000 mg PO DIRECTED PRN (Reason: 1 HR PRIOR TO DENTAL PROCEDURES) lidocaine HCl 2 % Jelly 1 applic intra-urethral Q4H PRN (Reason: URETHRAL PAIN) polyethylene glycol 3350 [Miralax] 17 gram/dose Powder 17 g PO DAILY cholecalciferol (vitamin D3) [Vitamin D3] 25 mcg (1,000 unit) Capsule 25 mcg PO DAILY Centrum Silver Tablet 1 tab PO DAILY duloxetine 30 mg capsule,delayed release(DR/EC) 30 mg PO QPM Rx Instructions: TAKE Q AFTERNOON duloxetine 60 mg capsule,delayed release(DR/EC) 60 mg PO QAM diclofenac sodium [Voltaren] 1 % Gel 2 g TOPICAL QID Rx Instructions: APPLY TO LEFT SHOULDER acetaminophen 325 mg tablet 650 mg PO TID tamsulosin 0.4 mg capsule 0.4 mg PO HS metoprolol succinate 25 mg tablet extended release 24 hr 25 mg PO DAILY fluticasone propionate 50 mcg/actuation spray,suspension 1 spray INTRANASAL DAILY PRN (Reason: Congestion) cyanocobalamin (vitamin B-12) 1,000 mcg Tablet 1,000 mcg PO DAILY metformin 500 mg Tablet Extended Release 24 Hr 2,000 mg PO DAILY lisinopril 20 mg Tablet 20 mg PO QAM Qty: 30 0RF magnesium chloride [Mag 64] 64 mg Tablet,Delayed Release (Dr/Ec) 64 mg PO BID Qty: 60 0RF indapamide 2.5 mg Tablet 2.5 mg PO QAM Qty: 30 0RF amlodipine 5 mg Tablet 5 mg PO QAM Qty: 30 0RF potassium chloride 20 mEq tablet,ER particles/crystals 20 meq PO BID Qty: 60 0RF Referrals Referrals: Karuna Parkinson MD [Primary Care Provider] -
[2025-01-31 09:24] LABS: Hematocrit (blood only) 30.8 % (42.0-52.0); Hemoglobin 10.2 g/dl (14.0-18.0); Immature Granulocytes # (auto) 0.02 K/uL (0.01-0.20); Immature Granulocytes % (auto) 0.3 %; Mean Corpuscular Hemoglobin 29.8 pg (25.0-34.0); Mean Corpuscular Volume 90.1 fL (80.0-100.0); Platelet Count 251 K/uL (130-400); RDW Standard Deviation 47.8 fL (36.4-46.3); Red Blood Count 3.42 M/uL (4.70-6.10); White Blood Count 6.11 K/ul (4.8-10.8)
[2025-01-31] MEDS: SODIUM CHLORIDE 0.9% 1,000 ML IV SCH (09:43)
[2025-01-31 09:45] LABS: Alanine Aminotransferase 9.0 U/L (7-52); Albumin Level 3.5 gm/dl (3.4-5.0); Alkaline Phosphatase 89.0 U/L (34-104); Anion Gap 6.0 (3-11); Bilirubin,Total 0.4 mg/dl (0.2-1.0); Blood Urea Nitrogen 52.0 mg/dl (6-23); Calcium 11.3 mg/dl (8.6-10.3); Carbon Dioxide 23.0 mmol/L (21-32); Chloride 105.0 mmol/L (98-107); Creatinine Clr Calc Pharmacy 16.8 ml/min; Glucose 74.0 mg/dl (70-99(Fasting)); Magnesium 2.1 mg/dl (1.7-2.4); Potassium 6.2 mmol/L (3.5-5.1); Sodium 134.0 mmol/L (136-145); Total Protein 6.7 gm/dl (6.0-8.3)
[2025-01-31] MEDS: CALCIUM GLUCONATE 1,000 MG/60 ML BAG IV STA (10:04)
[2025-01-31] MEDS: ALBUTEROL 0.5% NEB SOLN 2.5 MG/0.5 ML VIAL NEB STA (10:07)
--- NOTE | 2025-01-31 10:09 | XRay Report ---
HISTORY: Sepsis TECHNIQUE: Portable AP radiograph of the chest. COMPARISON: Chest radiograph dated 03/03/2024. FINDINGS: Evaluation is limited by rotation. No focal lung consolidation. No pneumothorax or pleural effusion. Normal heart size. Postsurgical changes of median sternotomy and cardiac valve replacement. Mediastinal contours are poorly evaluated due to rotation. Degenerative changes of the shoulders and spine. IMPRESSION: * No acute cardiopulmonary findings. * Postsurgical changes of median sternotomy and cardiac valve replacement. Electronically signed by Blaine Saavedra 01-31-2025 10:09 AM
[2025-01-31] MEDS: DEXTROSE 50% 50 ML SYRINGE IV STA (10:12)
[2025-01-31] MEDS: cefTRIAXone SODIUM 2,000 MG/50 ML BAG IV STA (10:17)
[2025-01-31] MEDS: NovoLIN-R INSULIN PER UNIT CHARGE ONE (10:17)
[2025-01-31] MEDS: INSULIN HUMAN REGULAR PER UNIT 10 UNITS in SYRINGE 9.9 ML IV STA (10:20)
[2025-01-31 10:22] LABS: Appearance Urine Turbid (Clear); Bacteria Urine Automated 4+ (None Seen); Glucose Urine UA Negative (Negative); WBC Urine Automated >50 /hpf (0-5)
[2025-01-31] MEDS: DEXTROSE 50% 50 ML SYRINGE IV ONE (10:25)
[2025-01-31 10:41] LABS: Chlamydia pneumoniae PCR Not Detected (NotDetected); Coronavirus 229E PCR Not Detected (NotDetected); Coronavirus CoV-2 (COVID19)PCR Not Detected (NotDetected); Coronavirus HKU1 PCR Not Detected (NotDetected); Coronavirus NL63 PCR Not Detected (NotDetected); Coronavirus OC43PCR Not Detected (NotDetected); Human Metapneumovirus PCR Not Detected (NotDetected); Parainfluenza Virus 1 PCR Not Detected (NotDetected); Parainfluenza Virus 2 PCR Not Detected (NotDetected); Parainfluenza Virus 3 PCR Not Detected (NotDetected); Parainfluenza Virus 4 PCR Not Detected (NotDetected); Respiratory Syncytial VirusPCR Not Detected (NotDetected); Rhinovirus/Enterovirus PCR Not Detected (NotDetected)
--- NOTE | 2025-01-31 10:43 | History & Physical Report ---
Date of Service January 31, 2025 Assessment & Plan (1) Sepsis: (2) Catheter-associated urinary tract infection: (3) CORDELIA (acute kidney injury): (4) Hyperkalemia: (5) Vascular dementia: (6) Diabetes: Plan 79 y/o man with chronic henderson related to SHOEMAKER from BPH, vascular dementia, DM2, CAD, CKD-3 who is admitted for sepsis causing acute organ dysfunction (CORDELIA) due to CAUTI, CORDELIA with hyperkalemia which is likely prerenal # Sepsis with acute organ dysfunction (CORDELIA) due to CAUTI, hypotension responsive to IV fluids # SHOEMAKER due to BPH chronic henderson since this spring -BP initially normal in ED then was low with borderline MAPs through midday. -ordered 3L IVF bolus appears to remain hypovolemic -IV antibiotics: cefepime and daptomycin, narrow as able based on urine culture and blood cultures -Lactate remains normal and good tissue perfusion, increasing UOP suggests adequate resuscitation, repeat lactate pending -hydrocortisone 100 mg IV x 1 -midodrine 10 mg tid -hold amlodipine, lisinopril, metoprolol, diuretic -currently PCU. discussed with revenue inspector - if above ineffective will transfer to ICU for pressors -this afternoon BP has improved but just got his 3rd fluid bolus # CORDELIA with hyperkalemia on CKD-3 - because of sepsis / prerenal -henderson changed out and 50 mL initially out. After IVF he's had about 250 mL UOP over 4-5h -got 2L IVF in ED and getting 3rd liter then start NS continuous -initial potassium 6.2 without EKG changes, got Ca gluconate, repeat K was 4.8. Recheck at 3:30 pm. Urinating so should resolve -Cr improved from 3.3 to 2.9 while in ED, continue monitor daily AM BMP -ordered renal ultrasound - no hydronephrosis/obstruction -low potassium diet -hold lisinopril, indapamide, potassium chloride # Hypercalcemia - 11.3 and iCa elevated. Normal in recent past so probably volume depletion or possibly it was drawn right after Ca gluconate push -IVF, recheck later # CAD, hx CABG # s/p AVR -02/2024 had coronary angiogram and TTE: "--S/P Cardiac Cath:Essentially normal epicardial coronary arteries with no more than very mild lesions as described. No acute thrombotic lesion suggestive of ACS --ECHO: EF 55 to 60%. No regional wall motion abnormality. Right ventricle is borderline dilated. Bioprosthetic arctic valve. Gradient is normal further prosthetic valve. Moderate to severe mitral annular calcification, mild mitral stenosis" -EKG with ST flattening but no ROSCOE or depression, troponin negative x2 in ED. No evidence of ACS -stat TTE done in ED because of hypotension -statin held because of daptomycin interaction, metoprolol held for hypotension, not on ASA DM type 2 -januvia held -got D50 in ED but IV insulin cancelled because hyperkalemia not that severe -DM diet and PRN premeal aspart VIKRAM - cont CPAP Vascular dementia, hx aspiration pneumonia -seems to be at baseline mental status Skin care concerns - exoriated on back and groin -WON consult Care coord eval - home care concerns, hx being in SNF rehab currently home with his Code status - full code in past, not here DVT ppx - SQ heparin q12h Mr. Montalvo is severely ill, borderline critically ill with high risk of worsening. Medically complex decision making was required for his care History of Present Illness Chief Complaint: coughing fit Primary Care Provider: Karuna Parkinson MD 79 y/o man with chronic henderson related to SHOEMAKER from BPH, vascular dementia, DM2, CAD, CKD-3 who had a severe coughing fit last night so his brought him to ED this morning. History is limited by significant dementia and his was at [facility] AM/midday so history is as per ED MD who did speak with [facility] early this am. In the ED there hasn't been any coughing or hypoxia and CXR is clear. He does have sepsis however and CORDELIA on labs so he is being admitted. He has been leaking urine around his henderson catheter and urine was cloudy with only 50 mL initially out with henderson change in ED. He has skin breakdown in groins and back. For me he's oriented to self and hospital but not to situation and short term memory is very poor. He denies all the ROS questions including SOB CP abd pain N/V/D and painful urination, however, he has obvious SP tenderness on physical exam. Allergies Allergy/AdvReac Type Severity Reaction Status Date / Time dog dander Allergy Unknown ON Verified 09/16/24 01:18 [facility] Home Medications Medication Instructions Recorded Confirmed Type atorvastatin 10 mg tablet 10 mg PO QAM #30 tabs 01/16/24 01/31/25 Rx finasteride 5 mg tablet 5 mg PO DAILY #90 tabs 01/16/24 01/31/25 Rx sitagliptin phosphate 100 mg 100 mg PO QAM #30 tabs 01/16/24 01/31/25 Rx tablet (Januvia) cyanocobalamin (vitamin B-12) 1,000 mcg PO QAM 02/19/24 01/31/25 History 1,000 mcg tablet metformin 500 mg tablet,extended 2,000 mg PO QAM 02/19/24 01/31/25 History release 24 hr amlodipine 5 mg tablet 5 mg PO QAM #30 tabs 03/06/24 01/31/25 Rx indapamide 2.5 mg tablet 2.5 mg PO QAM #30 tabs 03/06/24 01/31/25 Rx ferrous sulfate 325 mg (65 mg 325 mg PO BID 04/27/24 01/31/25 History iron) tablet acetaminophen 325 mg tablet 650 mg PO TID 09/16/24 01/31/25 History amoxicillin 500 mg capsule 2,000 mg PO DIRECTED PRN 1 HR 09/16/24 01/31/25 History PRIOR TO DENTAL PROCEDURES cholecalciferol (vitamin D3) 25 25 mcg PO QAM 09/16/24 01/31/25 History mcg (1,000 unit) capsule (Vitamin D3) diclofenac sodium 1 % topical gel 2 g topical QID 09/16/24 01/31/25 History duloxetine 30 mg capsule,delayed 30 mg PO QAM 09/16/24 01/31/25 History release duloxetine 60 mg capsule,delayed 60 mg PO QPM 09/16/24 01/31/25 History release fluticasone propionate 50 1 spray intranasal DAILY PRN 09/16/24 01/31/25 History mcg/actuation nasal Congestion spray,suspension lidocaine HCl 2 % mucosal jelly 1 applic intra-urethral Q4H PRN 09/16/24 01/31/25 History URETHRAL PAIN metoprolol succinate 25 mg 25 mg PO QAM 09/16/24 01/31/25 History tablet,extended release 24 hr [id number] tablet 1 tab PO QAM 09/16/24 01/31/25 History polyethylene glycol 3350 17 17 g PO QAM 09/16/24 01/31/25 History gram/dose oral powder (Miralax) tamsulosin 0.4 mg capsule 0.4 mg PO HS 09/16/24 01/31/25 History lisinopril 40 mg tablet 40 mg PO QAM 01/31/25 01/31/25 History magnesium chloride 64 mg 64 mg PO QAM 01/31/25 01/31/25 History (magnesium chloride) tablet,delayed release (Mag 64) potassium chloride 20 mEq 20 meq PO QAM 01/31/25 01/31/25 History tablet,extended release(part/cryst) (Klor-Con M) Past Med/Surg History Problem List (Updated 01/31/25 @ 15:13 by Erika Phan MD) CAD (coronary artery disease) Hyperkalemia Catheter-associated urinary tract infection Sepsis Acute dehydration (Acute) Complicated urinary tract infection (Acute) CORDELIA (acute kidney injury) (Acute) Acute hyperkalemia (Acute) Adult failure to thrive (Acute) Complication of Henderson catheter (Acute) Vascular dementia Subclinical hypothyroidism Demand ischemia of myocardium Physical deconditioning Ambulatory dysfunction Acute alteration in mental status (Acute) Weakness (Acute) Elevated troponin (Acute) 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 (Acute) Lower back pain Encounter for pre-operative examination Hematuria (Chronic) Diabetes (Chronic) Acute urinary retention (Acute) Acute urinary retention (Acute) Bilateral lower extremity edema (Acute) Medical History Septic shock Acute urinary retention POST OP ANESTHESIA-NEEDED TO BE CATHETERIZED Osteoarthritis BPH (benign prostatic hyperplasia) Diabetes mellitus, type 2 Peripheral neuropathy FEET Hyperlipidemia Hypertension Sleep apnea CPAP Surgical History H/O removal of cyst NECK-BENIGN S/P foot surgery, right HAMMERTOE X 3 PROCEDURES History of tonsillectomy History of appendectomy Previous back surgery DISC SURG S/P TURP GREENLIGHT LASER History of heart valve replacement AVR-12/2009 Family History Family/Other Family history of diabetes mellitus Social History Smoking Status: Unknown if ever smoked Second Hand Exposure: No; Do You Dip or Chew Tobacco: No; Hx Alcohol Use: No Hx Substance Use: No Preferred Language: Swiss Communication Ability: Effective Director Of Financial Aid Required: No Beliefs That Will Affect Care: Episcopal Current Living Situation: Spouse Feels Safe at Home: Yes Assistive Devices: Hospital Bed Review of Systems 2 Review of Systems: All systems reviewed & are unremarkable except as noted in HPI & below Constitutional: ROS extremely limited due to cognitive status and not reliable Physical Exam 2 Physical Exam: Last 24h vitals reviewed GEN: no acute distress, sitting in bed, getting bladder US HEENT: pupils equal, sclerae anicteric, moist MM RESP: normal WOB, CTAB CV: reg faint systolic M ABD: soft/nt/nd +BT : obvious TTP to suprapubic area, urine with greenish yellow cloudy urine. bilateral groin erythematous and excoriated SKIN: warm and dry, no generalized rashes NEURO: AOx person, hospital. Not oriented and no short term memory. Face symmetric, speech normal, moves 4 ext spontaneously and equally Results & Data Results & Data Vital Signs (Past 12 Hours) Vital Signs Temp Pulse Resp BP Pulse Ox O2 Del Method 01/31/25 09:44 62 15 96 01/31/25 09:34 98 Room Air 01/31/25 09:28 64 18 114/61 01/31/25 09:15 65 01/31/25 08:54 36.7 C 69 20 114/71 98 Room Air Laboratory Results 01/31/25 08:55 01/31/25 08:55 LFT normal Ca elevated 11.3 Procal 0.15 Biofire negative CXR - personally reviewed film there are no infiltrates EKG - personally reviewed tracing - nsr and ST flattening inferiorly, and laterally PG Care Time/CCT Total # of Minutes Spent Total Time Spent with Patient: Total time spent is greater than 50% in coordination of care (as documented) at patient's floor/unit and/or counseling patient: Coding Level of Care Code 31466 INT INP/OBS CARE 3/75MIN Diagnoses Sepsis A41.9 Catheter-associated urinary tract infection T83.511A; N39.0 CORDELIA (acute kidney injury) N17.9 Hyperkalemia E87.5 Vascular dementia F01.50 Diabetes E11.9
[2025-01-31 12:06] LABS: Anion Gap 4.0 (3-11); Blood Urea Nitrogen 51.0 mg/dl (6-23); Calcium 9.8 mg/dl (8.6-10.3); Carbon Dioxide 19.0 mmol/L (21-32); Chloride 112.0 mmol/L (98-107); Creatinine Clr Calc Pharmacy 19.0 ml/min; Glucose 209.0 mg/dl (70-99(Fasting)); Potassium 4.8 mmol/L (3.5-5.1); Sodium 135.0 mmol/L (136-145)
[2025-01-31 12:11] LABS: Hematocrit (blood only) 25.1 % (42.0-52.0); Hemoglobin 8.4 g/dl (14.0-18.0); Immature Granulocytes # (auto) 0.03 K/uL (0.01-0.20); Immature Granulocytes % (auto) 0.4 %; Mean Corpuscular Hemoglobin 30.9 pg (25.0-34.0); Mean Corpuscular Volume 92.3 fL (80.0-100.0); Platelet Count 194 K/uL (130-400); RDW Standard Deviation 48.6 fL (36.4-46.3); Red Blood Count 2.72 M/uL (4.70-6.10); White Blood Count 8.20 K/ul (4.8-10.8)
[2025-01-31] MEDS ORDERED: LIDOCAINE 2% JELLY 5 ML TUBE EXT PRN (12:23)
[2025-01-31] MEDS ORDERED: ALUMINUM/MAGNESIUM SUSP 30 ML UDC PO PRN (12:23)
--- NOTE | 2025-01-31 12:30 | Ultrasound Report ---
HISTORY: Acute kidney injury. TECHNIQUE: Ultrasound evaluation of the kidneys and urinary bladder. COMPARISON: None. FINDINGS: Right kidney measures 11 cm in length. Normal cortical echogenicity. No hydronephrosis. Trace perinephric fluid. Left kidney measures 11 cm in length. Normal cortical echogenicity. No hydronephrosis. Poorly visualized 1.7 cm hypoechoic lesion along the lower pole has no internal color Doppler flow and favors a cyst. Urinary bladder is decompressed upon a Carter catheter. Bladder wall thickening measuring up to 1.1 cm in thickness. IMPRESSION: * No acute findings. No hydronephrosis. * Nonspecific bladder wall thickening is at least in part due to underdistention. Recommend correlation with urinalysis. Bladder is decompressed on a Carter catheter. * 1.7 cm hypoechoic lesion along the lower pole of the left kidney is poorly evaluated. Further evaluation is recommended with nonemergent contrast-enhanced multiphasic renal CT or MRI. ACT 112: Positive. There are findings on this exam that require communication between the performing entity and the patient following Patient Test Result Information Act ([place] ACT 112) guidelines. Electronically signed by Blaine Saavedra 01-31-2025 12:29 PM
[2025-01-31] MEDS: SODIUM CHLORIDE 0.9% 1,000 ML IV ONE (12:37)
--- NOTE | 2025-01-31 13:18 | Electrocardiogram Report ---
Test Reason : Blood Pressure : */* mmHG Vent. Rate : 63 BPM Atrial Rate : 63 BPM P-R Int : 166 ms QRS Dur : 94 ms QT Int : 394 ms P-R-T Axes : 13 69 82 degrees QTcB Int : 403 ms Normal sinus rhythm Nonspecific T wave abnormality Abnormal ECG When compared with ECG of 26-Jun-2024 12:35, Premature atrial complexes are no longer Present Confirmed by Lissa Yip (Pepper) on 01/31/2025 1:18:19 PM Referred By: REFERRED SELF Confirmed By: Lissa Yip
[2025-01-31] MEDS: HYDROCORTISONE SOD 100 MG in SYRINGE 0 ML IV STA (13:19)
[2025-01-31] MEDS: MIDODRINE HCL 10 MG TAB PO SCH (13:35)
[2025-01-31] MEDS: SODIUM CHLORIDE 0.9% 500 ML IV ONE (13:43)
[2025-01-31] MEDS: CEFEPIME 1000MG 1,000 MG/10 ML SYR IV SCH (13:45)
[2025-01-31] MEDS: SODIUM CHLORIDE 0.9% 500 ML IV SCH (14:23)
[2025-01-31] MEDS: DAPTOmycin 700 MG in SYRINGE 0 ML IV SCH (14:40)
[2025-01-31] MEDS ORDERED: GLUCOSE 40% GEL 15 GM TUBE PO PRN (15:16)
[2025-01-31] MEDS ORDERED: GLUCAGON FOR INJ 1 MG VIAL SQ PRN (15:16)
[2025-01-31] MEDS ORDERED: GLUCOSE 10 TAB/TUBE PO PRN (15:16)
[2025-01-31] MEDS ORDERED: DEXTROSE 50% 50 ML SYRINGE IV PRN (15:16)
[2025-01-31 15:18] LABS: Hematocrit (blood only) 26.0 % (42.0-52.0); Hemoglobin 8.3 g/dl (14.0-18.0)
[2025-01-31] MEDS: INSULIN ASPART PER UNIT CHARGE SC SCH (17:06)
--- NOTE | 2025-01-31 17:29 | Communication Note ---
Date of Service: January 31, 2025 BP remains borderline but definitely with improvement trend since noontime ibrahima, 2 out of the three last MAPs have been >65. Remains asymptomatic Last lactate 1.1, Hg unchanged and no signs of bleeding, potassium this afternoon unchanged at 4.8. TTE reviewed similar to previous and has normal EF CTM in PCU
--- NOTE | 2025-01-31 18:15 | Communication Note ---
Date of Service: January 31, 2025 I updated his by phone X 25 minutes She reports many valid concerns, has been hard to make progress outpatient over telemedicine, has home health: Constant leaking of henderson causing groin excoriation and wounds, despite trying several different catheters. Occurs immediately including right after catheter change. SP catheter? Very difficult to transport appts because bedbound and urology consult appreciated Skin issues as noted in notes BP at home overcontrolled last 9 mo running 90/50-100/60 on current meds Last A1c was in 5's, concerned for hypoglycemia and can any DM meds be stopped Prefers full code, full treatment
[2025-01-31] MEDS: HEPARIN SOD 5,000 UNIT/0.5 ML VIAL SQ SCH (20:52)
[2025-01-31] MEDS: ACETAMINOPHEN 325 MG TAB PO PRN (20:53)
[2025-01-31] MEDS: POLYETHYLENE (MIRALAX) 17 GM PACK PO SCH (20:53)
[2025-01-31] MEDS ORDERED: TAMSULOSIN HCL 0.4 MG CAP PO SCH (21:00)
[2025-02-01 06:40] LABS: Hematocrit (blood only) 22.6 % (42.0-52.0); Hemoglobin 7.7 g/dl (14.0-18.0); Mean Corpuscular Hemoglobin 30.7 pg (25.0-34.0); Mean Corpuscular Volume 90.0 fL (80.0-100.0); Platelet Count 228 K/uL (130-400); RDW Standard Deviation 47.3 fL (36.4-46.3); Red Blood Count 2.51 M/uL (4.70-6.10); White Blood Count 5.67 K/ul (4.8-10.8)
[2025-02-01 07:11] LABS: Anion Gap 4.0 (3-11); Blood Urea Nitrogen 52.0 mg/dl (6-23); Calcium 9.6 mg/dl (8.6-10.3); Carbon Dioxide 21.0 mmol/L (21-32); Chloride 111.0 mmol/L (98-107); Creatinine Clr Calc Pharmacy 19.1 ml/min; Glucose 133.0 mg/dl (70-99(Fasting)); Potassium 5.3 mmol/L (3.5-5.1); Sodium 136.0 mmol/L (136-145)
[2025-02-01] MEDS: FINASTERIDE 5 MG TAB PO SCH (08:13)
--- NOTE | 2025-02-01 08:18 | Electrocardiogram Report ---
Test Reason : Blood Pressure : */* mmHG Vent. Rate : 91 BPM Atrial Rate : 91 BPM P-R Int : 200 ms QRS Dur : 98 ms QT Int : 354 ms P-R-T Axes : 87 69 217 degrees QTcB Int : 435 ms Normal sinus rhythm Abnormal ECG When compared with ECG of 31-Jan-2025 09:39, Non-specific change in ST segment in Inferior leads Inverted T waves have replaced nonspecific T wave abnormality in Inferior leads Confirmed by Lissa Yip (Pepper) on 02/01/2025 8:18:07 AM Referred By: REFERRED SELF Confirmed By: Lissa Yip
[2025-02-01] MEDS: SODIUM ZIRCONIUM CYCLOSILICATE 10 GM PACKET PO SCH (08:57)
[2025-02-01] MEDS: SODIUM CHLORIDE 0.9% 1,000 ML IV SCH (08:58)
[2025-02-01] MEDS ORDERED: POLYETHYLENE (MIRALAX) 17 GM PACK PO SCH (09:00)
--- NOTE | 2025-02-01 11:50 | Urology Consultation ---
Date of Consultation February 01, 2025 Assessment & Plan (1) Complication of Carter catheter: 79-year-old male with history of BPH with obstruction managed with chronic indwelling Carter catheter admitted for sepsis and CORDELIA secondary to suspected CAUTI as well as hyperkalemia. Urology is consulted for Carter complication, leaking around catheter Patient is afebrile and hemodynamically stable Labs reviewedcreatinine 3.11, WBC 5.67, hemoglobin 7.7 Urinalysis suspicious for infection Urine culture did not identify any specific bacteria Blood cultures with no growth to date Renal ultrasound showed no hydronephrosis, bladder decompressed with Carter catheter Carter catheter exchanged on admission, draining appropriately into collection bag Suspect leaking around catheter is secondary to bladder spasms Recommend trial of Gemtesa for bladder spasms Continue effort to keep skin clean and dry, continue local skin care/wound management per wound nurse Can arrange outpatient follow-up with our service will sign off, please contact our service for any additional questions or concerns History of Present Illness Reason for Consultation: Carter complication, chronic Attending Physician: Erika Phan MD History of Present Illness This is a 79-year-old male with past medical history of dementia, CKD, and BPH with obstruction currently managed with chronic indwelling Carter catheter who presented to ED on 01/31/25 for evaluation of coughing. On arrival, he was afebrile and hemodynamically stable. Labs showed potassium of 6.2, creatinine 3.3 (baseline ~1.2); no leukocytosis, hemoglobin 10.2, lactate 1.1. He was admitted to the hospital medicine service for sepsis and CORDELIA secondary to catheter associated urinary tract infection as well as hyperkalemia. Urology is consulted for Carter complication, chronic Carter. Chart review: Afebrile Labs today reviewedcreatinine 3.11, WBC 5.67, hemoglobin 7.7 Urinalysis 01/31/2025 showed turbid urine, 2+ protein, 2+ blood, positive nitrates, 3+ LE, >50 WBC, 11-20 RBC, 6-10 epithelial cells and 4+ bacteria Urine culture with 3 times organisms present, all high counts Blood cultures prelim with no growth Workup included renal ultrasound which showed no hydronephrosis, bladder decompressed with Carter catheter Patient seen and examined at bedside. He is resting comfortably in bed, arouses to his name. Answers some yes/no questions, but is unable to provide meaningful history. Denies pain at present. No fever or chills. Per chart review, patient has history of BPH status post TURP. He has been on finasteride and tamsulosin. Tamsulosin is currently on hold due to hypotension. Patient has been managed with chronic indwelling Carter catheter over the past y ear. There is concern with urinary leakage around catheter, which has caused skin excoriation. Allergies Allergy/AdvReac Type Severity Reaction Status Date / Time dog dander Allergy Unknown ON Verified 09/16/24 01:18 [employer] Home Medications Medication Instructions Recorded Confirmed Type atorvastatin 10 mg tablet 10 mg PO QAM #30 tabs 01/16/24 01/31/25 Rx finasteride 5 mg tablet 5 mg PO DAILY #90 tabs 01/16/24 01/31/25 Rx sitagliptin phosphate 100 mg 100 mg PO QAM #30 tabs 01/16/24 01/31/25 Rx tablet (Januvia) cyanocobalamin (vitamin B-12) 1,000 mcg PO QAM 02/19/24 01/31/25 History 1,000 mcg tablet metformin 500 mg tablet,extended 2,000 mg PO QAM 02/19/24 01/31/25 History release 24 hr amlodipine 5 mg tablet 5 mg PO QAM #30 tabs 03/06/24 01/31/25 Rx indapamide 2.5 mg tablet 2.5 mg PO QAM #30 tabs 03/06/24 01/31/25 Rx ferrous sulfate 325 mg (65 mg 325 mg PO BID 04/27/24 01/31/25 History iron) tablet acetaminophen 325 mg tablet 650 mg PO TID 09/16/24 01/31/25 History amoxicillin 500 mg capsule 2,000 mg PO DIRECTED PRN 1 HR 09/16/24 01/31/25 History PRIOR TO DENTAL PROCEDURES cholecalciferol (vitamin D3) 25 25 mcg PO QAM 09/16/24 01/31/25 History mcg (1,000 unit) capsule (Vitamin D3) diclofenac sodium 1 % topical gel 2 g topical QID 09/16/24 01/31/25 History duloxetine 30 mg capsule,delayed 30 mg PO QAM 09/16/24 01/31/25 History release duloxetine 60 mg capsule,delayed 60 mg PO QPM 09/16/24 01/31/25 History release fluticasone propionate 50 1 spray intranasal DAILY PRN 09/16/24 01/31/25 History mcg/actuation nasal Congestion spray,suspension lidocaine HCl 2 % mucosal jelly 1 applic intra-urethral Q4H PRN 09/16/24 01/31/25 History URETHRAL PAIN metoprolol succinate 25 mg 25 mg PO QAM 09/16/24 01/31/25 History tablet,extended release 24 hr [id number]-iwauatua-vqraym tablet 1 tab PO QAM 09/16/24 01/31/25 History polyethylene glycol 3350 17 17 g PO QAM 09/16/24 01/31/25 History gram/dose oral powder (Miralax) tamsulosin 0.4 mg capsule 0.4 mg PO HS 09/16/24 01/31/25 History lisinopril 40 mg tablet 40 mg PO QAM 01/31/25 01/31/25 History magnesium chloride 64 mg 64 mg PO QAM 01/31/25 01/31/25 History (magnesium chloride) tablet,delayed release (Mag 64) potassium chloride 20 mEq 20 meq PO QAM 01/31/25 01/31/25 History tablet,extended release(part/cryst) (Klor-Con M) Patient History Medical History Septic shock Acute urinary retention POST OP ANESTHESIA-NEEDED TO BE CATHETERIZED Osteoarthritis BPH (benign prostatic hyperplasia) Diabetes mellitus, type 2 Peripheral neuropathy FEET Hyperlipidemia Hypertension Sleep apnea CPAP Surgical History H/O removal of cyst NECK-BENIGN S/P foot surgery, right HAMMERTOE X 3 PROCEDURES History of tonsillectomy History of appendectomy Previous back surgery DISC SURG S/P TURP GREENLIGHT LASER History of heart valve replacement AVR-12/2009 Family History Family/Other Family history of diabetes mellitus Social History Smoking Status: Never smoker Second Hand Exposure: No; Do You Dip or Chew Tobacco: No; Hx Alcohol Use: No Hx Substance Use: No Preferred Language: Central African Communication Ability: Effective Welfare Interviewer Required: No Beliefs That Will Affect Care: None Current Living Situation: Spouse Current Living Situation Comment: Pt. states he only lives with , however pt. is a poor historian Feels Safe at Home: Yes Safety Concerns: Feels Safe At This Time Assistive Devices: Hospital Bed Review of Systems Review of Systems: Unobtainable due to cognitive status Physical Exam Constitutional: no acute distress Respiratory: normal respiratory effort; no respiratory distress and no labored breathing Gastrointestinal (Abdomen): Inspection/Auscultation: abdomen normal to inspection Musculoskeletal: Head/Neck/Chest: normocephalic Neurologic: moves all extremities and awake Psychiatric: Orientation: alert Genitourinary: Carter draining yellow urine Results & Data Vital Signs (Past 12 Hours) Vital Signs Temp Pulse Resp BP BP Pulse Ox O2 Del Method 02/01/25 11:26 37.0 C 75 16 100/48 L 97 Room Air 02/01/25 07:47 36.4 C L 91 H 16 104/61 99 Room Air 02/01/25 03:33 36.4 C L 64 14 101/56 L 96 Room Air 02/01/25 00:00 36.4 C L 92 H 18 116/66 99 Room Air PG Care Time/CCT Total # of Minutes Spent Total Time Spent with Patient: Total time spent is greater than 50% in coordination of care (as documented) at patient's floor/unit and/or counseling patient: Coding Level of Care Code 51983 IN/OBS CONSULT LVL 4,60M Diagnoses Complication of Carter catheter T83.9XXA
[2025-02-01] MEDS: CARBOHYDRATES FOR HYPOGLYCEMIA PO PRN (16:08)
--- NOTE | 2025-02-01 17:57 | Hospitalist Progress Note ---
Date of Service February 01, 2025 Assessment & Plan (1) Sepsis: (2) Catheter-associated urinary tract infection: (3) CORDELIA (acute kidney injury): (4) Hyperkalemia: (5) Vascular dementia: (6) Diabetes: Plan 79 y/o man with chronic henderson related to SHOEMAKER from BPH, vascular dementia, DM2, CAD, CKD-3 who is admitted for sepsis causing acute organ dysfunction (CORDELIA) due to CAUTI, CORDELIA with hyperkalemia which is likely prerenal # Sepsis with acute organ dysfunction (CORDELIA) due to CAUTI, hypotension responsive to IV fluids # SHOEMAKER due to BPH chronic henderson since this spring no longer hypotensive, remains on midodrine which I will start tapering off -IV antibiotics: cefepime and daptomycin, narrow as able based on urine culture and blood cultures - urine culture with high counts of 3 types of organism repeat collection is recommended no ID and sensitivity blood cultures no growth to date -hold amlodipine, lisinopril, metoprolol, diuretic # CORDELIA with hyperkalemia on CKD-3 - because of sepsis / prerenal -henderson changed out in ED -ordered renal ultrasound - no hydronephrosis/obstruction hyperkalemia treated with calcium gluconate, IV fluids, Lokelma continue this for at least 3 more doses improved but remains elevated at 5.3 - BUN/creatinine remains elevated has not really changed since yesterday creatinine is 3.11. He has had good urine output. Continue gentle IV NS -low potassium diet -hold lisinopril, indapamide, potassium chloride # Hypercalcemia - 11.3 and iCa elevated. Normal in recent past so probably volume depletion or possibly it was drawn right after Ca gluconate push - resolved on recheck next morning # CAD, hx CABG # s/p AVR # hypertension -02/2024 had coronary angiogram and TTE: "--S/P Cardiac Cath:Essentially normal epicardial coronary arteries with no more than very mild lesions as described. No acute thrombotic lesion suggestive of ACS --ECHO: EF 55 to 60%. No regional wall motion abnormality. Right ventricle is borderline dilated. Bioprosthetic arctic valve. Gradient is normal further prosthetic valve. Moderate to severe mitral annular calcification, mild mitral stenosis" -EKG with ST flattening but no ROSCOE or depression, troponin negative x2 in ED. No evidence of ACS -stat TTE done in ED because of hypotensionhad adequate squeeze -statin held because of daptomycin interaction, metoprolol held for hypotension, not on ASA - I spoke with his and blood pressure has been running low at home, BP is overcontrolled. Resume sequentially and at lower doses once sepsis resolved DM type 2is a lot more frail and has lost a lot of weight in the past 6 months this appears to have resolved -got D50 in ED but IV insulin cancelled because hyperkalemia not that severe - hypoglycemic today treating with KRISTEN I got further information from his last night and she brought in some outpatient labs hemoglobin A1c was 5 and not in the diabetic range stop Januvia and metformin on discharge VIKRAM - cont CPAP Vascular dementia, hx aspiration pneumonia -seems to be at baseline mental status Skin care concerns - exoriated on back and groin -WON consult Care coord eval - home care concerns, hx being in SNF rehab currently home with his Code status - his confirmed full code DVT ppx - SQ heparin q12h Mr. Montalvo remains unstable with respect to his hypotension and urosepsis, acute kidney injury is significant and has not improved to date, warrants ongoing inpatient hospitalization and PCU Admission and Anticipated Discharge Date Admission Date: January 31, 2025 Subjective is much improved today, blood pressure has normalized though on 10 mg of midodrine. Not febrile he has very poor short-term memory but denies shortness of breath chest or abdominal pain nausea vomiting and suprapubic tenderness Physical Exam 2 Physical Exam: Last 24h vitals reviewed GEN: no acute distress, sitting in bed awake and alert HEENT: pupils equal, sclerae anicteric, moist MM RESP: normal WOB, CTAB CV: reg faint systolic M ABD: soft/nt/nd +BT : remains tender to palpation in suprapubic area but definitely less so, urine is much clearer no longer greenish, bilateral groins have excoriations erythema improved since yesterday SKIN: warm and dry, no generalized rashes NEURO: AOx person, hospital. Not oriented and no short term memory. Face symmetric, speech normal, moves 4 ext spontaneously and equally Results & Data Results & Data Vital Signs (Past 12 Hours) Vital Signs Temp Pulse Pulse Resp BP Pulse Ox O2 Del Method 02/01/25 16:12 84 02/01/25 15:30 36.6 C 77 16 101/64 96 Room Air 02/01/25 11:26 37.0 C 75 16 100/48 L 97 Room Air 02/01/25 08:00 59 L 02/01/25 07:47 36.4 C L 91 H 16 104/61 99 Room Air Laboratory Results 02/01/25 06:05 02/01/25 06:05 PG Care Time/CCT Total # of Minutes Spent Total Time Spent with Patient: Total time spent is greater than 50% in coordination of care (as documented) at patient's floor/unit and/or counseling patient: Coding Level of Care Code 91588 SUB INP/OBS CARE 350MIN Diagnoses Sepsis A41.9 Catheter-associated urinary tract infection T83.511A; N39.0 CORDELIA (acute kidney injury) N17.9 Hyperkalemia E87.5 Vascular dementia F01.50 Diabetes E11.9
[2025-02-02 06:30] LABS: Anion Gap 4.0 (3-11); Blood Urea Nitrogen 52.0 mg/dl (6-23); Calcium 8.8 mg/dl (8.6-10.3); Carbon Dioxide 21.0 mmol/L (21-32); Chloride 111.0 mmol/L (98-107); Creatinine Clr Calc Pharmacy 20.8 ml/min; Glucose 87.0 mg/dl (70-99(Fasting)); Potassium 4.4 mmol/L (3.5-5.1); Sodium 136.0 mmol/L (136-145)
--- NOTE | 2025-02-02 11:06 | Fluoroscopy Report ---
FL video swallow CLINICAL HISTORY: r/o aspiration. TECHNIQUE: Video fluoroscopic evaluation of swallowing was performed in the AP and lateral projection s by the speech pathology staff. The patient is fed nectar-thick and thin liquid barium, a barium coa maggie wafer, and barium pudding. FLUOROSCOPY TIME: 1 minute 30 seconds. COMPARISON: 03/04/2024 FINDINGS: There is a possible tiny Zenker's diverticulum at the proximal posterior esophagus. There i s premature spillage and delayed swallowing. No aspiration seen. IMPRESSION: No aspiration seen. ACT 112: Negative or not required by law. Electronically signed by: Naveed De La Cruz M.D. 02/02/2025 11:04 AM
--- NOTE | 2025-02-02 18:00 | Hospitalist Progress Note ---
Date of Service February 02, 2025 Assessment & Plan (1) Sepsis: (2) Catheter-associated urinary tract infection: (3) CORDELIA (acute kidney injury): (4) Hyperkalemia: (5) Vascular dementia: (6) Diabetes: Plan 79 y/o man with chronic henderson related to SHOEMAKER from BPH, vascular dementia, DM2, CAD, CKD-3 who is admitted for sepsis causing acute organ dysfunction (CORDELIA) due to CAUTI, CORDELIA with hyperkalemia which is likely prerenal # Sepsis with acute organ dysfunction (CORDELIA) due to CAUTI, hypotension responsive to IV fluids # SHOEMAKER due to BPH chronic henderson since this spring no longer hypotensive, remains on midodrine - BP still low normal continue 10 tid for now then taper as able -urine culture with high counts of 3 types of organism blood cultures no growth to date at 48h -continue cefepime and stop daptomycin -hold amlodipine, lisinopril, metoprolol, diuretic # CORDELIA with hyperkalemia on CKD-3 - because of sepsis / prerenal -henderson changed out in ED -renal ultrasound - no hydronephrosis/obstruction hyperkalemia treated with calcium gluconate, IV fluids, Lokelma - resolved - BUN/creatinine remains elevated slight improvement to 2.9. He has had good urine output. Continue gentle IV NS. AM BMP -low potassium diet -hold lisinopril, indapamide, potassium chloride # Henderson chronically leaks, causing skin/wound problems - consulted Urology, recommended gemtesa for probable bladder spasms. Did not recommend SP cath. - has not been leaking here so far # Hypercalcemia - 11.3 and iCa elevated in ED. Normal in recent past so probably volume depletion or possibly it was drawn right after Ca gluconate push - resolved quickly # CAD, hx CABG # s/p AVR # hypertension -02/2024 had coronary angiogram and TTE: "--S/P Cardiac Cath:Essentially normal epicardial coronary arteries with no more than very mild lesions as described. No acute thrombotic lesion suggestive of ACS --ECHO: EF 55 to 60%. No regional wall motion abnormality. Right ventricle is borderline dilated. Bioprosthetic arctic valve. Gradient is normal further prosthetic valve. Moderate to severe mitral annular calcification, mild mitral stenosis" -EKG with ST flattening but no ROSCOE or depression, troponin negative x2 in ED. No evidence of ACS -statin held because of daptomycin interaction, metoprolol held for hypotension, not on ASA -I spoke with his and blood pressure has been running low at home, BP is overcontrolled. Resume sequentially and at lower doses once sepsis resolved DM type 2is a lot more frail and has lost a lot of weight in the past 6 months this appears to have resolved -got D50 in ED but IV insulin cancelled because hyperkalemia not that severe - hypoglycemic today treating with KRISTEN I got further information from his last night and she brought in some outpatient labs hemoglobin A1c was 5 and not in the diabetic range stop Januvia and metformin on discharge VIKRAM - cont CPAP Vascular dementia, hx aspiration pneumonia -seems to be at baseline mental status Skin care concerns - excoriated on back and groin. largely related to leaking henderson -WON consult Severe protein calorie malnutrition - significant weight loss last 6 months -consulted RD, protein supplement Care coord eval - home with his . Is bedbound Code status - his confirmed full code DVT ppx - SQ heparin q12h improved able to transfer to med/surg Admission and Anticipated Discharge Date Admission Date: January 31, 2025 Subjective Feeling fine no complaints No SP pain No abdominal pain, no CP or SOB Physical Exam 2 Physical Exam: Last 24h vitals reviewed GEN: no acute distress, sitting in bed awake and alert HEENT: pupils equal, sclerae anicteric, moist MM RESP: normal WOB, CTAB CV: reg faint systolic M ABD: soft/nt/nd +BT : now nontender to palpation in SP area, urine clear, bilateral groins excoriations much improved SKIN: warm and dry, no generalized rashes NEURO: AOx person, hospital. Not oriented and no short term memory. Face symmetric, speech normal, moves 4 ext spontaneously and equally Results & Data Results & Data Vital Signs (Past 12 Hours) Vital Signs Temp Pulse Pulse Resp BP BP Pulse Ox 02/02/25 15:25 36.3 C L 74 18 105/45 L 95 02/02/25 11:03 36.6 C 83 18 104/62 95 02/02/25 09:00 88 02/02/25 07:17 36.6 C 89 18 103/52 L 95 O2 Del Method 02/02/25 15:25 Room Air 02/02/25 11:03 Room Air 02/02/25 09:00 02/02/25 07:17 Room Air Laboratory Results 02/01/25 06:05 02/02/25 05:33 PG Care Time/CCT Total # of Minutes Spent Total Time Spent with Patient: Total time spent is greater than 50% in coordination of care (as documented) at patient's floor/unit and/or counseling patient: Coding Level of Care Code 77976 SUB INP/OBS CARE 2/35MIN Diagnoses Sepsis A41.9 Catheter-associated urinary tract infection T83.511A; N39.0 CORDELIA (acute kidney injury) N17.9 Hyperkalemia E87.5 Vascular dementia F01.50 Diabetes E11.9
[2025-02-02] MEDS: SODIUM CHLORIDE 0.9% 1,000 ML IV SCH (18:22)
[2025-02-02] MEDS: MELATONIN 3 MG TAB PO PRN (19:59)
[2025-02-03 06:38] LABS: Anion Gap 5.0 (3-11); Blood Urea Nitrogen 57.0 mg/dl (6-23); Calcium 8.6 mg/dl (8.6-10.3); Carbon Dioxide 21.0 mmol/L (21-32); Chloride 111.0 mmol/L (98-107); Creatinine Clr Calc Pharmacy 22.4 ml/min; Glucose 89.0 mg/dl (70-99(Fasting)); Potassium 3.9 mmol/L (3.5-5.1); Sodium 137.0 mmol/L (136-145)
[2025-02-03 06:52] LABS: Hematocrit (blood only) 20.7 % (42.0-52.0); Hemoglobin 7.1 g/dl (14.0-18.0); Mean Corpuscular Hemoglobin 30.6 pg (25.0-34.0); Mean Corpuscular Volume 89.2 fL (80.0-100.0); Platelet Count 228 K/uL (130-400); RDW Standard Deviation 47.7 fL (36.4-46.3); Red Blood Count 2.32 M/uL (4.70-6.10); White Blood Count 5.50 K/ul (4.8-10.8)
[2025-02-03] MEDS: VIBEGRON 75 MG TAB PO SCH (09:01)
--- NOTE | 2025-02-03 21:57 | Hospitalist Progress Note ---
Date of Service February 03, 2025 Assessment & Plan (1) Sepsis: (2) Catheter-associated urinary tract infection: (3) CORDELIA (acute kidney injury): (4) Hyperkalemia: (5) Vascular dementia: (6) Diabetes: Plan 79 y/o man with chronic henderson related to SHOEMAKER from BPH, vascular dementia, DM2, CAD, CKD-3 who is admitted for sepsis causing acute organ dysfunction (CORDELIA) due to CAUTI, CORDELIA with hyperkalemia which is likely prerenal # Sepsis with acute organ dysfunction (CORDELIA) due to CAUTI, hypotension remained responsive to IV fluids # SHOEMAKER due to BPH chronic henderson since this spring no longer hypotensive, remains on midodrine - BP still low normal continue 10 tid for now then taper as able -urine culture with high counts of 3 types of organism blood cultures no growth to date -continue cefepime and stopped daptomycin 02/02 -hold amlodipine, lisinopril, metoprolol, diuretic # CORDELIA due to ATN with hyperkalemia on CKD-3 - because of sepsis / prerenal -henderson changed out in ED -renal ultrasound - no hydronephrosis/obstruction hyperkalemia treated with calcium gluconate, IV fluids, Lokelma - resolved - BUN/creatinine remains elevated above baseline slow improvement to 2.5. He has had good urine output. FeNa 2.5% -low potassium diet -hold lisinopril, indapamide, potassium chloride # Progressive anemia - Hg has trended down since admission now down to 7.1 without evidence of bleeding. Brown stools. -monitor for bleeding -I planned transfusion since with the CORDELIA he will benefit from Hg >= 8. I called his midday and left message. She called back in afternoon but I was not able to call back again today # Henderson chronically leaks, causing skin/wound problems - consulted Urology, recommended gemtesa for probable bladder spasms. Did not recommend SP cath. - has not been leaking here so far # Hypercalcemia - 11.3 and iCa elevated in ED. Normal in recent past so probably volume depletion or possibly it was drawn right after Ca gluconate push - resolved quickly # CAD, hx CABG # s/p AVR # hypertension -02/2024 had coronary angiogram and TTE: "--S/P Cardiac Cath:Essentially normal epicardial coronary arteries with no more than very mild lesions as described. No acute thrombotic lesion suggestive of ACS --ECHO: EF 55 to 60%. No regional wall motion abnormality. Right ventricle is borderline dilated. Bioprosthetic arctic valve. Gradient is normal further prosthetic valve. Moderate to severe mitral annular calcification, mild mitral stenosis" -EKG with ST flattening but no ROSCOE or depression, troponin negative x2 in ED. No evidence of ACS -statin held because of daptomycin interaction, metoprolol held for hypotension, not on ASA -I spoke with his and blood pressure has been running low at home, BP is overcontrolled. Resume sequentially and at lower doses once sepsis resolved # DM type 2is a lot more frail and has lost a lot of weight in the past 6 months this appears to have resolved -got D50 in ED but IV insulin cancelled because hyperkalemia not that severe so was hyperglycemic after that. Since that wore off has been normal or hypoglycemic I got further information from his and she brought in some outpatient labs hemoglobin A1c was 5 and not in the diabetic range stop Januvia and metformin on discharge -stopped premeal aspart VIKRAM - cont CPAP Vascular dementia, hx aspiration pneumonia -at baseline mental status -is bedbound Skin care concerns - excoriated on back and groin. largely related to leaking henderson -WON consult Severe protein calorie malnutrition - significant weight loss last 6 months -consulted RD, protein supplement Care coord eval - home with his . Is bedbound Code status - his confirmed full code DVT ppx - SQ heparin q12h improved able to transfer to med/surg Admission and Anticipated Discharge Date Admission Date: January 31, 2025 Subjective Joseph has no complaints Denies CP or abdominal pain No reports of catheter leaking Hg decreasing but only brown stools recorded, no apparent acute bleeding Physical Exam 2 Physical Exam: Last 24h vitals reviewed GEN: no acute distress, sitting in bed awake and alert exam unchanged 02/03 HEENT: pupils equal, sclerae anicteric, moist MM RESP: normal WOB, CTAB CV: reg faint systolic M ABD: soft/nt/nd +BT : now nontender to palpation in SP area, urine clear, bilateral groins excoriations much improved SKIN: warm and dry, no generalized rashes NEURO: AOx person, hospital. Not oriented and no short term memory. Face symmetric, speech normal, moves 4 ext spontaneously and equally Results & Data Results & Data Vital Signs (Past 12 Hours) Vital Signs Temp Pulse Resp BP BP Pulse Ox Pulse Ox 02/03/25 19:28 36.9 C 82 18 116/63 97 02/03/25 15:48 36.8 C 79 18 95/55 L 98 02/03/25 12:00 95 O2 Del Method O2 Del Method 02/03/25 19:28 Room Air 02/03/25 15:48 Room Air 02/03/25 12:00 Room Air Laboratory Results 02/03/25 05:45 02/03/25 05:45 PG Care Time/CCT Total # of Minutes Spent Total Time Spent with Patient: Total time spent is greater than 50% in coordination of care (as documented) at patient's floor/unit and/or counseling patient: Coding Level of Care Code 95605 SUB INP/OBS CARE 3/50MIN Diagnoses Sepsis A41.9 Catheter-associated urinary tract infection T83.511A; N39.0 CORDELIA (acute kidney injury) N17.9 Hyperkalemia E87.5 Vascular dementia F01.50 Diabetes E11.9
[2025-02-04 06:17] LABS: Hematocrit (blood only) 22.6 % (42.0-52.0); Hemoglobin 7.5 g/dl (14.0-18.0); Mean Corpuscular Hemoglobin 29.3 pg (25.0-34.0); Mean Corpuscular Volume 88.3 fL (80.0-100.0); Platelet Count 241 K/uL (130-400); RDW Standard Deviation 48.3 fL (36.4-46.3); Red Blood Count 2.56 M/uL (4.70-6.10); White Blood Count 6.75 K/ul (4.8-10.8)
[2025-02-04 06:47] LABS: Anion Gap 5.0 (3-11); Blood Urea Nitrogen 54.0 mg/dl (6-23); Calcium 8.3 mg/dl (8.6-10.3); Carbon Dioxide 20.0 mmol/L (21-32); Chloride 113.0 mmol/L (98-107); Creatinine Clr Calc Pharmacy 28.4 ml/min; Glucose 99.0 mg/dl (70-99(Fasting)); Potassium 3.6 mmol/L (3.5-5.1); Sodium 138.0 mmol/L (136-145)
--- NOTE | 2025-02-04 08:34 | Hospitalist Progress Note ---
Date of Service February 04, 2025 Assessment & Plan (1) Sepsis: (2) Catheter-associated urinary tract infection: (3) CORDELIA (acute kidney injury): (4) Hyperkalemia: (5) Vascular dementia: (6) Diabetes: Plan 79 y/o man with chronic henderson related to SHOEMAKER from BPH, vascular dementia, DM2, CAD, CKD-3 who is admitted for sepsis causing acute organ dysfunction (CORDELIA) due to CAUTI, CORDELIA with hyperkalemia which is likely prerenal # Sepsis with acute organ dysfunction (CORDELIA) due to CAUTI, hypotensionresponsive to IV fluids History of bladder outlet obstruction with chronic Henderson Urine culture polymicrobial BC no growth to date Cefepime started 01/31. Past history of Macrobid resistant Klebsiella, no other resistant organism Clinically progressed will narrow to Rocephin (with cefpodoxime as oral conversion option) to complete 7-day course of antibiotics for complicated UTI Amlodipine/lisinopril/metoprolol/diuretics held. Remains normotensive CORDELIA due to ATN with hyperkalemia on CKD-3 Creatinine baseline around 1.21.4 Creatinine downtrending, 2.19 on 02/04 Due to sepsis/prerenal. No evidence of ongoing obstruction, Henderson draining appropriately. Not an uric -henderson changed out in ED -renal ultrasound - no hydronephrosis/obstruction hyperkalemia treated with calcium gluconate, IV fluids, Lokelma - resolved - BUN/creatinine remains elevated above baseline slow improvement to 2.5. He has had good urine output. FeNa 2.5% -low potassium diet -hold lisinopril, indapamide, potassium chloride # Progressive anemia - Hg has trended down since admission now down to 7.1 without evidence of bleeding. Brown stools. -monitor for bleeding Was recommended for transfusion hemoglobin threshold of 8 due to history of underlying ischemic disease and renal endorgan dysfunction Was called by prior provider to discuss for transfusion permission however was not able to complete conversation 02/04 Hemoglobin uptrending on 02/04, no clinical bleeding Iron studies with low transferrin saturation and he has a history of iron disease Patient's does give verbal consent by phone to blood if needed however given iron deficiency and spontaneously uptrending hemoglobin will treat with Venofer daily up to 3 total doses at this time Henderson chronically leaks, causing skin/wound problems - consulted Urology, recommended gemtesa for probable bladder spasms. Did not recommend SP cath. - has not been leaking here so far Hypercalcemia - 11.3 and iCa elevated in ED. Normal in recent past so probably volume depletion or possibly it was drawn right after Ca gluconate push - resolved quickly CAD, hx CABG, AAS s/p AVR, hypertension -02/2024 had coronary angiogram and TTE: -S/P Cardiac Cath 02/2024:Essentially normal epicardial coronary arteries with no more than very mild lesions as described. No acute thrombotic lesion suggestive of ACS --ECHO: EF 55 to 60%. No regional wall motion abnormality. Right ventricle is borderline dilated. Bioprosthetic arctic valve. Gradient is normal further prosthetic valve. Moderate to severe mitral annular calcification, mild mitral stenosis" -EKG with ST flattening but no ROSCOE or depression, troponin negative x2 in ED. No evidence of ACS -statin held because of daptomycin interaction, metoprolol held for hypotension, not on ASA -I spoke with his and blood pressure has been running low at home, BP is overcontrolled. Resume sequentially and at lower doses once sepsis resolved. Remains normotensive 02/04 Type II DM With frailty and weight loss Last A1c 5 Recommended to discontinue Januvia/metformin on discharge, follow home BSG's and reinitiate as needed. VIKRAM - cont CPAP Vascular dementia, hx aspiration pneumonia -at baseline mental status -is bedbound Skin care concerns - excoriated on back and groin. largely related to leaking henderson -WON consult Severe protein calorie malnutrition - significant weight loss last 6 months -consulted RD, protein supplement Care coord eval - home with his . Is bedbound Code status - his confirmed full code DVT ppx - SQ heparin q12h Disposition: PT/OT recommending SNF. would like to pursue SNF at this time. CM notified Admission and Anticipated Discharge Date Admission Date: January 31, 2025 Subjective Seen at the bedside. Pleasant, no acute distress. No complaints this morning. Is oriented to name only. Discussed care with his by phone. She has significant concerns regarding confusion around his medications, although is in agreement with discontinuing his antihypertensives as does not think he no longer needs these and following significant weight loss and an A1c of 5 is unlikely to need ongoing and glycemic treatment after discharge. Assured that any medication changes will be explicitly noted and printed on the discharge summary when he is ready for discharge, she expresses an appreciation of care and review of his case. Did discuss potential blood transfusion as suggested by prior provider. As he has evidence of renal disease and some dysfunction reasonable to transfuse to threshold of 8; he also has a past history of iron deficiency. Reviewed r isk/benefits of blood including infection, allergic reaction, fluid overload, and incompatibility with patient's by phone. She accepts risk/benefits of this if a transfusion is needed. Given that he has uptrending hemoglobin this morning check iron levels which show a low transferrin saturation. Given this we will pursue Venofer infusion instead which she is agreeable to; however does give consent for blood to be given if he continues to have a decrease in hemoglobin or if this is felt to be of benefit to him by providers. Verbal consent noted. Physical Exam Physical Exam: General: Oriented to name only HEENT: Atraumatic, normocephalic. Vision and hearing grossly intact Pulm: CTAB A&P. -wheezes, -rales, -rhonchi. Symmetrical chest rise. No increase in work of breathing. No respiratory distress. Cardiac: RRR, -mrg. Radial pulses intact and symmetrical. Abdominal: Nontender, nondistended, soft. BS present. Extremities: Warm, dry Results & Data Results & Data Vital Signs (Past 12 Hours) Vital Signs Temp Pulse Resp BP BP Pulse Ox O2 Del Method 02/04/25 07:22 37.0 C 79 18 122/70 99 Room Air 02/03/25 23:15 36.6 C 79 18 132/63 96 Room Air PG Care Time/CCT Total # of Minutes Spent Total Time Spent with Patient: Total time spent is greater than 50% in coordination of care (as documented) at patient's floor/unit and/or counseling patient: Coding Level of Care Code 63251 SUB INP/OBS CARE 3/50MIN Diagnoses Sepsis A41.9 Catheter-associated urinary tract infection T83.511A; N39.0 CORDELIA (acute kidney injury) N17.9 Hyperkalemia E87.5 Vascular dementia F01.50 Diabetes E11.9
[2025-02-04 13:05] LABS: Iron 36.0 mcg/dl (35-175); Total Iron Binding Cap Calc 195.0 mcg/dl (250-450); Transferrin 139.0 mg/dl (200-360); Transferrin (FE) Percent Satur 18.0 % (20-50)
[2025-02-04 13:21] LABS: Ferritin 171.2 ng/ml (8-388)
[2025-02-04 13:29] LABS: Folate (Folic Acid),Ser orPlas 12.93 ng/ml (>5.38)
[2025-02-04 13:30] LABS: Vitamin B12 258.0 pg/ml (180-914)
[2025-02-04] MEDS: cefTRIAXone SODIUM 1,000 MG/50 ML BAG IV SCH (14:12)
[2025-02-04] MEDS: IRON SUCROSE 400 MG in SODIUM CHLORIDE 0.9% 250 ML IV ONE (14:58)
[2025-02-04] MEDS: ONDANSETRON INJ 2 MG/ML 2 ML VIAL IV PRN (20:21)
[2025-02-05 06:17] LABS: Hematocrit (blood only) 23.9 % (42.0-52.0); Hemoglobin 8.4 g/dl (14.0-18.0); Immature Granulocytes # (auto) 0.04 K/uL (0.01-0.20); Immature Granulocytes % (auto) 0.6 %; Mean Corpuscular Hemoglobin 30.7 pg (25.0-34.0); Mean Corpuscular Volume 87.2 fL (80.0-100.0); Platelet Count 267 K/uL (130-400); RDW Standard Deviation 47.6 fL (36.4-46.3); Red Blood Count 2.74 M/uL (4.70-6.10); White Blood Count 6.77 K/ul (4.8-10.8)
[2025-02-05 07:05] LABS: Anion Gap 6.0 (3-11); Blood Urea Nitrogen 51.0 mg/dl (6-23); Calcium 8.3 mg/dl (8.6-10.3); Carbon Dioxide 21.0 mmol/L (21-32); Chloride 112.0 mmol/L (98-107); Creatinine Clr Calc Pharmacy 29.1 ml/min; Glucose 116.0 mg/dl (70-99(Fasting)); Potassium 3.5 mmol/L (3.5-5.1); Sodium 139.0 mmol/L (136-145)
[2025-02-05] MEDS: PLASMA-LYTE A 1,000 ML IV SCH (08:11)
[2025-02-05] MEDS: IRON SUCROSE 300 MG in SODIUM CHLORIDE 0.9% 250 ML IV ONE (09:00)
--- NOTE | 2025-02-05 16:53 | Hospitalist Progress Note ---
Date of Service February 05, 2025 Assessment & Plan (1) Sepsis: (2) Catheter-associated urinary tract infection: (3) CORDELIA (acute kidney injury): (4) Hyperkalemia: (5) Vascular dementia: (6) Diabetes: Plan 79 y/o man with chronic henderson related to SHOEMAKER from BPH, vascular dementia, DM2, CAD, CKD-3 who is admitted for sepsis causing acute organ dysfunction (CORDELIA) due to CAUTI, CORDELIA with hyperkalemia which is likely prerenal # Sepsis with acute organ dysfunction (CORDELIA) due to CAUTI, hypotensionresponsive to IV fluids History of bladder outlet obstruction with chronic Henderson Urine culture polymicrobial BC no growth to date Cefepime started 01/31. Past history of Macrobid resistant Klebsiella, no other resistant organism Clinically progressed and narrowed to Rocephin (with cefpodoxime as oral conversion option) to complete 7-day course of antibiotics for complicated UTI The above normal blood pressure today. Metoprolol and Motifene resumed. Lisinopril remains held for renal dysfunction CORDELIA due to ATN with hyperkalemia on CKD-3 Creatinine baseline around 1.21.4 Creatinine downtrending, not yet normalized Due to sepsis/prerenal. No evidence of ongoing obstruction, Henderson draining appropriately. Not an uric -henderson changed out in ED -renal ultrasound - no hydronephrosis/obstruction hyperkalemia treated with calcium gluconate, IV fluids, Lokelma - resolved - BUN/creatinine remains elevated above baseline slow improvement to 2.5. He has had good urine output. FeNa 2.5% -low potassium diet - GAUDENCIO remains held # Progressive anemia - Hg has trended down since admission now down to 7.1 without evidence of bleeding. Brown stools. -monitor for bleeding Was recommended for transfusion hemoglobin threshold of 8 due to history of underlying ischemic disease and renal endorgan dysfunction Was called by prior provider to discuss for transfusion permission however was not able to complete conversation 02/04 Hemoglobin uptrending on 02/04, no clinical bleeding Iron studies with low transferrin saturation and he has a history of iron disease Patient's does give verbal consent by phone to blood if needed however given iron deficiency and spontaneously uptrending hemoglobin will treat with Venofer daily up to 3 total doses at this time Henderson chronically leaks, causing skin/wound problems - consulted Urology, recommended gemtesa for probable bladder spasms. Did not recommend SP cath. - Doing well so far Hypercalcemia - 11.3 and iCa elevated in ED. Normal in recent past so probably volume depletion or possibly it was drawn right after Ca gluconate push - resolved quickly CAD, hx CABG, s/p AVR, hypertension -02/2024 had coronary angiogram and TTE: -S/P Cardiac Cath 02/2024:Essentially normal epicardial coronary arteries with no more than very mild lesions as described. No acute thrombotic lesion suggestive of ACS --ECHO: EF 55 to 60%. No regional wall motion abnormality. Right ventricle is borderline dilated. Bioprosthetic arctic valve. Gradient is normal further prosthetic valve. Moderate to severe mitral annular calcification, mild mitral stenosis" -EKG with ST flattening but no ROSCOE or depression, troponin negative x2 in ED. No evidence of ACS -statin held because of daptomycin interaction, metoprolol held for hypotension, not on ASA - Patient is very concerned about his bovine aortic valve replacement and that he is due for an echo and was told that the device would this year. Did review that his bovine aortic valve was well-seated and within normal gradient at the prior echo in the previous year; will recheck limited echo and valve gradient Type II DM With frailty and weight loss Last A1c 5 Recommended to discontinue Januvia/metformin on discharge, follow home BSG's and reinitiate as needed. VIKRAM - cont CPAP Vascular dementia, hx aspiration pneumonia -at baseline mental status -is bedbound Skin care concerns - excoriated on back and groin. largely related to leaking henderson with Gemtesa added as noted Continue routine wound care Severe protein calorie malnutrition - significant weight loss last 6 months -consulted RD, protein supplement Care coord eval - home with his . Is bedbound Code status -full code, confirmed with patient's DVT ppx - SQ heparin q12h Disposition: Pending SNF. Case management following. Possible placement to SNF on Saturday. Barring any complications anticipate he will be medically stable for discharge at that time Admission and Anticipated Discharge Date Admission Date: January 31, 2025 Subjective Oriented to name only. No acute distress. No complaints today. No fevers chills sweats. Extensive discussion and update with his by phone. She reports she is very worried about his valve as they were told this would after so many years and he is due for a follow-up echo. Did review his prior echo a year ago and bovine AVR was well-seated with normal gradient. Will follow-up with limited echo to ensure it remains with good function. Uptrending hemoglobin at this time at 8.4. Will continue Venofer. No indication for transfusion at this time. expressed appreciation of care and management plan. All questions answered to her satisfaction at time of call Physical Exam Physical Exam: General: Oriented to name only HEENT: Atraumatic, normocephalic. Vision and hearing grossly intact Pulm: CTAB A&P. -wheezes, -rales, -rhonchi. Symmetrical chest rise. No increase in work of breathing. No respiratory distress. Cardiac: RRR, -mrg. Radial pulses intact and symmetrical. Abdominal: Nontender, nondistended, soft. BS present. Extremities: Warm, dry PG Care Time/CCT Total # of Minutes Spent Total Time Spent with Patient: Total time spent is greater than 50% in coordination of care (as documented) at patient's floor/unit and/or counseling patient: Coding Level of Care Code 76042 SUB INP/OBS CARE 3/50MIN Diagnoses Sepsis A41.9 Catheter-associated urinary tract infection T83.511A; N39.0 CORDELIA (acute kidney injury) N17.9 Hyperkalemia E87.5 Vascular dementia F01.50 Diabetes E11.9
--- NOTE | 2025-02-05 18:36 | XCELERA ---
[id number] \\[id number]
[2025-02-06 06:50] LABS: Hematocrit (blood only) 21.2 % (42.0-52.0); Hemoglobin 7.4 g/dl (14.0-18.0); Immature Granulocytes # (auto) 0.06 K/uL (0.01-0.20); Immature Granulocytes % (auto) 0.8 %; Mean Corpuscular Hemoglobin 30.5 pg (25.0-34.0); Mean Corpuscular Volume 87.2 fL (80.0-100.0); Platelet Count 273 K/uL (130-400); RDW Standard Deviation 47.6 fL (36.4-46.3); Red Blood Count 2.43 M/uL (4.70-6.10); White Blood Count 7.33 K/ul (4.8-10.8)
[2025-02-06 07:10] LABS: Anion Gap 6.0 (3-11); Blood Urea Nitrogen 47.0 mg/dl (6-23); Calcium 8.5 mg/dl (8.6-10.3); Carbon Dioxide 24.0 mmol/L (21-32); Chloride 112.0 mmol/L (98-107); Creatinine Clr Calc Pharmacy 32.9 ml/min; Glucose 93.0 mg/dl (70-99(Fasting)); Potassium 3.1 mmol/L (3.5-5.1); Sodium 142.0 mmol/L (136-145)
[2025-02-06 07:54] LABS: Acanthocytes 1+; Polychromasia 1+
[2025-02-06] MEDS: IRON SUCROSE 300 MG in SODIUM CHLORIDE 0.9% 250 ML IV ONE (08:10)
[2025-02-06] MEDS: POTASSIUM CHLORIDE 20 MEQ/15 ML UDC PO STA (12:42)
--- NOTE | 2025-02-06 14:11 | Hospitalist Progress Note ---
Date of Service February 06, 2025 Assessment & Plan (1) Sepsis: (2) Catheter-associated urinary tract infection: (3) CORDELIA (acute kidney injury): (4) Hyperkalemia: (5) Vascular dementia: (6) Diabetes: Plan 79 y/o man with chronic henderson related to SHOEMAKER from BPH, vascular dementia, DM2, CAD, CKD-3 who is admitted for sepsis causing acute organ dysfunction (CORDELIA) due to CAUTI, CORDELIA with hyperkalemia which is likely prerenal # Sepsis with acute organ dysfunction (CORDELIA) due to CAUTI, hypotensionresponsive to IV fluids History of bladder outlet obstruction with chronic Henderson Urine culture polymicrobial BC no growth to date Cefepime started 01/31. Past history of Macrobid resistant Klebsiella, no other resistant organism Clinically progressed and narrowed to Rocephin (with cefpodoxime as oral conversion option) to complete 7-day course of antibiotics for complicated UTI CORDELIA due to ATN with hyperkalemia on CKD-3 Creatinine baseline around 1.21.4 Creatinine downtrending, not yet normalized. 1.89 on 02/06 Due to sepsis/prerenal. No evidence of ongoing obstruction, Henderson draining appropriately. Not an uric -henderson changed out in ED -renal ultrasound - no hydronephrosis/obstruction hyperkalemia treated with calcium gluconate, IV fluids, Lokelma - resolved - BUN/creatinine remains elevated above baseline slow improvement to 2.5. He has had good urine output. FeNa 2.5% - Slightly low potassium 02/06. Potassium restricted lifted, supplementation added Anemia Hemoglobin fluctuating 7.18.4. No active bleeding clinically. Brown stools. Iron studies with low transferrin saturation and he has a history of iron deficiency Patient's does give verbal consent by phone to blood if needed however given iron deficiency and spontaneously uptrending hemoglobin will treat with Venofer daily up to 3 total doses at this time Transfusion threshold 7.0 less evidence of active bleeding/hemodynamic instability/endorgan ischemia Henderson chronically leaks, causing skin/wound problems - consulted Urology, recommended gemtesa for probable bladder spasms. Did not recommend SP cath. - Doing well so far Hypercalcemia - 11.3 and iCa elevated in ED. Normal in recent past so probably volume depletion or possibly it was drawn right after Ca gluconate push - resolved quickly CAD, hx CABG, s/p AVR, hypertension -02/2024 had coronary angiogram and TTE: -S/P Cardiac Cath 02/2024:Essentially normal epicardial coronary arteries with no more than very mild lesions as described. No acute thrombotic lesion suggestive of ACS --ECHO: EF 55 to 60%. No regional wall motion abnormality. Right ventricle is borderline dilated. Bioprosthetic arctic valve. Gradient is normal further prosthetic valve. Moderate to severe mitral annular calcification, mild mitral stenosis" -EKG with ST flattening but no ROSCOE or depression, troponin negative x2 in ED. No evidence of ACS -statin held because of daptomycin interaction, metoprolol held for hypotension, not on ASA - Patient is very concerned about his bovine aortic valve replacement and that he is due for an echo and was told that the device would this year. Did review that his bovine aortic valve was well-seated and within normal gradient at the prior echo in the previous year; will recheck limited echo and valve gradient Type II DM With frailty and weight loss Last A1c 5 Recommended to discontinue Januvia/metformin on discharge, follow home BSG's and reinitiate as needed. Chronic stable conditions: VIKRAM: Continue CPAP Vascular dementia: At baseline Skin care: Continue wound care to back and groin. Gemtesa added to minimize Henderson leakage Protein calorie malnutrition: Continue protein supplementation History of bioprosthetic AVR: No significant regurg or stenosis. Limited visualization. DVT ppx - SQ heparin q12h Disposition: Pending SNF. Case management following. Pending placement, hopefully SNF available 02/07 Admission and Anticipated Discharge Date Admission Date: January 31, 2025 Subjective Seen at bedside this morning. Awake alert, no acute concerns. Pleasant. Reports he feels well and is eager to get out of the hospital hopefully tomorrow Denies chest pain, chest pressure, shortness of breath, fever, chills at bedside. Physical Exam Physical Exam: General: Oriented to name and hospital. Pleasant, no acute concerns. HEENT: Atraumatic, normocephalic. Vision and hearing grossly intact Pulm: CTAB A&P. -wheezes, -rales, -rhonchi. Symmetrical chest rise. No increase in work of breathing. No respiratory distress. Cardiac: RRR, -mrg. Radial pulses intact and symmetrical. Abdominal: Nontender, nondistended, soft. BS present. Extremities: Warm, dry Results & Data Results & Data Vital Signs (Past 12 Hours) Vital Signs Temp Pulse Resp BP Pulse Ox O2 Del Method 02/06/25 07:14 36.8 C 77 18 123/64 95 Room Air PG Care Time/CCT Total # of Minutes Spent Total Time Spent with Patient: Total time spent is greater than 50% in coordination of care (as documented) at patient's floor/unit and/or counseling patient: Coding Level of Care Code 51365 SUB INP/OBS CARE 2/35MIN Diagnoses Sepsis A41.9 Catheter-associated urinary tract infection T83.511A; N39.0 CORDELIA (acute kidney injury) N17.9 Hyperkalemia E87.5 Vascular dementia F01.50 Diabetes E11.9
[2025-02-07 06:35] LABS: Hematocrit (blood only) 19.9 % (42.0-52.0); Hemoglobin 7.0 g/dl (14.0-18.0); Mean Corpuscular Hemoglobin 30.4 pg (25.0-34.0); Mean Corpuscular Volume 86.5 fL (80.0-100.0); Platelet Count 278 K/uL (130-400); RDW Standard Deviation 46.8 fL (36.4-46.3); Red Blood Count 2.30 M/uL (4.70-6.10); White Blood Count 7.45 K/ul (4.8-10.8)
[2025-02-07 06:37] LABS: Anion Gap 5.0 (3-11); Blood Urea Nitrogen 45.0 mg/dl (6-23); Calcium 8.5 mg/dl (8.6-10.3); Carbon Dioxide 24.0 mmol/L (21-32); Chloride 112.0 mmol/L (98-107); Creatinine Clr Calc Pharmacy 34.5 ml/min; Glucose 107.0 mg/dl (70-99(Fasting)); Potassium 3.4 mmol/L (3.5-5.1); Sodium 141.0 mmol/L (136-145)
[2025-02-07 06:46] LABS: Immature Granulocytes # (auto) 0.06 K/uL (0.01-0.20); Immature Granulocytes % (auto) 0.8 %; RBC Morphology Unremarkable
[2025-02-07] MEDS ORDERED: SODIUM CHLORIDE 0.9% 100 ML IV PRN (08:57)
--- NOTE | 2025-02-07 16:31 | Hospitalist Progress Note ---
Date of Service February 07, 2025 Assessment & Plan (1) Sepsis: (2) Catheter-associated urinary tract infection: (3) CORDELIA (acute kidney injury): (4) Hyperkalemia: (5) Vascular dementia: (6) Diabetes: Plan 79 y/o man with chronic henderson related to SHOEMAKER from BPH, vascular dementia, DM2, CAD, CKD-3 who is admitted for sepsis causing acute organ dysfunction (CORDELIA) due to CAUTI, CORDELIA with hyperkalemia which is likely prerenal. Renal function is steadily improving although not yet normalized. He is complete a course of antibiotics for UTI. He is pending placement. He has not had active bleeding but has underlying gradually progressive anemia likely from combination of renal disease and iron deficiency. He completed a course of Venofer but did have borderline blood levels for which 1 unit was transfused 02/07. He is now pending placement # Sepsis with acute organ dysfunction (CORDELIA) due to CAUTI, hypotensionresponsive to IV fluids History of bladder outlet obstruction with chronic Henderson Urine culture polymicrobial BC no growth to date Cefepime started 01/31. Past history of Macrobid resistant Klebsiella, no other resistant organism Clinically progressed and narrowed to Rocephin and course of antibiotics was completed CORDELIA due to ATN with hyperkalemia on CKD-3 Creatinine baseline around 1.21.4 Creatinine downtrending, not yet normalized. Due to sepsis/prerenal. No evidence of ongoing obstruction, Henderson draining appropriately. Not an uric -henderson changed out in ED -renal ultrasound - no hydronephrosis/obstruction hyperkalemia treated with calcium gluconate, IV fluids, Lokelma - resolved - BUN/creatinine remains elevated above baseline slow improvement to 2.5. He has had good urine output. FeNa 2.5%potassium 3.4, repleted Anemia Hemoglobin fluctuating 7.18.4. No active bleeding clinically. Brown stools. Iron studies with low transferrin saturation and he has a history of iron deficiency Pleated a course of Venofer No active bleeding but again downtrending hemoglobin without bleeding, and has completed a course of IV iron. Hemoglobin borderline at 7.0 02/07. Will give 1 unit to optimize. No evidence dynamically significant bleeding at this time Henderson chronically leaks, causing skin/wound problems - consulted Urology, recommended gemtesa for probable bladder spasms. Did not recommend SP cath. - Doing well so far Hypercalcemia - 11.3 and iCa elevated in ED. Normal in recent past so probably volume depletion or possibly it was drawn right after Ca gluconate push - resolved quickly CAD, hx CABG, s/p AVR, hypertension -02/2024 had coronary angiogram and TTE: -S/P Cardiac Cath 02/2024:Essentially normal epicardial coronary arteries with no more than very mild lesions as described. No acute thrombotic lesion suggestive of ACS --ECHO: EF 55 to 60%. No regional wall motion abnormality. Right ventricle is borderline dilated. Bioprosthetic arctic valve. Gradient is normal further prosthetic valve. Moderate to severe mitral annular calcification, mild mitral stenosis" -EKG with ST flattening but no ROSCOE or depression, troponin negative x2 in ED. No evidence of ACS -statin held because of daptomycin interaction, metoprolol held for hypotension, not on ASA -Limited echo reviewed with patient's . Limited study, no obvious significant aortic regurgitation or stenosis per Type II DM With frailty and weight loss Last A1c 5 discontinue Januvia/metformin on discharge, follow home BSG's and reinitiate as needed. Chronic stable conditions: VIKRAM: Continue CPAP Vascular dementia: At baseline Skin care: Continue wound care to back and groin. Gemtesa added to minimize Henderson leakage Protein calorie malnutrition: Continue protein supplementation History of bioprosthetic AVR: No significant regurg or stenosis. Limited visualization. DVT ppx - SQ heparin q12h Disposition: Pending SNF. Case management following. Pending placement Admission and Anticipated Discharge Date Admission Date: January 31, 2025 Subjective Seen the bedside this morning. Feels well, no acute concerns. No lightheadedness or dizziness. No chest pain or chest pressure. Has not noticed any bleeding. Discussed case by . Do not see any signs of active bleeding but has had a downtrend of his hemoglobin. He has had Venofer repleted. Given underlying nicole al dysfunction, and borderline hemoglobin do feel that he would benefit from 1 unit of transfusion as previously discussed, versus benefits reviewed again with patient and his who are both agreeable. Physical Exam Physical Exam: General: Oriented to name and hospital. Pleasant, no acute concerns. HEENT: Atraumatic, normocephalic. Vision and hearing grossly intact Pulm: CTAB A&P. -wheezes, -rales, -rhonchi. Symmetrical chest rise. No increase in work of breathing. No respiratory distress. Cardiac: RRR, -mrg. Radial pulses intact and symmetrical. Abdominal: Nontender, nondistended, soft. BS present. Extremities: Warm, dry Results & Data Results & Data Vital Signs (Past 12 Hours) Vital Signs Temp Pulse Pulse Resp BP BP Pulse Ox 02/07/25 15:11 36.9 C 65 16 147/74 H 97 02/07/25 15:10 36.7 C 69 16 152/71 H 95 02/07/25 14:11 36.7 C 66 14 129/67 97 02/07/25 13:41 36.3 C L 64 14 124/67 97 02/07/25 13:26 36.5 C 64 16 133/70 96 02/07/25 13:10 36.5 C 64 16 138/70 94 02/07/25 12:59 36.5 C 85 16 147/69 H 97 02/07/25 07:12 36.7 C 74 18 146/76 H 97 O2 Del Method 02/07/25 15:11 02/07/25 15:10 02/07/25 14:11 02/07/25 13:41 02/07/25 13:26 02/07/25 13:10 02/07/25 12:59 02/07/25 07:12 Room Air PG Care Time/CCT Total # of Minutes Spent Total Time Spent with Patient: Total time spent is greater than 50% in coordination of care (as documented) at patient's floor/unit and/or counseling patient: Coding Level of Care Code 60330 SUB INP/OBS CARE 3/50MIN Diagnoses Sepsis A41.9 Catheter-associated urinary tract infection T83.511A; N39.0 CORDELIA (acute kidney injury) N17.9 Hyperkalemia E87.5 Vascular dementia F01.50 Diabetes E11.9
[2025-02-08 07:14] LABS: Hematocrit (blood only) 25.0 % (42.0-52.0); Hemoglobin 8.4 g/dl (14.0-18.0); Immature Granulocytes # (auto) 0.05 K/uL (0.01-0.20); Immature Granulocytes % (auto) 0.6 %; Mean Corpuscular Hemoglobin 29.3 pg (25.0-34.0); Mean Corpuscular Volume 87.1 fL (80.0-100.0); Platelet Count 283 K/uL (130-400); RDW Standard Deviation 48.2 fL (36.4-46.3); Red Blood Count 2.87 M/uL (4.70-6.10); White Blood Count 8.66 K/ul (4.8-10.8)
[2025-02-08 07:49] LABS: Anion Gap 5.0 (3-11); Blood Urea Nitrogen 41.0 mg/dl (6-23); Calcium 8.5 mg/dl (8.6-10.3); Carbon Dioxide 25.0 mmol/L (21-32); Chloride 109.0 mmol/L (98-107); Creatinine Clr Calc Pharmacy 35.7 ml/min; Glucose 130.0 mg/dl (70-99(Fasting)); Potassium 3.5 mmol/L (3.5-5.1); Sodium 139.0 mmol/L (136-145)
[2025-02-08] MEDS: DOCUSATE SODIUM 100 MG CAP PO SCH (12:29)
--- NOTE | 2025-02-08 14:03 | Hospitalist Progress Note ---
Date of Service February 08, 2025 Assessment & Plan (1) Sepsis: (2) Catheter-associated urinary tract infection: (3) CORDELIA (acute kidney injury): (4) Hyperkalemia: (5) Vascular dementia: (6) Diabetes: Plan 79 y/o man with chronic henderson related to SHOEMAKER from BPH, vascular dementia, DM2, CAD, CKD-3 who is admitted for sepsis causing acute organ dysfunction (CORDELIA) due to CAUTI, CORDELIA with hyperkalemia which is likely prerenal. Renal function is steadily improving although not yet normalized. He is complete a course of antibiotics for UTI. He has not had active bleeding but has underlying gradually progressive anemia likely from combination of renal disease and iron deficiency. He completed a course of Venofer but did have borderline blood levels for which 1 unit was transfused 02/07. He is now pending placement # Sepsis with acute organ dysfunction (CORDELIA) due to CAUTI, hypotensionresponsive to IV fluids History of bladder outlet obstruction with chronic Henderson Urine culture polymicrobial - initially started on cefepime, narrowed to Rocephin and completed course of antibiotics BC no growth to date CORDELIA due to ATN with hyperkalemia on CKD-3 - Due to sepsis/prerenal. No evidence of ongoing obstruction, Henderson draining appropriately. Not an uric Creatinine baseline around 1.21.4. Creatinine downtrending, not yet normalized. Henderson changed out in ED Hyperkalemia treated with calcium gluconate, IV fluids, Lokelma - resolved Anemia Hemoglobin fluctuating 7.18.4. No active bleeding clinically. Brown stools. Iron studies with low transferrin saturation and he has a history of iron deficiency - completed a course of Venofer Hemoglobin borderline at 7.0 02/07. Will give 1 unit to optimize. Henderson chronically leaks, causing skin/wound problems - consulted Urology, recommended gemtesa for probable bladder spasms. Did not recommend SP cath. Hypercalcemia - 11.3 and iCa elevated in ED. Normal in recent past so probably volume depletion or possibly it was drawn right after Ca gluconate push. resolved CAD, hx CABG, s/p AVR, hypertension - -02/2024 had coronary angiogram and TTE. -S/P Cardiac Cath 02/2024:Essentially normal epicardial coronary arteries with no more than very mild lesions as described. ECHO: EF 55 to 60%. No regional wall motion abnormality. Right ventricle is borderline dilated. Bioprosthetic arctic valve. Gradient is normal further prosthetic valve. Moderate to severe mitral annular calcification, mild mitral stenosis" -EKG with ST flattening but no ROSCOE or depression, troponin negative x2 in ED. No evidence of ACS Resume statin With hypotension from sepsis - lisinopril, indapamide, metoprolol amlodopine held Midodrine was added with hypotension, tommy hold and if BP does not drop by tomorrow, will start to resume BP meds Type II DM With frailty and weight loss Last A1c 5 discontinue Januvia/metformin on discharge, follow home BSG's and reinitiate as needed. VIKRAM: Continue CPAP Vascular dementia: At baseline Skin care: Continue wound care to back and groin. Gemtesa added to minimize Henderson leakage Protein calorie malnutrition: Continue protein supplementation History of bioprosthetic AVR: No significant regurg or stenosis. Limited visualization. DVT ppx - SQ heparin q12h Disposition: Pending SNF. Case management following. Admission and Anticipated Discharge Date Admission Date: January 31, 2025 Subjective patient seen lying in bed, no acute complaints. Has not had a bowel movement in a few days. This is kind of normal for him. Denies pain. Review of Systems Review of Systems: All systems reviewed & are unremarkable except as noted in Subjective Physical Exam Physical Exam: General: NAD, VS as above Resp: normal respiratory effort, lungs clear to auscultation CV: RRR, no murmur, Abd: normal bowel sounds, non tender, Soft Extremities: Moves all extremities, no edema Neuro: A&O x3, Skin: intact, no lesions noted Results & Data Results & Data Vital Signs (Past 12 Hours) Vital Signs Temp Pulse Resp BP Pulse Ox O2 Del Method 02/08/25 12:28 153/66 H 02/08/25 08:12 98.8 F 84 16 128/68 94 Room Air Laboratory Results CBC and chemistry reviewed PG Care Time/CCT Total # of Minutes Spent Total Time Spent with Patient: Total time spent is greater than 50% in coordination of care (as documented) at patient's floor/unit and/or counseling patient: Coding Level of Care Code 35709 SUB INP/OBS CARE 3/50MIN Diagnoses Sepsis A41.9 Catheter-associated urinary tract infection T83.511A; N39.0 CORDELIA (acute kidney injury) N17.9 Hyperkalemia E87.5 Vascular dementia F01.50 Diabetes E11.9
[2025-02-09] MEDS: MoRPHine SULFATE 2 MG/ML CARP IV STA (00:55)
[2025-02-09 06:57] LABS: Hematocrit (blood only) 23.9 % (42.0-52.0); Hemoglobin 8.2 g/dl (14.0-18.0); Immature Granulocytes # (auto) 0.03 K/uL (0.01-0.20); Immature Granulocytes % (auto) 0.5 %; Mean Corpuscular Hemoglobin 29.8 pg (25.0-34.0); Mean Corpuscular Volume 86.9 fL (80.0-100.0); Platelet Count 259 K/uL (130-400); RDW Standard Deviation 48.8 fL (36.4-46.3); Red Blood Count 2.75 M/uL (4.70-6.10); White Blood Count 5.85 K/ul (4.8-10.8)
[2025-02-09 07:17] LABS: Anion Gap 6.0 (3-11); Blood Urea Nitrogen 41.0 mg/dl (6-23); Calcium 8.4 mg/dl (8.6-10.3); Carbon Dioxide 25.0 mmol/L (21-32); Chloride 108.0 mmol/L (98-107); Creatinine Clr Calc Pharmacy 35.7 ml/min; Glucose 85.0 mg/dl (70-99(Fasting)); Potassium 3.4 mmol/L (3.5-5.1); Sodium 139.0 mmol/L (136-145)
[2025-02-09] MEDS: ATORVASTATIN 10 MG TAB PO SCH (08:19)
[2025-02-09] MEDS: METOPROLOL SUCC 25MG EXT REL TAB PO SCH (10:11)
--- NOTE | 2025-02-09 14:33 | Hospitalist Progress Note ---
Date of Service February 09, 2025 Assessment & Plan (1) Sepsis: (2) Catheter-associated urinary tract infection: (3) CORDELIA (acute kidney injury): (4) Hyperkalemia: (5) Vascular dementia: (6) Diabetes: Plan 79 y/o man with chronic henderson related to SHOEMAKER from BPH, vascular dementia, DM2, CAD, CKD-3 who is admitted for sepsis causing acute organ dysfunction (CORDELIA) due to CAUTI, CORDELIA with hyperkalemia which is likely prerenal. Renal function is steadily improving although not yet normalized. He is complete a course of antibiotics for UTI. He has not had active bleeding but has underlying gradually progressive anemia likely from combination of renal disease and iron deficiency. He completed a course of Venofer but did have borderline blood levels for which 1 unit was transfused 02/07. He is now pending placement # Sepsis with acute organ dysfunction (CORDELIA) due to CAUTI, hypotensionresponsive to IV fluids History of bladder outlet obstruction with chronic Henderson Urine culture polymicrobial - initially started on cefepime, narrowed to Rocephin and completed course of antibiotics BC negative, finalized CORDELIA due to ATN with hyperkalemia on CKD-3 - Due to sepsis/prerenal. No evidence of ongoing obstruction, Henderson draining appropriately. Not an uric Creatinine baseline around 1.21.4. Creatinine downtrending, not yet normalized. Henderson changed out in ED Hyperkalemia treated with calcium gluconate, IV fluids, Lokelma - resolved Anemia Hemoglobin fluctuating 7.18.4. No active bleeding clinically. Brown stools. Iron studies with low transferrin saturation and he has a history of iron deficiency - completed a course of Venofer Hemoglobin borderline at 7.0 02/07. Given 1 unit to optimize. hgb stable since Henderson chronically leaks, causing skin/wound problems - consulted Urology, recommended gemtesa for probable bladder spasms. Did not recommend SP cath. Hypercalcemia - 11.3 and iCa elevated in ED. Normal in recent past so probably volume depletion or possibly it was drawn right after Ca gluconate push. resolved CAD, hx CABG, s/p AVR, hypertension - -02/2024 had coronary angiogram and TTE. -S/P Cardiac Cath 02/2024:Essentially normal epicardial coronary arteries with no more than very mild lesions as described. ECHO: EF 55 to 60%. No regional wall motion abnormality. Right ventricle is borderline dilated. Bioprosthetic arctic valve. Gradient is normal further prosthetic valve. Moderate to severe mitral annular calcification, mild mitral stenosis" -EKG with ST flattening but no ROSCOE or depression, troponin negative x2 in ED. No evidence of ACS Resume statin With hypotension from sepsis - lisinopril, indapamide, metoprolol amlodopine held Midodrine was added with hypotension, tommy hold and if BP does not drop by tomorrow, will start to resume BP meds Type II DM With frailty and weight loss Last A1c 5 discontinue Januvia/metformin on discharge, follow home BSG's and reinitiate as needed. VIKRAM: Continue CPAP Vascular dementia: At baseline Skin care: Continue wound care to back and groin. Gemtesa added to minimize Henderson leakage Protein calorie malnutrition: Continue protein supplementation History of bioprosthetic AVR: No significant regurg or stenosis. Limited visualization. DVT ppx - SQ heparin q12h Disposition: SNF denied. Spoke with to update, she does not feel patient is well enough to go home. Very concerned about his wounds and what could happen at home Admission and Anticipated Discharge Date Admission Date: January 31, 2025 Subjective patient seen lying in bed, complains of left hip pain. No bowel movement yet. He denies injury to the hip. Review of Systems Review of Systems: All systems reviewed & are unremarkable except as noted in Subjective Physical Exam Physical Exam: General: NAD, VS as above Resp: normal respiratory effort, lungs clear to auscultation anteriorly CV: RRR, no murmur, Abd: normal bowel sounds, non tender, soft Extremities: Moves all extremities, no edema. able to wiggle toes bilaterally. No pain with palpation of the hip Results & Data Results & Data Vital Signs (Past 12 Hours) Vital Signs Temp Pulse Resp BP Pulse Ox O2 Del Method 02/09/25 07:16 98.1 F 69 18 134/66 93 Room Air Laboratory Results cbc and bmp reviewed PG Care Time/CCT Total # of Minutes Spent Total Time Spent with Patient: Total time spent is greater than 50% in coordination of care (as documented) at patient's floor/unit and/or counseling patient: Coding Level of Care Code 55329 SUB INP/OBS CARE 06/06MIN Diagnoses Sepsis A41.9 Catheter-associated urinary tract infection T83.511A; N39.0 CORDELIA (acute kidney injury) N17.9 Hyperkalemia E87.5 Vascular dementia F01.50 Diabetes E11.9
[2025-02-09 15:19] VITALS: O2SAT 94
[2025-02-09 23:44] VITALS: PULSE 66
[2025-02-10 07:19] LABS: Hematocrit (blood only) 23.9 % (42.0-52.0); Hemoglobin 8.2 g/dl (14.0-18.0); Immature Granulocytes # (auto) 0.05 K/uL (0.01-0.20); Immature Granulocytes % (auto) 0.9 %; Mean Corpuscular Hemoglobin 30.1 pg (25.0-34.0); Mean Corpuscular Volume 87.9 fL (80.0-100.0); Platelet Count 280 K/uL (130-400); RDW Standard Deviation 49.1 fL (36.4-46.3); Red Blood Count 2.72 M/uL (4.70-6.10); White Blood Count 5.65 K/ul (4.8-10.8)
[2025-02-10 07:46] VITALS: BP 140/78; RESP 18; TEMP 97.9
[2025-02-10 07:46] LABS: Anion Gap 5.0 (3-11); Blood Urea Nitrogen 42.0 mg/dl (6-23); Calcium 8.4 mg/dl (8.6-10.3); Carbon Dioxide 27.0 mmol/L (21-32); Chloride 107.0 mmol/L (98-107); Creatinine Clr Calc Pharmacy 34.9 ml/min; Glucose 83.0 mg/dl (70-99(Fasting)); Potassium 3.5 mmol/L (3.5-5.1); Sodium 139.0 mmol/L (136-145)
--- NOTE | 2025-02-10 10:42 | Discharge Summary ---
Discharge Summary Date of Service February 10, 2025 Principal Dx & Hospital Course #1 = Principal Diagnosis (1) Sepsis: (2) Catheter-associated urinary tract infection: (3) CORDELIA (acute kidney injury): (4) Hyperkalemia: (5) Vascular dementia: (6) Diabetes: Plan # Sepsis with acute organ dysfunction (CORDELIA) due to CAUTI, hypotensionresponsive to IV fluids 79 y/o man with chronic henderson related to SHOEMAKER from BPH, vascular dementia, DM2, CAD, CKD-3 who is admitted for sepsis causing acute organ dysfunction (CORDELIA) due to CAUTI, CORDELIA with hyperkalemia which is likely prerenal. Renal function is steadily improving although not yet normalized. He is complete a course of antibiotics (cefepime, narrowed to rocephin) for UTI. Blood cultures were negative. He has not had active bleeding but has underlying gradually progr essive anemia likely from combination of renal disease and iron deficiency. He completed a course of Venofer but did have borderline blood levels for which 1 unit was transfused 02/07. He was pending placement, but SNF auth was denied, and will return home with HH. CORDELIA due to ATN with hyperkalemia on CKD-3 - Due to sepsis/prerenal. No evidence of ongoing obstruction, Henderson draining appropriately. Not an uric. Creatinine baseline around 1.21.4. Creatinine downtrending, not yet normalized. Henderson changed out in ED. Hyperkalemia treated with calcium gluconate, IV fluids, Lokelma - resolved. Losartan and potassium supplementation stopped. Indapamide held - discuss with PCP for further resuming. repeat BMP ordered with with results to PCP Anemia - Hemoglobin fluctuating 7.18.4. No active bleeding clinically. Brown stools. Iron studies with low transferrin saturation and he has a history of iron deficiency - completed a course of Venofer and given 1 unit PRBC for Hgb 7.0. PO iron supplementation held at discharge given his venofer course. hgb stable since Henderson chronically leaks, causing skin/wound problems - consulted Urology, recommended gemtesa for probable bladder spasms. Did not recommend SP cath. Catheter not leaking since medication change. Flomax was held with hypotension, henderson functioning properly - will discontinue on discharge as this may have been contributing to the leakage. CT A/P does show left kidney lesion that needs nonemergent follow up imaging Hypercalcemia - 11.3 and iCa elevated in ED. Normal in recent past so probably volume depletion or possibly it was drawn right after Ca gluconate push. resolved CAD, hx CABG, s/p AVR, hypertension - -02/2024 had coronary angiogram and TTE. -S/P Cardiac Cath 02/2024:Essentially normal epicardial coronary arteries with no more than very mild lesions as described. ECHO: EF 55 to 60%. No regional wall motion abnormality. Right ventricle is borderline dilated. Bioprosthetic arctic valve. Gradient is normal further prosthetic valve. Moderate to severe mitral annular calcification, mild mitral stenosis" Continue statin. was requiring midodrine while spetic, BP has improved and this has been discontinued. metorpolol and amlodopine resumed . Type II DM Last A1c 5.9 - discontinue Januvia/metformin on discharge, follow home BSG's and reinitiate as needed. VIKRAM: Continue CPAP Vascular dementia: At baseline Skin care: Continue wound care to back and groin. Gemtesa added to minimize Henderson leakage. Wound improving since admission. Protein calorie malnutrition: Continue protein supplementation History of bioprosthetic AVR: No significant regurg or stenosis. Limited visualization. Dispo: discharge to home with HH updated extensively 02/09 Notes For Next Care Provider kidney lesion needs follow up Admission HPI Per Admitting Provider 79 y/o man with chronic henderson related to SHOEMAKER from BPH, vascular dementia, DM2, CAD, CKD-3 who had a severe coughing fit last night so his brought him to ED this morning. History is limited by significant dementia and his was at [facility] all AM/midday so history is as per ED MD who did speak with [facility] early this am. In the ED there hasn't been any coughing or hypoxia and CXR is clear. He does have sepsis however and CORDELIA on labs so he is being admitted. He has been leaking urine around his henderson catheter and urine was cloudy with only 50 mL initially out with henderson change in ED. He has skin breakdown in gr oins and back. For me he's oriented to self and hospital but not to situation and short term memory is very poor. He denies all the ROS questions including SOB CP abd pain N/V/D and painful urination, however, he has obvious SP tenderness on physical exam. Discharge Exam General: NAD, VS as above Resp: normal respiratory effort, lungs clear to auscultation anteriorly CV: RRR, no murmur, Abd: normal bowel sounds, non tender, soft Extremities: Moves all extremities, no edema. able to wiggle toes bilaterally. No pain with palpation of the hip SKIN: erythema to back improving, does still have open areas : henderson in place, no leakage Discharge Plan Discharge Items Patient Disposition: Home - Home Health Services Reason For Visit: CORDELIA WITH HYPERKALEMIA Discharge Diagnosis: CORDELIA Condition on Discharge: Fair Activity: Resume your previous activity Non-emergency contact: Primary Care Provider Call non-emergency contact if: you have any medication questions, your symptoms worsen, your pain is not controlled and your temperature is above 101 Follow-up/Referrals: Karuna Parkinson MD [Primary Care Provider] - (follow up 1-2 weeks ) Diet: Carb Consistent or DM2 Diet Texture: Pureed (blended smooth) Addtl Attending Provider Instructions: Mr. Montalvo, You were hospitalized after having sepsis from a urinary tract infection, cause an acute kidney injury and elevated potassium levels. Thankfully this has resolved with IV fluids and IV antibiotics. Your kidney function has greatly improved, but not back to baseline, Home health will be drawing labs to continue to follow up on this and results will go to your PCP. There were concerns for anemia and you were given 1 unit of blood and a course of venofer (IV iron) and your blood counts have improved. The venofer will help with the building blocks for more red blood cells. You have developed a skin wound on your back from your leaking henderson, thankfully with medication adjustments, your henderson is not leaking any more and this will give you a better chance of having that wound heal. You were seen by the wound care team who recommended to clean and dry the area and the apply stoma powder brushing off the excess, cover with antifungal cream. Apply every 2 hours and reposition as needed. Medication changes: Start gemtesa for bladder spams Stop flomax - may be contributing to leaking hold iron supplement - he does not need additional iron for at least a few months with the amount of IV iron he recieved hold imdapamide - until discussing with PCP, this can cause worsening kidney function stop lisinopril - Blood pressure has been well controlled without it, this can also worsening kidney function and raise potassium levels stop potassium supplementation - if the PCP restarts his imdapaide, it may need to be resumed, but he came in with elevated potassium levels and does not need extra potassium stop metoformin and januvia - blood sugars are well controlled and A1c is beyond acceptable Pending Studies at Discharge: No Stand-Alone Forms: My [facility] [employer], Smoking Cessation Medications and DC Order Prescriptions: New Gemtesa 75 mg Tablet 75 mg PO DAILY Qty: 30 0RF Continued atorvastatin 10 mg Tablet 10 mg PO QAM Qty: 30 0RF finasteride 5 mg tablet 5 mg PO DAILY Qty: 90 3RF amoxicillin 500 mg Capsule 2,000 mg PO DIRECTED PRN (Reason: 1 HR PRIOR TO DENTAL PROCEDURES) lidocaine HCl 2 % Jelly 1 applic intra-urethral Q4H PRN (Reason: URETHRAL PAIN) polyethylene glycol 3350 [Miralax] 17 gram/dose Powder 17 g PO QAM Patient Comments: Unable to verify OTC meds at this date/time. 01/31/25 cholecalciferol (vitamin D3) [Vitamin D3] 25 mcg (1,000 unit) Capsule 25 mcg PO QAM Patient Comments: Unable to verify OTC meds at this date/time. 01/31/25 [id number] Tablet 1 tab PO QAM Patient Comments: Unable to verify OTC meds at this date/time. 01/31/25 duloxetine 30 mg capsule,delayed release(DR/EC) 30 mg PO QAM duloxetine 60 mg capsule,delayed release(DR/EC) 60 mg PO QPM diclofenac sodium 1 % Gel 2 g TOPICAL QID Patient Comments: Unable to verify OTC meds at this date/time. 01/31/25 Rx Instructions: APPLY TO LEFT SHOULDER acetaminophen 325 mg tablet 650 mg PO TID Patient Comments: Unable to verify OTC meds at this date/time. 01/31/25 metoprolol succinate 25 mg tablet extended release 24 hr 25 mg PO QAM fluticasone propionate 50 mcg/actuation spray,suspension 1 spray INTRANASAL DAILY PRN (Reason: Congestion) Patient Comments: Unable to verify OTC meds at this date/time. 01/31/25 cyanocobalamin (vitamin B-12) 1,000 mcg Tablet 1,000 mcg PO QAM amlodipine 5 mg Tablet 5 mg PO QAM Qty: 30 0RF magnesium chloride [Mag 64] 64 mg tablet,delayed release (DR/EC) 64 mg PO QAM Patient Comments: Per spouse, pt takes once daily due to diarrhea. Originally written for twice daily. 01/31/25 Held ferrous sulfate 325 mg (65 mg iron) tablet 325 mg PO BID Hold Instructions: Provider's Order indapamide 2.5 mg Tablet 2.5 mg PO QAM Qty: 30 0RF Hold Instructions: Provider's Order Discontinued Januvia 100 mg Tablet 100 mg PO QAM Qty: 30 0RF tamsulosin 0.4 mg capsule 0.4 mg PO HS metformin 500 mg Tablet Extended Release 24 Hr 2,000 mg PO QAM lisinopril 40 mg tablet 40 mg PO QAM potassium chloride [Klor-Con M20] 20 mEq tablet,ER particles/crystals 20 meq PO QAM Patient Comments: Per spouse, she was told she could drop it down to 20meq once daily. Originally written for twice daily. 01/31/25 Discharge Orders: Discharge Order (Routine); Ordered 02/10/25 Ordered By: Kate Pruitt Admission Data Admit Date/Time: 01/31/25 10:53 Attending Provider: Erika Phan Admit Provider: Erika Phan Primary Care Provider: Karuna Parkinson Other Providers: [place]; Erika Phan; [facility] Other Interventions: Discharge Summary Assessment (RN) Last Done: 02/10/25 10:57 Hospital Stay Data Consultations 01/31/25 09:58 ED Decision to Admit Stat 02/01/25 08:44 Consult Urology Routine Diagnostic Imagining Performed Chest X-Ray 01/31/25 09:13 HISTORY: Sepsis TECHNIQUE: Portable AP radiograph of the chest. COMPARISON: Chest radiograph dated 03/03/2024. FINDINGS: Evaluation is limited by rotation. No focal lung consolidation. No pneumothorax or pleural effusion. Normal heart size. Postsurgical changes of median sternotomy and cardiac valve replacement. Mediastinal contours are poorly evaluated due to rotation. Degenerative changes of the shoulders and spine. IMPRESSION: * No acute cardiopulmonary findings. * Postsurgical changes of median sternotomy and cardiac valve replacement. Electronically signed by Blaine Saavedra 01-31-2025 10:09 AM Renal Ultrasound 01/31/25 10:44 HISTORY: Acute kidney injury. TECHNIQUE: Ultrasound evaluation of the kidneys and urinary bladder. COMPARISON: None. FINDINGS: Right kidney measures 11 cm in length. Normal cortical echogenicity. No hydronephrosis. Trace perinephric fluid. Left kidney measures 11 cm in length. Normal cortical echogenicity. No hydronephrosis. Poorly visualized 1.7 cm hypoechoic lesion along the lower pole has no internal color Doppler flow and favors a cyst. Urinary bladder is decompressed upon a Henderson catheter. Bladder wall thickening measuring up to 1.1 cm in thickness. IMPRESSION: * No acute findings. No hydronephrosis. * Nonspecific bladder wall thickening is at least in part due to underdistention. Recommend correlation with urinalysis. Bladder is decompressed on a Henderson catheter. * 1.7 cm hypoechoic lesion along the lower pole of the left kidney is poorly evaluated. Further evaluation is recommended with nonemergent contrast-enhanced multiphasic renal CT or MRI. ACT 112: Positive. There are findings on this exam that require communication between the performing entity and the patient following Patient Test Result Information Act ([place] ACT 112) guidelines. Electronically signed by Blaine Saavedra 01-31-2025 12:29 PM Videofluoroscopic Swallow 02/02/25 09:30 FL video swallow CLINICAL HISTORY: r/o aspiration. TECHNIQUE: Video fluoroscopic evaluation of swallowing was performed in the AP and lateral projections by the speech pathology staff. The patient is fed nectar-thick and thin liquid barium, a barium coated wafer, and barium pudding. FLUOROSCOPY TIME: 1 minute 30 seconds. COMPARISON: 03/04/2024 FINDINGS: There is a possible tiny Zenker's diverticulum at the proximal posterior esophagus. There is premature spillage and delayed swallowing. No aspiration seen. IMPRESSION: No aspiration seen. ACT 112: Negative or not required by law. Electronically signed by: Naveed De La Cruz M.D. 02/02/2025 11:04 AM Pending Results Patient Have Any Pending Studies at Discharge: No Discharge Instructions Given to Patient (Per Discharging Provider) Mr. Montalvo, You were hospitalized after having sepsis from a urinary tract infection, cause an acute kidney injury and elevated potassium levels. Thankfully this has resolved with IV fluids and IV antibiotics. Your kidney function has greatly improved, but not back to baseline, Home health will be drawing labs to continue to follow up on this and results will go to your PCP. There were concerns for anemia and you were given 1 unit of blood and a course of venofer (IV iron) and your blood counts have improved. The venofer will help with the building blocks for more red blood cells. You have developed a skin wound on your back from your leaking henderson, thankfully with medication adjustments, your henderson is not leaking any more and this will give you a better chance of having that wound heal. You were seen by the wound care team who recommended to clean and dry the area and the apply stoma powder brushing off the excess, cover with antifungal cream. Apply every 2 hours and reposition as needed. Medication changes: Start gemtesa for bladder spams Stop flomax - may be contributing to leaking hold iron supplement - he does not need additional iron for at least a few months with the amount of IV iron he recieved hold imdapamide - until discussing with PCP, this can cause worsening kidney function stop lisinopril - Blood pressure has been well controlled without it, this can also worsening kidney function and raise potassium levels stop potassium supplementation - if the PCP restarts his imdapaide, it may need to be resumed, but he came in with elevated potassium levels and does not need extra potassium stop metoformin and januvia - blood sugars are well controlled and A1c is beyond acceptable Total Time Total Time Spent Total Time Spent (In Minutes): Time spent day of discharge 35 minutes including direct patient care, medication reconciliation, documentation, review of labs and images, and coordination of care. Coding Level of Care Code 64237 INP/OBS DISCH >30 MIN Diagnoses Sepsis A41.9 Catheter-associated urinary tract infection T83.511A; N39.0 CORDELIA (acute kidney injury) N17.9 Hyperkalemia E87.5 Vascular dementia F01.50 Diabetes E11.9
[2025-02-10] MEDS: INFLUENZA VACC TS2025-26(65y+)/PF (IIV3) 0.5mL Syr IM ONE (11:51)
== END 2025-02-10 13:15 | disposition home health service (06) | DRG 698 ==
LOC: ED 08:48 → 2S 10:53 → SUATTDRO 10:53 → 2S 12:13 → 3E 02-03 22:53
DX: D64.9 Anemia, unspecified; E83.52 Hypercalcemia; E11.649 Type 2 diabetes mellitus with hypoglycemia without coma; G47.33 Obstructive sleep apnea (adult) (pediatric); Z79.899 Other long term (current) drug therapy; Y84.6 Urinary catheterization as the cause of abnormal reaction of the patient, or of later complication, without mention of misadventure at the time of the procedure; T83.511A Infection and inflammatory reaction due to indwelling urethral catheter, initial encounter; I25.10 Atherosclerotic heart disease of native coronary artery without angina pectoris; Z74.01 Bed confinement status; N39.0 Urinary tract infection, site not specified; A41.9 Sepsis, unspecified organism; N40.1 Benign prostatic hyperplasia with lower urinary tract symptoms; T83.031A Leakage of indwelling urethral catheter, initial encounter; Z79.84 Long term (current) use of oral hypoglycemic drugs; N17.0 Acute kidney failure with tubular necrosis; N18.30 Chronic kidney disease, stage 3 unspecified; X58.XXXA Exposure to other specified factors, initial encounter; S30.811A Abrasion of abdominal wall, initial encounter; Z68.20 Body mass index [BMI] 20.0-20.9, adult; E87.5 Hyperkalemia; E11.22 Type 2 diabetes mellitus with diabetic chronic kidney disease; Z95.1 Presence of aortocoronary bypass graft; S30.810A Abrasion of lower back and pelvis, initial encounter; N32.89 Other specified disorders of bladder; F01.50 Vascular dementia, unspecified severity, without behavioral disturbance, psychotic disturbance, mood disturbance, and anxiety; E43 Unspecified severe protein-calorie malnutrition; I12.9 Hypertensive chronic kidney disease with stage 1 through stage 4 chronic kidney disease, or unspecified chronic kidney disease; Y73.2 Prosthetic and other implants, materials and accessory gastroenterology and urology devices associated with adverse incidents

== ENCOUNTER 2025-02-28 21:07 | Inpatient (IN) ==
[2025-02-28 21:40] LABS: Appearance Urine Cloudy (Clear); Bacteria Urine Automated 4+ (None Seen); Epithelial Cell Urine Auto 0-2 /hpf (0-2); Glucose Urine UA Negative (Negative); RBC Urine Automated 0-2 /hpf (0-2); WBC Urine Automated >50 /hpf (0-5)
--- NOTE | 2025-02-28 21:47 | Emergency Department Note ---
History of Present Illness General Chief complaint: Wound Stated complaint: presssure ulcer Time Seen by Provider: 02/28/25 21:13 History of Present Illness Provider complaint: Illness Maximum Pain Intensity: 8 79-year-old male with dementia and history of sepsis presents to the emergency department for illness. Reportedly the patient's wounds on his back have been leaking foul-smelling green discharge. Patient has had low-grade fevers and increased confusion. No reported traumas. Home Medications Medication Instructions Recorded Confirmed Type atorvastatin 10 mg tablet 10 mg PO QAM #30 tabs 01/16/24 01/31/25 Rx finasteride 5 mg tablet 5 mg PO DAILY #90 tabs 01/16/24 01/31/25 Rx cyanocobalamin (vitamin B-12) 1,000 mcg PO QAM 02/19/24 01/31/25 History 1,000 mcg tablet amlodipine 5 mg tablet 5 mg PO QAM #30 tabs 03/06/24 01/31/25 Rx indapamide 2.5 mg tablet 2.5 mg PO QAM #30 tabs 03/06/24 01/31/25 Rx ferrous sulfate 325 mg (65 mg 325 mg PO BID 04/27/24 01/31/25 History iron) tablet acetaminophen 325 mg tablet 650 mg PO TID 09/16/24 01/31/25 History amoxicillin 500 mg capsule 2,000 mg PO DIRECTED PRN 1 HR 09/16/24 01/31/25 History PRIOR TO DENTAL PROCEDURES cholecalciferol (vitamin D3) 25 25 mcg PO QAM 09/16/24 01/31/25 History mcg (1,000 unit) capsule (Vitamin D3) diclofenac sodium 1 % topical gel 2 g topical QID 09/16/24 01/31/25 History duloxetine 30 mg capsule,delayed 30 mg PO QAM 09/16/24 01/31/25 History release duloxetine 60 mg capsule,delayed 60 mg PO QPM 09/16/24 01/31/25 History release fluticasone propionate 50 1 spray intranasal DAILY PRN 09/16/24 01/31/25 History mcg/actuation nasal Congestion spray,suspension lidocaine HCl 2 % mucosal jelly 1 applic intra-urethral Q4H PRN 09/16/24 01/31/25 History URETHRAL PAIN metoprolol succinate 25 mg 25 mg PO QAM 09/16/24 01/31/25 History tablet,extended release 24 hr [id number] tablet 1 tab PO QAM 09/16/24 01/31/25 History polyethylene glycol 3350 17 17 g PO QAM 09/16/24 01/31/25 History gram/dose oral powder (Miralax) magnesium chloride 64 mg 64 mg PO QAM 01/31/25 01/31/25 History (magnesium chloride) tablet,delayed release (Mag 64) vibegron 75 mg tablet (Gemtesa) 75 mg PO DAILY #30 tabs 02/10/25 Rx Allergies Allergy/AdvReac Type Severity Reaction Status Date / Time dog dander Allergy Unknown ON Verified 09/16/24 01:18 [facility] MED LIST Past Med/Surg History Problem List (Updated 02/28/25 @ 22:46 by Neri Walton MD) UTI (urinary tract infection) (Acute) Cellulitis (Acute) Sepsis (Acute) CAD (coronary artery disease) Hyperkalemia Catheter-associated urinary tract infection Sepsis Acute dehydration (Acute) Complicated urinary tract infection (Acute) CORDELIA (acute kidney injury) (Acute) Acute hyperkalemia (Acute) Adult failure to thrive (Acute) Complication of Carter catheter (Acute) Vascular dementia Subclinical hypothyroidism Demand ischemia of myocardium Physical deconditioning Ambulatory dysfunction Acute alteration in mental status (Acute) Weakness (Acute) Elevated troponin (Acute) 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 (Acute) Lower back pain Encounter for pre-operative examination Hematuria (Chronic) Diabetes (Chronic) Acute urinary retention (Acute) Acute urinary retention (Acute) Bilateral lower extremity edema (Acute) Medical History Septic shock Acute urinary retention POST OP ANESTHESIA-NEEDED TO BE CATHETERIZED Osteoarthritis BPH (benign prostatic hyperplasia) Diabetes mellitus, type 2 Peripheral neuropathy FEET Hyperlipidemia Hypertension Sleep apnea CPAP Surgical History H/O removal of cyst NECK-BENIGN S/P foot surgery, right HAMMERTOE X 3 PROCEDURES History of tonsillectomy History of appendectomy Previous back surgery DISC SURG S/P TURP GREENLIGHT LASER History of heart valve replacement AVR-12/2009 Family History Family/Other Family history of diabetes mellitus Social History Smoking Status: Never smoker Second Hand Exposure: No; Do You Dip or Chew Tobacco: No; Hx Alcohol Use: No Hx Substance Use: No Preferred Language: [place] Communication Ability: Effective 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 states he only lives with , however pt. is a poor historian Feels Safe at Home: Yes Assistive Devices: Hospital Bed, Mechanical Lift and Wheelchair Physical Exam Vital Signs Vital Signs - 24 hr 02/28/25 21:13 02/28/25 21:14 02/28/25 21:24 Temperature 37.2 C Temperature Source Oral Pulse Rate 115 H 107 H 102 H Respiratory Rate 22 22 Blood Pressure 165/90 H Blood Pressure Mean 115 Pulse Oximetry 94 Oxygen Delivery Method Room Air Sepsis New/Unexplained Change in Mental Status No Sepsis Action Taken by Nursing Physician Notified 02/28/25 21:30 02/28/25 21:45 02/28/25 22:15 Temperature Temperature Source Pulse Rate 101 H 103 H 106 H Respiratory Rate 13 13 20 Blood Pressure 148/77 H Blood Pressure Mean 100 Pulse Oximetry Oxygen Delivery Method Sepsis New/Unexplained Change in Mental Status Sepsis Action Taken by Nursing 02/28/25 22:27 Temperature Temperature Source Pulse Rate 98 H Respiratory Rate 20 Blood Pressure Blood Pressure Mean Pulse Oximetry 96 Oxygen Delivery Method Room Air Sepsis New/Unexplained Change in Mental Status Sepsis Action Taken by Nursing Physical Exam HENT: Exam performed. - Head: Normocephalic and atraumatic. EYES: Conjunctivae and EOM are normal. Pupils are equal, round, and reactive to light. Right eye exhibits no discharge. Left eye exhibits no discharge. No scleral icterus. NECK: Normal range of motion. Neck supple. No JVD present. CV: Tachycardic Rate, regular rhythm, normal heart sounds and intact distal pulses. There is no peripheral edema. Palpable radial pulses bue. PULM/CHEST: Rhonchi bilaterally. ABD: The abdomen is soft. There is no tenderness. There is no rebound, no guarding : Carter catheter in place. NEURO: Motor and sensation grossly intact. SKIN: Diffuse erythema and warmth over the patient's entire back. Stage I/stage II pressure ulcers that are admitting green purulent discharge. Course Course 2112: The patient was evaluated in room A9. A complete history and physical exam was performed Cardiac monitoring: An order was placed for continuous cardiac monitoring. The monitor shows a rate of 110 with sinus tachycardia rhythm interpreted by or Sepsis protocols initiated. 2236: Patient tachycardic. Lactic acid 2.8. Renal function is unremarkable. Urinalysis appears infected. Patient will be treated with 30 cc/kg normal saline bolus as well as Rocephin and daptomycin given the UTI/cellulitis. Patient be admitted to the [facility] hospitalist team. Administered Medications Sodium Chloride (Nss) 1,000 mls @ 999 mls/hr IV .Q1H1M LAZARUS Stop: 03/01/25 00:15 Last Admin: 02/28/25 22:21 Dose: 999 mls/hr Documented By: GAUDENCIO Discontinued Medications Sodium Chloride (Nss) 500 mls @ 999 mls/hr IV .Q31M ONE Stop: 02/28/25 22:38 Last Admin: 02/28/25 22:21 Dose: 999 mls/hr Documented By: GAUDENCIO Ceftriaxone Sodium (Rocephin) 2,000 mg in 50 mls @ 100 mls/hr IV NOW STA Stop: 02/28/25 22:37 Last Admin: 02/28/25 22:22 Dose: 100 mls/hr Documented By: GAUDENCIO Medical Decision Making Laboratory Data Attestation: I reviewed the patient's lab results. 02/28/25 21:48 02/28/25 21:48 Lab Results 02/28/25 02/28/25 02/28/25 Range/Units 21:20 21:48 21:50 WBC 7.47 (4.8-10.8) K/ul RBC 3.76 L (4.70-6.10) M/uL Hgb 11.5 L (14.0-18.0) g/dl Hct 34.8 L (42.0-52.0) % MCV 92.6 (80.0-100.0) fL MCH 30.6 (25.0-34.0) pg MCHC 33.0 (32.0-36.0) g/dL RDW Std Deviation 46.5 H (36.4-46.3) fL RDW Coeff of Lianna 13.7 (11.5-14.5) % Plt Count 296 (130-400) K/uL MPV 9.9 (9.4-12.4) fL Immature Gran % (Auto) 0.4 % Neut % (Auto) 79.6 % Lymph % (Auto) 9.4 % Tripp % (Auto) 6.6 % Eos % (Auto) 3.7 % Baso % (Auto) 0.3 % Neut # (Auto) 5.95 (1.40-6.50) K/uL Lymph # (Auto) 0.70 L (1.20-3.40) K/uL Tripp # (Auto) 0.49 (0.11-0.59) K/uL Eos # (Auto) 0.28 (0.00-0.50) K/uL Baso # (Auto) 0.02 (0.00-0.20) K/uL Immature Gran # (Auto) 0.03 (0.01-0.20) K/uL PT 10.3 (9.0-12.0) Seconds INR 1.0 (0.9-1.1) APTT 29 (21-31) Seconds PTT Ratio 1.1 VBG pH 7.39 (7.36-7.41) VBG pCO2 60 H (38-50) mmHg VBG pO2 < 20 mmHg VBG HCO3 36 mmol/L VBG O2 Saturation < 60.0 % VBG Base Excess 9.5 mEq/L Sodium 140 (136-145) mmol/L Potassium 4.2 (3.5-5.1) mmol/L Chloride 99 (98-107) mmol/L Carbon Dioxide 33 H (21-32) mmol/L Anion Gap 8 (3-11) BUN 33 H (6-23) mg/dl Creatinine 1.63 H (0.6-1.4) mg/dl Est Cr Clr Drug Dosing 39.5 ml/min eGFR 42.60 BUN/Creatinine Ratio 20.2 H (10-20) Glucose 204 H (70-99(Fasting)) mg/dl Lactate 2.8 H* (0.4-2.0) mmol/L Calcium 9.6 (8.6-10.3) mg/dl Magnesium 1.8 (1.7-2.4) mg/dl Total Bilirubin 0.4 (0.2-1.0) mg/dl Direct Bilirubin 0.1 (0-0.2) mg/dl AST 22 (13-39) U/L ALT 19 (7-52) U/L Alkaline Phosphatase 99 (34-104) U/L Troponin I High Sens 19.9 (0-20) pg/ml Total Protein 7.0 (6.0-8.3) gm/dl Albumin 3.2 L (3.4-5.0) gm/dl Procalcitonin 0.11 (0-0.5) ng/ml Urine Color Yellow Urine Appearance Cloudy A (Clear) Urine pH 6.0 (4.5-7.5) Ur Specific [place] 1.016 (1.000-1.030) Urine Protein 1+ H (Negative) Urine Glucose (UA) Negative (Negative) Urine Ketones Negative (Negative) Urine Blood 1+ H (Negative) Urine Nitrite Positive A (Negative) Urine Bilirubin Negative (Negative) Urine Urobilinogen Negative (Negative) Ur Leukocyte Esterase 3+ H (Negative) Urine WBC (Auto) >50 H (0-5) /hpf Urine RBC (Auto) 0-2 (0-2) /hpf U Hyaline Cast (Auto) 3-5 H (0-2) /lpf U Epithel Cells (Auto) 0-2 (0-2) /hpf Urine Bacteria (Auto) 4+ H (None Seen) Urine Comment SARS-CoV-2 (PCR) NEGATIVE (Negative) Influenza Type A (PCR) Negative (Neg) Influenza Type B (PCR) Negative (Neg) RSV (RT-PCR) Negative (Neg) Imaging Data Attestation: I personally reviewed and interpreted this imaging study as follows: My Impression: Chest x-ray: No significant change from the chest x-ray performed on January 31, 2025 ECG Data Attestation: I personally reviewed and interpreted this ECG as follows: Rate (beats per minute): 102 Rhythm: + sinus tachycardia ECG Intervals/blocks: + Normal QRS, + Normal MT and + Normal QT-c ECG ST segments: + Normal ST segments MDM Narrative 3: The patient was evaluated in room A9. A complete history and physical exam was performed Cardiac monitoring: An order was placed for continuous cardiac monitoring. The monitor shows a rate of 110 with sinus tachycardia rhythm interpreted by me 2237: Patient tachycardic. Lactic acid 2.8. Renal function is unremarkable. Urinalysis appears infected. Patient will be treated with 30 cc/kg normal saline bolus as well as Rocephin and daptomycin given the UTI/cellulitis. Patient be admitted to the [facility] hospitalist team. Impression & Plan Sepsis, Cellulitis, UTI (urinary tract infection) Discharge Plan Visit Data Chief Complaint: Wound Stated Complaint: presssure ulcer ED Provider: Neri Walton Discharge Problem: Sepsis, Cellulitis, UTI (urinary tract infection) Patient Disposition: Admitted As Inpatient Condition: Fair Forms Stand Alone Forms: My [facility] Prescriptions Prescriptions: No Action ferrous sulfate 325 mg (65 mg iron) tablet 325 mg PO BID Hold Instructions: Provider's Order atorvastatin 10 mg Tablet 10 mg PO QAM Qty: 30 0RF finasteride 5 mg tablet 5 mg PO DAILY Qty: 90 3RF amoxicillin 500 mg Capsule 2,000 mg PO DIRECTED PRN (Reason: 1 HR PRIOR TO DENTAL PROCEDURES) lidocaine HCl 2 % Jelly 1 applic intra-urethral Q4H PRN (Reason: URETHRAL PAIN) polyethylene glycol 3350 [Miralax] 17 gram/dose Powder 17 g PO QAM Patient Comments: Unable to verify OTC meds at this date/time. 01/31/25 cholecalciferol (vitamin D3) [Vitamin D3] 25 mcg (1,000 unit) Capsule 25 mcg PO QAM Patient Comments: Unable to verify OTC meds at this date/time. 01/31/25 [id number] Tablet 1 tab PO QAM Patient Comments: Unable to verify OTC meds at this date/time. 01/31/25 duloxetine 30 mg capsule,delayed release(DR/EC) 30 mg PO QAM duloxetine 60 mg capsule,delayed release(DR/EC) 60 mg PO QPM diclofenac sodium 1 % Gel 2 g TOPICAL QID Patient Comments: Unable to verify OTC meds at this date/time. 01/31/25 Rx Instructions: APPLY TO LEFT SHOULDER acetaminophen 325 mg tablet 650 mg PO TID Patient Comments: Unable to verify OTC meds at this date/time. 01/31/25 metoprolol succinate 25 mg tablet extended release 24 hr 25 mg PO QAM fluticasone propionate 50 mcg/actuation spray,suspension 1 spray INTRANASAL DAILY PRN (Reason: Congestion) Patient Comments: Unable to verify OTC meds at this date/time. 01/31/25 cyanocobalamin (vitamin B-12) 1,000 mcg Tablet 1,000 mcg PO QAM indapamide 2.5 mg Tablet 2.5 mg PO QAM Qty: 30 0RF Hold Instructions: Provider's Order amlodipine 5 mg Tablet 5 mg PO QAM Qty: 30 0RF magnesium chloride [Mag 64] 64 mg tablet,delayed release (DR/EC) 64 mg PO QAM Patient Comments: Per spouse, pt takes once daily due to diarrhea. Originally written for twice daily. 01/31/25 Gemtesa 75 mg Tablet 75 mg PO DAILY Qty: 30 0RF Referrals Referrals: Karuna Parkinson MD [Primary Care Provider] -
[2025-02-28 22:04] LABS: Base Excess VBG 9.5 mEq/L; HCO3 VBG 36 mmol/L; Oxygen Saturation VBG < 60.0 %; PCO2 VBG 60 mmHg (38-50); PO2 VBG < 20 mmHg; pH VBG 7.39 (7.36-7.41)
[2025-02-28 22:05] LABS: Hematocrit (blood only) 34.8 % (42.0-52.0); Hemoglobin 11.5 g/dl (14.0-18.0); Immature Granulocytes # (auto) 0.03 K/uL (0.01-0.20); Immature Granulocytes % (auto) 0.4 %; Mean Corpuscular Hemoglobin 30.6 pg (25.0-34.0); Mean Corpuscular Volume 92.6 fL (80.0-100.0); Platelet Count 296 K/uL (130-400); RDW Standard Deviation 46.5 fL (36.4-46.3); Red Blood Count 3.76 M/uL (4.70-6.10); White Blood Count 7.47 K/ul (4.8-10.8)
[2025-02-28] MEDS: SODIUM CHLORIDE 0.9% 1,000 ML IV SCH (22:21)
[2025-02-28] MEDS: SODIUM CHLORIDE 0.9% 500 ML IV ONE (22:21)
[2025-02-28] MEDS: cefTRIAXone SODIUM 2,000 MG/50 ML BAG IV STA (22:22)
[2025-02-28 22:25] LABS: Alanine Aminotransferase 19.0 U/L (7-52); Albumin Level 3.2 gm/dl (3.4-5.0); Alkaline Phosphatase 99.0 U/L (34-104); Anion Gap 8.0 (3-11); Bilirubin,Total 0.4 mg/dl (0.2-1.0); Blood Urea Nitrogen 33.0 mg/dl (6-23); Calcium 9.6 mg/dl (8.6-10.3); Carbon Dioxide 33.0 mmol/L (21-32); Chloride 99.0 mmol/L (98-107); Creatinine Clr Calc Pharmacy 39.5 ml/min; Glucose 204.0 mg/dl (70-99(Fasting)); Magnesium 1.8 mg/dl (1.7-2.4); Potassium 4.2 mmol/L (3.5-5.1); Sodium 140.0 mmol/L (136-145); Total Protein 7.0 gm/dl (6.0-8.3)
[2025-02-28 22:35] LABS: INR 1.0 (0.9-1.1); Partial Thromboplastin Time 29 Seconds (21-31); Prothrombin Time 10.3 Seconds (9.0-12.0)
[2025-02-28 22:41] LABS: Influenza A virus by PCR Negative (Neg); Influenza B virus by PCR Negative (Neg); SARS CoV2 RNA(COVID-19) Ceph NEGATIVE (Negative)
[2025-02-28] MEDS: DAPTOmycin 525 MG in SYRINGE 0 ML IV ONE (22:47)
--- NOTE | 2025-02-28 23:21 | History & Physical Report ---
Date of Service February 28, 2025 Assessment & Plan (1) Skin breakdown: (2) Pneumothorax: (3) UTI (urinary tract infection): (4) CAD (coronary artery disease): (5) Diabetes: (6) Hypertension: (7) Hyperlipidemia: Plan 79-year-old male presenting with confusion #Skin breakdownpatient with significant redness and breakdown of skin on his back, bottom and scrotum. Tachycardic on arrival, heart rate now improved Admit to medical LR at 125 mL/h x 2 L Turn every 2 hours Wound care daily and as needed Empiric treatment now with daptomycin and ceftriaxone PT/OT evaluations. Patient may need placement #Pneumothoraxpatient found with a moderate-sized right apical pneumothorax. He denies chest pain, shortness of breath. Adequate oxygenation on room air Will place on 100% nonrebreather Repeat chest x-ray in the morning Pulmonary consultation appreciated #UTIpatient with Carter catheter in place. Has prior history of pansensitive Klebsiella UTIs Carter to be exchanged in the ER Follow cultures sent in the ER Continue ceftriaxone #Hypertension Continue metoprolol 25 mg p.o. every morning Continue amlodipine Hold indapamide #BPH Maintain Carter, exchanged in the ER Continue Flomax and finasteride History of Present Illness Chief Complaint: Confusion Primary Care Provider: Blaine Solis MD Joseph Montalvo is a 79yo male with history of Dementia, coronary artery disease, diabetes, hypertension, hyperlipidemia presenting from home with increased confusion. Patient is unable to provide details. No family at bedside. Patient presently with no complaints. Patient has wounds on his back leaking foul-smelling fluid ER course: Normal saline x 2.5 L Daptomycin Ceftriaxone Allergies Allergy/AdvReac Type Severity Reaction Status Date / Time dog dander Allergy Unknown ON Verified 09/16/24 01:18 [place] LIST Home Medications Medication Instructions Recorded Confirmed Type atorvastatin 10 mg tablet 10 mg PO QAM #30 tabs 01/16/24 02/28/25 Rx finasteride 5 mg tablet 5 mg PO DAILY #90 tabs 01/16/24 02/28/25 Rx cyanocobalamin (vitamin B-12) 1,000 mcg PO QAM 02/19/24 02/28/25 History 1,000 mcg tablet amlodipine 5 mg tablet 5 mg PO QAM #30 tabs 03/06/24 02/28/25 Rx indapamide 2.5 mg tablet 2.5 mg PO QAM #30 tabs 03/06/24 02/28/25 Rx ferrous sulfate 325 mg (65 mg 325 mg PO BID 04/27/24 02/28/25 History iron) tablet acetaminophen 325 mg tablet 650 mg PO TID 09/16/24 02/28/25 History amoxicillin 500 mg capsule 2,000 mg PO DIRECTED PRN 1 HR 09/16/24 02/28/25 History PRIOR TO DENTAL PROCEDURES cholecalciferol (vitamin D3) 25 25 mcg PO QAM 09/16/24 02/28/25 History mcg (1,000 unit) capsule (Vitamin D3) diclofenac sodium 1 % topical gel 2 g topical QID 09/16/24 02/28/25 History duloxetine 30 mg capsule,delayed 30 mg PO QAM 09/16/24 02/28/25 History release duloxetine 60 mg capsule,delayed 60 mg PO QPM 09/16/24 02/28/25 History release fluticasone propionate 50 1 spray intranasal DAILY PRN 09/16/24 02/28/25 History mcg/actuation nasal Congestion spray,suspension lidocaine HCl 2 % mucosal jelly 1 applic intra-urethral Q4H PRN 09/16/24 02/28/25 History URETHRAL PAIN metoprolol succinate 25 mg 25 mg PO QAM 09/16/24 02/28/25 History tablet,extended release 24 hr gxrridqovhwb-egjjqyyn-hawcqs tablet 1 tab PO QAM 09/16/24 02/28/25 History polyethylene glycol 3350 17 17 g PO QAM 09/16/24 02/28/25 History gram/dose oral powder (Miralax) magnesium chloride 64 mg 64 mg PO QAM 01/31/25 02/28/25 History (magnesium chloride) tablet,delayed release (Mag 64) vibegron 75 mg tablet (Gemtesa) 75 mg PO DAILY #30 tabs 02/10/25 02/28/25 Rx Past Med/Surg History Problem List (Updated 03/01/25 @ 02:36 by Ann-Marie Steiner DO) Skin breakdown Pneumothorax UTI (urinary tract infection) (Acute) Cellulitis (Acute) Sepsis (Acute) CAD (coronary artery disease) Hyperkalemia Catheter-associated urinary tract infection Sepsis Acute dehydration (Acute) Complicated urinary tract infection (Acute) CORDELIA (acute kidney injury) (Acute) Acute hyperkalemia (Acute) Adult failure to thrive (Acute) Complication of Carter catheter (Acute) Vascular dementia Subclinical hypothyroidism Demand ischemia of myocardium Physical deconditioning Ambulatory dysfunction Acute alteration in mental status (Acute) Weakness (Acute) Elevated troponin (Acute) 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 (Acute) Lower back pain Encounter for pre-operative examination Hematuria (Chronic) Diabetes (Chronic) Acute urinary retention (Acute) Acute urinary retention (Acute) Bilateral lower extremity edema (Acute) Medical History Septic shock Acute urinary retention POST OP ANESTHESIA-NEEDED TO BE CATHETERIZED Osteoarthritis BPH (benign prostatic hyperplasia) Diabetes mellitus, type 2 Peripheral neuropathy FEET Hyperlipidemia Hypertension Sleep apnea CPAP Surgical History H/O removal of cyst NECK-BENIGN S/P foot surgery, right HAMMERTOE X 3 PROCEDURES History of tonsillectomy History of appendectomy Previous back surgery DISC SURG S/P TURP GREENLIGHT LASER History of heart valve replacement AVR-12/2009 Family History Family/Other Family history of diabetes mellitus Social History Smoking Status: Never smoker Second Hand Exposure: No; Do You Dip or Chew Tobacco: No; Hx Alcohol Use: No Hx Substance Use: No Preferred Language: Argentine Communication Ability: Effective Transfill Technician Required: No Beliefs That Will Affect Care: None Current Living Situation: Spouse Current Living Situation Comment: Pt. states he only lives with , however pt. is a poor historian Feels Safe at Home: Yes Assistive Devices: Hospital Bed, Mechanical Lift and Wheelchair Review of Systems Review of Systems: All systems reviewed & are unremarkable except as noted in HPI & below Physical Exam Physical Exam: General: Patient oriented to person and location. Is having significant discomfort with movement in bed Skin: redness of patient's entire back, skin breakdown present above sacrum, scrotal redness and swelling as well HEENT: NC/AT, PERRL, EOMI, anicteric sclera, conjunctiva without injection, external ear normal to inspection and nontender, nares patent, moist mucus membranes, dentition intact, no oropharyngeal lesions, neck supple, trachea m idline, no LAD, no thyromegaly, no JVD Heart: +S1/S2, regular, no m/r/g Lungs: equal air entry bilaterally, no rales/rhonchi/wheezes Abd: +BS, soft, NT/ND, no masses/organomegaly/ascites, Carter in place Ext: warm, 2+ pulses in UE/LE bilaterally, no clubbing/cyanosis or edema Neuro: patient with limited mobility, contractions of legs and arms, oriented to person and location, answers questions appropriately, moaning in pain on occasion Results & Data Results & Data Vital Signs (Past 12 Hours) Vital Signs Temp Pulse Resp BP Pulse Ox O2 Del Method 02/28/25 22:27 98 H 20 96 Room Air 02/28/25 22:15 106 H 20 148/77 H 02/28/25 21:45 103 H 13 02/28/25 21:30 101 H 13 02/28/25 21:24 102 H 22 02/28/25 21:14 107 H 02/28/25 21:13 37.2 C 115 H 22 165/90 H 94 Room Air Laboratory Results Laboratory Results WBC 7.47 K/ul (4.8-10.8) 02/28/25 21:48 RBC 3.76 M/uL (4.70-6.10) L 02/28/25 21:48 Hgb 11.5 g/dl (14.0-18.0) L 02/28/25 21:48 Hct 34.8 % (42.0-52.0) L 02/28/25 21:48 MCV 92.6 fL (80.0-100.0) 02/28/25 21:48 MCH 30.6 pg (25.0-34.0) 02/28/25 21:48 MCHC 33.0 g/dL (32.0-36.0) 02/28/25 21:48 RDW Std Deviation 46.5 fL (36.4-46.3) H 02/28/25 21:48 RDW Coeff of Lianna 13.7 % (11.5-14.5) 02/28/25 21:48 Plt Count 296 K/uL (130-400) 02/28/25 21:48 MPV 9.9 fL (9.4-12.4) 02/28/25 21:48 Immature Gran % (Auto) 0.4 % 02/28/25 21:48 Neut % (Auto) 79.6 % 02/28/25 21:48 Lymph % (Auto) 9.4 % 02/28/25 21:48 [place] % (Auto) 6.6 % 02/28/25 21:48 Eos % (Auto) 3.7 % 02/28/25 21:48 Baso % (Auto) 0.3 % 02/28/25 21:48 Neut # (Auto) 5.95 K/uL (1.40-6.50) 02/28/25 21:48 Lymph # (Auto) 0.70 K/uL (1.20-3.40) L 02/28/25 21:48 [place]urry # (Auto) 0.49 K/uL (0.11-0.59) 02/28/25 21:48 Eos # (Auto) 0.28 K/uL (0.00-0.50) 02/28/25 21:48 Baso # (Auto) 0.02 K/uL (0.00-0.20) 02/28/25 21:48 Immature Gran # (Auto) 0.03 K/uL (0.01-0.20) 02/28/25 21:48 PT 10.3 Seconds (9.0-12.0) 02/28/25 21:48 INR 1.0 (0.9-1.1) 02/28/25 21:48 APTT 29 Seconds (21-31) 02/28/25 21:48 PTT Ratio 1.1 02/28/25 21:48 VBG pH 7.39 (7.36-7.41) 02/28/25 21:48 VBG pCO2 60 mmHg (38-50) H 02/28/25 21:48 VBG pO2 < 20 mmHg 02/28/25 21:48 VBG HCO3 36 mmol/L 02/28/25 21:48 VBG O2 Saturation < 60.0 % 02/28/25 21:48 VBG Base Excess 9.5 mEq/L 02/28/25 21:48 Sodium 140 mmol/L (136-145) 02/28/25 21:48 Potassium 4.2 mmol/L (3.5-5.1) 02/28/25 21:48 Chloride 99 mmol/L (98-107) 02/28/25 21:48 Carbon Dioxide 33 mmol/L (21-32) H 02/28/25 21:48 Anion Gap 8 (3-11) 02/28/25 21:48 BUN 33 mg/dl (6-23) H 02/28/25 21:48 Creatinine 1.63 mg/dl (0.6-1.4) H 02/28/25 21:48 Est Cr Clr Drug Dosing 39.5 ml/min 02/28/25 21:48 eGFR 42.60 02/28/25 21:48 BUN/Creatinine Ratio 20.2 (10-20) H 02/28/25 21:48 Glucose 204 mg/dl (70-99(Fasting)) H 02/28/25 21:48 Lactate 1.2 mmol/L (0.4-2.0) 02/28/25 23:33 Calcium 9.6 mg/dl (8.6-10.3) 02/28/25 21:48 Magnesium 1.8 mg/dl (1.7-2.4) 02/28/25 21:48 Total Bilirubin 0.4 mg/dl (0.2-1.0) 02/28/25 21:48 Direct Bilirubin 0.1 mg/dl (0-0.2) 02/28/25 21:48 AST 22 U/L (13-39) 02/28/25 21:48 ALT 19 U/L (7-52) 02/28/25 21:48 Alkaline Phosphatase 99 U/L (34-104) 02/28/25 21:48 Troponin I High Sens 19.9 pg/ml (0-20) 02/28/25 21:48 Total Protein 7.0 gm/dl (6.0-8.3) 02/28/25 21:48 Albumin 3.2 gm/dl (3.4-5.0) L 02/28/25 21:48 Procalcitonin 0.11 ng/ml (0-0.5) 02/28/25 21:48 Urine Color Yellow 02/28/25 21:20 Urine Appearance Cloudy (Clear) A 02/28/25 21:20 Urine pH 6.0 (4.5-7.5) 02/28/25 21:20 Ur Specific [place] 1.016 (1.000-1.030) 02/28/25 21:20 Urine Protein 1+ (Negative) H 02/28/25 21:20 Urine Glucose (UA) Negative (Negative) 02/28/25 21:20 Urine Ketones Negative (Negative) 02/28/25 21:20 Urine Blood 1+ (Negative) H 02/28/25 21:20 Urine Nitrite Positive (Negative) A 02/28/25 21:20 Urine Bilirubin Negative (Negative) 02/28/25 21:20 Urine Urobilinogen Negative (Negative) 02/28/25 21:20 Ur Leukocyte Esterase 3+ (Negative) H 02/28/25 21:20 Urine WBC (Auto) >50 /hpf (0-5) H 02/28/25 21:20 Urine RBC (Auto) 0-2 /hpf (0-2) 02/28/25 21:20 U Hyaline Cast (Auto) 3-5 /lpf (0-2) H 02/28/25 21:20 U Epithel Cells (Auto) 0-2 /hpf (0-2) 02/28/25 21:20 Urine Bacteria (Auto) 4+ (None Seen) H 02/28/25 21:20 Urine Comment 02/28/25 21:20 SARS-CoV-2 (PCR) NEGATIVE (Negative) 02/28/25 21:50 Influenza Type A (PCR) Negative (Neg) 02/28/25 21:50 Influenza Type B (PCR) Negative (Neg) 02/28/25 21:50 RSV (RT-PCR) Negative (Neg) 02/28/25 21:50 Impressions Chest X-Ray 02/28/25 21:14 CR Exam(s): XR CXR 1 VIEW EXAM: XR Chest, 1 View CLINICAL HISTORY: Reason for exam: Sepsis. TECHNIQUE: Frontal view of the chest. COMPARISON: Prior chest x-ray from January 31, 2025. FINDINGS: Lungs: Mild to moderate peribronchial thickening of the central bronchi. No consolidation. Pleural space: There is a moderate sized right apical pneumothorax. Heart: Status post aortic valve replacement. No cardiomegaly. Mediastinum: Unremarkable. Normal mediastinal contour. Bones/joints: Status post median sternotomy with sternal wires intact. No acute fracture. IMPRESSION: There is a moderate sized right apical pneumothorax. Bronchitis, which may be of infectious or inflammatory etiologies. No consolidation or pleural effusion. Communications: Call Doctor Pneumothorax Electronically signed by: Amy Mcnair MD 03/01/25 00:55 AM PG Care Time/CCT Total # of Minutes Spent Total Time Spent with Patient: Total time spent is greater than 50% in coordination of care (as documented) at patient's floor/unit and/or counseling patient: Coding Level of Care Code 38136 INT INP/OBS CARE 3/75MIN Diagnoses Skin breakdown R23.8 Pneumothorax J93.9 UTI (urinary tract infection) N39.0 CAD (coronary artery disease) I25.10 Diabetes E11.9 Hypertension I10 Hyperlipidemia E78.5
--- NOTE | 2025-03-01 00:56 | XRay Report ---
Exam(s): XR CXR 1 VIEW EXAM: XR Chest, 1 View CLINICAL HISTORY: Reason for exam: Sepsis. TECHNIQUE: Frontal view of the chest. COMPARISON: Prior chest x-ray from January 31, 2025. FINDINGS: Lungs: Mild to moderate peribronchial thickening of the central bronchi. No consolidation. Pleural space: There is a moderate sized right apical pneumothorax. Heart: Status post aortic valve replacement. No cardiomegaly. Mediastinum: Unremarkable. Normal mediastinal contour. Bones/joints: Status post median sternotomy with sternal wires intact. No acute fracture. IMPRESSION: There is a moderate sized right apical pneumothorax. Bronchitis, which may be of infectious or inflammatory etiologies. No consolidation or pleural effusion. Communications: Call Doctor Pneumothorax Electronically signed by: Amy Mcnair MD 03/01/25 00:55 AM
--- NOTE | 2025-03-01 01:17 | Emergency Department Note ---
ED Visit Note I was contacted by stat rad radiologist that this patient has a right-sided pneumothorax. I evaluated the patient. He had no shortness of breath or chest discomfort. O2 saturation was 98% on room air. I alerted the admitting physician and she agreed with placing the patient on high flow oxygen and watching him overnight. He was placed on 15 L by nonrebreather mask. She will place a Pulmonary medicine consult. .
[2025-03-01] MEDS ORDERED: ONDANSETRON INJ 2 MG/ML 2 ML VIAL IV PRN (03:04)
[2025-03-01] MEDS ORDERED: DOCUSATE SODIUM 100 MG CAP PO PRN (03:04)
[2025-03-01] MEDS: LACTATED RINGER'S 1,000 ML IV SCH (03:32)
[2025-03-01] MEDS: ACETAMINOPHEN 500 MG TAB PO SCH (05:58)
[2025-03-01 06:33] LABS: Hematocrit (blood only) 28.3 % (42.0-52.0); Hemoglobin 9.0 g/dl (14.0-18.0); Mean Corpuscular Hemoglobin 29.0 pg (25.0-34.0); Mean Corpuscular Volume 91.3 fL (80.0-100.0); Platelet Count 226 K/uL (130-400); RDW Standard Deviation 45.4 fL (36.4-46.3); Red Blood Count 3.10 M/uL (4.70-6.10); White Blood Count 6.48 K/ul (4.8-10.8)
--- NOTE | 2025-03-01 06:54 | Electrocardiogram Report ---
Test Reason : Blood Pressure : */* mmHG Vent. Rate : 102 BPM Atrial Rate : 102 BPM P-R Int : 180 ms QRS Dur : 92 ms QT Int : 354 ms P-R-T Axes : 97 89 102 degrees QTcB Int : 461 ms Sinus tachycardia with occasional Premature ventricular complexes Premature supraventricular complexes Nonspecific T wave abnormality Abnormal ECG When compared with ECG of 31-Jan-2025 11:09, Premature ventricular complexes are now Present Premature supraventricular complexes are now Present T wave inversion no longer evident in Inferior leads Confirmed by Carlos Eduardo Ramirez ([id number]) on 03/01/2025 6:54:25 AM Referred By: REFERRED SELF Confirmed By: Carlos Eduardo Ramirez
[2025-03-01 07:07] LABS: Anion Gap 6.0 (3-11); Blood Urea Nitrogen 29.0 mg/dl (6-23); Calcium 8.3 mg/dl (8.6-10.3); Carbon Dioxide 28.0 mmol/L (21-32); Chloride 105.0 mmol/L (98-107); Creatinine Clr Calc Pharmacy 47.7 ml/min; Glucose 143.0 mg/dl (70-99(Fasting)); Potassium 3.4 mmol/L (3.5-5.1); Sodium 139.0 mmol/L (136-145)
--- NOTE | 2025-03-01 07:47 | Pulmonary Consultation ---
Date of Consultation March 01, 2025 Assessment & Plan (1) Cellulitis: (2) Physical deconditioning: (3) Acute alteration in mental status: Plan 2D echo 02/05/2025: EF> 70%, indeterminate diastolic function, RV not well- visualized with normal function --Abnormal chest x-ray Likely skinfold on the right side No clear signs of pneumothorax or pneumonia Plan: Chest x-ray from yesterday 02/28/2025 in the ER seems to have skinfold on the right side I do not think patient has pneumothorax on the right. Repeat chest x-ray on personal review does not show any signs of pneumothorax No intervention is needed from pulmonary perspective Would recommend to discontinue nonrebreather and put the patient on room air. No further recommendation from pulmonary perspective, will sign off Please call directly with any questions I spent more than 55 minutes looking in the chart, images, discussing the plan of care with the patient, RN as well as primary team Please note the above document was generated using voice recognition software. It may contain grammatical, syntax or spelling errors.Any formal questions or concerns about the content, text or information contained within the body of this dictation should be directly addressed to the provider for clarification. History of Present Illness Attending Physician: Juan Miguel Mishra MD History of Present Illness 79-year-old male was admitted to the hospital for worsening confusion, he was found to have cellulitis of the back Past medical history: Dementia, diabetes, hypertension, dyslipidemia Pulmonary consulted for chest x-ray which read as pneumothorax on 02/28/2025 The time of examination patient was on nonrebreather He was saturating 100% on it. He was not in any distress. Please make note the patient is a poor historian. He was oriented to self and place. Patient's nurse was also in the room to help with getting history. He denied any chest pain, no abdominal pain, no headache No nausea vomiting He denied any cough. No dysuria. Social history: Lifetime non-smoker Allergies Allergy/AdvReac Type Severity Reaction Status Date / Time dog dander Allergy Unknown ON Verified 09/16/24 01:18 [employer] Home Medications Medication Instructions Recorded Confirmed Type atorvastatin 10 mg tablet 10 mg PO QAM #30 tabs 01/16/24 02/28/25 Rx finasteride 5 mg tablet 5 mg PO DAILY #90 tabs 01/16/24 02/28/25 Rx cyanocobalamin (vitamin B-12) 1,000 mcg PO QAM 02/19/24 02/28/25 History 1,000 mcg tablet amlodipine 5 mg tablet 5 mg PO QAM #30 tabs 03/06/24 02/28/25 Rx indapamide 2.5 mg tablet 2.5 mg PO QAM #30 tabs 03/06/24 02/28/25 Rx ferrous sulfate 325 mg (65 mg 325 mg PO BID 04/27/24 02/28/25 History iron) tablet acetaminophen 325 mg tablet 650 mg PO TID 09/16/24 02/28/25 History amoxicillin 500 mg capsule 2,000 mg PO DIRECTED PRN 1 HR 09/16/24 02/28/25 History PRIOR TO DENTAL PROCEDURES cholecalciferol (vitamin D3) 25 25 mcg PO QAM 09/16/24 02/28/25 History mcg (1,000 unit) capsule (Vitamin D3) diclofenac sodium 1 % topical gel 2 g topical QID 09/16/24 02/28/25 History duloxetine 30 mg capsule,delayed 30 mg PO QAM 09/16/24 02/28/25 History release duloxetine 60 mg capsule,delayed 60 mg PO QPM 09/16/24 02/28/25 History release fluticasone propionate 50 1 spray intranasal DAILY PRN 09/16/24 02/28/25 History mcg/actuation nasal Congestion spray,suspension lidocaine HCl 2 % mucosal jelly 1 applic intra-urethral Q4H PRN 09/16/24 02/28/25 History URETHRAL PAIN metoprolol succinate 25 mg 25 mg PO QAM 09/16/24 02/28/25 History tablet,extended release 24 hr kaxbvvhkozzl-chpdokka-yhlnke tablet 1 tab PO QAM 09/16/24 02/28/25 History polyethylene glycol 3350 17 17 g PO QAM 09/16/24 02/28/25 History gram/dose oral powder (Miralax) magnesium chloride 64 mg 64 mg PO QAM 01/31/25 02/28/25 History (magnesium chloride) tablet,delayed release (Mag 64) vibegron 75 mg tablet (Gemtesa) 75 mg PO DAILY #30 tabs 02/10/25 02/28/25 Rx Patient History Medical History Septic shock Acute urinary retention POST OP ANESTHESIA-NEEDED TO BE CATHETERIZED Osteoarthritis BPH (benign prostatic hyperplasia) Diabetes mellitus, type 2 Peripheral neuropathy FEET Hyperlipidemia Hypertension Sleep apnea CPAP Surgical History H/O removal of cyst NECK-BENIGN S/P foot surgery, right HAMMERTOE X 3 PROCEDURES History of tonsillectomy History of appendectomy Previous back surgery DISC SURG S/P TURP GREENLIGHT LASER History of heart valve replacement AVR-12/2009 Family History Family/Other Family history of diabetes mellitus Social History Smoking Status: Never smoker Second Hand Exposure: No; Do You Dip or Chew Tobacco: No; Hx Alcohol Use: No Hx Substance Use: No Preferred Language: Bhutanese Communication Ability: Impaired Experimental Technician Required: No Beliefs That Will Affect Care: None Current Living Situation: Family Current Living Situation Comment: lives with and has home health Other Information That Helps Us Care for You: No Feels Safe at Home: Yes Safety Concerns: Feels Safe At This Time Assistive Devices: Lift Chair and Mechanical Lift Review of Systems 2 Review of Systems: All systems reviewed & are unremarkable except as noted in HPI & below Physical Exam 2 Physical Exam: Constitutional: No acute distress HEENT: EOMI, PERRLA Respiratory system: Good air entry bilaterally, no wheeze, no rhonchi, mild crackles bilateral lower lobe CVS: S1-S2 positive, no murmurs or gallops Abdomen: Soft, nontender, nondistended, positive bowel sounds x4 Extremities: +2 pulses bilaterally radialis/ dorsalis pedis, no cyanosis, no edema, lower extremity contracture. Weakness left upper extremity 4/5 Neuro: Awake alert oriented self and place Psych: Flat mood and affect G/U: Positive Carter Skin: no rashes, warm and dry Lymphatic: no cervical or axillary lymphadenopathy Results & Data Results & Data Vital Signs (Past 12 Hours) Vital Signs Temp Pulse Pulse Resp BP BP BP 03/01/25 07:39 36.5 C 78 20 132/76 03/01/25 04:36 37 C 92 H 145/87 H 03/01/25 03:10 03/01/25 03:04 37 C 92 H 145/87 H 03/01/25 02:41 03/01/25 02:32 37.1 C 03/01/25 02:20 87 18 127/72 03/01/25 01:17 82 18 03/01/25 01:06 91 H 18 142/75 H 02/28/25 23:15 96 H 16 02/28/25 23:00 138/69 02/28/25 22:27 98 H 20 02/28/25 22:15 106 H 20 148/77 H 02/28/25 21:45 103 H 13 02/28/25 21:30 101 H 13 02/28/25 21:24 102 H 22 02/28/25 21:14 107 H 02/28/25 21:13 37.2 C 115 H 22 165/90 H Pulse Ox O2 Del Method O2 Flow Rate 03/01/25 07:39 100 Non-rebreather 15 03/01/25 04:36 100 Non-rebreather 15 03/01/25 03:10 Non-rebreather 15 03/01/25 03:04 100 Non-rebreather 15 03/01/25 02:41 Room Air 03/01/25 02:32 03/01/25 02:20 100 Non-rebreather 15 03/01/25 01:17 100 Non-rebreather 15 03/01/25 01:06 94 Room Air 02/28/25 23:15 97 Room Air 02/28/25 23:00 02/28/25 22:27 96 Room Air 02/28/25 22:15 02/28/25 21:45 02/28/25 21:30 02/28/25 21:24 02/28/25 21:14 02/28/25 21:13 94 Room Air Laboratory Results 03/01/25 05:31 03/01/25 05:31 PG Care Time/CCT Total # of Minutes Spent Total Time Spent with Patient: Total time spent is greater than 50% in coordination of care (as documented) at patient's floor/unit and/or counseling patient: Coding Level of Care Code 91495 INT INP/OBS CARE 2/55MIN Diagnoses Cellulitis L03.90 Physical deconditioning R53.81 Acute alteration in mental status R41.82
--- NOTE | 2025-03-01 08:02 | XRay Report ---
EXAM: XR chest 1V portable CLINICAL HISTORY: Assess pneumothorax. TECHNIQUE: An X-ray image of the chest was obtained in AP projection. COMPARISON: 01/31/2025. FINDINGS: Pulmonary Parenchyma: The lungs are clear bilaterally. There is no evidence of consolidation, collapse, or focal opacities. No pulmonary nodules are identified. There is no evidence of pleural effusion or pleural thickening. Heart and Mediastinum: The heart size and shape are normal. There is no mediastinal widening or masses. No hilar or mediastinal lymphadenopathy is identified. Postsurgical changes of median sternotomy and cardiac valve replacement are present. Bony Thorax: The bony thorax appears intact without fractures or deformities. Degenerative changes of the shoulders and spine are present. Soft Tissues: The soft tissues overlying the chest wall are unremarkable. IMPRESSION: 1. No acute cardiopulmonary abnormalities are identified. 2. No interval change. Electronically signed by Trevor Corbin 03-01-2025 08:02 AM
--- NOTE | 2025-03-01 08:18 | Hospitalist Progress Note ---
Date of Service March 01, 2025 Assessment & Plan (1) Skin breakdown: (2) Pneumothorax: (3) UTI (urinary tract infection): (4) CAD (coronary artery disease): (5) Diabetes: (6) Hypertension: (7) Hyperlipidemia: Plan 79-year-old male presenting with confusion. #Skin breakdown on the back | cellulitis Patient with significant redness and breakdown of skin on his back, bottom and scrotum Suspect this is due to Carter leakage; patient did have erythema noted on his back prior to most recent discharge on 02/10, suspect this is the same wound/erythema that is now infected due to moisture/pressure Blood and wound cultures drawn in the ED LR at 125 mL/h x 2 L Turn every 2 hours Daily wound care Wound care nurse consult appreciated Wound culture on 03/01 preliminarily growing Pseudomonas aeruginosa Discontinue ceftriaxone Initiate Zosyn 4.5 g IV q8h Continue daptomycin 500 mg IV q24h PT/OT evaluations appreciated Patient may need placement on discharge, however he was denied SNF on his most recent admission; ?Now presenting with complex wounds #Complicated UTI | chronic indwelling Carter catheter No leukocytosis; afebrile Prior h/o most pansensitive Klebsiella UTIs (resistance to nitrofurantoin) Carter exchanged in the ED Ceftriaxone (as above) Follow current UCx Pinpoint growth, re-incubating on 03/01 #?Pneumothorax CXR on arrival reported a moderate-sized right apical pneumothorax. At that time, patient denied chest pain or shortness of breath. Adequate oxygenation on room air overnight. Placed on 100% nonrebreather Repeat chest x-ray the following morning revealed no acute cardiopulmonary abnormality Reconfirmed by pulmonary consultation Titrate supplemental oxygen as needed Continuous pulse oximetry #Hypertension Continue metoprolol 25 mg p.o. QAM Continue amlodipine Hold indapamide #BPH Maintain Carter, exchanged in the ER Continue Flomax and finasteride #Anemia Hgb trend: 11.5 -> 9.0 Suspect secondary to volume dilution from IVF Trend H&H VTE PPx: SCDs Disposition: Continued stay on MedSurg Called patient's (Kiki) and provided updates on 03/01. Patient's reports that - after the patient was started on Gemtesa and had a longer tip catheter inserted - he has not been having any urinary leakage from the catheter at home. She thinks the primary contributors to patient's back cellulitis was d/t pressure & moisture from sweat. Patient has been on his back (over the past year). She is also noticed "green discharge" on his diaper and drainage from the blisters. She is requesting that we check his iron levels in the morning, as he received Venofer infusions during his last hospitalization. In regard to patient's prior SNF denial, she reports that she received a letter in the mail that showed he had been accepted on February 21, however the acceptance period was from February 11 to , which led to further confusion for her. Admission and Anticipated Discharge Date Admission Date: February 28, 2025 Supervising Physician Co-Signing Physician Notes The patient was not seen by me. The chart was reviewed. I verified all kitchen points and agree with Hood Breen PA-C with the following exceptions and/or additions: None Subjective Mr. Montalvo is in no acute distress this morning. He is a poor historian at this time, but when asked how his breathing is he reports "good". He denies any pain at rest, but does endorse pain across his back with any sort of movement. ROS: Patient endorses generalized back pain. Patient denies SOB, chest pain, cough, or burning with urination. Review of Systems 2 Review of Systems: See HPI above Physical Exam 2 Physical Exam: General: no acute distress; lying in bed sleeping; non-toxic appearing; cooperative; SpO2 95% on RA HEENT: normocephalic, atraumatic; PERRLA; vision and hearing intact Neck: supple; trachea midline Skin: warm, dry without signs of tenting; no cyanosis; no rashes, bruising, lesions, or erythema noted CV: chest wall NTP; RRR; S1/S2 normal; no murmurs/rubs/gallops; pulses intact and symmetric at radial, DP, and PT Lungs: no acute respiratory distress; symmetrical chest wall expansion; clear breath sounds across all lung ferrera w/o adventitious sounds; no wheezing ABD: Soft, NTP; BS present; no rebound/guarding; no distention Back: Extensive superficial erythema extending from the upper spine to the lower sacrum (see photos below); TTP; weeping serosanguineous appreciated on the left lateral surface (currently dressed); no purulent drainage appreciated MSK: no tics or fasciculations; no edema noted in the LEs b/l, nonerythematous Neuro: A&Ox3; flat mood and affect; fluent speech; sensation intact and symmetric in the LEs b/l Results & Data Results & Data Vital Signs (Past 12 Hours) Vital Signs Temp Pulse Pulse Resp BP BP BP 03/01/25 08:01 36.7 C 85 18 145/82 H 03/01/25 07:39 36.5 C 78 20 132/76 03/01/25 04:36 37 C 92 H 145/87 H 03/01/25 03:10 03/01/25 03:04 37 C 92 H 145/87 H 03/01/25 02:41 03/01/25 02:32 37.1 C 03/01/25 02:20 87 18 127/72 03/01/25 01:17 82 18 03/01/25 01:06 91 H 18 142/75 H 02/28/25 23:15 96 H 16 02/28/25 23:00 138/69 02/28/25 22:27 98 H 20 02/28/25 22:15 106 H 20 148/77 H 02/28/25 21:45 103 H 13 02/28/25 21:30 101 H 13 02/28/25 21:24 102 H 22 02/28/25 21:14 107 H 02/28/25 21:13 37.2 C 115 H 22 165/90 H Pulse Ox O2 Del Method O2 Flow Rate 03/01/25 08:01 90 Room Air 03/01/25 07:39 100 Non-rebreather 15 03/01/25 04:36 100 Non-rebreather 15 03/01/25 03:10 Non-rebreather 15 03/01/25 03:04 100 Non-rebreather 15 03/01/25 02:41 Room Air 03/01/25 02:32 03/01/25 02:20 100 Non-rebreather 15 03/01/25 01:17 100 Non-rebreather 15 03/01/25 01:06 94 Room Air 02/28/25 23:15 97 Room Air 02/28/25 23:00 02/28/25 22:27 96 Room Air 02/28/25 22:15 02/28/25 21:45 02/28/25 21:30 02/28/25 21:24 02/28/25 21:14 02/28/25 21:13 94 Room Air PG Care Time/CCT Total # of Minutes Spent Total Time Spent with Patient: Total time spent is greater than 50% in coordination of care (as documented) at patient's floor/unit and/or counseling patient: C[place] [address] SUB INP/OBS CARE 3/50MIN Patient Type Established Medical Decision Making High Complexity Diagnoses Skin breakdown R23.8 Pneumothorax J93.9 UTI (urinary tract infection) N39.0 CAD (coronary artery disease) I25.10 Diabetes E11.9 Hypertension I10 Hyperlipidemia E78.5
[2025-03-01] MEDS: FINASTERIDE 5 MG TAB PO SCH (08:20)
[2025-03-01] MEDS: POLYETHYLENE (MIRALAX) 17 GM PACK PO SCH (08:20)
[2025-03-01] MEDS: METOPROLOL SUCC 25MG EXT REL TAB PO SCH (08:20)
[2025-03-01] MEDS: DICLOFENAC SOD 1% GEL 100 GM TUBE EXT SCH (08:20)
[2025-03-01] MEDS: VIBEGRON 75 MG TAB PO SCH (08:20)
[2025-03-01] MEDS: MoRPHine SULFATE 4 MG/ML 1 ML CARP\\VIAL ONE (09:04)
[2025-03-01] MEDS: MoRPHine SULFATE 2 MG/ML CARP IV STA (09:06)
[2025-03-01] MEDS ORDERED: MoRPHine SULFATE 2 MG/ML CARP IV PRN (16:59)
[2025-03-01] MEDS ORDERED: PIPERACILLIN/TAZOBACTAM 4.5 GM/100 ML BAG IV SCH (17:00)
[2025-03-01] MEDS: POTASSIUM CHLORIDE 10 MEQ TABCR PO STA (17:58)
[2025-03-01] MEDS: PIPERACILLIN/TAZOBACTAM 4.5 GM/100 ML BAG IV ONE (18:03)
[2025-03-01] MEDS ORDERED: cefTRIAXone SODIUM 1,000 MG/50 ML BAG IV SCH (22:00)
[2025-03-01] MEDS: DAPTOmycin 500 MG in SYRINGE 0 ML IV SCH (22:30)
[2025-03-01] MEDS: PIPERACILLIN/TAZOBACTAM 4.5 GM/100 ML BAG IV SCH (22:51)
[2025-03-02 06:03] LABS: Hematocrit (blood only) 26.2 % (42.0-52.0); Hemoglobin 8.5 g/dl (14.0-18.0); Immature Granulocytes # (auto) 0.05 K/uL (0.01-0.20); Immature Granulocytes % (auto) 1.0 %; Mean Corpuscular Hemoglobin 29.6 pg (25.0-34.0); Mean Corpuscular Volume 91.3 fL (80.0-100.0); Platelet Count 210 K/uL (130-400); RDW Standard Deviation 44.9 fL (36.4-46.3); Red Blood Count 2.87 M/uL (4.70-6.10); White Blood Count 4.86 K/ul (4.8-10.8)
[2025-03-02 06:20] LABS: Anion Gap 6.0 (3-11); Blood Urea Nitrogen 26.0 mg/dl (6-23); Calcium 8.3 mg/dl (8.6-10.3); Carbon Dioxide 28.0 mmol/L (21-32); Chloride 104.0 mmol/L (98-107); Creatinine Clr Calc Pharmacy 44.7 ml/min; Glucose 86.0 mg/dl (70-99(Fasting)); Iron 38.0 mcg/dl (35-175); Potassium 3.5 mmol/L (3.5-5.1); Sodium 138.0 mmol/L (136-145); Total Iron Binding Cap Calc 153.0 mcg/dl (250-450); Transferrin 109.0 mg/dl (200-360); Transferrin (FE) Percent Satur 25.0 % (20-50)
--- NOTE | 2025-03-02 08:35 | Hospitalist Progress Note ---
Date of Service March 02, 2025 Assessment & Plan (1) Skin breakdown: (2) Pneumothorax: (3) UTI (urinary tract infection): (4) CAD (coronary artery disease): (5) Diabetes: (6) Hypertension: (7) Hyperlipidemia: Plan 79-year-old male presenting with confusion. #Skin breakdown on the back | cellulitis Patient with significant redness and breakdown of skin on his back, bottom and scrotum Suspect this is due to Carter leakage; patient did have erythema noted on his back prior to most recent discharge on 02/10, suspect this is the same wound/erythema that is now infected due to moisture/pressure Blood and wound cultures drawn in the ED LR at 125 mL/h x 2 L Turn every 2 hours Daily wound care Wound care nurse consult appreciated Wound culture on 03/01 preliminarily growing Pseudomonas aeruginosa Discontinue ceftriaxone Initiate Zosyn 4.5 g IV q8h Continue daptomycin 500 mg IV q24h PT/OT evaluations appreciated Patient may need placement on discharge, however he was denied SNF on his most recent admission; ?Now presenting with complex wounds #Complicated UTI | chronic indwelling Carter catheter No leukocytosis; afebrile Prior h/o most pansensitive Klebsiella UTIs (resistance to nitrofurantoin) Carter exchanged in the ED Ceftriaxone (as above) Follow current UCx Pinpoint growth, re-incubating on 03/01 #?Pneumothorax CXR on arrival reported a moderate-sized right apical pneumothorax. At that time, patient denied chest pain or shortness of breath. Adequate oxygenation on room air overnight. Placed on 100% nonrebreather Repeat chest x-ray the following morning revealed no acute cardiopulmonary abnormality Reconfirmed by pulmonary consultation Titrate supplemental oxygen as needed Continuous pulse oximetry #Hypertension Continue metoprolol 25 mg p.o. QAM Continue amlodipine Hold indapamide #BPH Maintain Carter, exchanged in the ER Continue Flomax and finasteride #Anemia | H/o TANMAY Hgb trend: 11.5 -> 9.0 ->8.5 Suspect largely due to volume dilution from IVF Clinically, no active bleeding appreciated Iron panel on the morning of 03/02 revealed low iron at 38, as well as depressed TIBC and transferrin levels Patient underwent Venofer infusions x 3 at the end of January, but do not feel that there was a concomitant rise in iron levels In the setting of acute infection, will defer additional Venofer at this time, but should be considered if patient's levels do not improve Trend H&H VTE PPx: SCDs Disposition: Continued stay on MedSurg Called patient's (Kiki) and provided updates on 03/01. Admission and Anticipated Discharge Date Admission Date: February 28, 2025 Supervising Physician Co-Signing Physician Notes I did not see or examine the patient. I verified all kitchen points and agree with Hood Breen PA-C with the following exceptions and/or additions: none Subjective Mr. Montalvo reports he slept "so-so" last night. He reports the pain in his back is a 2 out of 10 while at rest. He denies any burning sensation in his back, and reports only minimal pain with movements in the bed today. No respiratory complaints at this time. Difficult to obtain ROS given patient's underlying dementia However, he currently denies fever, chest pain, SOB, abdominal pain, N/V/D, leakage from his indwelling Carter, or burning sensation in the back or groin region. Review of Systems 2 Review of Systems: See HPI above Physical Exam 2 Physical Exam: General: no acute distress; lying in bed sleeping; pleasant affect; non-toxic appearing; cooperative; SpO2 98% on RA HEENT: normocephalic, atraumatic; PERRLA; vision and hearing intact Neck: supple; trachea midline Skin: warm, dry without signs of tenting; no cyanosis; no rashes, bruising, lesions, or erythema noted CV: chest wall NTP; RRR; S1/S2 normal; no murmurs/rubs/gallops; pulses intact and symmetric at radial, DP, and PT Lungs: no acute respiratory distress; symmetrical chest wall expansion; clear breath sounds across all lung ferrera w/o adventitious sounds; no wheezing ABD: Soft, NTP; BS present; no rebound/guarding; no distention Back: Extensive superficial erythema extending from the upper spine to the lower sacrum; TTP; some breakdown of the skin just above the left sacrum with serosanguineous fluid/weeping (see photos below); no purulent drainage appreciated MSK: no tics or fasciculations; no edema noted in the LEs b/l, nonerythematous Neuro: A&Ox3; flat mood and affect; fluent speech; sensation intact and symmetric in the LEs b/l Results & Data Results & Data Vital Signs (Past 12 Hours) Vital Signs Temp Pulse Resp BP Pulse Ox O2 Del Method 03/02/25 07:23 36.8 C 71 16 137/77 98 Room Air 03/01/25 23:04 36.7 C 69 18 122/66 96 Room Air PG Care Time/CCT Total # of Minutes Spent Total Time Spent with Patient: Total time spent is greater than 50% in coordination of care (as documented) at patient's floor/unit and/or counseling patient: Coding [place] [address] SUB INP/OBS CARE 3/50MIN Patient Type Established Medical Decision Making High Complexity Diagnoses Skin breakdown R23.8 Pneumothorax J93.9 UTI (urinary tract infection) N39.0 CAD (coronary artery disease) I25.10 Diabetes E11.9 Hypertension I10 Hyperlipidemia E78.5
[2025-03-02] MEDS: MELATONIN 3 MG TAB PO PRN (22:38)
--- NOTE | 2025-03-03 08:34 | Hospitalist Progress Note ---
"Date of Service March 03, 2025 Assessment & Plan (1) Skin breakdown: (2) Pneumothorax: (3) UTI (urinary tract infection): (4) CAD (coronary artery disease): (5) Diabetes: (6) Hypertension: (7) Hyperlipidemia: Plan 79-year-old male presenting with confusion. #Skin breakdown on the back | cellulitis Patient with significant redness and breakdown of skin on his back, bottom and scrotum Suspect due to being bedbound Previously, patient had leakage from his Carter; however, per , this resolved during his last admission after starting Suspect this is due to Carter leakage; patient did have erythema noted on his back prior to most recent discharge on 02/10, suspect this is the same wound/erythema that is now infected due to moisture/pressure LR at 125 mL/h x 2 L Turn every 2 hours Daily wound care Wound care nurse consult appreciated Wound culture taken on 02/28 grew Pseudomonas aeruginosa, Staph aureus MRSA, and Enterococcus faecalis MRSA contact isolation precautions in place Zosyn 4.5 g IV q8h Daptomycin 500 mg IV q24h PT/OT evaluations appreciated Suspect patient will need placement on discharge, however he was denied SNF on his most recent admission Now presenting with complex wounds, as well as MRSA infection #Complicated UTI | chronic indwelling Carter catheter No leukocytosis; afebrile Prior h/o most pansensitive Klebsiella UTIs (resistance to nitrofurantoin) Carter exchanged in the ED UCx from 02/28 finalized with Pseudomonas aeruginosa Zosyn (as above) #?Pneumothorax CXR on arrival reported a moderate-sized right apical pneumothorax. At that time, patient denied chest pain or shortness of breath. Adequate oxygenation on room air overnight. Placed on 100% nonrebreather Repeat chest x-ray the following morning revealed no acute cardiopulmonary abnormality Reconfirmed by pulmonary consultation Titrate supplemental oxygen as needed Continuous pulse oximetry #Hypertension Continue metoprolol 25 mg p.o. QAM Continue amlodipine Hold indapamide #BPH Maintain Carter, exchanged in the ER Continue Flomax and finasteride #Anemia | H/o TANMAY Hgb trend: 11.5 -> 9.0 ->8.5 Suspect largely due to volume dilution from IVF Clinically, no active bleeding appreciated Iron panel on the morning of 03/02 revealed low iron at 38, as well as depressed TIBC and transferrin levels Patient underwent Venofer infusions x 3 at the end of January, but do not feel that there was a concomitant rise in iron levels In the setting of acute infection, will defer additional Venofer at this time, but should be considered if patient's levels do not improve Trend H&H VTE PPx: SCDs Disposition: Continued stay on MedSurg Called patient's (Kiki) and provided updates on 03/01. Admission and Anticipated Discharge Date Admission Date: February 28, 2025 Supervising Physician Co-Signing Physician Notes The patient was not seen by me. The chart was reviewed. Case discussed with IRINA Jain. Agree with assessment and plan Subjective Mr. Montalvo is in no acute distress this morning. He reports no back pain today. He reports no acute respiratory distress or breathing concerns today. Nursing i n his room is helping him to eat, however he does report that he is able to eat on his own at times. Difficult to obtain ROS given patient's underlying dementia However, he currently denies fever, chest pain, SOB, abdominal pain, N/V/D, leakage from his indwelling Carter, or burning sensation in the back or groin region. Review of Systems Review of Systems: See HPI above Physical Exam Physical Exam: General: no acute distress; sitting upright in bed eating lunch with aide at bedside; pleasant affect; non-toxic appearing; cooperative; SpO2 95% on RA HEENT: normocephalic, atraumatic; PERRLA; vision and hearing intact Neck: supple; trachea midline Skin: warm, dry without signs of tenting; no cyanosis; no rashes, bruising, lesions, or erythema noted CV: chest wall NTP; RRR; S1/S2 normal; no murmurs/rubs/gallops; pulses intact and symmetric at radial, DP, and PT Lungs: no acute respiratory distress; symmetrical chest wall expansion; clear breath sounds across all lung ferrera w/o adventitious sounds; no wheezing ABD: Soft, NTP; BS present; no rebound/guarding; no distention Back: Extensive superficial erythema extending from the upper spine to the lower sacrum; TTP; some breakdown of the skin just above the left sacrum with serosanguineous fluid/weeping; no purulent drainage appreciated MSK: no tics or fasciculations; no edema noted in the LEs b/l, nonerythematous Neuro: A&Ox3; flat mood and affect; fluent speech; sensation intact and symmetric in the LEs b/l Results & Data Results & Data Vital Signs (Past 12 Hours) Vital Signs Temp Pulse Resp BP Pulse Ox O2 Del Method 03/03/25 07:00 36.8 C 70 18 127/62 95 Room Air 03/02/25 23:28 36.6 C 69 18 124/68 98 Room Air PG Care Time/CCT Total # of Minutes Spent Total Time Spent with Patient: Total time spent is greater than 50% in coordination of care (as documented) at patient's floor/unit and/or counseling patient: Coding [place] [address] SUB INP/OBS CARE 3/50MIN Patient Type Established Medical Decision Making High Complexity Diagnoses Skin breakdown R23.8 Pneumothorax J93.9 UTI (urinary tract infection) N39.0 CAD (coronary artery disease) I25.10 Diabetes E11.9 Hypertension I10 Hyperlipidemia E78.5"
[2025-03-04] MEDS ORDERED: PNEUMOCOCCAL VACCINE (PCV20) 20-VAL CONJ-DIP CRM/PF 0.5 ML SYR IM ONE (09:32)
--- NOTE | 2025-03-04 14:37 | Hospitalist Progress Note ---
"Date of Service March 04, 2025 Assessment & Plan (1) Skin breakdown: (2) Pneumothorax: (3) UTI (urinary tract infection): (4) CAD (coronary artery disease): (5) Diabetes: (6) Hypertension: (7) Hyperlipidemia: Plan 79-year-old male presenting with confusion. #Skin breakdown on the back | cellulitis Patient with significant redness and breakdown of skin on his back, bottom and scrotum - previously there have been concerns that henderson was leaking, however henderson not leaking upon discharge last admission, and no leaking noted this admission. Suspect this is due to poor mobility/infrequent repositioning at home and overall pressure Blood cultures: negative at 48 hours Wound Culture: Pseudomonas, MRSA, Enterococcus Continue Dapto and Zosyn Turn every 2 hours, wound care with each turn. WC RN following PT/OT evaluations appreciated Patient may need placement on discharge, however he was denied SNF on his most recent admission; ?Now presenting with complex wounds Patient is total dependent - max 2 assist for bed repositioning. Patient not safe to return home solely under care of his #Complicated UTI | chronic indwelling Henderson catheter No leukocytosis; afebrile. Henderson exchanged in the ED Urine culture - pseudomonas, covered by zosyn above #?Pneumothorax CXR on arrival reported a moderate-sized right apical pneumothorax. At that time, patient denied chest pain or shortness of breath. Adequate oxygenation on room air overnight. Repeat chest x-ray the following morning revealed no acute cardiopulmonary abnormality Reconfirmed - no pneumothorax - by pulmonary consultation #Hypertension Continue metoprolol 25 mg p.o. QAM Continue amlodipine Hold indapamide #BPH Maintain Henderson, exchanged in the ER Continue Flomax and finasteride #Anemia | H/o TANMAY Hgb trend: 11.5 -> 9.0 ->8.5 Suspect largely due to volume dilution from IVF. Clinically, no active bleeding appreciated Iron panel on the morning of 03/02 revealed low iron at 38, as well as depressed TIBC and transferrin levels. Patient underwent Venofer infusions x 3 at the end of January, but do not feel that there was a concomitant rise in iron levels In the setting of acute infection, will defer additional Venofer at this time, but should be considered if patient's levels do not improve B12 levels low - give IM x1 and start on PO supplementation Check TSH VTE PPx: SCDs Disposition: Continued stay on MedSurg, awaiting safe discharge plan. continued IV abx Called patient's (Kiki) and provided updates on 03/01. Admission and Anticipated Discharge Date Admission Date: February 28, 2025 Supervising Physician Co-Signing Physician Notes IRINA Supervision Note: I did not personally see or examine the patient today, but I verified all kitchen points of IRINA Pruitt's assessment and plan with the following exceptions/additions: None Subjective Patient seen lying in bed, he does endorse back pain. With assistance of RN - able to visualize wounds. Patient does not roll well to the left and was a max assist x 2. Incontient bowel movement was cleaned up and repositioned with the assistance of RN. He denies other complaints Review of Systems Review of Systems: All systems reviewed & are unremarkable except as noted in Subjective Physical Exam Physical Exam: General: NAD, VS as above Resp: normal respiratory effort, lungs clear to auscultation CV: RRR, no murmur, Abd: non tender, soft Skin: extensive wound on back - erythema extends up to about the custodial point, continues to have open areas, the erythema around his side is improving Results & Data Results & Data Vital Signs (Past 12 Hours) Vital Signs Temp Pulse Resp BP Pulse Ox O2 Del Method 03/04/25 11:48 Room Air 03/04/25 08:04 98.2 F 61 15 133/69 96 Room Air Laboratory Results wound culture reviewed PG Care Time/CCT Total # of Minutes Spent Total Time Spent with Patient: Total time spent is greater than 50% in coordination of care (as documented) at patient's floor/unit and/or counseling patient: Coding Level of Care Code 09779 SUB INP/OBS CARE 2/35MIN Diagnoses Skin breakdown R23.8 Pneumothorax J93.9 UTI (urinary tract infection) N39.0 CAD (coronary artery disease) I25.10 Diabetes E11.9 Hypertension I10 Hyperlipidemia E78.5"
[2025-03-04] MEDS: CYANOCOBALAMIN 1000 MCG/ML VIAL IM ONE (16:26)
[2025-03-05 06:29] LABS: Thyroid Stimulating Hormone 1.268 uIu/ml (0.300-4.500)
[2025-03-05 08:54] LABS: Anion Gap 9.0 (3-11); Blood Urea Nitrogen 36.0 mg/dl (6-23); Calcium 8.3 mg/dl (8.6-10.3); Carbon Dioxide 27.0 mmol/L (21-32); Chloride 104.0 mmol/L (98-107); Creatinine Clr Calc Pharmacy 35.0 ml/min; Glucose 102.0 mg/dl (70-99(Fasting)); Potassium 3.5 mmol/L (3.5-5.1); Sodium 140.0 mmol/L (136-145)
[2025-03-05 09:13] LABS: Hematocrit (blood only) 26.7 % (42.0-52.0); Hemoglobin 8.7 g/dl (14.0-18.0); Immature Granulocytes # (auto) 0.10 K/uL (0.01-0.20); Immature Granulocytes % (auto) 1.5 %; Mean Corpuscular Hemoglobin 29.8 pg (25.0-34.0); Mean Corpuscular Volume 91.4 fL (80.0-100.0); Platelet Count 319 K/uL (130-400); RDW Standard Deviation 46.6 fL (36.4-46.3); Red Blood Count 2.92 M/uL (4.70-6.10); White Blood Count 6.73 K/ul (4.8-10.8)
[2025-03-05] MEDS: CYANOCOBALAMIN (B-12) 500 MCG TABLET PO SCH (09:23)
--- NOTE | 2025-03-05 13:45 | Hospitalist Progress Note ---
"Date of Service March 05, 2025 Assessment & Plan (1) Skin breakdown: (2) Pneumothorax: (3) UTI (urinary tract infection): (4) CAD (coronary artery disease): (5) Diabetes: (6) Hypertension: (7) Hyperlipidemia: Plan 79-year-old male presenting with confusion. #Skin breakdown on the back | cellulitis Patient with significant redness and breakdown of skin on his back, bottom and scrotum - previously there have been concerns that henderson was leaking, however henderson not leaking upon discharge last admission, and no leaking noted this admission. Suspect this is due to poor mobility/infrequent repositioning at home and overall pressure Blood cultures: negative at 48 hours Wound Culture: Pseudomonas, MRSA, Enterococcus Continue Dapto and Zosyn Turn every 2 hours, wound care with each turn. WC RN following PT/OT evaluations appreciated Patient may need placement on discharge, however he was denied SNF on his most recent admission; ?Now presenting with complex wounds Patient is total dependent - max 2 assist for bed repositioning. Patient not safe to return home solely under care of his CM currently speaking with Anjelica Jimenez, who do have concerns regarding his wounds; also noted concerns that, during his last night, had him discharged before they felt he was ready #Complicated UTI | chronic indwelling Henderson catheter No leukocytosis; afebrile. Henderson exchanged in the ED Urine culture - pseudomonas, covered by zosyn above #?Pneumothorax (resolved) CXR on arrival reported a moderate-sized right apical pneumothorax. At that time, patient denied chest pain or shortness of breath. Adequate oxygenation on room air overnight. Repeat chest x-ray the following morning revealed no acute cardiopulmonary abnormality Reconfirmed - no pneumothorax - by pulmonary consultation #Hypertension Continue metoprolol 25 mg p.o. QAM Continue amlodipine Hold indapamide #BPH Maintain Henderson, exchanged in the ER Continue Flomax and finasteride #Anemia | H/o TANMAY Hgb trend: 11.5 -> 9.0 ->8.5 -> 8.7 Suspect largely due to volume dilution from IVF. Clinically, no active bleeding appreciated Iron panel on the morning of 03/02 revealed low iron at 38, as well as depressed TIBC and transferrin levels. Patient underwent Venofer infusions x 3 at the end of January, but do not feel that there was a concomitant rise in iron levels In the setting of acute infection, will defer additional Venofer at this time, but should be considered if patient's levels do not improve B12 levels low - give IM x1 and start on PO supplementation TSH WNL VTE PPx: SCDs Disposition: Continued stay on MedSurg, awaiting safe discharge plan. continued IV abx Called patient's (Kiki) and provided updates on 03/01. Admission and Anticipated Discharge Date Admission Date: February 28, 2025 Subjective Mr. Montalvo is in good spirits this morning. He has no new complaints. He is sitting upright in bed watching TV. He reports no back pain while resting. His back/hip pain is exacerbated with rolling and movements. Overall, he is doing well. While difficult to assess ROS given patient's underlying dementia, he reports the following: He denies fever, chest pain, SOB, abdominal pain, N/V/D, leakage from his indwelling Henderson, or burning sensation in the back or groin region. Review of Systems 2 Review of Systems: See HPI above Physical Exam 2 Physical Exam: General: no acute distress; sitting upright in bed watching TV; pleasant affect; non-toxic appearing; cooperative; SpO2 98% on RA HEENT: normocephalic, atraumatic; PERRLA; vision and hearing intact Neck: supple; trachea midline Skin: warm, dry without signs of tenting; no cyanosis; no rashes, bruising, lesions, or erythema noted CV: chest wall NTP; RRR; S1/S2 normal; no murmurs/rubs/gallops; pulses intact and symmetric at radial, DP, and PT Lungs: no acute respiratory distress; symmetrical chest wall expansion; clear breath sounds across all lung ferrera w/o adventitious sounds; no wheezing ABD: Soft, NTP; BS present; no rebound/guarding; no distention Back: Extensive superficial erythema extending from the upper spine to the lower sacrum; TTP; some breakdown of the skin just above the left sacrum with serosanguineous fluid/weeping (see photos below); no purulent drainage appreciated MSK: no tics or fasciculations; no edema noted in the LEs b/l, nonerythematous Neuro: A&Ox3; flat mood and affect; fluent speech; sensation intact and symmetric in the LEs b/l Results & Data Results & Data Vital Signs (Past 12 Hours) Vital Signs Temp Pulse Resp BP Pulse Ox O2 Del Method 03/05/25 07:16 36.9 C 77 17 136/72 98 Room Air PG Care Time/CCT Total # of Minutes Spent Total Time Spent with Patient: Total time spent is greater than 50% in coordination of care (as documented) at patient's floor/unit and/or counseling patient: [place] [address] SUB INP/OBS CARE 06/06MIN Patient Type Established History Detailed Exam Detailed Medical Decision Making Low Complexity Diagnoses Skin breakdown R23.8 Pneumothorax J93.9 UTI (urinary tract infection) N39.0 CAD (coronary artery disease) I25.10 Diabetes E11.9 Hypertension I10 Hyperlipidemia E78.5"
--- NOTE | 2025-03-06 08:34 | Hospitalist Progress Note ---
"Date of Service March 06, 2025 Assessment & Plan (1) Skin breakdown: (2) Pneumothorax: (3) UTI (urinary tract infection): (4) CAD (coronary artery disease): (5) Diabetes: (6) Hypertension: (7) Hyperlipidemia: Plan 79-year-old male presenting with confusion. #Skin breakdown on the back | cellulitis Patient with significant redness and breakdown of skin on his back, bottom and scrotum - previously there have been concerns that henderson was leaking, however henedrson not leaking upon discharge last admission, and no leaking noted this admission. Suspect this is due to poor mobility/infrequent repositioning at home and overall pressure Blood cultures: negative at 48 hours Wound Culture: Pseudomonas, MRSA, Enterococcus Continue IV Dapto and Zosyn while inpatient Infectious disease unavailable over the weekend Please touch base with ID on Thursday 03/08 regarding recommended length of IV treatment Turn every 2 hours, wound care with each turn. WC RN following PT/OT evaluations appreciated Patient may need placement on discharge, however he was denied SNF on his most recent admission; ?Now presenting with complex wounds Patient is total dependent - max 2 assist for bed repositioning. Patient not safe to return home solely under care of his REYES currently speaking with [employer], who do have concerns regarding his wounds; also noted concerns that, during his last night, had him discharged before they felt he was ready #Complicated UTI | chronic indwelling Henderson catheter No leukocytosis; afebrile. Henderson exchanged in the ED Urine culture - pseudomonas, covered by zosyn above #?Pneumothorax (resolved) CXR on arrival reported a moderate-sized right apical pneumothorax. At that time, patient denied chest pain or shortness of breath. Adequate oxygenation on room air overnight. Repeat chest x-ray the following morning revealed no acute cardiopulmonary abnormality Reconfirmed - no pneumothorax - by pulmonary consultation #Hypertension Continue metoprolol 25 mg p.o. QAM Continue amlodipine Hold indapamide #BPH Maintain Henderson, exchanged in the ER Continue Flomax and finasteride #Anemia | H/o TANMAY Hgb trend: 11.5 -> 9.0 ->8.5 -> 8.7 Suspect largely due to volume dilution from IVF. Clinically, no active bleeding appreciated Iron panel on the morning of 03/02 revealed low iron at 38, as well as depressed TIBC and transferrin levels. Patient underwent Venofer infusions x 3 at the end of January, but do not feel that there was a concomitant rise in iron levels In the setting of acute infection, will defer additional Venofer at this time, but should be considered if patient's levels do not improve B12 levels low - give IM x1 and start on PO supplementation TSH WNL VTE PPx: SCDs Disposition: Continued stay on MedSurg, awaiting safe discharge plan. continued IV abx Called patient's (Kiki) and provided updates on 03/06. Admission and Anticipated Discharge Date Admission Date: February 28, 2025 Subjective Mr. Montalvo is sitting upright in bed eating lunch with an aide at bedside. No new complaints at this time. No back pain. While difficult to assess ROS given patient's underlying dementia, he reports the following: He denies fever, chest pain, SOB, abdominal pain, N/V/D, leakage from his indwelling Henderson, or burning sensation in the back or groin region. Review of Systems 2 Review of Systems: See HPI above Physical Exam 2 Physical Exam: General: no acute distress; sitting upright in bed watching TV and eating lunch with aide at bedside; pleasant affect; non-toxic appearing; cooperative; SpO2 98% on RA HEENT: normocephalic, atraumatic; PERRLA; vision and hearing intact Neck: supple; trachea midline Skin: warm, dry without signs of tenting; no cyanosis; no rashes, bruising, lesions, or erythema noted CV: chest wall NTP; RRR; S1/S2 normal; no murmurs/rubs/gallops; pulses intact and symmetric at radial, DP, and PT Lungs: no acute respiratory distress; symmetrical chest wall expansion; clear breath sounds across all lung ferrera w/o adventitious sounds; no wheezing ABD: Soft, NTP; BS present; no rebound/guarding; no distention Back: Extensive superficial erythema extending from the upper spine to the lower sacrum; TTP; some breakdown of the skin just above the left sacrum with serosanguineous fluid/weeping (see photos below); no purulent drainage appreciated MSK: no tics or fasciculations; no edema noted in the LEs b/l, nonerythematous Neuro: A&Ox3; flat mood and affect; fluent speech; sensation intact and symmetric in the LEs b/l Results & Data Results & Data Vital Signs (Past 12 Hours) Vital Signs Temp Pulse Resp BP Pulse Ox O2 Del Method 03/06/25 08:19 36.8 C 75 20 148/71 H 99 Room Air 03/05/25 22:32 36.8 C 79 16 145/77 H 99 Room Air 03/05/25 22:26 Room Air PG Care Time/CCT Total # of Minutes Spent Total Time Spent with Patient: Total time spent is greater than 50% in coordination of care (as documented) at patient's floor/unit and/or counseling patient: Coding [place] [address] SUB INP/OBS CARE 2/35MIN Patient Type Established History Comprehensive Exam Comprehensive Medical Decision Making Moderate Complexity Diagnoses Skin breakdown R23.8 Pneumothorax J93.9 UTI (urinary tract infection) N39.0 CAD (coronary artery disease) I25.10 Diabetes E11.9 Hypertension I10 Hyperlipidemia E78.5"
[2025-03-06 09:13] LABS: Hematocrit (blood only) 29.6 % (42.0-52.0); Hemoglobin 9.5 g/dl (14.0-18.0); Mean Corpuscular Hemoglobin 29.3 pg (25.0-34.0); Mean Corpuscular Volume 91.4 fL (80.0-100.0); Platelet Count 317 K/uL (130-400); RDW Standard Deviation 45.9 fL (36.4-46.3); Red Blood Count 3.24 M/uL (4.70-6.10); White Blood Count 9.46 K/ul (4.8-10.8)
[2025-03-06 09:31] LABS: Anion Gap 9.0 (3-11); Blood Urea Nitrogen 36.0 mg/dl (6-23); Calcium 8.7 mg/dl (8.6-10.3); Carbon Dioxide 28.0 mmol/L (21-32); Chloride 102.0 mmol/L (98-107); Creatinine Clr Calc Pharmacy 33.5 ml/min; Glucose 134.0 mg/dl (70-99(Fasting)); Potassium 3.5 mmol/L (3.5-5.1); Sodium 139.0 mmol/L (136-145)
[2025-03-07 06:44] LABS: Hematocrit (blood only) 25.5 % (42.0-52.0); Hemoglobin 8.2 g/dl (14.0-18.0); Mean Corpuscular Hemoglobin 29.3 pg (25.0-34.0); Mean Corpuscular Volume 91.1 fL (80.0-100.0); Platelet Count 341 K/uL (130-400); RDW Standard Deviation 44.6 fL (36.4-46.3); Red Blood Count 2.80 M/uL (4.70-6.10); White Blood Count 8.52 K/ul (4.8-10.8)
[2025-03-07 07:02] LABS: Anion Gap 9.0 (3-11); Blood Urea Nitrogen 36.0 mg/dl (6-23); Calcium 8.7 mg/dl (8.6-10.3); Carbon Dioxide 28.0 mmol/L (21-32); Chloride 102.0 mmol/L (98-107); Creatinine Clr Calc Pharmacy 32.5 ml/min; Glucose 100.0 mg/dl (70-99(Fasting)); Potassium 3.3 mmol/L (3.5-5.1); Sodium 139.0 mmol/L (136-145)
--- NOTE | 2025-03-07 08:32 | Hospitalist Progress Note ---
"Date of Service March 07, 2025 Assessment & Plan (1) Skin breakdown: (2) Pneumothorax: (3) UTI (urinary tract infection): (4) CAD (coronary artery disease): (5) Diabetes: (6) Hypertension: (7) Hyperlipidemia: Plan This patient is a 79-year-old male with PMH of dementia who presented on 02/28 for increased confusion at home. #Skin breakdown on the back | cellulitis Patient with significant redness and breakdown of skin on his back, bottom and scrotum - previously there have been concerns that henderson was leaking, however henderson not leaking upon discharge last admission, and no leaking noted this admission. Suspect this is due to poor mobility/infrequent repositioning at home and overall pressure Blood cultures: negative at 48 hours Wound Culture: Pseudomonas, MRSA, Enterococcus Continue IV Dapto and Zosyn while inpatient Infectious disease unavailable over the weekend Please touch base with ID on Thursday 03/08 regarding recommended length of IV treatment Turn every 2 hours, wound care with each turn. WC RN following PT/OT evaluations appreciated Patient may need placement on discharge, however he was denied SNF on his most recent admission; ?Now presenting with complex wounds Patient is total dependent - max 2 assist for bed repositioning. Patient not safe to return home solely under care of his CM currently speaking with [employer] Jim[employer], who do have concerns regarding his wounds; also noted concerns that, during his last night, had him discharged before they felt he was ready #Complicated UTI | chronic indwelling Henderson catheter No leukocytosis; afebrile. Henderson exchanged in the ED Urine culture - pseudomonas, covered by zosyn above #Diarrhea/loose stool While patient has exhibited fecal incontinence over the course of his hospital stay, he began having loose/liquid-y stools on 03/06 C. difficile ordered, pending #Hypertension Continue metoprolol 25 mg p.o. QAM Continue amlodipine Hold indapamide #BPH Maintain Henderson, exchanged in the ER Continue Flomax and finasteride #Anemia | H/o TANMAY Hgb trend: 11.5 -> 9.0 ->8.5 -> 8.7 -> 8.2 Suspect largely due to volume dilution from IVF. Clinically, no active bleeding appreciated Iron panel on the morning of 03/02 revealed low iron at 38, as well as depressed TIBC and transferrin levels. Patient underwent Venofer infusions x 3 at the end of January, but do not feel that there was a concomitant rise in iron levels In the setting of acute infection, will defer additional Venofer at this time, but should be considered if patient's levels do not improve B12 levels low - given IM x1 and start on PO supplementation TSH WNL VTE PPx: SCDs Disposition: Continued stay on MedSurg, awaiting safe discharge plan. Continue IV abx Called patient's (Kiki) and provided updates on 03/06. Admission and Anticipated Discharge Date Admission Date: February 28, 2025 Subjective Mr. Montalvo is sitting upright in bed. No acute distress. He exhibits a pleasant affect and reports no new complaints at this time. No back pain while resting in bed. He denies any urinary symptoms, and overall reports he is asymptomatic at this time. While difficult to assess ROS given patient's underlying dementia, he reports the following: He denies fever, chest pain, SOB, abdominal pain, N/V/D, leakage from his indwelling Henderson, or burning sensation in the back or groin region. Review of Systems Review of Systems: See HPI above Physical Exam Physical Exam: General: no acute distress; sitting upright in bed watching TV; pleasant affect; non-toxic appearing; cooperative; SpO2 95% on RA HEENT: normocephalic, atraumatic; PERRLA; vision and hearing intact Neck: supple; trachea midline Skin: warm, dry without signs of tenting; no cyanosis; no rashes, bruising, lesions, or erythema noted CV: chest wall NTP; RRR; S1/S2 normal; no murmurs/rubs/gallops; pulses intact and symmetric at radial, DP, and PT Lungs: no acute respiratory distress; symmetrical chest wall expansion; clear breath sounds across all lung ferrera w/o adventitious sounds; no wheezing ABD: Soft, NTP; BS present; no rebound/guarding; no distention Back: Extensive superficial erythema extending from the upper spine to the lower sacrum; TTP; some breakdown of the skin just above the left sacrum with serosanguineous fluid/weeping MSK: no tics or fasciculations; no edema noted in the LEs b/l, nonerythematous Neuro: A&Ox3; flat mood and affect; fluent speech; sensation intact and symmetric in the LEs b/l Results & Data Results & Data Vital Signs (Past 12 Hours) Vital Signs Temp Pulse Resp BP Pulse Ox O2 Del Method 03/07/25 07:53 37.2 C 86 18 131/70 95 Room Air 03/06/25 22:13 37 C 101 H 18 146/80 H 98 Room Air 03/06/25 20:35 Room Air PG Care Time/CCT Total # of Minutes Spent Total Time Spent with Patient: Total time spent is greater than 50% in coordination of care (as documented) at patient's floor/unit and/or counseling patient: C[place] [address] SUB INP/OBS CARE 2/35MIN Patient Type Established History Comprehensive Exam Comprehensive Medical Decision Making Moderate Complexity Diagnoses Skin breakdown R23.8 Pneumothorax J93.9 UTI (urinary tract infection) N39.0 CAD (coronary artery disease) I25.10 Diabetes E11.9 Hypertension I10 Hyperlipidemia E78.5"
[2025-03-07 08:56] LABS: Magnesium 1.7 mg/dl (1.7-2.4)
[2025-03-07] MEDS: POTASSIUM CHLORIDE CRTAB 20 MEQ TABCR PO STA (09:32)
[2025-03-07] MEDS: LACTATED RINGER'S 500 ML IV SCH (09:35)
[2025-03-07 18:20] LABS: Cdiff Toxin B Gene (2yr or >) Negative Cdiff Gene (Neg)
[2025-03-08] MEDS: MoRPHine SULFATE 4 MG/ML 1 ML CARP\\VIAL IV PRN (02:21)
[2025-03-08] MEDS: LIDOCAINE 5% 1 PATCH TD STA (03:25)
[2025-03-08 06:08] LABS: Hematocrit (blood only) 22.6 % (42.0-52.0); Hemoglobin 7.3 g/dl (14.0-18.0); Mean Corpuscular Hemoglobin 29.6 pg (25.0-34.0); Mean Corpuscular Volume 91.5 fL (80.0-100.0); Platelet Count 335 K/uL (130-400); RDW Standard Deviation 46.2 fL (36.4-46.3); Red Blood Count 2.47 M/uL (4.70-6.10); White Blood Count 10.25 K/ul (4.8-10.8)
[2025-03-08 06:59] LABS: Anion Gap 8.0 (3-11); Blood Urea Nitrogen 32.0 mg/dl (6-23); Calcium 8.5 mg/dl (8.6-10.3); Carbon Dioxide 28.0 mmol/L (21-32); Chloride 103.0 mmol/L (98-107); Creatinine Clr Calc Pharmacy 33.2 ml/min; Glucose 90.0 mg/dl (70-99(Fasting)); Potassium 3.4 mmol/L (3.5-5.1); Sodium 139.0 mmol/L (136-145)
--- NOTE | 2025-03-08 10:14 | Hospitalist Progress Note ---
"Date of Service March 08, 2025 Assessment & Plan (1) Skin breakdown: (2) Pneumothorax: (3) UTI (urinary tract infection): (4) CAD (coronary artery disease): (5) Diabetes: (6) Hypertension: (7) Hyperlipidemia: Plan Pt is a 79 y/o male w/ a PMHx significant for T2DM, peripheral neuropathy, HLD, HTN, BPH, OA, and Sleep Apnea who presents with confusion. #Skin breakdown on the back | cellulitis - Pt w/ significant redness & skin breakdown on back, bottom and scrotum; likely d/t pt being bedbound at home. believed that skin breakdown was d/t henderson leakage - no henderson issues since admission. Wound Culture on 02/28 positive for Pseudomonas Aeruginosa, MRSA, and Enterococcus Faecalis. -Discontinue Zosyn & Daptomycin - abx course completed -Turn every 2 hours -Daily wound care -MRSA contact isolation precautions in place -PT/OT eval; Suspect patient will need placement on discharge Pt requires a 2 assist for turns. It is not safe or recommended for patient to return home under the care of his . Recommending SNF; discussed with Case Management #Complicated UTI | chronic indwelling Henderson catheter - 02/28 Urine Culture positive for Pseudomonas Aeruginosa; no leukocytosis, afebrile. Most recent henderson exchange in ED on 02/28 -Maintain Henderson -Continue to observe for henderson leakage; no henderson leakage throughout inpatient stay #?Pneumothorax - RESOLVED; CXR 02/28 reported moderate-sized right apical pneumothorax - pt was placed on 100% nonrebreather. Adequate oxygenation on room air overnight. Repeat CXR on 03/01 revealed no evidence of collapse and no acute cardiopulmonary abnormalities; this was reconfirmed by pulmonary consultation. #Hypertension - no acute concerns -Continue metoprolol -Continue amlodipine -HOLD indapamide #BPH - No acute concerns -Continue Flomax and finasteride #Anemia | H/o TANMAY - Iron panel 03/02 revealed low iron in addition to depressed TIBC & transferrin. Last Venofer infusions (x3) at end of January. -Daily Hgb trend starting 02/28: 11.5 -> 9.0 -> 8.5 -> 8.7 -> 9.5 -> 8.2 -> 7.3 -Repeat H&H 12:00 today (03/08) - 7.7 -FOBT Dispo: Cont. inpatient MedSurg VTE proph: SCDs Called patient's (Kiki) and provided updates on 03/01. Admission and Anticipated Discharge Date Admission Date: February 28, 2025 Supervising Physician Co-Signing Physician Notes Attending Attestation - Chart reviewed, care plan d/w IRINA Tomlinson. I agree with the kitchen components of her documentation. Appreciate social service liaison assistance with placement. Appreciate ID consultation - agree that IV abx can be d/c. Appreciate wound care assistance. Juan Miguel Cornejo MD Subjective Pt is a 79 y/o male w/ a PMHx significant for T2DM, peripheral neuropathy, HLD, HTN, BPH, OA, and Sleep Apnea who presents with confusion. Pt is sitting up comfortable in bed in NAD. Nurse reports that pt was given pain management over night d/t left shoulder pain. Nurse denies any leakage/difficulties with henderson. Despite underlying hx of dementia --> Pt denies any discomfort while sitting, chills, CP, SOB, and palpitations. Review of Systems 2 Review of Systems: All systems reviewed & are unremarkable except as noted in Subjective Physical Exam 2 Physical Exam: General: Pt is a 79 y/o WD/WN bed-bound male in NAD. VS: reviewed Skin: Area of superficial ulceration noted at sacral region with area of maceration extending upwards to the lower back (see image below). Skin is otherwise warm and dry; no other lesions or ulcerations Respiratory: CTA bilat, no adventitious sounds noted. Chest expansion is full and symmetrical Cardio: RRR no murmurs Abdomen: Round, normoactive BS x4, nontender to palpation Results & Data Results & Data Vital Signs (Past 12 Hours) Vital Signs Temp Pulse Resp BP Pulse Ox O2 Del Method 03/08/25 07:18 98.2 F 73 16 121/60 95 Room Air 03/07/25 23:33 98.2 F 68 18 137/68 95 Room Air 03/07/25 22:27 Room Air Laboratory Results Reviewed CBC, H&H, Chemistry, and C-diff PG Care Time/CCT Total # of Minutes Spent Total Time Spent with Patient: Total time spent is greater than 50% in coordination of care (as documented) at patient's floor/unit and/or counseling patient: Coding Level of Care Code 54758 SUB INP/OBS CARE MIN Diagnoses Skin breakdown R23.8 Pneumothorax J93.9 UTI (urinary tract infection) N39.0 CAD (coronary artery disease) I25.10 Diabetes E11.9 Hypertension I10 Hyperlipidemia E78.5"
[2025-03-08 12:28] LABS: Hematocrit (blood only) 23.4 % (42.0-52.0); Hemoglobin 7.7 g/dl (14.0-18.0)
[2025-03-08] MEDS: POTASSIUM CHLORIDE CRTAB 20 MEQ TABCR PO SCH (12:33)
[2025-03-08] MEDS: REMOVE LIDODERM PATCH ONE (13:30)
--- NOTE | 2025-03-08 14:55 | Infectious Disease Consult ---
Date of Consultation March 08, 2025 Assessment & Plan (1) Skin breakdown: (2) UTI (urinary tract infection): (3) Cellulitis: Plan ID Problem List: # Maceration/skin breakdown and possible SSTI of skin on the back and buttocks # Possible CAUTI, UCx + Pseudomonas aeruginosa # Chronic Carter in place # Dementia Impression: Joseph Montalvo is a 79-year-old man with history of dementia, bedbound status, BPH, chronic Carter in place, CAD, T2DM, HTN, HLD, who presents from home to [facility] on 02/28/25 with increased confusion, found to have an extensive wound and skin breakdown on his back in the setting of a leaking Carter. ID is consulted for skin breakdown and SSTI of the back. The patient presented initially to [facility] on 02/28 with increased confusion. D/t cognitive impairment he was unable to provide details on admission. He was noted to have wounds on his back that were draining foul-smelling fluid. In the ED, T37.1, WBC 6.48. UA (from Carter) with >50 WBCs, 0-2 RBCs. He was started on daptomycin and ceftriaxone. The primary team noted significant redness and skin breakdown on the patients back, bottom, and scrotum. He is bedbound at home. The patients later provided history that she believed the patients back wounds developed in the setting of moisture from a leaking Carter. The patients Carter catheter has not had issues with leakage during the admission. Wound Cx from the back on 02/28 grew Pseudomonas aeruginosa, MRSA, and E. faecalis. He was changed to daptomycin and pip-tazo. CXR on arrival reported a moderate-sized right apical pneumothorax which did not appear to be a/w symptoms; repeat CXR the following day was without abnormality. BCx from admission remain NGTD. Discussion Pt presents with significant skin breakdown over his back and buttocks, in the setting of leaking Carter and bedbound status. It is unclear to what degree these wounds were infected; BCx NGTD and wound Cx + Pseudomonas aeruginosa, MRSA, and E. faecalis. UCx also grew PsA. He has completed a ~7-day course of daptomycin and pip-tazo which would cover for SSTI and possible CAUTI. He has remained afebrile and without a leukocytosis, and BCx have remained NG. On 03/08, I discussed with Noelle Tomlinson of the primary team, who reported significant improvement of the patients skin breakdown with antibiotics and wound care. Therefore, can stop antibiotics as he has completed a course, with improvement. Recommendations: - Pt has already completed a 7-day course of daptomycin and pip-tazo for SSTI and possible CAUTI. Can stop antibiotics today and monitor closely - Continue wound care and hygiene practices, ensuring to keep the skin dry and turning/offloading appropriately - Follow-up with primary care Plan discussed with primary team. Thank you for letting ID participate in the care of this patient. ID will sign off at this time. If questions, please contact the [facility] call center at [phone]. Madina Pimentel MD, S Infectious Diseases [facility] direct line: [phone] Consultation Information This patient recommendation is based on a telemedicine consult request which was completed asynchronously through chart review and information provided by the primary physician. The patient was not seen or examined today. The evaluation is consultative in nature and all patient care and treatment decisions can either be accepted or rejected by the patient's primary hospital-based treating physician using their own independent medical judgment for their patient. Independent Insurance Adjuster contact information: Please call [facility] Call Center . (Phone Number For Physician Use Only) Time Spent Reviewing Chart: 31+ minutes History of Present Illness Attending Physician: Juan Miguel Cornejo MD History of Present Illness Joseph Montalvo is a 79-year-old man with history of dementia, bedbound status, BPH, chronic Carter in place, CAD, T2DM, HTN, HLD, who presents from home to [facility] on 02/28/25 with increased confusion, found to have an extensive wound and skin breakdown on his back in the setting of a leaking Carter. ID is consulted for skin breakdown and SSTI of the back. The patient presented initially to [facility] on 02/28 with increased confusion. D/t cognitive impairment he was unable to provide details on admission. He was noted to have wounds on his back that were draining foul-smelling fluid. In the ED, T37.1, WBC 6.48. UA (from Carter) with >50 WBCs, 0-2 RBCs. He was started on daptomycin and ceftriaxone. The primary team noted significant redness and skin breakdown on the patients back, bottom, and scrotum. He is bedbound at home. The patients later provided history that she believed the patients back wounds developed in the setting of moisture from a leaking Carter. The patients Carter catheter has not had issues with leakage during the admission. Wound Cx from the back on 02/28 grew Pseudomonas aeruginosa, MRSA, and E. faecalis. He was changed to daptomycin and pip-tazo. CXR on arrival reported a moderate-sized right apical pneumothorax which did not appear to be a/w symptoms; repeat CXR the following day was without abnormality. BCx from admission remain NGTD. On 03/08, I discussed with Noelle Tomlinson of the primary team, who reported significant improvement of the patients skin breakdown with antibiotics and wound care. Allergies Allergy/AdvReac Type Severity Reaction Status Date / Time dog dander Allergy Unknown ON Verified 09/16/24 01:18 Exeros LIST Home Medications Medication Instructions Recorded Confirmed Type atorvastatin 10 mg tablet 10 mg PO QAM #30 tabs 01/16/24 02/28/25 Rx finasteride 5 mg tablet 5 mg PO DAILY #90 tabs 01/16/24 02/28/25 Rx cyanocobalamin (vitamin B-12) 1,000 mcg PO QAM 02/19/24 02/28/25 History 1,000 mcg tablet amlodipine 5 mg tablet 5 mg PO QAM #30 tabs 03/06/24 02/28/25 Rx indapamide 2.5 mg tablet 2.5 mg PO QAM #30 tabs 03/06/24 02/28/25 Rx ferrous sulfate 325 mg (65 mg 325 mg PO BID 04/27/24 02/28/25 History iron) tablet acetaminophen 325 mg tablet 650 mg PO TID 09/16/24 02/28/25 History amoxicillin 500 mg capsule 2,000 mg PO DIRECTED PRN 1 HR 09/16/24 02/28/25 History PRIOR TO DENTAL PROCEDURES cholecalciferol (vitamin D3) 25 25 mcg PO QAM 09/16/24 02/28/25 History mcg (1,000 unit) capsule (Vitamin D3) diclofenac sodium 1 % topical gel 2 g topical QID 09/16/24 02/28/25 History duloxetine 30 mg capsule,delayed 30 mg PO QAM 09/16/24 02/28/25 History release duloxetine 60 mg capsule,delayed 60 mg PO QPM 09/16/24 02/28/25 History release fluticasone propionate 50 1 spray intranasal DAILY PRN 09/16/24 02/28/25 History mcg/actuation nasal Congestion spray,suspension lidocaine HCl 2 % mucosal jelly 1 applic intra-urethral Q4H PRN 09/16/24 02/28/25 History URETHRAL PAIN metoprolol succinate 25 mg 25 mg PO QAM 09/16/24 02/28/25 History tablet,extended release 24 hr lbyanzvekcvn-xzbyxmml-qxzsin tablet 1 tab PO QAM 09/16/24 02/28/25 History polyethylene glycol 3350 17 17 g PO QAM 09/16/24 02/28/25 History gram/dose oral powder (Miralax) magnesium chloride 64 mg 64 mg PO QAM 01/31/25 02/28/25 History (magnesium chloride) tablet,delayed release (Mag 64) vibegron 75 mg tablet (Gemtesa) 75 mg PO DAILY #30 tabs 02/10/25 02/28/25 Rx Patient History Medical History Septic shock Acute urinary retention POST OP ANESTHESIA-NEEDED TO BE CATHETERIZED Osteoarthritis BPH (benign prostatic hyperplasia) Diabetes mellitus, type 2 Peripheral neuropathy FEET Hyperlipidemia Hypertension Sleep apnea CPAP Surgical History H/O removal of cyst NECK-BENIGN S/P foot surgery, right HAMMERTOE X 3 PROCEDURES History of tonsillectomy History of appendectomy Previous back surgery DISC SURG S/P TURP GREENLIGHT LASER History of heart valve replacement AVR-12/2009 Family History Family/Other Family history of diabetes mellitus Social History Smoking Status: Never smoker Second Hand Exposure: No; Do You Dip or Chew Tobacco: No; Hx Alcohol Use: No Hx Substance Use: No Preferred Language: Belarusian Communication Ability: Effective Foxer Required: No Beliefs That Will Affect Care: None Current Living Situation: Family Current Living Situation Comment: lives with and has home health Other Information That Helps Us Care for You: No Feels Safe at Home: Yes Safety Concerns: Feels Safe At This Time Assistive Devices: Hospital Bed and Wheelchair Results & Data Vital Signs (Past 12 Hours) Vital Signs Temp Pulse Resp BP Pulse Ox O2 Del Method 03/08/25 14:52 36.7 C 71 16 124/63 94 Room Air 03/08/25 07:57 Room Air 03/08/25 07:18 36.8 C 73 16 121/60 95 Room Air Laboratory Results Micro Data: 02/28 BCx x2: NG x5 days 02/28 Back wound Cx: Pseudomonas aeruginosa (I-amikacin otherwise S including S- cefepime, ceftaz, pip-tazo, paz, cipro, levo), MRSA (S-TMP/SMX, linezolid, dapto), E. faecalis (S-amp) 02/28 UCx: Pseudomonas aeruginosa (saucedo-S) Antibiotic Summary: daptomycin (02/28 present) pip-tazo (03/01 present)
--- NOTE | 2025-03-08 17:06 | Electrocardiogram Report ---
Test Reason : Blood Pressure : */* mmHG Vent. Rate : 67 BPM Atrial Rate : 67 BPM P-R Int : 180 ms QRS Dur : 100 ms QT Int : 438 ms P-R-T Axes : 37 62 27 degrees QTcB Int : 462 ms Normal sinus rhythm Low voltage QRS Possible Anterior infarct , age undetermined Abnormal ECG When compared with ECG of 28-Feb-2025 22:15, Premature ventricular complexes are no longer Present Vent. rate has decreased by 35 bpm Borderline criteria for Anterior infarct are now Present Confirmed by Honorio Fritz ([id number]) on 03/08/2025 5:05:59 PM Referred By: REFERRED SELF Confirmed By: Honorio Fritz
[2025-03-09 10:00] LABS: Hematocrit (blood only) 25.8 % (42.0-52.0); Hemoglobin 8.4 g/dl (14.0-18.0); Mean Corpuscular Hemoglobin 29.7 pg (25.0-34.0); Mean Corpuscular Volume 91.2 fL (80.0-100.0); Platelet Count 376 K/uL (130-400); RDW Standard Deviation 46.6 fL (36.4-46.3); Red Blood Count 2.83 M/uL (4.70-6.10); White Blood Count 13.61 K/ul (4.8-10.8)
--- NOTE | 2025-03-09 14:09 | Hospitalist Progress Note ---
"Date of Service March 09, 2025 Assessment & Plan (1) Skin breakdown: (2) Pneumothorax: (3) UTI (urinary tract infection): (4) CAD (coronary artery disease): (5) Diabetes: (6) Hypertension: (7) Hyperlipidemia: Plan Pt is a 79 y/o male w/ a PMHx significant for T2DM, peripheral neuropathy, HLD, HTN, BPH, OA, and Sleep Apnea who presents with confusion. #Skin breakdown on the back | cellulitis - Pt w/ significant redness & skin breakdown on back, bottom and scrotum; likely d/t pt being bedbound at home. believed that skin breakdown was d/t henderson leakage - no henderson issues since admission. Wound Culture on 02/28 positive for Pseudomonas Aeruginosa, MRSA, and Enterococcus Faecalis. IV abx d/c on 03/08. -CBC demonstrated leukocytosis; is afebrile - will trend tomorrow in am for further evaluation. -Turn every 2 hours -Daily wound care -MRSA contact isolation precautions in place -Most recent PT Eval 03/01 -OT Eval 03/09; notes pt is still max 2 assist for bed rolling and recommending SNF placement at d/c with continued therapy Pt requires a 2 assist for left & right bed-rolling. It is not safe or recommended for patient to return home under the care of his . Recommending SNF; discussed with Case Management #Complicated UTI | chronic indwelling Henderson catheter - 02/28 Urine Culture positive for Pseudomonas Aeruginosa; no leukocytosis, afebrile. Most recent henderson exchange in ED on 02/28 -Maintain Henderson -Continue to observe for henderson leakage; no henderson leakage throughout inpatient stay #?Pneumothorax - RESOLVED; CXR 02/28 reported moderate-sized right apical pneumothorax - pt was placed on 100% nonrebreather. Adequate oxygenation on room air overnight. Repeat CXR on 03/01 revealed no evidence of collapse and no acute cardiopulmonary abnormalities; this was reconfirmed by pulmonary consultation. #Left Shoulder Pain - concern for possible adhesive capsulitis -Xray L shoulder - r/o osteoarthritis, bony spurs -PT/OT (as above) #Hypertension - no acute concerns -Continue metoprolol -Continue amlodipine -HOLD indapamide #BPH - No acute concerns -Continue Flomax and finasteride #Anemia | H/o TANMAY - Iron panel 03/02 revealed low iron in addition to depressed TIBC & transferrin. Last Venofer infusions (x3) at end of January. -Hgb followed from admission - does have bleeding from back wound -FOBT ordered 03/08 Dispo: Cont. inpatient MedSurg - awaiting safe discharge dispo VTE proph: SCDs Called patient's (Kiki) and provided updates on 03/09. - Pt is interested in SNF placement over Hospice care. She is waiting to hear back from some SNFs in [facility] as she is hoping there may a location that is closer to other family members as well. Admission and Anticipated Discharge Date Admission Date: February 28, 2025 Supervising Physician Co-Signing Physician Notes Attending Attestation - Chart reviewed, care plan d/w IRINA Tomlinson. I agree with the kitchen components of her documentation. Appreciate social media designer assistance with placement. Cont local wound care for his back/sacral region. Left shoulder x-rays - severe OA glenohumeral joint; mild OA AC joint. Cont tylenol 1gm TID scheduled. Juan Miguel Cornejo MD Subjective Pt was laying today in [facility]. Pt asked if anyone had been talking to his and son; pt was reassured that & son have been contacted throughout the course of his inpatient stay. Pt notes that he is experiencing L shoulder pain; he notes that the pain is only present when he tries to lift or move his arm. He notes that laying on his back was uncomfortable. Pt was rolled onto his right side. Despite dementia at baseline, pt denies chills, sweats, CP, SOB, palpitations, abd pain/discomfort. Called pt's this afternoon; discussed differences between SNF and Hospice. She notes that she has no interest in hospice and would prefer for her to go to a SNF where they would be able to monitor his care more. Pt states that she would be okay with [facility], but is curious to see if any of the SNF's in [facility] would be willing to take him in as well so that he is closer to other family members. Pt's expresses concern for the cost of SNF facilities. Physical Exam Physical Exam: General: Pt is a 79 y/o WD/WN bed-bound male in [facility]. VS: reviewed Skin: Area of superficial ulceration noted at sacral region with area of maceration extending upwards to the lower back - continuing to improve with wound care. Skin is otherwise warm and dry; no other lesions or ulcerations Respiratory: CTA bilat, no adventitious sounds noted. Chest expansion is full and symmetrical Cardio: RRR no murmurs Abdomen: Round, normoactive BS x4, nontender to palpation MSK: Decreased ROM of L shoulder; pt struggles to move arm on own and expresses pain with passive extension at around 30 degrees. Pt denies pain to palpation of L shoulder. Pt able to move R arm without difficulty or pain. Neuro: A&O to Person and Place. Pt believes it is 2021. Pleasant. Results & Data Results & Data Vital Signs (Past 12 Hours) Vital Signs Temp Pulse Resp BP Pulse Ox O2 Del Method 03/09/25 11:16 97.9 F 86 18 132/64 96 Room Air 03/09/25 08:10 Room Air 03/09/25 07:48 98.4 F 73 16 134/64 95 Room Air 03/09/25 04:54 98.2 F 72 18 150/72 H 97 Room Air Laboratory Results Reviewed Labs: CBC PG Care Time/CCT Total # of Minutes Spent Total Time Spent with Patient: Total time spent is greater than 50% in coordination of care (as documented) at patient's floor/unit and/or counseling patient: Coding Level of Care Code 59735 SUB INP/OBS CARE 2/35MIN Diagnoses Skin breakdown R23.8 Pneumothorax J93.9 UTI (urinary tract infection) N39.0 CAD (coronary artery disease) I25.10 Diabetes E11.9 Hypertension I10 Hyperlipidemia E78.5"
--- NOTE | 2025-03-09 19:04 | XRay Report ---
Clinical History: Pain. 4 views of the left shoulder are submitted for review. Findings: No fracture or dislocation is seen. There is severe glenohumeral osteoarthritis. There is mild acromioclavicular osteoarthritis. No other osseous abnormality is identified. There are no radiopaque foreign bodies. Impression: Left shoulder osteoarthritis Electronically signed by Manjit Cortes 03-09-2025 7:04 PM
[2025-03-10 06:12] LABS: Hematocrit (blood only) 23.4 % (42.0-52.0); Hemoglobin 7.9 g/dl (14.0-18.0); Immature Granulocytes # (auto) 0.06 K/uL (0.01-0.20); Immature Granulocytes % (auto) 0.5 %; Mean Corpuscular Hemoglobin 30.4 pg (25.0-34.0); Mean Corpuscular Volume 90.0 fL (80.0-100.0); Platelet Count 415 K/uL (130-400); RDW Standard Deviation 46.1 fL (36.4-46.3); Red Blood Count 2.60 M/uL (4.70-6.10); White Blood Count 13.26 K/ul (4.8-10.8)
[2025-03-10 06:54] LABS: RBC Morphology Unremarkable
--- NOTE | 2025-03-10 09:22 | Hospitalist Progress Note ---
"Date of Service March 10, 2025 Assessment & Plan (1) Skin breakdown: (2) Pneumothorax: (3) UTI (urinary tract infection): (4) CAD (coronary artery disease): (5) Diabetes: (6) Hypertension: (7) Hyperlipidemia: Plan Pt is a 79 y/o male w/ a PMHx significant for T2DM, peripheral neuropathy, HLD, HTN, BPH, OA, and Sleep Apnea who presents with confusion. #Skin breakdown on the back | cellulitis - Pt w/ significant redness & skin breakdown on back, bottom and scrotum; likely d/t pt being bedbound at home. believed that skin breakdown was d/t henderson leakage - no henderson issues since admission. Wound Culture on 02/28 positive for Pseudomonas Aeruginosa, MRSA, and Enterococcus Faecalis. IV abx discontinued after completing 7day abx course -CBC demonstrates leukocytosis - afebrile; discussed with ID, check urine culture; deferring abx tx w/ no clear source. Trend CBC -Turn every 2 hours -Daily wound care -MRSA contact isolation precautions in place -PT/OT eval; Suspect patient will need placement on discharge Pt requires a 2 assist for turns. It is not safe or recommended for patient to return home under the care of his . Recommending SNF; discussed with Case Management #Complicated UTI | chronic indwelling Henderson catheter - 02/28 Urine Culture positive for Pseudomonas Aeruginosa; no leukocytosis, afebrile. Most recent henderson exchange in ED on 02/28 -UA not overly infectious; Repeat culture pending -Continue to observe for henderson leakage; no henderson leakage throughout inpatient stay #?Pneumothorax - RESOLVED; CXR 02/28 reported moderate-sized right apical pneumothorax - pt was placed on 100% nonrebreather. Adequate oxygenation on room air overnight. Repeat CXR on 03/01 revealed no evidence of collapse and no acute cardiopulmonary abnormalities; this was reconfirmed by pulmonary consultation. #Left Shoulder Pain - Xray on (03/09) demonstrated severe osteoarthritis of the glenohumeral joint -Pain: Tylenol (mild), Morphine (mod/severe) #Hypertension - no acute concerns -Continue metoprolol -Continue amlodipine -HOLD indapamide #BPH - No acute concerns -Continue Flomax and finasteride #Anemia | H/o TANMAY - Iron panel 03/02 revealed low iron in addition to depressed TIBC & transferrin. Last Venofer infusions (x3) at end of January; Iron, B12, Folate, and TSH recently checked -Hgb followed from admission - does have bleeding from back wound Dispo: Cont. inpatient MedSurg - awaiting urine cultures + safe dispo VTE proph: SCDs Called patient's (Kiki) and provided updates on 03/09; she is currently on board for long-term SNF placement. Admission and Anticipated Discharge Date Admission Date: February 28, 2025 Subjective Pt was laying in bed today in [facility]. Pt states that he is not experiencing any pain on his back today. Pt continues to express pain with movement in L shoulder but denies pain at rest. Pt has had a good appetite, per nurse. Despite pt having dementia at baseline, pt denies sore throat, congestion, sneezing/coughing, CP, SOB, and abd pain/discomfort. Physical Exam 2 Physical Exam: General: Pt is a 79 y/o bed-bound male in [facility]. VS: reviewed - remarkable Skin: Area of superficial ulceration noted at sacral region with surrounding area of maceration (see image below) - continuing to improve with wound care. Skin is otherwise warm and dry; no other lesions or ulcerations Respiratory: CTA bilat, no adventitious sounds noted. Chest expansion is full and symmetrical Cardio: RRR no murmurs Abdomen: Round, normoactive BS x4, nontender to palpation MSK: Decreased ROM of L shoulder; pt struggles to move arm on own and expresses pain with passive extension at around 45 degrees. Pt denies pain to palpation of L shoulder. Pt able to move R arm independently without difficulty or pain. Neuro: A&Ox2 to Person and Place. Pleasant. Results & Data Results & Data Vital Signs (Past 12 Hours) Vital Signs Temp Pulse Resp BP Pulse Ox O2 Del Method 03/10/25 07:18 99.0 F 73 15 128/68 94 Room Air 03/09/25 22:44 99.7 F H 87 20 152/74 H 96 Room Air Laboratory Results Reviewed Lab Results 03/10: CBC w/ diff, Urinalysis PG Care Time/CCT Total # of Minutes Spent Total Time Spent with Patient: Total time spent is greater than 50% in coordination of care (as documented) at patient's floor/unit and/or counseling patient: Coding Level of Care Code 83494 SUB INP/OBS CARE MIN Diagnoses Skin breakdown R23.8 Pneumothorax J93.9 UTI (urinary tract infection) N39.0 CAD (coronary artery disease) I25.10 Diabetes E11.9 Hypertension I10 Hyperlipidemia E78.5"
[2025-03-10 10:29] LABS: Appearance Urine Clear (Clear); Bacteria Urine Automated None Seen (None Seen); Glucose Urine UA Negative (Negative)
--- NOTE | 2025-03-11 09:49 | Hospitalist Progress Note ---
"Date of Service March 11, 2025 Assessment & Plan (1) Skin breakdown: (2) Pneumothorax: (3) UTI (urinary tract infection): (4) CAD (coronary artery disease): (5) Diabetes: (6) Hypertension: (7) Hyperlipidemia: Plan Pt is a 79 y/o male w/ a PMHx significant for T2DM, peripheral neuropathy, HLD, HTN, BPH, OA, and Sleep Apnea who presents with confusion. #Skin breakdown on the back | cellulitis - Pt w/ significant redness & skin breakdown on back, bottom and scrotum; likely d/t pt being bedbound at home. believed that skin breakdown was d/t henderson leakage - no henderson issues since admission. Wound Culture on 02/28 positive for Pseudomonas Aeruginosa, MRSA, and Enterococcus Faecalis. IV abx discontinued after completing 7day abx course. -CBC no longer demonstrates leukocytosis - afebrile -Turn every 2 hours -Daily wound care -MRSA contact isolation precautions in place -PT/OT eval Pt requires a 2 assist for turns. It is not safe or recommended for patient to return home under the care of his . Recommending SNF; discussed with Case Management #Complicated UTI | chronic indwelling Henderson catheter - 02/28 Urine Culture positive for Pseudomonas Aeruginosa; no leukocytosis, afebrile. Most recent henderson exchange in ED on 02/28 -Repeat UA not overly infectious; Repeat culture pending -Continue to observe for henderson leakage; no henderson leakage throughout inpatient stay #?Pneumothorax - RESOLVED; CXR 02/28 reported moderate-sized right apical pneumothorax - pt was placed on 100% nonrebreather. Adequate oxygenation on room air overnight. Repeat CXR on 03/01 revealed no evidence of collapse and no acute cardiopulmonary abnormalities; this was reconfirmed by pulmonary consultation. #Left Shoulder Pain - Xray on (03/09) demonstrated severe osteoarthritis of the glenohumeral joint -Pain: Tylenol (mild), Morphine (mod/severe) #Hypertension - no acute concerns -Continue metoprolol -Continue amlodipine -discontinue indapamide #BPH - No acute concerns -Continue Flomax and finasteride #Anemia | H/o TANMAY - Iron panel 03/02 revealed low iron in addition to depressed TIBC & transferrin. Last Venofer infusions (x3) at end of January; Iron, B12, Folate, and TSH recently checked -Hgb followed from admission - does have bleeding from back wound Dispo: Cont. inpatient MedSurg - plan for [facility] tomorrow. VTE proph: SCDs Called patient's (Kiki) and provided updates on 03/09; she is currently on board for long-term SNF placement. Admission and Anticipated Discharge Date Admission Date: February 28, 2025 Supervising Physician Co-Signing Physician Notes I did not see or examine the patient. I verified all kitchen points and agree with Noelle Tomlinson PA-C with the following exceptions and/or additions: None Subjective Pt was laying in bed today in [facility]. Pt denies any pain or discomfort this morning, he states that he has no left shoulder pain. Despite pt having dementia at baseline; pt denies sore throat, CP, SOB, and abd pain/discomfort. Pt was denied a bed in the following [facility], [place]: [facility], [facility], [facility], and [facility]. Review of Systems Review of Systems: All systems reviewed & are unremarkable except as noted in Subjective Physical Exam Physical Exam: General: Pt is a 79 y/o bed-bound male in [facility]. VS: reviewed - remarkable Skin: Area of superficial ulceration noted at sacral region with surrounding area of maceration (see image below) - continuing to improve with wound care. Skin is otherwise warm and dry; no other lesions or ulcerations Respiratory: CTA bilat, no adventitious sounds noted. Chest expansion is full and symmetrical Cardio: RRR no murmurs Abdomen: Round, normoactive BS x4, nontender to palpation MSK: Decreased ROM of L shoulder; pt struggles to move arm on own and expresses pain with passive extension at around 45 degrees. Pt denies pain to palpation of L shoulder. Pt able to move R arm independently without difficulty or pain. Neuro: A&Ox2 to Person and Place. Pleasant. Results & Data Results & Data Vital Signs (Past 12 Hours) Vital Signs Temp Pulse Resp BP Pulse Ox O2 Del Method 03/11/25 07:50 97.7 F 77 16 139/77 94 Room Air 03/10/25 22:50 98.2 F 81 20 159/76 H 96 Room Air Laboratory Results Reviewed 03/11: CBC PG Care Time/CCT Total # of Minutes Spent Total Time Spent with Patient: Total time spent is greater than 50% in coordination of care (as documented) at patient's floor/unit and/or counseling patient: Coding Level of Care Code 00214 SUB INP/OBS CARE 2MIN Diagnoses Skin breakdown R23.8 Pneumothorax J93.9 UTI (urinary tract infection) N39.0 CAD (coronary artery disease) I25.10 Diabetes E11.9 Hypertension I10 Hyperlipidemia E78.5"
[2025-03-11 10:43] LABS: Hematocrit (blood only) 23.7 % (42.0-52.0); Hemoglobin 7.9 g/dl (14.0-18.0); Immature Granulocytes # (auto) 0.06 K/uL (0.01-0.20); Immature Granulocytes % (auto) 0.6 %; Mean Corpuscular Hemoglobin 29.9 pg (25.0-34.0); Mean Corpuscular Volume 89.8 fL (80.0-100.0); Platelet Count 373 K/uL (130-400); RDW Standard Deviation 46.1 fL (36.4-46.3); Red Blood Count 2.64 M/uL (4.70-6.10); White Blood Count 9.43 K/ul (4.8-10.8)
[2025-03-11 11:07] LABS: Poikilocytosis Present; Polychromasia 1+
[2025-03-11 22:35] VITALS: RESP 16
--- NOTE | 2025-03-12 08:05 | Discharge Summary ---
"Discharge Summary Date of Service March 12, 2025 Principal Dx & Hospital Course #1 = Principal Diagnosis (1) Skin breakdown: (2) Pneumothorax: (3) UTI (urinary tract infection): (4) CAD (coronary artery disease): (5) Diabetes: (6) Hypertension: (7) Hyperlipidemia: Plan #Skin breakdown on the back | cellulitis - Pt is a 79 y/o male w/ a PMHx significant for T2DM, peripheral neuropathy, HLD, HTN, BPH, OA, and Sleep Apnea who presents with confusion. Pt was admitted wtih significant redness and skin breakdown on his back, bottom and scrotum d/t being bed-bound. A wound culture on 02/28 was positive for Pseudomonas Aeruginosa, MRSA, and Enterococcus Faecalis. Pt was initiated on IV Daptomycin + IV Zosyn which was discontinued after completing a 7-day course. Shortly after completing IV abx course, a sli ght elevation in WBC's occurred, this was trended from 03/09-03/11 and resolved without issue. Pt was provided with consistent wound care and turned from side to side every two hours. PT/OT evaluation notes pt as a max 2 assist for [id number] bed turns. It continues to be unsafe for pt to return home under the care of his . Pt is to be D/C to [facility]. #Complicated UTI | chronic indwelling Henderson catheter - A Urine Culture on 02/28 was positive for Pseudomonas Aeruginosa in the ED. Pt received IV abx in the ED on 02/28 and his Henderson was replaced. As stated above, IV abx were discontinued after completing a 7-day course. A repeat UA and Culture were completed on 03/09 d/t leukocytosis. UA was not overly infectious and Culture was negative for any bacteria. As stated above, leukocytosis resolved on 03/11 without any concerns. 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 #?Pneumothorax - While in the ED a CXR (02/28) reported moderate-sized right apical pneumothorax. Pt was then placed on 100% nonrebreather and maintained adequate oxygenation on room air over that night. Repeat CXR on 03/01 revealed no evidence of collapse and no acute cardiopulmonary abnormalities; this was reconfirmed by pulmonary consultation. #Left Shoulder Pain - Pt expressed left shoulder pain on 03/09 with restricted. Xray on (03/09) demonstrated severe osteoarthritis of the glenohumeral joint. Pt was provided with PRN pain management consisting of tylenol for mild pain and morphine for mod/severe pain. Pt's pain resolved on 03/11 and no further pain has been reported by pt. #Hypertension - no acute concerns; pt may continue metoprolol and amlodipine. Pt's indapamide was held througout the duration of inpt stay d/t interactions with IV abx. BP's remained stable during inpt stay. HOLD indapamide until further evaluation and f/u with PCP. #BPH - No acute concerns; continue Flomax and finasteride #Anemia | H/o TANMAY - Iron panel 03/02 revealed low iron in addition to depressed TIBC & transferrin. Last Venofer infusions (x3) at end of January; Iron, B12, Folate, and TSH recently checked. Pt may continue home oral supplementation. Hgb was followed throughout duration of admission; pt did have bleeding from skin breakdown on back. Dispo: D/C [facility] Notes For Next Care Provider Medication Changes From Visit HOLD indapamide until seen bu PCP Admission HPI Per Admitting Provider Joseph Montalvo is a 79yo male with history of Dementia, coronary artery disease, diabetes, hypertension, hyperlipidemia presenting from home with increased confusion. Patient is unable to provide details. No family at bedside. Patient presently with no complaints. Patient has wounds on his back leaking foul-smelling fluid ER course: Normal saline x 2.5 L Daptomycin Ceftriaxone Discharge Exam General: Pt is a 79 y/o bed-bound male in [facility]. VS: reviewed - remarkable Respiratory: CTA bilat, no adventitious sounds noted. Chest expansion is full and symmetrical Cardio: RRR no murmurs Abdomen: Round, normoactive BS x4, nontender to palpation Neuro: A&Ox2 to Person and Place. Pleasant. Discharge Plan Discharge Items Patient Disposition: Transfer Longterm Fac Reason For Visit: SEPSIS, WOUNDS Discharge Diagnosis: Cellulitis Condition on Discharge: Fair Activity: Resume your previous activity Non-emergency contact: Primary Care Provider Call non-emergency contact if: you have any medication questions, your symptoms worsen, your pain is worsening and you have a fever Follow-up/Referrals: Blaine Solis MD [Primary Care Provider] - Diet: Regular Addtl Attending Provider Instructions: You were admitted to the hospital for skin breakdown on your back, cellulitis, and a complicated UTI. While you were here, you were given IV antibiotics to clear your infection and wound care to help heal your lower back/sacrum. Medications: Your medication list has been reviewed and reconciled upon discharge to ensure accuracy and continuity of care. An updated list of all your medications is included with your hospital discharge paperwork. Please review this list closely, and make note of any changes. Take your medications as instructed; do not skip a dose of your medicines. Make sure all of your doctors know every medicine you are taking (including ckaf-yxo-pvphpln medicines, vitamins, and supplements). Call your primary care provider before taking any new medicines (including over- the-counter medicines, vitamins, and supplements), because some of these may interact with your current medications, or may make your symptoms worse. Tell your primary care provider if you cannot afford your medications. Activity: You can do normal everyday activities as your body allows. Take rest breaks if you feel tired. Do not overexert. Stop activity if you have pain, shortness of breath or feel dizzy. Follow-up appointments: Make an appointment with your primary care physician within one week of discharge. A copy of this summary will be sent to them. Every time you see your primary care physician, or any other doctor, bring your medication list, and a list of questions. CONTACT YOUR PRIMARY CARE PROVIDER if you experience any of the following: Shortness of breath or difficulty breathing Fevers or chills Feeling tired with normal activity or experiencing dizziness or fainting Difficulty following your treatment plan, or difficulty taking medications CALL 911 OR GO TO THE EMERGENCY DEPARTMENT if you experience any of the following: Severe abdominal pain or nausea/vomiting Severe chest pain, or chest pain that radiates (moves) to your jaw or arm Sudden, severe shortness of breath or difficulty breathing Thank you for allowing us to participate in your care. Pending Studies at Discharge: No Stand-Alone Forms: My [facility] Skilled Items Patient informed of condition?: Yes DNR: No Discharge Level of Care: Skilled Communicable Disease: No Discharge Prognosis: Stable Lines: None Urinary Catheter: Yes Medications and DC Order Prescriptions: Continued ferrous sulfate 325 mg (65 mg iron) tablet 325 mg PO BID Hold Instructions: Provider's Order Rx Instructions: HELD OF 02/10 atorvastatin 10 mg Tablet 10 mg PO QAM Qty: 30 0RF finasteride 5 mg tablet 5 mg PO DAILY Qty: 90 3RF lidocaine HCl 2 % Jelly 1 applic intra-urethral Q4H PRN (Reason: URETHRAL PAIN) polyethylene glycol 3350 [Miralax] 17 gram/dose Powder 17 g PO QAM Patient Comments: Unable to verify OTC meds at this date/time. 01/31/25 cholecalciferol (vitamin D3) [Vitamin D3] 25 mcg (1,000 unit) Capsule 25 mcg PO QAM Patient Comments: Unable to verify OTC meds at this date/time. 01/31/25 fhwwemkgkqln-joianmmd-dckkhu Tablet 1 tab PO QAM Patient Comments: Unable to verify OTC meds at this date/time. 01/31/25 duloxetine 30 mg capsule,delayed release(DR/EC) 30 mg PO QAM duloxetine 60 mg capsule,delayed release(DR/EC) 60 mg PO QPM diclofenac sodium 1 % Gel 2 g TOPICAL QID Patient Comments: Unable to verify OTC meds at this date/time. 01/31/25 Rx Instructions: APPLY TO LEFT SHOULDER acetaminophen 325 mg tablet 650 mg PO TID Patient Comments: Unable to verify OTC meds at this date/time. 01/31/25 metoprolol succinate 25 mg tablet extended release 24 hr 25 mg PO QAM fluticasone propionate 50 mcg/actuation spray,suspension 1 spray INTRANASAL DAILY PRN (Reason: Congestion) Patient Comments: Unable to verify OTC meds at this date/time. 01/31/25 cyanocobalamin (vitamin B-12) 1,000 mcg Tablet 1,000 mcg PO QAM amlodipine 5 mg Tablet 5 mg PO QAM Qty: 30 0RF magnesium chloride [Mag 64] 64 mg tablet,delayed release (DR/EC) 64 mg PO QAM Patient Comments: Per spouse, pt takes once daily due to diarrhea. Originally written for twice daily. 01/31/25 Gemtesa 75 mg Tablet 75 mg PO DAILY Qty: 30 0RF Held indapamide 2.5 mg Tablet 2.5 mg PO QAM Qty: 30 0RF Hold Instructions: Resume on 03/31/25. Hold until seen by PCP Rx Instructions: HELD OF 02/10 Discontinued amoxicillin 500 mg Capsule 2,000 mg PO DIRECTED PRN (Reason: 1 HR PRIOR TO DENTAL PROCEDURES) Discharge Orders: Discharge Order (Routine); Ordered 03/12/25 Ordered By: Noelle Tomlinson Admission Data Admit Date/Time: 02/28/25 23:30 Attending Provider: Alton Carrizales Admit Provider: Ann-Marie Steiner Primary Care Provider: Blaine Solis Other Providers: Ann-Marie Steiner; Carlene Del Rosario; [place] [place] Hospital Stay Data Consultations 02/28/25 22:40 ED Decision to Admit Stat 03/01/25 02:34 Consult Pulmonology Routine Diagnostic Imagining Performed Chest X-Ray 02/28/25 21:14 CR Exam(s): XR CXR 1 VIEW EXAM: XR Chest, 1 View CLINICAL HISTORY: Reason for exam: Sepsis. TECHNIQUE: Frontal view of the chest. COMPARISON: Prior chest x-ray from January 31, 2025. FINDINGS: Lungs: Mild to moderate peribronchial thickening of the central bronchi. No consolidation. Pleural space: There is a moderate sized right apical pneumothorax. Heart: Status post aortic valve replacement. No cardiomegaly. Mediastinum: Unremarkable. Normal mediastinal contour. Bones/joints: Status post median sternotomy with sternal wires intact. No acute fracture. IMPRESSION: There is a moderate sized right apical pneumothorax. Bronchitis, which may be of infectious or inflammatory etiologies. No consolidation or pleural effusion. Communications: Call Doctor Pneumothorax Electronically signed by: Amy Mcnair MD 03/01/25 00:55 AM Chest X-Ray 03/01/25 07:00 EXAM: XR chest 1V portable CLINICAL HISTORY: Assess pneumothorax. TECHNIQUE: An X-ray image of the chest was obtained in AP projection. COMPARISON: CR 01/31/2025. FINDINGS: Pulmonary Parenchyma: The lungs are clear bilaterally. There is no evidence of consolidation, collapse, or focal opacities. No pulmonary nodules are identified. There is no evidence of pleural effusion or pleural thickening. Heart and Mediastinum: The heart size and shape are normal. There is no mediastinal widening or masses. No hilar or mediastinal lymphadenopathy is identified. Postsurgical changes of median sternotomy and cardiac valve replacement are present. Bony Thorax: The bony thorax appears intact without fractures or deformities. Degenerative changes of the shoulders and spine are present. Soft Tissues: The soft tissues overlying the chest wall are unremarkable. IMPRESSION: 1. No acute cardiopulmonary abnormalities are identified. 2. No interval change. Electronically signed by Trevor Corbin 03-01-2025 08:02 AM Shoulder X-Ray 03/09/25 17:19 Clinical History: Pain. 4 views of the left shoulder are submitted for review. Findings: No fracture or dislocation is seen. There is severe glenohumeral osteoarthritis. There is mild acromioclavicular osteoarthritis. No other osseous abnormality is identified. There are no radiopaque foreign bodies. Impression: Left shoulder osteoarthritis Electronically signed by Manjit Cortes 03-09-2025 7:04 PM Discharge Instructions Given to Patient (Per Discharging Provider) You were admitted to the hospital for skin breakdown on your back, cellulitis, and a complicated UTI. While you were here, you were given IV antibiotics to clear your infection and wound care to help heal your lower back/sacrum. Medications: Your medication list has been reviewed and reconciled upon discharge to ensure accuracy and continuity of care. An updated list of all your medications is included with your hospital discharge paperwork. Please review this list closely, and make note of any changes. Take your medications as instructed; do not skip a dose of your medicines. Make sure all of your doctors know every medicine you are taking (including dvat-ixz-zkhdhyq medicines, vitamins, and supplements). Call your primary care provider before taking any new medicines (including over- the-counter medicines, vitamins, and supplements), because some of these may interact with your current medications, or may make your symptoms worse. Tell your primary care provider if you cannot afford your medications. Activity: You can do normal everyday activities as your body allows. Take rest breaks if you feel tired. Do not overexert. Stop activity if you have pain, shortness of breath or feel dizzy. Follow-up appointments: Make an appointment with your primary care physician within one week of discharge. A copy of this summary will be sent to them. Every time you see your primary care physician, or any other doctor, bring your medication list, and a list of questions. CONTACT YOUR PRIMARY CARE PROVIDER if you experience any of the following: Shortness of breath or difficulty breathing Fevers or chills Feeling tired with normal activity or experiencing dizziness or fainting Difficulty following your treatment plan, or difficulty taking medications CALL 911 OR GO TO THE EMERGENCY DEPARTMENT if you experience any of the following: Severe abdominal pain or nausea/vomiting Severe chest pain, or chest pain that radiates (moves) to your jaw or arm Sudden, severe shortness of breath or difficulty breathing Thank you for allowing us to participate in your care. Supervising Physician Co-Signing Physician Notes The patient was not seen by me. The chart was reviewed. Case discussed with IRINA Pham. Agree with assessment and plan Total Time Total Time Spent Total Time Spent (In Minutes): Time spent day of discharge 35 minutes including direct patient care, medication reconciliation, documentation, review of labs and images, and coordination of care. Coding Level of Care Code 15205 INP/OBS DISCH >30 MIN Diagnoses Skin breakdown R23.8 Pneumothorax J93.9 UTI (urinary tract infection) N39.0 CAD (coronary artery disease) I25.10 Diabetes E11.9 Hypertension I10 Hyperlipidemia E78.5"
[2025-03-12 08:07] VITALS: BP 167/73; PULSE 77; TEMP 97.9; O2SAT 96
--- NOTE | 2025-03-13 07:36 | Coding Query ---
CODING QUERY To promote full compliance with coding requirements relating to patient care, provider participation is requested in all cases of director of real estate uncertainty. Please assist us with the question(s) below: Coding Question(s): Pt admitted with back cellulitis, UTI with chronic indwelling catheter. Please document, if known or suspected, the etiology of the UTI. The indwelling urinary catheter was exchanged in the ED. Cultures positive for infection. Thanks for your help! Gibson Gan [facility] Physician's Response(s): IRINA Pham patient Principal Diagnosis: "that condition established after study, to be chiefly responsible for occasioning the admission of the patient to the hospital for care." Co-Existing Principal Diagnosis: "when two or more diagnoses equally meet the criteria for principal diagnosis as determined by the circumstances of admission, diagnostic work up, and/or therapy provided, and the Alphabetic Index, Tabular List, or another coding guideline does not provide sequencing direction, any one of the diagnoses may be sequenced first." "When the physician has documented what appears to be a current diagnosis in the body of the record, but has not included the diagnosis in the final diagnostic statement, the physician should be asked whether the diagnosis should be added." ([facility] 2 QTR90. p3-4) SHARON
--- NOTE | 2025-03-13 07:50 | Coding Query ---
PRESSURE ULCER DOCUMENTATION To promote full compliance with coding requirements relating to patient care, physician participation is requested in all cases of drupal developer uncertainty. Please assist us with the question(s) below: Please specify the known or suspected type by placing an "X" within the parenthesis (x). Pt confined to bed admitted with skin breakdown on back,buttocks, and scrotal areas. Progress notes document cellulitis of back. Skin breakdown was identified on back,buttocks & scrotal areas If possible, please check the box that provides the specific stage of the BACK skin breakdown ( ) Stage I ( ) Stage II ( ) Stage III ( ) Stage IV ( ) Unstageable iF possicle please check the box that provides the specific stage of the buttocks skin breakdown: ( ) Stage I ( ) Stage II ( ) Stage III ( ) Stage IV ( ) Unstageable If possible please check the box that provides the specific stage of the scrotal skin breakdown: ( ) Stage I ( ) Stage II ( ) Stage III ( ) Stage IV ( ) Unstageable Thanks for your assistance! INDIGO Maurice [facility]
--- NOTE | 2025-03-15 06:03 | Coding Query ---
CODING QUERY To promote full compliance with coding requirements relating to patient care, provider participation is requested in all cases of control systems drafting officer uncertainty. Please assist us with the question(s) below: Coding Question(s): Pt admitted with skin breakdown, UTI with henderson. UA in the ED positive on 02/28 for Pseudomonas. Henderson changed . Progress notes state complicted UTI , change henderson etc. Please document, if known or suspected, the etiology of the UTI. Thanks for your help! Gibson Gan [facility] Physician's Response(s): Suspected CAUTI Principal Diagnosis: "that condition established after study, to be chiefly responsible for occasioning the admission of the patient to the hospital for care." Co-Existing Principal Diagnosis: "when two or more diagnoses equally meet the criteria for principal diagnosis as determined by the circumstances of admission, diagnostic work up, and/or therapy provided, and the Alphabetic Index, Tabular List, or another coding guideline does not provide sequencing direction, any one of the diagnoses may be sequenced first." "When the physician has documented what appears to be a current diagnosis in the body of the record, but has not included the diagnosis in the final diagnostic statement, the physician should be asked whether the diagnosis should be added." ([facility]oding [facility] 2 QTR90. p3-4) SHARON
--- NOTE | 2025-03-18 05:50 | Coding Query ---
PRESSURE ULCER DOCUMENTATION To promote full compliance with coding requirements relating to patient care, physician participation is requested in all cases of bridge repairer uncertainty. Please assist us with the question(s) below: Please specify the known or suspected type by placing an "X" within the parenthesis (x). Pt admitted with cellulitis of back after prolonged bed confinement. Areas of skin breakdown noted on back due to pressure. Hospitalist note 03/09 stated "superficial ulcer noted at sacrum region with maceration on lower back. No other ulcer/lesion seen. Skin breakdown noted on back,buttock and scrotal areas. Wound Care was initiated. I appreciate your help! INDIGO [facility] If possible, please check the box that provides the specific stage of the sacral ulcer ( ) Stage I ( ) Stage II ( ) Stage III ( ) Stage IV ( ) Unstageable If possible please check the box that provides the specific stage of the buttocks skin breakdown ( ) Stage I ( ) Stage II ( ) Stage III ( ) Stage IV ( ) Unstageable If possible please check the box that provides the specific stage of the scrotal skin breakdown ( ) Stage I ( ) Stage II ( ) Stage III ( ) Stage IV ( ) Unstageable If possible please check thet box that provides the specific stage of the back ( ) Stage I ( ) Stage II ( ) Stage III ( ) Stage IV ( ) Unstageable Thank you Gibson HERRERA
== END 2025-03-12 14:03 | DRG 603 ==
LOC: ED 21:07 → SUATTDRO 23:30 → 3E 23:30